=== PATIENT | female | born 1985 | race Caucasian/White ===

== ENCOUNTER 2018-07-19 12:56 | Emergency (ER) | payer SELFPAY ==
[2018-07-19 13:40] LABS: Urine Blood NEGATIVE (NEG); Urine Glucose NEGATIVE (NEG); Urine Protein NEGATIVE (NEG); Urine Specific Gravity 1.015 (1.005-1.030); Urine pH 8.5 (5.0-7.0)
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
[2018-07-19] MEDS ORDERED: IBUPROFEN 400 MG TAB ONE (14:21)
--- NOTE | 2018-07-19 15:26 | EKG ---
Test Date: 2018-07-19 Test Time: 13:42:39 Hemodialysis Rn: RAMON MEASUREMENT RESULTS: Intervals: Rate: 76 LA: 146 QRSD: 78 QT: 386 QTc: 434 [place]: P: 5 LA: 146 QRS: 36 T: 34 INTERPRETIVE STATEMENTS: Normal sinus rhythm Cannot rule out Anterior infarct, age undetermined Abnormal ECG No previous ECG available for comparison Electronically Signed On 07-19-18 15:25:13 CDT by Artemio Stevenson
== END 2018-07-19 14:29 | disposition home or self-care (01) ==
LOC: ER 12:56
DX: M54.2 Cervicalgia (principal); V59.9XXA Occupant (driver) (passenger) of pick-up truck or van injured in unspecified traffic accident, initial encounter; Z88.1 Allergy status to other antibiotic agents; Z88.8 Allergy status to other drugs, medicaments and biological substances
CPT/HCPCS: 70450; 72125; 81003; 81025; 93005; 99284

== ENCOUNTER 2019-04-25 16:53 | Emergency (ER) | payer OTHER, SELFPAY ==
--- OUTSIDE RECORDS SUMMARY | 2019-04-25 16:56 | XMS REPORT ---
:1985 [facility] Address [address] [place] [address] Dr. Delarosa [address] [place] [id number] Care Team Providers Name Role Phone Unavailable Unavailable Unavailable Problems This patient has no known problems. Allergies, Adverse Reactions, Alerts This patient has no known allergies or adverse reactions. Medications This patient has no known medications.
[2019-04-25 17:13] LABS: Absolute Lymphocytes (CBC) 1.7 K/uL (0.7-4.9); Basophils % 0.5 % (0-1.3); Hematocrit 39.2 % (36.0-45.0); Lymphocytes % 25.7 % (15.3-44.8); MPV 8.2 fL (7.6-11.3); Monocytes % 9.7 % (3.3-12.3); RBC Red Blood Cell Count 4.55 M/uL (3.86-4.86)
[2019-04-25 17:15] LABS: Protime INR 1.02
[2019-04-25 17:38] LABS: ALT/SGPT 29 U/L (12-78); AST/SGOT 10 U/L (15-37); Albumin 3.7 g/dL (3.4-5.0); Alkaline Phosphatase 129 U/L (45-117); BUN Blood Urea Nitrogen 9 mg/dL (7-18); Bicarbonate 21 mmol/L (21-32); Bilirubin Direct < 0.1 mg/dL (0-0.2); Bilirubin Total 0.3 mg/dL (0.2-1.0); Glucose Level 105 mg/dL (74-106); Magnesium 2.4 mg/dL (1.8-2.4); NT PRO-BNP 124 pg/mL (<125); Potassium 3.3 mmol/L (3.5-5.1); Protein, Total 7.3 g/dL (6.4-8.2); Sodium Level 140 mmol/L (136-145); Troponin (Emerg Dept Use Only) < 0.02 ng/mL (0.0-0.045)
[2019-04-25 17:39] LABS: Barbiturates NEGATIVE (NEGATIVE); Benzodiazepines NEGATIVE (NEGATIVE); Cocaine NEGATIVE (NEGATIVE); METHAMPHETAM NEGATIVE (NEGATIVE); Methadone NEGATIVE (NEGATIVE); Opiates NEGATIVE (NEGATIVE); Phencyclidine NEGATIVE (NEGATIVE); THC Cannibis NEGATIVE (NEGATIVE)
[2019-04-25 17:58] LABS: Urine Bacteria <20 /HPF (<20); Urine RBC <5 /HPF (NONE SEEN)
[2019-04-25 17:59] LABS: Urine Culture Reflex Order NOT NEEDED
--- NOTE | 2019-04-25 18:04 | RAD REPORT ---
EXAM DESCRIPTION: RAD - Chest Single View - 04/25/2019 5:35 pm CLINICAL HISTORY: Chest pain COMPARISON: None. TECHNIQUE: AP portable chest image was obtained 1712 hours . FINDINGS: Lungs are clear. Heart and vasculature are normal. No measurable pleural effusion and no p neumothorax. No acute bony abnormality seen. No acute aortic findings suspected. IMPRESSION: No acute cardiopulmonary process.
[2019-04-25] MEDS ORDERED: POTASSIUM 25 MEQ EFFERV TAB ONE (18:14)
[2019-04-25 19:20] LABS: Urine Blood NEGATIVE (NEG); Urine Glucose NEGATIVE (NEG); Urine Protein NEGATIVE (NEG); Urine Specific Gravity 1.015 (1.005-1.030); Urine pH >8.5 (5.0-7.0)
--- NOTE | 2019-04-25 20:59 | ER ---
Nurse's Notes [facility] Name: Sunshine Evans Age: 33 yrs Sex: Female : 1985 Arrival Date: 04/25/2019 Time: 16:55 Bed 27 Private MD: Diagnosis: Chest pain, unspecified Presentation: 04/25 16:55 Presenting complaint: EMS states: Sternal chest pain that started today just HEEL BREASTER with aj nausea. EMS reports normal 12 lead EKG. Given Nitro 0.4 mg SL and Zofran 8 mg. Reports nausea and chest pain resolved. Transition of care: patient was not received from another setting of care. Onset of symptoms was April 25, 2019. Risk Assessment: Do you want to hurt yourself or someone else? Patient reports no desire to harm self or others. Initial Sepsis Screen: Does the patient meet any 2 criteria? No. Patient's initial sepsis screen is negative. Does the patient have a suspected source of infection? No. Patient's initial sepsis screen is negative. 16:55 Method Of Arrival: EMS: [facility] 16:55 Acuity: MIRANDA 3 aj 17:00 Care prior to arrival: Medication(s) given: Nitroglycerin, 0.4 mg SL x 1, zofran 8 mg, aj IV initiated. 18 GA, in the right antecubital area. Triage Assessment: 16:57 General: Appears in no apparent distress. comfortable, Behavior is calm, cooperative, aj appropriate for age. Pain: Denies pain. 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 - Social history:: Smoking status: Patient/guardian denies using tobacco. - Ebola Screening: : Patient negative for fever greater than or equal to 101.5 degrees Fahrenheit, and additional compatible Ebola Virus Disease symptoms Patient denies exposure to infectious person Patient denies travel to an Ebola-affected area in the 21 days before illness onset No symptoms or risks identified at this time. Screenin:25 Abuse screen: Denies threats or abuse. Denies injuries from another. Nutritional mg2 screening: No deficits noted. Tuberculosis screening: No symptoms or risk factors identified. Fall Risk IV access (20 points). Assessment: 17:25 General: Appears in no apparent distress. comfortable, Behavior is calm, cooperative. mg2 Pain: Complains of pain in chest Pain does not radiate. Quality of pain is described as aching. Neuro: Level of Consciousness is awake, alert, obeys commands, Oriented to person, place, time, situation. Cardiovascular: Capillary refill < 3 seconds Patient's skin is warm and dry. Respiratory: Airway is patent Respiratory effort is even, unlabored, Respiratory pattern is regular, symmetrical. GI: Reports nausea. : No signs and/or symptoms were reported regarding the genitourinary system. EENT: No signs and/or symptoms were reported regarding the EENT system. Derm: Skin is intact, is healthy with good turgor, Skin is pink, warm \T\ dry. normal. Musculoskeletal: Circulation, motion, and sensation intact. Capillary refill < 3 seconds. 18:06 Reassessment: patient informed about the need to repeat the cardiac enzyme and ekg \T\ mg2 1945. 19:06 General: Appears in no apparent distress. Behavior is calm, cooperative. Pain: Denies fu pain. Neuro: Level of Consciousness is awake, alert, obeys commands, Oriented to person, place, time, situation. Respiratory: Airway is patent Respiratory effort is even, unlabored, Respiratory pattern is regular, symmetrical. 19:30 Pain: Complains of pain in chest Pain currently is 6 out of 10 on a pain scale. fu Vital Signs: 16:59 BP 104 / 56; Pulse 71; Resp 16; Temp 98.1; Pulse Ox 100% on R/A; Weight 90.72 kg; aj Height 5 ft. 6 in. (167.64 cm); 18:06 BP 110 / 64; Pulse 68; Resp 18; Pulse Ox 100% on R/A; Pain 2/10; mg2 19:00 BP 119 / 70; Pulse 86; Resp 16; Pulse Ox 100% on R/A; fu 20:00 BP 111 / 69; Pulse 79; Resp 18; Pulse Ox 100% ; Pain 6/10; fu 21:00 BP 110 / 63; Pulse 77; Resp 18; Pulse Ox 99% ; Pain 6/10; fu 16:59 Body Mass Index 32.28 (90.72 kg, 167.64 cm) ED Course: 16:55 Patient arrived in ED. aj 16:55 L[facility] Hoffmann [facility]-C [facility]. snw 16:55 Kevin Cleary MD is Attending Physician. snw 16:57 Triage completed. aj 16:57 Nithin Canas, RN is Primary Nurse. mg2 16:59 Arm band placed on right wrist. Patient placed in an exam room, on a stretcher. aj 17:04 Initial lab(s) drawn, by me, sent to lab. EKG done. Maintain EMS IV. Dressing intact. jp3 Good blood return noted. Site clean \T\ dry. Gauge \T\ site: 20gauge in Right A/C. Patient maintains SpO2 saturation greater than 95% on room air. 17:05 Bed in low position. Call light in reach. Side rails up X 1. Warm blanket given. Verbal jp3 reassurance given. hospital monitor on. Pulse ox on. NIBP on. 17:11 EKG done, by ag equipment field service technician. reviewed by Lidia BROWNING. at1 17:15 Urine collected: clean catch specimen, clear, yesenia colored. jp3 17:26 No provider procedures requiring assistance completed. mg2 17:36 XRAY Chest (1 view) In Process Unspecified. EDMS 19:38 patient requesting for warm blanket, provided. fu 19:42 Lidia notified that patient complaining of chest pain, EKG done. fu 19:44 Primary Nurse role handed off by Nithin Canas, RN fu 19:44 Jarett Altamirano, MARÍA is Primary Nurse. fu 21:00 Patient has correct armband on for positive identification. Bed in low position. Call fu light in reach. Side rails up X2. 21:10 IV discontinued, intact, bleeding controlled, No redness/swelling at site. Pressure jp3 dressing applied. Administered Medications: 18:05 Drug: Potassium Effervescent Tablet 50 mEq Route: PO; mg2 18:55 Follow up: Response: No adverse reaction mg2 18:20 CANCELLED (error): fentaNYL (PF) 25 mcg IVP once snw 21:12 Drug: Simethicone 120 mg Route: PO; fu 21:20 Follow up: Response: No adverse reaction fu 21:12 Drug: Tylenol 650 mg Route: PO; fu 21:20 Follow up: Response: No adverse reaction fu Outcome: 20:58 Discharge ordered by MD. snw 21:26 Discharged to home ambulatory. fu 21:26 Condition: stable 21:26 Discharge instructions given to patient, Instructed on discharge instructions, follow up and referral plans. Demonstrated understanding of instructions, follow-up care, medications, Prescriptions given X 1. 21:28 Patient left the ED. fu Signatures: Dispatcher [employer] EDMS Mariaa Oliva, RN RN Lidia Judge, AIRCRAFT SYSTEMS REPAIRER-C AIRCRAFT SYSTEMS REPAIRER-Csnw Mariaa Stanford, job press feeder EKG Tat1 Jarett Altamirano RN RN Nithin Canas RN MAR[place]A [facility] [place] Cosme jp3 Corrections: (The following items were deleted from the chart) 17:01 16:55 Care prior to arrival: None. gisselle pitts 19:39 19:37 warm blanket, provided with one. fu fu
--- NOTE | 2019-04-25 20:59 | EDPHYS ---
Physician Documentation [facility] Name: Sunshine Evans Age: 33 yrs Sex: Female : 1985 Arrival Date: 04/25/2019 Time: 16:55 Bed 27 Private MD: ED Physician Kevin Cleary HPI: 04/25 17:26 This 33 yrs old Female presents to ER via EMS with complaints of Chest Pain > snw 29 y/o, Anxiety. 17:26 The patient or guardian reports chest pain that is located primarily in the anterior snw chest wall, left. The pain radiates to the left scapula. Associated signs and symptoms: Pertinent positives: nausea. The chest pain is described as a pressure. Duration: The patient or guardian reports a single episode, that is now resolved. Modifying factors: The symptoms are alleviated by ASA, NTG. Severity of pain: At its worst the pain was moderate severe. EMS care prior to arrival includes: aspirin, nitroglycerin. It is unknown whether or not the patient has had similar symptoms in the past. recent results of abnormal LFT's and low HDL. No family hx of early heart disease. 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 - Social history:: Smoking status: Patient/guardian denies using tobacco. - Ebola Screening: : Patient negative for fever greater than or equal to 101.5 degrees Fahrenheit, and additional compatible Ebola Virus Disease symptoms Patient denies exposure to infectious person Patient denies travel to an Ebola-affected area in the 21 days before illness onset No symptoms or risks identified at this time. ROS: 17:24 Constitutional: Negative for fever, chills, and weight loss, Eyes: Negative for injury, snw pain, redness, and discharge, ENT: Negative for injury, pain, and discharge, Neck: Negative for injury, pain, and swelling, Respiratory: Negative for shortness of breath, cough, wheezing, and pleuritic chest pain, Abdomen/GI: Negative for abdominal pain, vomiting, diarrhea, and constipation, + nausea Back: Negative for injury and pain, : Negative for injury, bleeding, discharge, and swelling, MS/Extremity: Negative for injury and deformity, Skin: Negative for injury, rash, and discoloration, Neuro: Negative for headache, weakness, numbness, tingling, and seizure. 17:24 Cardiovascular: Positive for chest pain, of the left supraclavicular area, left clavicle and anterior aspect of left upper chest. Exam: 17:24 Constitutional: This is a well developed, well nourished patient who is awake, alert, snw and in no acute distress. Head/Face: Normocephalic, atraumatic. Eyes: Pupils equal round and reactive to light, extra-ocular motions intact. Lids and lashes normal. Conjunctiva and sclera are non-icteric and not injected. Cornea within normal limits. Periorbital areas with no swelling, redness, or edema. ENT: Nares patent. No nasal discharge, no septal abnormalities noted. Tympanic membranes are normal and external auditory canals are clear. Oropharynx with no redness, swelling, or masses, exudates, or evidence of obstruction, uvula midline. Mucous membranes moist. Neck: Trachea midline, no thyromegaly or masses palpated, and no cervical lymphadenopathy. Supple, full range of motion without nuchal rigidity, or vertebral point tenderness. No Meningismus. Chest/axilla: Normal chest wall appearance and motion. Nontender with no deformity. No lesions are appreciated. Cardiovascular: Regular rate and rhythm with a normal S1 and S2. No gallops, murmurs, or rubs. Normal PMI, no JVD. No pulse deficits. Respiratory: Lungs have equal breath sounds bilaterally, clear to auscultation and percussion. No rales, rhonchi or wheezes noted. No increased work of breathing, no retractions or nasal flaring. Abdomen/GI: Soft, non-tender, with normal bowel sounds. No distension or tympany. No guarding or rebound. No evidence of tenderness throughout. Back: No spinal tenderness. No costovertebral tenderness. Full range of motion. Skin: Warm, dry with normal turgor. Normal color with no rashes, no lesions, and no evidence of cellulitis. MS/ Extremity: Pulses equal, no cyanosis. Neurovascular intact. Full, normal range of motion. Neuro: Awake and alert, GCS 15, oriented to person, place, time, and situation. Cranial nerves II-XII grossly intact. Motor strength 5/5 in all extremities. Sensory grossly intact. Cerebellar exam normal. Normal gait. Psych: Awake, alert, with orientation to person, place and time. Behavior, mood, and affect are within normal limits. 17:30 ECG was reviewed by the Attending Physician. snw Vital Signs: 16:59 BP 104 / 56; Pulse 71; Resp 16; Temp 98.1; Pulse Ox 100% on R/A; Weight 90.72 kg; aj Height 5 ft. 6 in. (167.64 cm); 18:06 BP 110 / 64; Pulse 68; Resp 18; Pulse Ox 100% on R/A; Pain 2/10; mg2 19:00 BP 119 / 70; Pulse 86; Resp 16; Pulse Ox 100% on R/A; fu 20:00 BP 111 / 69; Pulse 79; Resp 18; Pulse Ox 100% ; Pain 6/10; fu 21:00 BP 110 / 63; Pulse 77; Resp 18; Pulse Ox 99% ; Pain 6/10; fu 16:59 Body Mass Index 32.28 (90.72 kg, 167.64 cm) aj MDM: 17:02 Patient medically screened. snw 17:28 HEART Score: History: Moderately Suspicious (1), ECG: Normal (0), Age: < or = 45 years snw (0), Risk Factors: No Risk Factors Known (0). Data reviewed: vital signs, nurses notes. Data interpreted: Pulse oximetry: on room air is 100 %. Interpretation: normal. Counseling: I had a detailed discussion with the patient and/or guardian regarding: the historical points, exam findings, and any diagnostic results supporting the discharge/admit diagnosis. 20:59 HEART Score: Troponin: < or = 1 x Normal Limit (0). snw 07 16:57 Order name: Basic Metabolic Panel mg2 04/25 16:58 Order name: CBC with Diff mg2 04/25 16:58 Order name: LFT's mg2 04/25 16:58 Order name: Magnesium; Complete Time: 17:50 mg2 04/25 16:58 Order name: NT PRO-BNP; Complete Time: 17:50 mg2 04/25 16:58 Order name: PT-INR; Complete Time: 17:23 mg2 04/25 16:58 Order name: Troponin (emerg Dept Use Only); Complete Time: 17:50 mg2 04/25 16:58 Order name: Basic Metabolic Panel; Complete Time: 17:50 EDMS 04/25 16:58 Order name: CBC with Automated Diff; Complete Time: 17:23 EDMS 04/25 16:58 Order name: Liver (Hepatic) Function; Complete Time: 17:50 EDMS 04/25 17:02 Order name: Urine Drug Screen; Complete Time: 17:50 snw 04/25 17:02 Order name: Urine Culture snw 04/25 17:02 Order name: Urine Microscopic Only; Complete Time: 18:00 snw 04/25 17:27 Order name: Urine Dipstick--Ancillary (enter results); Complete Time: 19:45 em1 04/25 16:58 Order name: XRAY Chest (1 view); Complete Time: 18:07 mg2 04/25 16:58 Order name: EKG; Complete Time: 16:59 mg2 04/25 16:58 Order name: Cardiac monitoring; Complete Time: 17:24 mg2 04/25 16:58 Order name: EKG - Nurse/Tech; Complete Time: 17:24 mg2 04/25 16:58 Order name: IV Saline Lock; Complete Time: 17:24 mg2 04/25 16:58 Order name: Labs collected and sent; Complete Time: 17:24 mg2 04/25 16:58 Order name: O2 Per Protocol; Complete Time: 17:24 mg2 04/25 16:58 Order name: O2 Sat Monitoring; Complete Time: 17:24 mg2 04/25 17:02 Order name: Urine Dipstick-Ancillary (obtain specimen); Complete Time: 17:26 snw 04/25 17:52 Order name: Repeat Cardiac Enzymes at: at 1945 and EKG; Complete Time: 20:03 snw 04/25 20:21 Order name: Troponin (emerg Dept Use Only); Complete Time: 20:56 snw Administered Medications: 18:05 Drug: Potassium Effervescent Tablet 50 mEq Route: PO; mg2 18:55 Follow up: Response: No adverse reaction mg2 18:20 CANCELLED (error): fentaNYL (PF) 25 mcg IVP once snw 21:12 Drug: Simethicone 120 mg Route: PO; fu 21:20 Follow up: Response: No adverse reaction fu 21:12 Drug: Tylenol 650 mg Route: PO; fu 21:20 Follow up: Response: No adverse reaction fu Disposition: 04/25/19 20:58 Discharged to Home. Impression: Chest pain, unspecified. - Condition is Stable. - Discharge Instructions: Nonspecific Chest Pain, Potassium Content of Foods, Gastroesophageal Reflux Disease, Adult, Aspirin and Your Heart. - Prescriptions for Pepcid 20 mg Oral Tablet - take 1 tablet by ORAL route once daily; 20 tablet. - Work release form, Family Work Release, Medication Reconciliation Form, Thank You Letter, Antibiotic Education, Prescription Opioid Use form. - Follow up: Private Physician; When: 1 - 2 days; Reason: Recheck today's complaints, Continuance of care, Re-evaluation by your physician. Follow up: Emergency Department; When: As needed; Reason: Worsening of condition. - Problem is new. - Symptoms are unchanged. Addendum: 04/29/2019 12:42 Co-signature as Attending Physician, Kevin Cleary MD. m a2 Signatures: Dispatcher [employer] Mariaa Lam RN RN aj Therrien, Shelly, AISHWARYA-C MACHINE BRUSH MAKER-Csnw Jarett Altamirano RN RN fu Alzahri, Mohammad, MD MD ma2 Nithin Canas RN RN mg2 Corrections: (The following items were deleted from the chart) 04/25 17:03 17:02 Urine Test ordered. snw snw 18:20 18:19 fentaNYL (PF) 25 mcg IVP once ordered. snw snw 21:28 20:58 04/25/2019 20:58 Discharged to Home. Impression: Chest pain, unspecified. fu Condition is Stable. Forms are Medication Reconciliation Form, Thank You Letter, Antibiotic Education, Prescription Opioid Use. Follow up: Private Physician; When: 1 - 2 days; Reason: Recheck today's complaints, Continuance of care, Re-evaluation by your physician. Follow up: Emergency Department; When: As needed; Reason: Worsening of condition. Problem is new. Symptoms are unchanged. snw
[2019-04-25] MEDS ORDERED: ACETAMINOPHEN 325 MG TABLET ONE (21:17)
[2019-04-25] MEDS ORDERED: SIMETHICONE 80 MG TAB ONE (21:17)
--- NOTE | 2019-04-26 06:54 | EKG ---
Test Date: 2019-04-25 Test Time: 16:59:34 Kit Assembler: MARTINEZ MEASUREMENT RESULTS: Intervals: Rate: 70 TN: 158 QRSD: 84 QT: 404 QTc: 436 [place]: P: 25 TN: 158 QRS: 73 T: 40 INTERPRETIVE STATEMENTS: Normal sinus rhythm Normal ECG Compared to ECG 07/19/2018 13:42:39 Myocardial infarct finding no longer present Electronically Signed On 04-26-19 06:53:10 CDT by Artemio Stevenson
--- NOTE | 2019-04-27 07:05 | EKG ---
Test Date: 2019-04-25 Test Time: 19:29:50 Integration Aide: NURIA MEASUREMENT RESULTS: Intervals: Rate: 77 NH: 150 QRSD: 74 QT: 386 QTc: 436 [place]: P: 17 NH: 150 QRS: 51 T: 37 INTERPRETIVE STATEMENTS: Normal sinus rhythm Normal ECG Compared to ECG 04/25/2019 16:59:34 No significant changes Electronically Signed On 04-27-19 07:02:37 CDT by Artemio Stevenson
== END 2019-04-25 21:28 | disposition home or self-care (01) ==
LOC: ER 16:53
DX: R07.9 Chest pain, unspecified (principal); F41.9 Anxiety disorder, unspecified; Z88.1 Allergy status to other antibiotic agents; Z88.8 Allergy status to other drugs, medicaments and biological substances; Z91.040 Latex allergy status; Z91.048 Other nonmedicinal substance allergy status
CPT/HCPCS: 36415; 71045; 80048; 80076; 80307; 81003; 81015; 83735; 83880; 84484; 85025; 85610; 87086; 87088; 93005; 99285

== ENCOUNTER 2023-02-26 14:59 | Emergency (ER) | payer OTHER ==
--- OUTSIDE RECORDS SUMMARY | 2023-02-26 15:09 | XMS REPORT | Continuity of Care Document ---
:1985 Author Organization [facility] t Address [address] [place] [address] [address] [place] [address] Care Team Providers Name Role Phone Kalpana Wood Primary Care Physician PABLO HOLM Attending Clinician Unavailable SHAHEED COSTELLO Attending Clinician Unavailable Shaheed Costello MD Attending Clinician Pablo Holm MD Attending Clinician Lola Greenberg Attending Clinician Eleanor Headley PhD Attending Clinician ELEANOR HEADLEY Attending Clinician Unavailable Leia Toscano Attending Clinician 1, [facility] Attending Clinician Unavailable Doctor Unassigned, [place] Attending Clinician Unavailable Pob, [facility] Lab Main Attending Clinician Unavailable Kalpana Wood Attending Clinician KALPANA GODWIN Attending Clinician Unavailable Lab, Ang - Db Attending Clinician Unavailable Caitlyn De Jesus PA-C Attending Clinician CAITLYN DE JESUS Attending Clinician Unavailable MANDY RAMEY Attending Clinician Unavailable SAMMY CHESTER Attending Clinician Unavailable SAMMY CHESTER Attending Clinician Unavailable Sammy Chester MD Attending Clinician Albert Russell MD Attending Clinician MARLA MORTON Attending Clinician Unavailable Christiana Calle RN Attending Clinician Unavailable KATHY BUCKLEY Attending Clinician Unavailable KATHY BUCKLEY Attending Clinician Unavailable ALBERT RUSSELL Attending Clinician Unavailable ALBERT RUSSELL Attending Clinician Unavailable Marla Blackburn Attending Clinician 1, [facility] Lab Attending Clinician Unavailable Candida Diaz RN Attending Clinician Unavailable YOGESH RAMOS Attending Clinician Unavailable Yogesh Mills Attending Clinician [facility] Attending Clinician Unavailable 1, [facility] Sleep Lab Bed Attending Clinician Unavailable Anusha Low LVN Attending Clinician Unavailable Kathy Buckley DO Attending Clinician [facility] Sleep Lab Attending Clinician Unavailable JOSEF LOPEZ Attending Clinician Unavailable Josef Lopez MD Attending Clinician Only, Devonte Vanegas Test Attending Clinician Unavailable Mariaa España MD Attending Clinician MARIAA ESPAÑA Attending Clinician Unavailable 2, [facility] Lab Attending Clinician Unavailable CARLITO MEJIAS Attending Clinician Unavailable Carlito Mejias DO Attending Clinician Steph Benedict MD Attending Clinician SULLY ULLOA Attending Clinician Unavailable Sully Pino Attending Clinician STEPH BENEDICT Attending Clinician Unavailable POLO PERSAUD Attending Clinician Unavailable Polo Zuniga Attending Clinician NICHOLE HUBBARD Attending Clinician Unavailable [facility] Attending Clinician Unavailable Lincoln White MD Attending Clinician LINCOLN WHITE III Attending Clinician Unavailable JANY LAZAR Attending Clinician Unavailable Jany Lazar DO Attending Clinician Juan Dos Santos MD Attending Clinician JUAN DOS SANTOS Attending Clinician Unavailable Damir Peña PA-C Attending Clinician DAMIR PEÑA Attending Clinician Unavailable Ryan Orozco Attending Clinician Pcp-Lab Attending Clinician Unavailable LOLA SOLIS Attending Clinician Unavailable Lab, [facility] Pob I Attending Clinician Unavailable Pamela Patel Attending Clinician Josué Negron Attending Clinician Provider, [facility] Care Attending Clinician Unavailable Lola Rapjut Attending Clinician Keon Roe DO Attending Clinician Doris Rivera Attending Clinician Too Ruiz Attending Clinician TOO CHILEL Attending Clinician Unavailable Johana Mobley MD Attending Clinician Nurse, [facility] Attending Clinician Unavailable MONIQUE FERRARA Attending Clinician Unavailable Monique Ferrara MD Attending Clinician [phone] JOHANA MOBLEY Attending Clinician Unavailable Pob1, [facility] Attending Clinician Unavailable PAMELA HOSKINS Attending Clinician Unavailable Idc-Lab Attending Clinician Unavailable ESTHER FELTON Attending Clinician Unavailable Esther Felton MD Attending Clinician Nurse, [facility] Pob I Attending Clinician Unavailable Timothy Goldstein Attending Clinician SAMMY CHESTER Admitting Clinician Unavailable KALPANA GODWIN Admitting Clinician Unavailable SULLY ULLOA Admitting Clinician Unavailable JANY LAZAR Admitting Clinician Unavailable JUAN DOS SANTOS Admitting Clinician Unavailable TOO CHILEL Admitting Clinician Unavailable Payers Payer Name Policy Type Policy Number Effective Date Expiration Date Jeronimo LEVINE [id number] 2019 00:00:00 ANTONI WASHINGTON [id number] 2022 00:00:00 Problems Condition Condition Condition Status Onset Resolution Last Treating Co mments Source Name Details Category Date Date Treatment Clinician Date Acute pain Acute pain Disease Active 2021-10 U nivers of right of right 2-14 ity of shoulder shoulder 00:00: [place] [facility] Cervicalgi Cervicalgi Disease Active 2021-10 U nivers a a 2-14 ity of 00:00: [place] [facility] Paresthesi Paresthesi Disease Active 2021-10 U nivers a a 2-14 ity of 00:00: [place] [facility] Dizziness Dizziness Disease Active 2021-10 Uni vers 2-14 ity of 00:00: [place] [facility] Acute Acute Disease Active 2021-10 Univers non-recurr non-recurr 0-05 it y of ent ent 00:00: [place] maxillary maxillary 00 Medi juice sinusitis sinusitis Bran ch Allergy, Allergy, Disease Active Unive rs initial initial 9-13 ity of encounter encounter 00:00: [facility] s [facility] Branch Class 2 Class 2 Disease Active Univers obesity obesity 8-09 ity of due to due to 00:00: [place] excess excess 00 Medical calories calories Branch with body with body mass index mass index (BMI) of (BMI) of 35.0 to 35.0 to 35.9 in 35.9 in adult, adult, unspecifie unspecifie d whether d whether serious serious comorbidit comorbidit y present y present Orthopnea Orthopnea Disease Active Uni vers 8-09 ity of 00:00: [place] [facility] Nausea Nausea Disease Active Univers 8-09 ity of 00:00: [place] [facility] Nasal Nasal Disease Active Univers congestion congestion 8-09 it y of 00:00: Medical Branch Pain of Pain of Disease Active Univers left heel left heel 7-26 ity of 00:00: [place] [facility] Hx of Hx of Disease Active Univers hypokalemi hypokalemi 6-13 it y of a a 00:00: Medical Branch Hx of iron Hx of iron Disease Active U nivers deficiency deficiency 6-13 it y of anemia anemia 00:00: [place] 00 [facility] Disease Active Unive rs discharge discharge 6-13 ity of follow-up [place] 00:[place] [facility] Vitamin D Vitamin D Disease Active Uni vers deficiency deficiency 4-05 it y of 00:00: [place] [facility] Fatty Fatty Disease Active Univers liver liver 3-31 ity of 00:00: Medical Branch Onychomyco Onychomyco Disease Active U nivers sis of sis of 3-31 ity of toenail toenail 00:00: [place] [facility] Fibromyalg Fibromyalg Disease Active U nivers ia ia 8-13 ity of 00:00: [place] [facility] Chronic Chronic Disease Active 2019- Univers pain pain 8-13 ity of syndrome syndrome 00:00: [place] [facility] Snoring Snoring Disease Active Univers 8-13 ity of 00:00: [place] [facility] Mixed Mixed Disease Active Univers hyperlipid hyperlipid 8-13 it y of emia emia 00:00: [place] [facility] 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 1-29 ity of 00:00: [place] [facility] Hypoglycem Hypoglycem Disease Active U nivers ia ia 1-21 ity of 00:00: [place] [facility] 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 Formattin g of this note might be different from the original. With phobias, fear of Dyslipidem Dyslipidem Disease Active U nivers ia ia 06-26 ity of 00:00: [place] [facility] Panic Panic Disease Active Univers disorder disorder 06-26 ity of without without 00:00: [place] agoraphobi agoraphobi 00 Me dical a a Branch Allergies, Adverse Reactions, Alerts Allergy Allergy Status Severity Reaction(s) Onset Inactive Treating Comm ents Source Name Type Date Date Clinician PREDNISO DRUG Active Anxiety Univers NE INGREDI 03-11 ity of 00:00: [place] 00 Medical Branch Predniso Propensi Active Anxiety Unive rs ne ty to 03-11 ity of adverse 00:00: [place] reaction 00 Medical s Branch ALBUTERO DRUG Active Unknown-Cmnt 2017-10 Un phillip L INGREDI 12-22 ity of 00:00: [place] 00 Medical Branch Albutero Propensi Active Unknown - 2017-10 T[place] U nivers l ty to See comments 2 thru out it y of adverse 00:00: body [place] reaction 00 Medical s Branch AMOXICIL DRUG Active Other-Cmnt Univ ers CLEMENCIA INGREDI 05-03 ity of 00:00: [place] 00 Medical Branch Amoxicil Propensi Active Other - See Dizzines s Univers clemencia ty to comments 7- , could ity of adverse 00:00: not [place] reaction 00 focus. Medical s Branch DILL OIL DRUG Active Anaphylaxis 2018-0 Uni vers INGREDI 02-23 ity of 00:00: [place] 00 Medical Branch Dill Oil Propensi Active Anaphylaxis 2018-0 U nivers ty to 02-23 ity of adverse 00:00: [place] reaction 00 Medical s Branch STRAWBER DRUG Active High Anaphylaxis 2018-0 Uni vers RY INGREDI 11-22 ity of 00:00: [place] 00 Medical Branch LATEX DRUG Active Rash 2018-0 Univers INGREDI 11-22 ity of 00:00: [place] 00 Medical Branch Latex Drug Active Rash 2018-0 Univers Allergy 11-22 ity of 00:00: [place] 00 Medical Branch Strawber Propensi Active Anaphylaxis 2018-0 U nivers ry ty to 11-22 ity of adverse 00:00: [place] reaction 00 Medical s Branch Azithrom Drug Active Unknown - 0 Unive rs ycin Allergy See comments 05-20 ity of 00:00: [place] 00 Medical Branch Nitrofur Drug Active Unknown - 2005-0 Unive rs antoin Allergy See comments 05-20 ity of Monohyd/ 00:00: [place] M-Cryst 00 Medical Branch AZITHROM DRUG Active Rash 0 Univers YCIN INGREDI 05-20 ity of 00:00: [place] 00 Medical Branch NITROFUR DRUG Active Rash 2005- Univers ANTOIN 05-20 ity of MONOHYD/ 00:00: [place] M-CRYST 00 Medical Branch Social History Social Habit Start Date Stop Date Quantity Comments Source History SDOH University o f Alcohol Comment [place] [facility] History SDOH University o f Alcohol Std [place] [facility] Drinks Branch History SDOH University o f Alcohol Binge [place] [facility] Exposure to 2023-02-12 2023-02-22 Not sure University of SARS-CoV-2 00:00:00 13:09:00 [place] Medical (event) Branch Alcohol intake 2023-01-12 2023-01-12 Current University of 00:00:00 00:00:00 non-drinker of [facility] alcohol (finding) Branch Tobacco use and 2022-05-19 2022-05-19 Smokeless tobacco Un iversity of exposure 00:00:00 00:00:00 non-user [facility] History [facility] 2019-04-10 2019-04-10 1 University o f Alcohol Frequency 00:00:00 00:00:00 [facility] edical [place] Sex [birth year] Universit y of 00:00:00 [facility]:00:00 [facility] Smoking Status Start Date Stop Date Source Never smoked tobacco [facility] Medications Ordered Filled Start Stop Current Ordering Indication Dosage Frequency Signature Comments Components Source Medication Medication Date Date Medication? Clinician (SIG) Name Name diazePAM 2 2022- Yes [id number] 2mg Take 1 Univers mg tablet 02-24-18 tablet by ity of 00:00: 04:59 mouth at [place] 00 :00 bedtime as Medical needed Branch (migraine) for up to 14 days. valACYclovi 2022- Yes [id number] 1g Take 1 Univers r 1 gram 02-22 tablet by ity o f tablet 00:00: 04:59 mouth in [place] 00 :00 the Medical morning Branch for 30 days. valACYclovi 2022- Yes [id number] 1g Take 1 Univers r 1 gram -03-25 tablet by ity o f tablet 00:00: 04:59 mouth in [place] 00 :00 the Medical morning Branch for 30 days. cyclobenzap 2021-10 Yes [id number] 5mg Take 1 Univers rine 5 mg 2-14 tablet by ity o f tablet 00:00: mouth in [place] 00 the Medical morning Branch and 1 tablet at noon and 1 tablet in the evening. montelukast 2021-10 Yes [id number] 10mg Take 1 Univers (SINGULAIR) 2-14 tablet by ity of 10 mg 00:00: mouth in [place] tablet 00 the Medical morning. Branch cyclobenzap 2021-10 Yes [id number] 5mg Take 1 Univers rine 5 mg 2-14 tablet by ity o f tablet 00:00: mouth in [place] 00 the Medical morning Branch and 1 tablet at noon and 1 tablet in the evening. montelukast 2021-10 Yes [id number] 10mg Take 1 Univers (SINGULAIR) 2-14 tablet by ity of 10 mg 00:00: mouth in [place] tablet 00 the Medical morning. Branch cyclobenzap 2021-10 Yes [id number] 5mg Take 1 Univers rine 5 mg 2-14 tablet by ity o f tablet 00:00: mouth in [place] 00 the Medical morning Branch and 1 tablet at noon and 1 tablet in the evening. montelukast 2021-10 Yes [id number] 10mg Take 1 Univers (SINGULAIR) 2-14 tablet by ity of 10 mg 00:00: mouth in [place] tablet 00 the Medical morning. Branch cyclobenzap 2021-10 Yes [id number] 5mg Take 1 Univers rine 5 mg 2-14 tablet by ity o f tablet 00:00: mouth in [place] 00 the Medical morning Branch and 1 tablet at noon and 1 tablet in the evening. montelukast 2021-10 Yes [id number] 10mg Take 1 Univers (SINGULAIR) 2-14 tablet by ity of 10 mg 00:00: mouth in [place] tablet 00 the Medical morning. Branch cyclobenzap 2021-10 Yes [id number] 5mg Take 1 Univers rine 5 mg 2-14 tablet by ity o f tablet 00:00: mouth in [place] 00 the Medical morning Branch and 1 tablet at noon and 1 tablet in the evening. montelukast 2021-10 Yes [id number] 10mg Take 1 Univers (SINGULAIR) 2-14 tablet by ity of 10 mg 00:00: mouth in [place] tablet 00 the Medical morning. Branch cyclobenzap 2021-10 Yes [id number] 5mg Take 1 Univers rine 5 mg 2-14 tablet by ity o f tablet 00:00: mouth in [place] 00 the Medical morning Branch and 1 tablet at noon and 1 tablet in the evening. montelukast 2021-10 Yes [id number] 10mg Take 1 Univers (SINGULAIR) 2-14 tablet by ity of 10 mg 00:00: mouth in [place] tablet 00 the Medical morning. Branch cyclobenzap 2021-10 Yes [id number] 5mg Take 1 Univers rine 5 mg 2-14 tablet by ity o f tablet 00:00: mouth in [place] 00 the Medical morning Branch and 1 tablet at noon and 1 tablet in the evening. montelukast 2021-10 Yes [id number] 10mg Take 1 Univers (SINGULAIR) 2-14 tablet by ity of 10 mg 00:00: mouth in [place] tablet 00 the morning. Branch cyclobenzap 2021-10 Yes [id number] 5mg Take 1 Univers rine 5 mg 2-14 tablet by ity o f tablet 00:00: mouth in [place] 00 the Medical morning Branch and 1 tablet at noon and 1 tablet in the evening. montelukast 2021-10 Yes [id number] 10mg Take 1 Univers (SINGULAIR) 2-14 tablet by ity of 10 mg 00:00: mouth in [place] tablet 00 the morning. Branch cyclobenzap 2021-10 Yes [id number] 5mg Take 1 Univers rine 5 mg 2-14 tablet by ity o f tablet 00:00: mouth in [place] 00 the Medical morning Branch and 1 tablet at noon and 1 tablet in the evening. montelukast 2021-10 Yes [id number] 10mg Take 1 Univers (SINGULAIR) 2-14 tablet by ity of 10 mg 00:00: mouth in [place] tablet 00 the Medical morning. Branch cyclobenzap 2021-10 Yes [id number] 5mg Take 1 Univers rine 5 mg 2-14 tablet by ity o f tablet 00:00: mouth in [place] 00 the Medical morning Branch and 1 tablet at noon and 1 tablet in the evening. montelukast 2021-10 Yes [id number] 10mg Take 1 Univers (SINGULAIR) 2-14 tablet by ity of 10 mg 00:00: mouth in [place] tablet 00 the Medical morning. Branch cyclobenzap 2021-10 Yes [id number] 5mg Take 1 Univers rine 5 mg 2-14 tablet by ity o f tablet 00:00: mouth in [place] 00 the Medical morning Branch and 1 tablet at noon and 1 tablet in the evening. montelukast 2021-10 Yes [id number] 10mg Take 1 Univers (SINGULAIR) 2-14 tablet by ity of 10 mg 00:00: mouth in [place] tablet 00 the Medical morning. Branch cyclobenzap 2021-10 Yes [id number] 5mg Take 1 Univers rine 5 mg 2-14 tablet by ity o f tablet 00:00: mouth in [place] 00 the Medical morning Branch and 1 tablet at noon and 1 tablet in the evening. montelukast 2021-10 Yes [id number] 10mg Take 1 Univers (SINGULAIR) 2-14 tablet by ity of 10 mg 00:00: mouth in [place] tablet 00 the Medical morning. Branch cyclobenzap 2021-10 Yes [id number] 5mg Take 1 Univers rine 5 mg 2-14 tablet by ity o f tablet 00:00: mouth in [place] 00 the Medical morning Branch and 1 tablet at noon and 1 tablet in the evening. montelukast 2021-10 Yes [id number] 10mg Take 1 Univers (SINGULAIR) 2-14 tablet by ity of 10 mg 00:00: mouth in [place] tablet 00 the Medical morning. Branch cyclobenzap 2021-10 Yes [id number] 5mg Take 1 Univers rine 5 mg 2-14 tablet by ity o f tablet 00:00: mouth in [place] 00 the Medical morning Branch and 1 tablet at noon and 1 tablet in the evening. montelukast 2021-10 Yes [id number] 10mg Take 1 Univers (SINGULAIR) 2-14 tablet by ity of 10 mg 00:00: mouth in [place] tablet 00 the Medical morning. Branch cyclobenzap 2021-10 Yes [id number] 5mg Take 1 Univers rine 5 mg 2-14 tablet by ity o f tablet 00:00: mouth in [place] 00 the Medical morning Branch and 1 tablet at noon and 1 tablet in the evening. montelukast 2021-10 Yes [id number] 10mg Take 1 Univers (SINGULAIR) 2-14 tablet by ity of 10 mg 00:00: mouth in [place] tablet 00 the Medical morning. Branch cyclobenzap 2021-10 Yes [id number] 5mg Take 1 Univers rine 5 mg 2-14 tablet by ity o f tablet 00:00: mouth in [place] 00 the Medical morning Branch and 1 tablet at noon and 1 tablet in the evening. montelukast 2021-10 Yes [id number] 10mg Take 1 Univers (SINGULAIR) 2-14 tablet by ity of 10 mg 00:00: mouth in [place] tablet 00 the Medical morning. Branch cyclobenzap 2021-10 Yes [id number] 5mg Take 1 Univers rine 5 mg 2-14 tablet by ity o f tablet 00:00: mouth in [place] 00 the Medical morning Branch and 1 tablet at noon and 1 tablet in the evening. montelukast 2021-10 Yes [id number] 10mg Take 1 Univers (SINGULAIR) 2-14 tablet by ity of 10 mg 00:00: mouth in [place] tablet 00 the morning. Branch cyclobenzap 2021-10 Yes [id number] 5mg Take 1 Univers rine 5 mg 2-14 tablet by ity o f tablet 00:00: mouth in [place] 00 the Medical morning Branch and 1 tablet at noon and 1 tablet in the evening. montelukast 2021-10 Yes [id number] 10mg Take 1 Univers (SINGULAIR) 2-14 tablet by ity of 10 mg 00:00: mouth in [place] tablet 00 the Medical morning. Branch cyclobenzap 2021-10 Yes [id number] 5mg Take 1 Univers rine 5 mg 2-14 tablet by ity o f tablet 00:00: mouth in [place] 00 the Medical morning Branch and 1 tablet at noon and 1 tablet in the evening. montelukast 2021-10 Yes [id number] 10mg Take 1 Univers (SINGULAIR) 2-14 tablet by ity of 10 mg 00:00: mouth in [place] tablet 00 the Medical morning. Branch cyclobenzap 2021-10 Yes [id number] 5mg Take 1 Univers rine 5 mg 2-14 tablet by ity o f tablet 00:00: mouth in [place] 00 the Medical morning Branch and 1 tablet at noon and 1 tablet in the evening. montelukast 2021-10 Yes [id number] 10mg Take 1 Univers (SINGULAIR) 2-14 tablet by ity of 10 mg 00:00: mouth in [place] tablet 00 the Medical morning. Branch cyclobenzap 2021-10 Yes [id number] 5mg Take 1 Univers rine 5 mg 2-14 tablet by ity o f tablet 00:00: mouth in [place] 00 the Medical morning Branch and 1 tablet at noon and 1 tablet in the evening. montelukast 2021-10 Yes [id number] 10mg Take 1 Univers (SINGULAIR) 2-14 tablet by ity of 10 mg 00:00: mouth in [place] tablet 00 the Medical morning. Branch cyclobenzap 2021-10 Yes [id number] 5mg Take 1 Univers rine 5 mg 2-14 tablet by ity o f tablet 00:00: mouth in [place] 00 the Medical morning Branch and 1 tablet at noon and 1 tablet in the evening. montelukast 2021-10 Yes [id number] 10mg Take 1 Univers (SINGULAIR) 2-14 tablet by ity of 10 mg 00:00: mouth in [place] tablet 00 the morning. Branch cyclobenzap 2021-10 Yes [id number] 5mg Take 1 Univers rine 5 mg 2-14 tablet by ity o f tablet 00:00: mouth in [place] 00 the Medical morning Branch and 1 tablet at noon and 1 tablet in the evening. montelukast 2021-10 Yes [id number] 10mg Take 1 Univers (SINGULAIR) 2-14 tablet by ity of 10 mg 00:00: mouth in [place] tablet 00 the morning. Branch cyclobenzap 2021-10 Yes [id number] 5mg Take 1 Univers rine 5 mg 2-14 tablet by ity o f tablet 00:00: mouth in [place] 00 the Medical morning Branch and 1 tablet at noon and 1 tablet in the evening. montelukast 2021-10 Yes [id number] 10mg Take 1 Univers (SINGULAIR) 2-14 tablet by ity of 10 mg 00:00: mouth in [place] tablet 00 the Medical morning. Branch cyclobenzap 2021-10 Yes [id number] 5mg Take 1 Univers rine 5 mg 2-14 tablet by ity o f tablet 00:00: mouth in [place] 00 the Medical morning Branch and 1 tablet at noon and 1 tablet in the evening. montelukast 2021-10 Yes [id number] 10mg Take 1 Univers (SINGULAIR) 2-14 tablet by ity of 10 mg 00:00: mouth in [place] tablet 00 the Medical morning. Branch cyclobenzap 2021-10 Yes [id number] 5mg Take 1 Univers rine 5 mg 2-14 tablet by ity o f tablet 00:00: mouth in [place] 00 the Medical morning Branch and 1 tablet at noon and 1 tablet in the evening. montelukast 2021-10 Yes [id number] 10mg Take 1 Univers (SINGULAIR) 2-14 tablet by ity of 10 mg 00:00: mouth in [place] tablet 00 the Medical morning. Branch cyclobenzap 2021-10 Yes [id number] 5mg Take 1 Univers rine 5 mg 2-14 tablet by ity o f tablet 00:00: mouth in [place] 00 the Medical morning Branch and 1 tablet at noon and 1 tablet in the evening. montelukast 2021-10 Yes [id number] 10mg Take 1 Univers (SINGULAIR) 2-14 tablet by ity of 10 mg 00:00: mouth in [place] tablet 00 the Medical morning. Branch cyclobenzap 2021-10 Yes [id number] 5mg Take 1 Univers rine 5 mg 2-14 tablet by ity o f tablet 00:00: mouth in [place] 00 the Medical morning Branch and 1 tablet at noon and 1 tablet in the evening. montelukast 2021-10 Yes [id number] 10mg Take 1 Univers (SINGULAIR) 2-14 tablet by ity of 10 mg 00:00: mouth in [place] tablet 00 the Medical morning. Branch cyclobenzap 2021-10 Yes [id number] 5mg Take 1 Univers rine 5 mg 2-14 tablet by ity o f tablet 00:00: mouth in [place] 00 the Medical morning Branch and 1 tablet at noon and 1 tablet in the evening. montelukast 2021-10 Yes [id number] 10mg Take 1 Univers (SINGULAIR) 2-14 tablet by ity of 10 mg 00:00: mouth in [place] tablet 00 the Medical morning. Branch cyclobenzap 2021-10 Yes [id number] 5mg Take 1 Univers rine 5 mg 2-14 tablet by ity o f tablet 00:00: mouth in [place] 00 the Medical morning Branch and 1 tablet at noon and 1 tablet in the evening. montelukast 2021-10 Yes [id number] 10mg Take 1 Univers (SINGULAIR) 2-14 tablet by ity of 10 mg 00:00: mouth in [place] tablet 00 the Medical morning. Branch cyclobenzap 2021-10 Yes [id number] 5mg Take 1 Univers rine 5 mg 2-14 tablet by ity o f tablet 00:00: mouth in [place] 00 the Medical morning Branch and 1 tablet at noon and 1 tablet in the evening. montelukast 2021-10 Yes [id number] 10mg Take 1 Univers (SINGULAIR) 2-14 tablet by ity of 10 mg 00:00: mouth in [place] tablet 00 the Medical morning. Branch cyclobenzap 2021-10 Yes [id number] 5mg Take 1 Univers rine 5 mg 2-14 tablet by ity o f tablet 00:00: mouth in [place] 00 the Medical morning Branch and 1 tablet at noon and 1 tablet in the evening. montelukast 2021-10 Yes [id number] 10mg Take 1 Univers (SINGULAIR) 2-14 tablet by ity of 10 mg 00:00: mouth in [place] tablet 00 the Medical morning. Branch cyclobenzap 2021-10 Yes [id number] 5mg Take 1 Univers rine 5 mg 2-14 tablet by ity o f tablet 00:00: mouth in [place] 00 the Medical morning Branch and 1 tablet at noon and 1 tablet in the evening. montelukast 2021-10 Yes [id number] 10mg Take 1 Univers (SINGULAIR) 2-14 tablet by ity of 10 mg 00:00: mouth in [place] tablet 00 the Medical morning. Branch cyclobenzap 2021-10 Yes [id number] 5mg Take 1 Univers rine 5 mg 2-14 tablet by ity o f tablet 00:00: mouth in [place] 00 the Medical morning Branch and 1 tablet at noon and 1 tablet in the evening. montelukast 2021-10 Yes [id number] 10mg Take 1 Univers (SINGULAIR) 2-14 tablet by ity of 10 mg 00:00: mouth in [place] tablet 00 the Medical morning. Branch cyclobenzap 2021-10 Yes [id number] 5mg Take 1 [facility] rine 5 mg 2-14 tablet by it[facility] o f tablet 00:00: mouth in [place] 00 the Medical morning Branch and 1 tablet at noon and 1 tablet in the evening. montelukast 2021-10 Yes [id number] 10mg Take 1 [facility] (SINGULAIR) 2-14 tablet by ity of 10 mg 00:00: mouth in [place] tablet 00 the Medical morning. Branch cyclobenzap 2021-10 Yes [id number] 5mg Take 1 [facility] rine 5 mg 2-14 tablet by ity o f tablet 00:00: mouth in [place] 00 the Medical morning Branch and 1 tablet at noon and 1 tablet in the evening. montelukast 2021-10 Yes [id number] 10mg Take 1 [facility] (SINGULAIR) 2-14 tablet by ity of 10 mg 00:00: mouth in [place] tablet 00 the Medical morning. Branch cyclobenzap 2021-10 Yes [id number] 5mg Take 1 [facility] rine 5 mg 2-14 tablet by ity o f tablet 00:00: mouth in [place] 00 the Medical morning Branch and 1 tablet at noon and 1 tablet in the evening. montelukast 2021-10 Yes [id number] 10mg Take 1 [facility] (SINGULAIR) 2-14 tablet by ity of 10 mg 00:00: mouth in [place] tablet 00 the Medical morning. Branch cyclobenzap 2021-10 Yes [id number] 5mg Take 1 [facility] rine 5 mg 2-14 tablet by ity o f tablet 00:00: mouth in [place] 00 the Medical morning Branch and 1 tablet at noon and 1 tablet in the evening. montelukast 2021-10 Yes [id number] 10mg Take 1 [facility] (SINGULAIR) 2-14 tablet by ity of 10 mg 00:00: mouth in [place] tablet 00 the Medical morning. Branch cyclobenzap 2021-10 Yes [id number] 5mg Take 1 [facility] rine 5 mg 2-14 tablet by ity o f tablet 00:00: mouth in [place] 00 the Medical morning Branch and 1 tablet at noon and 1 tablet in the evening. montelukast 2021-10 Yes [id number] 10mg Take 1 [facility] (SINGULAIR) 2-14 tablet by ity of 10 mg 00:00: mouth in [place] tablet 00 the Medical morning. Branch cyclobenzap 2021-10 Yes [id number] 5mg Take 1 [facility] rine 5 mg 2-14 tablet by ity o f tablet 00:00: mouth in [place] 00 the Medical morning Branch and 1 tablet at noon and 1 tablet in the evening. montelukast 2021-10 Yes [id number] 10mg Take 1 [facility] (SINGULAIR) 2-14 tablet by ity of 10 mg 00:00: mouth in [place] tablet 00 the Medical morning. Branch cyclobenzap 2021-10 Yes [id number] 5mg Take 1 [facility] rine 5 mg 2-14 tablet by ity o f tablet 00:00: mouth in [place] 00 the Medical morning Branch and 1 tablet at noon and 1 tablet in the evening. montelukast 2021-10 Yes [id number] 10mg Take 1 [facility] (SINGULAIR) 2-14 tablet by ity of 10 mg 00:00: mouth in [place] tablet 00 the morning. Branch cyclobenzap 2021-10 Yes [id number] 5mg Take 1 [facility] rine 5 mg 2-14 tablet by ity o f tablet 00:00: mouth in [place] 00 the Medical morning Branch and 1 tablet at noon and 1 tablet in the evening. montelukast 2021-10 Yes [id number] 10mg Take 1 [facility] (SINGULAIR) 2-14 tablet by ity of 10 mg 00:00: mouth in [place] tablet 00 the morning. Branch cyclobenzap 2021-10 Yes [id number] 5mg Take 1 [facility] rine 5 mg 2-14 tablet by ity o f tablet 00:00: mouth in [place] 00 the Medical morning Branch and 1 tablet at noon and 1 tablet in the evening. montelukast 2021-10 Yes [id number] 10mg Take 1 [facility] (SINGULAIR) 2-14 tablet by ity of 10 mg 00:00: mouth in [place] tablet 00 the Medical morning. Branch doxycycline 2021-10 Yes [id number] 100mg Take 1 [facility] hyclate 100 0-10 tablet by [facility] of mg tablet 00:00: [place] 00 the Medical morning Branch and 1 tablet in the evening. doxycycline 2021-10 Yes [id number] 100mg Take 1 [facility] hyclate 100 0-10 tablet by [facility] of mg tablet 00:00: mouth [place] 00 the Medical morning Branch and 1 tablet in the evening. doxycycline 2021-10 Yes [id number] 100mg Take 1 [facility] hyclate 100 0-10 tablet by [facility] of mg tablet 00:00: mouth [place] 00 the Medical morning Branch and 1 tablet in the evening. doxycycline 2021-10 Yes [id number] 100mg Take 1 [facility] hyclate 100 0-10 tablet by [facility] of mg tablet 00:00: mouth [place] 00 the Medical morning Branch and 1 tablet in the evening. doxycycline 2021-10 Yes [id number] 100mg Take 1 [facility] hyclate 100 0-10 tablet by [facility] of mg tablet 00:00: mouth [place] 00 the Medical morning Branch and 1 tablet in the evening. doxycycline 2021-10 Yes [id number] 100mg Take 1 [facility] hyclate 100 0-10 tablet by [facility] of mg tablet 00:00: mouth [place] 00 the Medical morning Branch and 1 tablet in the evening. doxycycline 2021-10 Yes [id number] 100mg Take 1 [facility] hyclate 100 0-10 tablet by [facility] of mg tablet 00:00: mouth [place] 00 the Medical morning Branch and 1 tablet in the evening. doxycycline 2021-10 Yes [id number] 100mg Take 1 [facility] hyclate 100 0-10 tablet by [facility] of mg tablet 00:00: mouth [place] 00 the Medical morning Branch and 1 tablet in the evening. doxycycline 2021-10 Yes [id number] 100mg Take 1 [facility] hyclate 100 0-10 tablet by [facility] of mg tablet 00:00: mouth [place] 00 the Medical morning Branch and 1 tablet in the evening. doxycycline 2021-10 Yes [id number] 100mg Take 1 [facility] hyclate 100 0-10 tablet by [facility] of mg tablet 00:00: mouth [place] 00 the Medical morning Branch and 1 tablet in the evening. doxycycline 2021-10 Yes [id number] 100mg Take 1 [facility] hyclate 100 0-10 tablet by [facility] of mg tablet 00:00: mouth [place] 00 the Medical morning Branch and 1 tablet in the evening. doxycycline 2021-10 Yes [id number] 100mg Take 1 [facility] hyclate 100 0-10 tablet by [facility] of mg tablet 00:00: mouth [place] 00 the Medical morning Branch and 1 tablet in the evening. doxycycline 2021-10 Yes [id number] 100mg Take 1 [facility] hyclate 100 0-10 tablet by [facility] of mg tablet 00:00: mouth [place] 00 the Medical morning Branch and 1 tablet in the evening. doxycycline 2021-10 Yes [id number] 100mg Take 1 [facility] hyclate 100 0-10 tablet by [facility] of mg tablet 00:00: mouth [place] 00 the Medical morning Branch and 1 tablet in the evening. doxycycline 2021-10 Yes [id number] 100mg Take 1 [facility] hyclate 100 0-10 tablet by [facility] of mg tablet 00:00: [place] 00 the Medical morning Branch and 1 tablet in the evening. doxycycline 2021-10- No [id number] 100mg Take 1 [facility] hyclate 100 0-10 02-06 tablet by it y of mg tablet 00:00: 00:00 mouth [place] 00 :00 the Medical morning Branch and 1 tablet in the evening. doxycycline 2021-10- No [id number] 100mg Take 1 [facility] hyclate 100 0-10 02-06 tablet by it y of mg tablet 00:00: 00:00 mouth in [place] 00 :00 the Medical morning Branch and 1 tablet in the evening. doxycycline 2021-10- No [id number] 100mg Take 1 [facility] hyclate 100 0-08 10-19 tablet by it y of mg tablet 00:00: 04:59 mouth in [place] 00 :00 the Medical morning Branch and 1 tablet in the evening. Do all this for 10 days. sulfamethox 2021-10- No [id number] 1{tbl} Take 1 [facility] azole-trime 0-05 10-13 tablet by it y of thoprim 00:00: 04:59 mouth in [place] (BACTRIM 00 :00 the Medical DS) 800-160 morning Branc h mg per and 1 tablet tablet in the evening. Do all this for 7 days. sulfamethox 2021-10- No [id number] 1{tbl} Take 1 [facility] azole-trime 0-05 10-13 tablet by it y of thoprim 00:00: 04:59 mouth in [place] (BACTRIM 00 :00 the Medical DS) 800-160 morning Branc h mg per and 1 tablet tablet in the evening. Do all this for 7 days. sulfamethox 2021-10- No [id number] 1{tbl} Take 1 [facility] azole-trime 0-05 10-13 tablet by it y of thoprim 00:00: 04:59 mouth in [place] (BACTRIM 00 :00 the Medical DS) 800-160 morning Branc h mg per and 1 tablet tablet in the evening. Do all this for 7 days. sulfamethox 2021-10- No [id number] 1{tbl} Take 1 [facility] azole-trime 0-05 10-13 tablet by it y of thoprim 00:00: 04:59 mouth in [place] (BACTRIM 00 :00 the Medical DS) 800-160 morning Branc h mg per and 1 tablet tablet in the evening. Do all this for 7 days. sulfamethox 2021-10- No [id number] 1{tbl} Take 1 [facility] azole-trime 0-05 10-13 tablet by it y of thoprim 00:00: 04:59 mouth in [place] (BACTRIM 00 :00 the Medical DS) 800-160 morning Branc h mg per and 1 tablet tablet in the evening. Do all this for 7 days. sulfamethox 2021-10- No [id number] 1{tbl} Take 1 [facility] azole-trime 0-05 10-13 tablet by it y of thoprim 00:00: 04:59 mouth in [place] (BACTRIM 00 :00 the Medical DS) 800-160 morning Branc h mg per and 1 tablet tablet in the evening. Do all this for 7 days. iopamidol 2021- No [id number] 100mL 100 mL, [facility] (ISOVUE 07-20 Intravenou ity o f 300-500 mL) 14:00: 13:56 s, ONCE, 1 [place] injection 00 :00 dose, On Medica l 100 mL Mon Branch 07/20/22 at 0900, Routine ZINC ORAL 2021- No Take by [facility] 07-13 mouth. ity of 10:06: 00:00 [place] 35 :00 Medical Branch ZINC ORAL 2021- No Take by [facility] 07-13 mouth. ity of 10:06: 00:00 [place] 35 :00 [facility] Branch VITAMIN C 2021- No Take by [facility] ORAL 07-13-19 mouth. ity of 10:06: 00:00 [place] 28 :00 Medical Branch VITAMIN C 0 2021- No Take by [facility] ORAL 07-13-19 mouth. ity of 10:06: 00:00 28 :00 Medical Branch Cholecalcif 0 Yes 5000U Take 5,000 [facility] [place], 9-19 Units by ity of Vitamin D3, 09:14: [place] 5,000 unit 49 Medical tablet Branch OMEGA 3 0 Yes Take by [facility] ORAL 9-19 mouth. ity of 09:14: [place] [address] Medical Branch Cholecalcif 0 Yes 5000U Take 5,000 [facility] [place], 9-19 Units by ity of Vitamin D3, 09:14: [place] 5,000 unit 49 Medical tablet Branch OMEGA 3 0 Yes Take by [facility] ORAL 9- mouth. ity of 09:14: [place] [address] Medical Branch Cholecalcif 0 Yes 5000U Take 5,000 [facility] [place], 9-19 Units by ity of Vitamin D3, 09:14: [place] 5,000 unit 49 Medical tablet Branch OMEGA 3 0 Yes Take by [facility] ORAL 9-19 mouth. ity of 09:14: [place] [address] Medical Branch Cholecalcif 0 Yes 5000U Take 5,000 [facility] [place], 9-19 Units by ity of Vitamin D3, 09:14: [place] 5,000 unit 49 Medical tablet Branch OMEGA 3 0 Yes Take by [facility] ORAL 9-19 mouth. ity of 09:14: [place] [address] Medical Branch Cholecalcif 0 Yes 5000U Take 5,000 [facility] [place], 9-19 Units by ity of Vitamin D3, 09:14: [place] 5,000 unit 49 Medical tablet Branch OMEGA 3 0 Yes Take by [facility] ORAL 9-19 mouth. ity of 09:14: [place] [address] Medical Branch Cholecalcif 0 Yes 5000U Take 5,000 [facility] [place], 9-19 Units by ity of Vitamin D3, 09:14: [place] 5,000 unit 49 Medical tablet Branch OMEGA 3 0 Yes Take by [facility] ORAL 9-19 mouth. ity of 09:14: [place] [address] Medical Branch Cholecalcif Yes 5000U Take 5,000 [facility] [place], 9-19 Units by ity of Vitamin D3, 09:14: [place] 5,000 unit 49 Medical tablet Branch OMEGA 3 Yes Take by [facility] ORAL 9-19 mouth. ity of 09:14: [place] [address] Medical Branch Cholecalcif Yes 5000U Take 5,000 [facility] [place], 9-19 Units by ity of Vitamin D3, 09:14: [place] 5,000 unit 49 Medical tablet Branch OMEGA 3 Yes Take by [facility] ORAL 9-19 mouth. ity of 09:14: [place] [address] Medical Branch Cholecalcif Yes 5000U Take 5,000 [facility] [place], 9-19 Units by ity of Vitamin D3, 09:14: [place] 5,000 unit 49 Medical tablet Branch OMEGA 3 Yes Take by [facility] ORAL 9-19 mouth. ity of 09:14: [place] [address] Medical Branch Cholecalcif Yes 5000U Take 5,000 [facility] [place], 9-19 Units by ity of Vitamin D3, 09:14: [place] 5,000 unit 49 Medical tablet Branch OMEGA 3 Yes Take by [facility] ORAL 9-19 mouth. ity of 09:14: [place] [address] Medical Branch Cholecalcif Yes 5000U Take 5,000 [facility] [place], 9-19 Units by ity of Vitamin D3, 09:14: [place] 5,000 unit 49 Medical tablet Branch OMEGA 3 Yes Take by [facility] s ORAL 9- mouth. ity of 09:14: [place] [address] Medical Branch Cholecalcif Yes 5000U Take 5,000 [facility] [place], 9-19 Units by ity of Vitamin D3, 09:14: [place] 5,000 unit 49 Medical tablet Branch OMEGA 3 Yes Take by [facility] ORAL 9-19 mouth. ity of 09:14: [place] [address] Medical Branch Cholecalcif Yes 5000U Take 5,000 [facility] [place], 9-19 Units by ity of Vitamin D3, 09:14: [place]. [place] 5,000 unit 49 Medical tablet Branch OMEGA 3 Yes Take by [facility] ORAL 9-19 mouth. ity of 09:14: [place] [address] Medical Branch Cholecalcif 2021-0 Yes 5000U Take 5,000 [facility] [place], 9-19 Units by ity of Vitamin D3, 09:14: [place] 5,000 unit 49 Medical tablet Branch OMEGA 3 0 Yes Take by [facility] ORAL 9-19 mouth. ity of 09:14: [place] [address] Medical Branch Cholecalcif 0 Yes 5000U Take 5,000 [facility] [place], 9-19 Units by ity of Vitamin D3, 09:14: [place]. [place] 5,000 unit 49 Medical tablet Branch OMEGA 3 0 Yes Take by [facility] ORAL 9-19 mouth. ity of 09:14: [place] [address] Medical Branch Cholecalcif 0 Yes 5000U Take 5,000 [facility] [place], 9-19 Units by ity of Vitamin D3, 09:14: [place] 5[place]000 unit 49 Medical tablet Branch OMEGA 3 0 Yes Take by [facility] ORAL 9-19 mouth. ity of 09:14: [place] [address] Medical Branch Cholecalcif 2021-0 Yes 5000U Take 5,000 [facility] [place], 9-19 Units by ity of Vitamin D3, 09:14: [place] 5,000 unit 49 Medical tablet Branch OMEGA 3 0 Yes Take by [facility] ORAL 9-19 mouth. ity of 09:14: [place] [address] Medical Branch Cholecalcif 2021-0 Yes 5000U Take 5,000 [facility] [place], 9-19 Units by ity of Vitamin D3, 09:14: [place] 5,000 unit 49 Medical tablet Branch OMEGA 3 0 Yes Take by [facility] ORAL 9-19 mouth. ity of 09:14: [place] [address] Medical Branch Cholecalcif 0 Yes 5000U Take 5,000 [facility] [place], 9-19 Units by ity of Vitamin D3, 09:14: [place]. [place] 5,000 unit 49 Medical tablet Branch OMEGA 3 0 Yes Take by [facility] ORAL 9-19 mouth. ity of 09:14: [place] [address] Medical Branch Cholecalcif 2021-0 Yes 5000U Take 5,000 [facility] [place], 9-19 Units by ity of Vitamin D3, 09:14: [place] 5,000 unit 49 Medical tablet Branch OMEGA 3 Yes Take by [facility] ORAL 9-19 mouth. ity of 09:14: [place] [address] Medical Branch Cholecalcif 0 Yes 5000U Take 5,000 [facility] [place], 9-19 Units by ity of Vitamin D3, 09:14: [place] 5,000 unit 49 Medical tablet Branch OMEGA 3 0 Yes Take by [facility] ORAL 9-19 mouth. ity of 09:14: [place] [address] Medical Branch Cholecalcif 0 Yes 5000U Take 5,000 [facility] [place], 9-19 Units by ity of Vitamin D3, 09:14: [place] 5,000 unit 49 Medical tablet Branch OMEGA 3 Yes Take by [facility] ORAL 9-19 mouth. ity of 09:14: [place] [address] Medical Branch Cholecalcif 0 Yes 5000U Take 5,000 [facility] [place], 9-19 Units by ity of Vitamin D3, 09:14: [place]. [place] 5,000 unit 49 Medical tablet Branch OMEGA 3 Yes Take by [facility] ORAL 9-19 mouth. ity of 09:14: [place] [address] Medical Branch Cholecalcif 0 Yes 5000U Take 5,000 [facility] [place], 9-19 Units by ity of Vitamin D3, 09:14: [place]. [place] 5,000 unit 49 Medical tablet Branch OMEGA 3 Yes Take by [facility] ORAL 9-19 mouth. ity of 09:14: [place] [address] Medical Branch Cholecalcif 0 Yes 5000U Take 5,000 [facility] [place], 9-19 Units by ity of Vitamin D3, 09:14: [place]. [place] 5,000 unit 49 Medical tablet Branch OMEGA 3 Yes Take by [facility] ORAL 9-19 mouth. ity of 09:14: [place] [address] Medical Branch Cholecalcif 0 Yes 5000U Take 5,000 [facility] [place], 9-19 Units by ity of Vitamin D3, 09:14: [place]. [place] 5,000 unit 49 Medical tablet Branch OMEGA 3 0 Yes Take by [facility] ORAL 9-19 mouth. ity of 09:14: [place] [address] Medical Branch Cholecalcif 0 Yes 5000U Take 5,000 [facility] [place], 9-19 Units by ity of Vitamin D3, 09:14: [place]. [place] 5,000 unit 49 Medical tablet Branch OMEGA 3 0 Yes Take by [facility] ORAL 9-19 mouth. ity of 09:14: [place] [address] Medical Branch Cholecalcif 2021-0 Yes 5000U Take 5,000 [facility] [place], 9-19 Units by ity of Vitamin D3, 09:14: [place]. [place] 5,000 unit 49 Medical tablet Branch OMEGA 3 0 Yes Take by [facility] ORAL 9-19 mouth. ity of 09:14: [place] [address] Medical Branch Cholecalcif 2021-0 Yes 5000U Take 5,000 [facility] [place], 9-19 Units by ity of Vitamin D3, 09:14: mouth. [place] 5,000 unit 49 Medical tablet Branch OMEGA 3 2021-0 Yes Take by [facility] ORAL 9-19 mouth. ity of 09:14: [place] [address] Medical Branch Cholecalcif 2021-0 Yes 5000U Take 5,000 [facility] [place], 9-19 Units by ity of Vitamin D3, 09:14: [place]. [place] 5,000 unit 49 Medical tablet Branch OMEGA 3 0 Yes Take by [facility] ORAL 9-19 mouth. ity of 09:14: [place] [address] Medical Branch Cholecalcif 2021-0 Yes 5000U Take 5,000 [facility] [place], 9-19 Units by ity of Vitamin D3, 09:14: [place]. [place] 5[place]000 unit 49 Medical tablet Branch OMEGA 3 0 Yes Take by [facility] ORAL 9-19 mouth. ity of 09:14: [place] [address] Medical Branch Cholecalcif 2021-0 Yes 5000U Take 5,000 [facility] [place], 9-19 Units by ity of Vitamin D3, 09:14: [place]. [place] 5[place]000 unit 49 Medical tablet Branch OMEGA 3 0 Yes Take by [facility] ORAL 9-19 mouth. ity of 09:14: [place] [address] Medical Branch Cholecalcif 2021-0 Yes 5000U Take 5,000 [facility] [place], 9-19 Units by ity of Vitamin D3, 09:14: [place]. [place] 5[place]000 unit 49 Medical tablet Branch OMEGA 3 0 Yes Take by [facility] ORAL 9-19 mouth. ity of 09:14: [place] [address] Medical Branch Cholecalcif 2021-0 Yes 5000U Take 5,000 [facility] [place], 9-19 Units by ity of Vitamin D3, 09:14: [place]. [place] 5[place]000 unit 49 Medical tablet Branch OMEGA 3 0 Yes Take by [facility] ORAL 9-19 mouth. ity of 09:14: [place] [address] Medical Branch Cholecalcif 2021-0 Yes 5000U Take 5,000 [facility] [place], 9-19 Units by ity of Vitamin D3, 09:14: [place] 5[place]000 unit 49 Medical tablet Branch OMEGA 3 2021-0 Yes Take by [facility] ORAL 9-19 mouth. ity of 09:14: [place] [address] Medical Branch Cholecalcif 2021-0 Yes 5000U Take 5,000 [facility] [place], 9-19 Units by ity of Vitamin D3, 09:14: [place]. [place] 5[place]000 unit 49 Medical tablet Branch OMEGA 3 2021-0 Yes Take by [facility] ORAL 9-19 mouth. ity of 09:14: [place] [address] Medical Branch Cholecalcif 2021-0 Yes 5000U Take 5,000 [facility] [place], 9-19 Units by ity of Vitamin D3, 09:14: [place]. [place] 5[place]000 unit 49 Medical tablet Branch OMEGA 3 0 Yes Take by [facility] ORAL 9-19 mouth. ity of 09:14: [place] [address] Medical Branch Cholecalcif 0 Yes 5000U Take 5,000 [facility] [place], 9-19 Units by ity of Vitamin D3, 09:14: [place] 5[place]000 unit 49 Medical tablet Branch OMEGA 3 0 Yes Take by [facility] ORAL 9-19 mouth. ity of 09:14: [place] [address] Medical Branch Cholecalcif 2021-0 Yes 5000U Take 5,000 [facility] [place], 9-19 Units by ity of Vitamin D3, 09:14: [place] 5[place]000 unit 49 Medical tablet Branch OMEGA 3 0 Yes Take by [facility] ORAL 9-19 mouth. ity of 09:14: [place] [address] Medical Branch Cholecalcif 2021-0 Yes 5000U Take 5,000 [facility] [place], 9-19 Units by ity of Vitamin D3, 09:14: [place]. [place] 5[place]000 unit 49 Medical tablet Branch OMEGA 3 2021-0 Yes Take by [facility] ORAL 9-19 mouth. ity of 09:14: [place] [address] Medical Branch Cholecalcif 2021-0 Yes 5000U Take 5,000 [facility] [place], 9-19 Units by ity of Vitamin D3, 09:14: [place]. [place] 5[place]000 unit 49 Medical tablet Branch OMEGA 3 0 Yes Take by [facility] ORAL 9-19 mouth. ity of 09:14: [place] [address] Medical Branch Cholecalcif 0 Yes 5000U Take 5,000 [facility] [place], 9-19 Units by ity of Vitamin D3, 09:14: mouth. [place] 5[place]000 unit 49 Medical tablet Branch OMEGA 3 0 Yes Take by [facility] ORAL 9-19 mouth. ity of 09:14: [place] [address] Medical Branch Cholecalcif 2021-0 Yes 5000U Take 5,000 [facility] [place], 9-19 Units by ity of Vitamin D3, 09:14: mouth. [place] 5[place]000 unit 49 Medical tablet Branch OMEGA 3 0 Yes Take by [facility] ORAL 9-19 mouth. ity of 09:14: [place] [address] Medical Branch Cholecalcif Yes 5000U Take 5,000 [facility] [place], 9-19 Units by ity of Vitamin D3, 09:14: mouth. [place] 5[place]000 unit 49 Medical tablet Branch OMEGA 3 0 Yes Take by [facility] ORAL 9-19 mouth. ity of 09:14: [place] [address] Medical Branch Cholecalcif 0 Yes 5000U Take 5,000 [facility] [place], 9-19 Units by ity of Vitamin D3, 09:14: mouth. [place] 5[place]000 unit 49 Medical tablet Branch OMEGA 3 0 Yes Take by [facility] ORAL 9-19 mouth. ity of 09:14: [place] [address] Medical Branch Cholecalcif 0 Yes 5000U Take 5,000 [facility] [place], 9-19 Units by ity of Vitamin D3, 09:14: mouth. [place] 5[place]000 unit 49 Medical tablet Branch OMEGA 3 0 Yes Take by [facility] ORAL 9-19 mouth. ity of 09:14: [place] [address] Medical Branch Cholecalcif 0 Yes 5000U Take 5,000 [facility] [place], 9-19 Units by ity of Vitamin D3, 09:14: [place]. [place] 5[place]000 unit 49 Medical tablet Branch OMEGA 3 0 Yes Take by [facility] ORAL 9-19 mouth. ity of 09:14: [place] [address] Medical Branch Cholecalcif 2022-0 Yes 5000U Take 5,000 [facility] [place], 9-19 Units by ity of Vitamin D3, 09:14: mouth. [place] 5[place]000 unit 49 Medical tablet Branch OMEGA 3 0 Yes Take by [facility] ORAL 9-19 mouth. ity of 09:14: [place] [address] Medical Branch Cholecalcif 0 Yes 5000U Take 5,000 [facility] [place], 9-19 Units by ity of Vitamin D3, 09:14: mouth. [place] 5[place]000 unit 49 Medical tablet Branch OMEGA 3 0 Yes Take by [facility] ORAL 9-19 mouth. ity of 09:14: [place] [address] Medical Branch Cholecalcif 0 Yes 5000U Take 5,000 [facility] [place], 9-19 Units by ity of Vitamin D3, 09:14: mouth. [place] 5[place]000 unit 49 Medical tablet Branch OMEGA 3 0 Yes Take by [facility] ORAL 9-19 mouth. ity of 09:14: [place] [address] Medical Branch Cholecalcif 0 Yes 5000U Take 5,000 [facility] [place], 9-19 Units by ity of Vitamin D3, 09:14: mouth. [place] 5[place]000 unit 49 Medical tablet Branch OMEGA 3 0 Yes Take by [facility] ORAL 9-19 mouth. ity of 09:14: [place] [address] Medical Branch Cholecalcif Yes 5000U Take 5,000 [facility] [place], 9-19 Units by ity of Vitamin D3, 09:14: mouth. [place] 5[place]000 unit 49 Medical tablet Branch OMEGA 3 Yes Take by [facility] ORAL 9-19 mouth. ity of 09:14: [place] [address] Medical Branch Cholecalcif 0 Yes 5000U Take 5,000 [facility] [place], 9-19 Units by ity of Vitamin D3, 09:14: mouth. [place] 5[place]000 unit 49 Medical tablet Branch OMEGA 3 0 Yes Take by [facility] ORAL 9-19 mouth. ity of 09:14: [place] [address] Medical Branch Cholecalcif 0 Yes 5000U Take 5,000 [facility] [place], 9-19 Units by ity of Vitamin D3, 09:14: mouth. [place] 5[place]000 unit 49 Medical tablet Branch OMEGA 3 0 Yes Take by [facility] ORAL 9-19 mouth. ity of 09:14: [place] [address] Medical Branch Cholecalcif 2021-0 Yes 5000U Take 5,000 [facility] [place], 9-19 Units by ity of Vitamin D3, 09:14: mouth. [place] 5[place]000 unit 49 Medical tablet Branch OMEGA 3 0 Yes Take by [facility] ORAL 9-19 mouth. ity of 09:14: [place] [address] Medical Branch Cholecalcif 0 Yes 5000U Take 5,000 [facility] [place], 9-19 Units by ity of Vitamin D3, 09:14: mouth. [place] 5[place]000 unit 49 Medical tablet Branch OMEGA 3 0 Yes Take by [facility] ORAL 9-19 mouth. ity of 09:14: [place] [address] Medical Branch Cholecalcif 2021-0 Yes 5000U Take 5,000 [facility] [place], 9-19 Units by ity of Vitamin D3, 09:14: mouth. [place] 5[place]000 unit 49 Medical tablet Branch OMEGA 3 0 Yes Take by [facility] ORAL 9-19 mouth. ity of 09:14: [place] [address] Medical Branch Cholecalcif 0 Yes 5000U Take 5,000 [facility] [place], 9-19 Units by ity of Vitamin D3, 09:14: mouth. [place] 5[place]000 unit 49 Medical tablet Branch OMEGA 3 0 Yes Take by [facility] ORAL 9-19 mouth. ity of 09:14: [place] [address] Medical Branch Cholecalcif 0 Yes 5000U Take 5,000 [facility] [place], 9-19 Units by ity of Vitamin D3, 09:14: mouth. [place] 5[place]000 unit 49 Medical tablet Branch OMEGA 3 Yes Take by [facility] ORAL 9-19 mouth. ity of 09:14: [place] [address] Medical Branch Cholecalcif 0 Yes 5000U Take 5,000 [facility] [place], 9-19 Units by ity of Vitamin D3, 09:14: mouth. [place] 5[place]000 unit 49 Medical tablet Branch OMEGA 3 0 Yes Take by [facility] ORAL 9-19 mouth. ity of 09:14: [place] [address] Medical Branch Cholecalcif 2021-0 Yes 5000U Take 5,000 [facility] [place], 9-19 Units by ity of Vitamin D3, 09:14: mouth. [place] 5[place]000 unit 49 Medical tablet Branch OMEGA 3 2022-0 Yes Take by [facility] ORAL 9-19 mouth. ity of 09:14: [place] [address] Medical Branch Cholecalcif 2021-0 Yes 5000U Take 5,000 [facility] [place], 9-19 Units by ity of Vitamin D3, 09:14: [place]. [place] 5[place]000 unit 49 Medical tablet Branch OMEGA 3 0 Yes Take by [facility] ORAL 9-19 mouth. ity of 09:14: [place] [address] Medical Branch Cholecalcif 2021-0 Yes 5000U Take 5,000 [facility] [place], 9-19 Units by ity of Vitamin D3, 09:14: [place]. [place] 5[place]000 unit 49 Medical tablet Branch OMEGA 3 0 Yes Take by [facility] ORAL 9-19 mouth. ity of 09:14: [place] [address] Medical Branch Cholecalcif 0 Yes 5000U Take 5,000 [facility] [place], 9-19 Units by it[facility] of Vitamin D3, 09:14: [place] unit 49 Medical tablet Branch OMEGA 3 0 Yes Take by [facility] ORAL 9-19 mouth. ity of 09:14: [place] [address] Medical Branch Cholecalcif 2021-0 Yes 5000U Take 5,000 [facility] [place], 9-19 Units by it[facility] of Vitamin D3, 09:14: [place] 5,000 unit 49 Medical tablet Branch OMEGA 3 2021-0 Yes Take by [facility] ORAL 9-19 mouth. ity of 09:14: [address] Branch Cholecalcif 2021-0 Yes 5000U Take 5,000 [facility] [place], 9-19 Units by it[facility] of Vitamin D3, 09:14: [place] 5,000 unit 49 Medical tablet Branch OMEGA 3 0 Yes Take by [facility] ORAL 9-19 mouth. ity of 09:14: [place] [address] Medical Branch Cholecalcif 2021-0 Yes 5000U Take 5,000 [facility] [place], 9-19 Units by it[facility] of Vitamin D3, 09:14: [place] 5,000 unit 49 Medical tablet Branch OMEGA 3 2021-0 Yes Take by [facility] ORAL 9-19 mouth. ity of 09:14: [address] Branch ezetimibe 2021-0 Yes [id number] 10mg Take 1 U nivers 10 mg 9-13 tablet by ity of tablet 00:00: mouth in [place] 00 the Medical morning. Branch ezetimibe 2022-0 Yes [id number] 10mg Take 1 U nivers 10 mg 9-13 tablet by ity of tablet 00:00: mouth in [place] the Medical morning. Branch ezetimibe 2022-0 Yes [id number] 10mg Take 1 [facility] nivers 10 mg 9-13 tablet by ity of tablet 00:00: mouth in [place] the Medical morning. Branch ezetimibe 2022-0 Yes [id number] 10mg Take 1 [facility] nivers 10 mg 9-13 tablet by ity of tablet 00:00: mouth in [place] the Medical morning. Branch ezetimibe 2022-0 Yes [id number] 10mg Take 1 U nivers 10 mg 9-13 tablet by ity of tablet 00:00: mouth in [place] the Medical morning. Branch ezetimibe 2-0 Yes [id number] 10mg Take 1 [facility] nivers 10 mg 9-13 tablet by ity of tablet 00:00: mouth in [place] the Medical morning. Branch ezetimibe 2022-0 Yes [id number] 10mg Take 1 [facility] nivers 10 mg 9-13 tablet by ity of tablet 00:00: mouth in [place] the Medical morning. Branch ezetimibe 2-0 Yes [id number] 10mg Take 1 [facility] 10 mg 9-13 tablet by ity of tablet 00:00: mouth in [place] the Medical morning. Branch ezetimibe 2-0 Yes [id number] 10mg Take 1 [facility] nivers 10 mg 9-13 tablet by ity of tablet 00:00: mouth in [place] the Medical morning. Branch ezetimibe 2022-0 Yes [id number] 10mg Take 1 [facility] n[facility] 10 mg 9-13 tablet by ity of tablet 00:00: mouth in [place] the Medical morning. Branch ezetimibe 2022-0 Yes [id number] 10mg Take 1 [facility] n[facility] 10 mg 9-13 tablet by ity of tablet 00:00: mouth in [place] 00 the Medical morning. Branch ezetimibe 2022-0 Yes [id number] 10mg Take 1 [facility] 10 mg 9-13 tablet by ity of tablet 00:00: mouth in [place] 00 the Medical morning. Branch ezetimibe 2022-0 Yes [id number] 10mg Take 1 [facility] n[facility] 10 mg 9-13 tablet by ity of tablet 00:00: mouth in [place] the Medical morning. Branch ezetimibe 2022-0 Yes [id number] 10mg Take 1 [facility] 10 mg 9-13 tablet by ity of tablet 00:00: mouth in [place] the Medical morning. Branch ezetimibe 2022-0 Yes [id number] 10mg Take 1 [facility] 10 mg 9-13 tablet by ity of tablet 00:00: mouth in [place] the Medical morning. Branch ezetimibe 2022-0 Yes [id number] 10mg Take 1 [facility] 10 mg 9-13 tablet by ity of tablet 00:00: mouth in [place] the Medical morning. Branch ezetimibe 2022-0 Yes [id number] 10mg Take 1 [facility] 10 mg 9-13 tablet by ity of tablet 00:00: mouth in [place] the Medical morning. Branch ezetimibe 2-0 Yes [id number] 10mg Take 1 [facility] 10 mg 9-13 tablet by ity of tablet 00:00: mouth in [place] the Medical morning. Branch ezetimibe 2-0 Yes [id number] 10mg Take 1 [facility] 10 mg 9-13 tablet by ity of tablet 00:00: mouth in [place] the Medical morning. Branch ezetimibe 2-0 Yes [id number] 10mg Take 1 [facility] 10 mg 9-13 tablet by ity of tablet 00:00: mouth in [place] the Medical morning. Branch ezetimibe 2022-0 Yes [id number] 10mg Take 1 [facility] n[facility] 10 mg 9-13 tablet by ity of tablet 00:00: mouth in [place] the Medical morning. Branch ezetimibe 2022-0 Yes [id number] 10mg Take 1 [facility] 10 mg 9-13 tablet by ity of tablet 00:00: mouth in [place] the Medical morning. Branch ezetimibe 2022-0 Yes [id number] 10mg Take 1 [facility] 10 mg 9-13 tablet by ity of tablet 00:00: mouth in [place] the Medical morning. Branch ezetimibe 2022-0 Yes [id number] 10mg Take 1 [facility] 10 mg 9-13 tablet by ity of tablet 00:00: mouth in [place] 00 the Medical morning. Branch ezetimibe 2-0 Yes [id number] 10mg Take 1 [facility] 10 mg 9-13 tablet by ity of tablet 00:00: mouth in [place] 00 the Medical morning. Branch ezetimibe 2022-0 Yes [id number] 10mg Take 1 [facility] 10 mg 9-13 tablet by ity of tablet 00:00: mouth in [place] 00 the Medical morning. Branch ezetimibe 2022-0 Yes [id number] 10mg Take 1 [facility] 10 mg 9-13 tablet by ity of tablet 00:00: mouth in [place] 00 the Medical morning. Branch ezetimibe 2-0 Yes [id number] 10mg Take 1 [facility] 10 mg 9-13 tablet by ity of tablet 00:00: mouth in [place] the Medical morning. Branch ezetimibe 2-0 Yes [id number] 10mg Take 1 [facility] 10 mg 9-13 tablet by ity of tablet 00:00: mouth in [place] the Medical morning. Branch ezetimibe 2-0 Yes [id number] 10mg Take 1 [facility] 10 mg 9-13 tablet by ity of tablet 00:00: mouth in [place] the Medical morning. Branch ezetimibe 2-0 Yes [id number] 10mg Take 1 [facility] 10 mg 9-13 tablet by ity of tablet 00:00: mouth in [place] the Medical morning. Branch ezetimibe 2-0 Yes [id number] 10mg Take 1 [facility] 10 mg 9-13 tablet by it[facility] of tablet 00:00: mouth in [place] the Medical morning. Branch ezetimibe 2-0 Yes [id number] 10mg Take 1 [facility] 10 mg 9-13 tablet by ity of tablet 00:00: mouth in [place] 00 the Medical morning. Branch montelukast 2022-0 Yes [id number] 10mg Take 1 [facility] (SINGULAIR) 9-13 tablet by ity of 10 mg 00:00: mouth in [facility] 00 the Medical morning. Branch ezetimibe 2022-0 Yes [id number] 10mg Take 1 [facility] nivers 10 mg 9-13 tablet by ity of tablet 00:00: mouth in [place] 00 the Medical morning. Branch montelukast 2022-0 Yes [id number] 10mg Take 1 [facility] (SINGULAIR) 9-13 tablet by ity of 10 mg 00:00: mouth in [place] tablet 00 the Medical morning. Branch ezetimibe 2021-0 Yes [id number] 10mg Take 1 [facility] nivers 10 mg 9-13 tablet by ity of tablet 00:00: mouth in [place] 00 the Medical morning. Branch montelukast 2021-0 Yes [id number] 10mg Take 1 [facility] (SINGULAIR) 9-13 tablet by ity of 10 mg 00:00: mouth in [place] tablet 00 the Medical morning. Branch ezetimibe 2021-0 Yes [id number] 10mg Take 1 [facility] nivers 10 mg 9-13 tablet by ity of tablet 00:00: mouth in [place] 00 the Medical morning. Branch montelukast 2021-0 Yes [id number] 10mg Take 1 [facility] (SINGULAIR) 9-13 tablet by ity of 10 mg 00:00: mouth in [place] tablet 00 the Medical morning. Branch ezetimibe 2021-0 Yes [id number] 10mg Take 1 [facility] nivers 10 mg 9-13 tablet by ity of tablet 00:00: mouth in [place] 00 the Medical morning. Branch montelukast 2021-0 Yes [id number] 10mg Take 1 [facility] (SINGULAIR) 9-13 tablet by ity of 10 mg 00:00: mouth in [place] tablet 00 the Medical morning. Branch ezetimibe 2021-0 Yes [id number] 10mg Take 1 [facility] nivers 10 mg 9-13 tablet by ity of tablet 00:00: mouth in [place] 00 the Medical morning. Branch montelukast 2021-0 Yes [id number] 10mg Take 1 [facility] (SINGULAIR) 9-13 tablet by ity of 10 mg 00:00: mouth in [place] tablet 00 the Medical morning. Branch ezetimibe 2021-0 Yes [id number] 10mg Take 1 [facility] nivers 10 mg 9-13 tablet by ity of tablet 00:00: mouth in [place] 00 the Medical morning. Branch montelukast 2021-0 Yes [id number] 10mg Take 1 [facility] (SINGULAIR) 9-13 tablet by ity of 10 mg 00:00: mouth in [place] tablet 00 the Medical morning. Branch ezetimibe 2021-0 Yes [id number] 10mg Take 1 [facility] nivers 10 mg 9-13 tablet by ity of tablet 00:00: mouth in [place] 00 the Medical morning. Branch montelukast 2021-0 Yes [id number] 10mg Take 1 [facility] (SINGULAIR) 9-13 tablet by ity of 10 mg 00:00: mouth in [place] tablet 00 the Medical morning. Branch ezetimibe 2021-0 Yes [id number] 10mg Take 1 [facility] nivers 10 mg 9-13 tablet by ity of tablet 00:00: mouth in [place] 00 the Medical morning. Branch montelukast 2021-0 Yes [id number] 10mg Take 1 [facility] (SINGULAIR) 9-13 tablet by ity of 10 mg 00:00: mouth in [place] tablet 00 the Medical morning. Branch ezetimibe 2021-0 Yes [id number] 10mg Take 1 [facility] nivers 10 mg 9-13 tablet by ity of tablet 00:00: mouth in [place] 00 the Medical morning. Branch montelukast 2021-0 Yes [id number] 10mg Take 1 [facility] (SINGULAIR) 9-13 tablet by ity of 10 mg 00:00: mouth in [place] tablet 00 the Medical morning. Branch ezetimibe 2021-0 Yes [id number] 10mg Take 1 U nivers 10 mg 9-13 tablet by ity of tablet 00:00: mouth in [place] 00 the Medical morning. Branch montelukast 2021-0 Yes [id number] 10mg Take 1 [facility] (SINGULAIR) 9-13 tablet by ity of 10 mg 00:00: mouth in [place] tablet 00 the Medical morning. Branch ezetimibe 2021-0 Yes [id number] 10mg Take 1 [facility] nivers 10 mg 9-13 tablet by ity of tablet 00:00: mouth in [place] 00 the Medical morning. Branch montelukast 2021-0 Yes [id number] 10mg Take 1 [facility] (SINGULAIR) 9-13 tablet by ity of 10 mg 00:00: mouth in [place] tablet 00 the Medical morning. Branch ezetimibe 2021-0 Yes [id number] 10mg Take 1 [facility] nivers 10 mg 9-13 tablet by ity of tablet 00:00: mouth in [place] 00 the Medical morning. Branch montelukast 2021-0 Yes [id number] 10mg Take 1 [facility] (SINGULAIR) 9-13 tablet by ity of 10 mg 00:00: mouth in [place] tablet 00 the Medical morning. Branch ezetimibe 2021-0 Yes [id number] 10mg Take 1 U nivers 10 mg 9-13 tablet by ity of tablet 00:00: mouth in [place] 00 the Medical morning. Branch montelukast 2021-0 Yes [id number] 10mg Take 1 [facility] (SINGULAIR) 9-13 tablet by ity of 10 mg 00:00: mouth in [place] tablet 00 the Medical morning. Branch ezetimibe 2021-0 Yes [id number] 10mg Take 1 U nivers 10 mg 9-13 tablet by ity of tablet 00:00: mouth in [place] 00 the Medical morning. Branch montelukast 2021-0 Yes [id number] 10mg Take 1 [facility] (SINGULAIR) 9-13 tablet by ity of 10 mg 00:00: mouth in [place] tablet 00 the Medical morning. Branch ezetimibe 2021-0 Yes [id number] 10mg Take 1 U nivers 10 mg 9-13 tablet by ity of tablet 00:00: mouth in [place] 00 the Medical morning. Branch montelukast 2021-0 Yes [id number] 10mg Take 1 [facility] (SINGULAIR) 9-13 tablet by ity of 10 mg 00:00: mouth in [place] tablet 00 the Medical morning. Branch ezetimibe 2021-0 Yes [id number] 10mg Take 1 U nivers 10 mg 9-13 tablet by ity of tablet 00:00: mouth in [place] 00 the Medical morning. Branch montelukast 2021-0 Yes [id number] 10mg Take 1 [facility] (SINGULAIR) 9-13 tablet by ity of 10 mg 00:00: mouth in [place] tablet 00 the Medical morning. Branch ezetimibe 2021-0 Yes [id number] 10mg Take 1 U nivers 10 mg 9-13 tablet by ity of tablet 00:00: mouth in [place] 00 the Medical morning. Branch montelukast 2021-0 Yes [id number] 10mg Take 1 [facility] (SINGULAIR) 9-13 tablet by ity of 10 mg 00:00: mouth in [place] tablet 00 the Medical morning. Branch ezetimibe 2021-0 Yes [id number] 10mg Take 1 U nivers 10 mg 9-13 tablet by ity of tablet 00:00: mouth in [place] 00 the Medical morning. Branch montelukast 2021-0 Yes [id number] 10mg Take 1 [facility] (SINGULAIR) 9-13 tablet by ity of 10 mg 00:00: mouth in [place] tablet 00 the Medical morning. Branch ezetimibe 2021-0 Yes [id number] 10mg Take 1 U nivers 10 mg 9-13 tablet by ity of tablet 00:00: mouth in [place] 00 the Medical morning. Branch montelukast 2021-0 Yes [id number] 10mg Take 1 [facility] (SINGULAIR) 9-13 tablet by ity of 10 mg 00:00: mouth in [place] tablet 00 the Medical morning. Branch ezetimibe 2021-0 Yes [id number] 10mg Take 1 U nivers 10 mg 9-13 tablet by ity of tablet 00:00: mouth in [place] 00 the Medical morning. Branch montelukast 2021-0 Yes [id number] 10mg Take 1 [facility] (SINGULAIR) 9-13 tablet by ity of 10 mg 00:00: mouth in [place] tablet 00 the Medical morning. Branch ezetimibe 2021-0 Yes [id number] 10mg Take 1 U nivers 10 mg 9-13 tablet by ity of tablet 00:00: mouth in [place] 00 the Medical morning. Branch montelukast 2021-0 Yes [id number] 10mg Take 1 [facility] (SINGULAIR) 9-13 tablet by ity of 10 mg 00:00: mouth in [place] tablet 00 the Medical morning. Branch ezetimibe 2021-0 Yes [id number] 10mg Take 1 U nivers 10 mg 9-13 tablet by ity of tablet 00:00: mouth in [place] 00 the Medical morning. Branch montelukast 2021-0 Yes [id number] 10mg Take 1 [facility] (SINGULAIR) 9-13 tablet by ity of 10 mg 00:00: mouth in [place] tablet 00 the Medical morning. Branch ezetimibe 2021-0 Yes [id number] 10mg Take 1 U nivers 10 mg 9-13 tablet by ity of tablet 00:00: mouth in [place] 00 the Medical morning. Branch montelukast 2021-0 Yes [id number] 10mg Take 1 [facility] (SINGULAIR) 9-13 tablet by ity of 10 mg 00:00: mouth in [facility] 00 the Medical morning. Branch ezetimibe 2021-0 Yes [id number] 10mg Take 1 U nivers 10 mg 9-13 tablet by ity of tablet 00:00: mouth in [place] 00 the Medical morning. Branch ezetimibe 2021-0 Yes [id number] 10mg Take 1 U nivers 10 mg 9-13 tablet by ity of tablet 00:00: mouth in [place] the Medical morning. Branch ezetimibe 2021-0 Yes [id number] 10mg Take 1 U nivers 10 mg 9-13 tablet by ity of tablet 00:00: mouth in [place] the Medical morning. Branch ezetimibe 2021-0 Yes [id number] 10mg Take 1 U nivers 10 mg 9-13 tablet by ity of tablet 00:00: mouth in [place] the Medical morning. Branch ezetimibe 2021-0 Yes [id number] 10mg Take 1 U nivers 10 mg 9-13 tablet by ity of tablet 00:00: mouth in [place] the Medical morning. Branch ezetimibe 2021-0 Yes [id number] 10mg Take 1 U nivers 10 mg 9-13 tablet by ity of tablet 00:00: mouth in [place] the Medical morning. Branch ezetimibe 2021-0 Yes [id number] 10mg Take 1 U nivers 10 mg 9-13 tablet by ity of tablet 00:00: mouth in [place] the Medical morning. Branch ezetimibe 2021-0 Yes [id number] 10mg Take 1 U nivers 10 mg 9-13 tablet by ity of tablet 00:00: mouth in [place] the Medical morning. Branch ezetimibe 2-0 Yes [id number] 10mg Take 1 U nivers 10 mg 9-13 tablet by ity of tablet 00:00: mouth in [place] 00 the Medical morning. Branch ezetimibe 2-0 Yes [id number] 10mg Take 1 U nivers 10 mg 9-13 tablet by ity of tablet 00:00: mouth in [place] 00 the Medical morning. Branch ezetimibe 2-0 Yes [id number] 10mg Take 1 U nivers 10 mg 9-13 tablet by ity of tablet 00:00: mouth in [place] 00 the Medical morning. Branch montelukast 2021- No [id number] 10mg Take 1 [facility] (SINGULAIR) 9-13 12-14 tablet by it y of 10 mg 00:00: 00:00 mouth in [place] tablet 00 :00 the Medical morning. Branch montelukast 2021- No [id number] 10mg Take 1 [facility] (SINGULAIR) 9-13 12-14 tablet by it y of 10 mg 00:00: 00:00 mouth in [place] tablet 00 :00 the Medical morning. Branch diphenoxyla 2021- No [id number] 1{tbl} Take 1 [facility] te-atropine 06-02 tablet by it y of 2.5-0.025 00:00: 00:00 mouth [place] mg tablet 00 :00 every 6 Medical (six) Branch hours as needed (Diarrhea) . pantoprazol 2021- No [id number] 40mg Take 1 [facility] e 40 mg EC 06-02 tablet by ity of tablet 00:00: 00:00 mouth in [place] 00 :00 the Medical morning. Branch hydrOXYzine 0 Yes Univer s 50 mg 6-06 ity of capsule 00:00: [place] Medical Branch venlafaxine 0 Yes Univer s XR 150 mg 6-06 ity of 24 hr 00:00: [place] capsule 00 Medical Branch hydrOXYzine 2021-0 Yes Univer s 50 mg 6-06 ity of capsule 00:00: [place] 00 Medical Branch venlafaxine 2021-0 Yes Univer s XR 150 mg 6-06 ity of 24 hr 00:00: [place] capsule 00 Medical Branch hydrOXYzine 2021-0 Yes Univer s 50 mg 6-06 ity of capsule 00:00: [place] 00 Medical Branch venlafaxine 2021-0 Yes Univer s XR 150 mg 6-06 ity of 24 hr 00:00: [place] capsule 00 Medical Branch hydrOXYzine 2021-0 Yes Univer s 50 mg 6-06 ity of capsule 00:00: [place] 00 Medical Branch venlafaxine 2021-0 Yes Univer s XR 150 mg 6-06 ity of 24 hr 00:00: [place] capsule 00 Medical Branch hydrOXYzine 2-0 Yes Univer s 50 mg 6-06 ity of capsule 00:00: [place] 00 Medical Branch venlafaxine 2-0 Yes Univer s XR 150 mg 6-06 ity of 24 hr 00:00: [place] capsule 00 Medical Branch hydrOXYzine 2-0 Yes Univer s 50 mg 6-06 ity of capsule 00:00: [place] [facility] Branch venlafaxine 2-0 Yes Univer s XR 150 mg 6-06 ity of 24 hr 00:00: [place] capsule 00 Medical Branch hydrOXYzine 2-0 Yes Univer s 50 mg 6-06 ity of capsule 00:00: [place] [facility] Branch venlafaxine 2-0 Yes Univer s XR 150 mg 6-06 ity of 24 hr 00:00: [place] capsule 00 Medical Branch hydrOXYzine 2-0 Yes Univer s 50 mg 6-06 ity of capsule 00:00: [place] [facility] Branch venlafaxine 2-0 Yes Univer s XR 150 mg 6-06 ity of 24 hr 00:00: [place] capsule 00 Medical Branch hydrOXYzine 2-0 Yes Univer s 50 mg 6-06 ity of capsule 00:00: [place] [facility] Branch venlafaxine 2-0 Yes Univer s XR 150 mg 6-06 ity of 24 hr 00:00: [place] capsule 00 Medical Branch hydrOXYzine 2-0 Yes Univer s 50 mg 6-06 ity of capsule 00:00: [place] [facility] Branch venlafaxine 2-0 Yes Univer s XR 150 mg 6-06 ity of 24 hr 00:00: [place] capsule 00 Medical Branch hydrOXYzine 2-0 Yes Univer s 50 mg 6-06 ity of capsule 00:00: [place] 00 Medical Branch venlafaxine 2-0 Yes Univer s XR 150 mg 6-06 ity of 24 hr 00:00: [place] capsule 00 Medical Branch hydrOXYzine 2-0 Yes Univer s 50 mg 6-06 ity of capsule 00:00: [place] 00 Medical Branch venlafaxine 2-0 Yes Univer s XR 150 mg 6-06 ity of 24 hr 00:00: [place] capsule 00 Medical Branch hydrOXYzine 2-0 Yes Univer s 50 mg 6-06 ity of capsule 00:00: [place] 00 Medical Branch venlafaxine 2-0 Yes Univer s XR 150 mg 6-06 ity of 24 hr 00:00: [place] capsule 00 Medical Branch hydrOXYzine 2-0 Yes Univer s 50 mg 6-06 ity of capsule 00:00: [place] 00 Medical Branch venlafaxine 2-0 Yes Univer s XR 150 mg 6-06 ity of 24 hr 00:00: [place] capsule 00 Medical Branch hydrOXYzine 2-0 Yes Univer s 50 mg 6-06 ity of capsule 00:00: [place] 00 Medical Branch venlafaxine 2-0 Yes Univer s XR 150 mg 6-06 ity of 24 hr 00:00: [place] capsule 00 Medical Branch hydrOXYzine 2-0 Yes Univer s 50 mg 6-06 ity of capsule 00:00: [place] 00 Medical Branch venlafaxine 2-0 Yes Univer s XR 150 mg 6-06 ity of 24 hr 00:00: [place] capsule 00 Medical Branch hydrOXYzine 2-0 Yes Univer s 50 mg 6-06 ity of capsule 00:00: [place] 00 Medical Branch venlafaxine 2-0 Yes Univer s XR 150 mg 6-06 ity of 24 hr 00:00: [place] capsule 00 Medical Branch hydrOXYzine 2-0 Yes Univer s 50 mg 6-06 ity of capsule 00:00: [place] 00 Medical Branch venlafaxine 2-0 Yes Univer s XR 150 mg 6-06 ity of 24 hr 00:00: [place] capsule 00 Medical Branch hydrOXYzine 2-0 Yes Univer s 50 mg 6-06 ity of capsule 00:00: [place] 00 Medical Branch venlafaxine 2-0 Yes Univer s XR 150 mg 6-06 ity of 24 hr 00:00: [place] capsule 00 Medical Branch hydrOXYzine 2-0 Yes Univer s 50 mg 6-06 ity of capsule 00:00: [place] 00 Medical Branch venlafaxine 2-0 Yes Univer s XR 150 mg 6-06 ity of 24 hr 00:00: [place] capsule 00 Medical Branch hydrOXYzine 2-0 Yes Univer s 50 mg 6-06 ity of capsule 00:00: [place] 00 Medical Branch venlafaxine 2022-0 Yes Univer s XR 150 mg 6-06 ity of 24 hr 00:00: [place] capsule 00 Medical Branch hydrOXYzine 2-0 Yes Univer s 50 mg 6-06 ity of capsule 00:00: [place] [facility] Branch venlafaxine 2-0 Yes Univer s XR 150 mg 6-06 ity of 24 hr 00:00: [place] capsule 00 Medical Branch hydrOXYzine 2-0 Yes Univer s 50 mg 6-06 ity of capsule 00:00: [place] [facility] Branch venlafaxine 2-0 Yes Univer s XR 150 mg 6-06 ity of 24 hr 00:00: [place] capsule Medical Branch hydrOXYzine 2-0 Yes Univer s 50 mg 6-06 ity of capsule 00:00: [place] [facility] Branch venlafaxine 2-0 Yes Univer s XR 150 mg 6-06 ity of 24 hr 00:00: [place] capsule Medical Branch hydrOXYzine 2-0 Yes Univer s 50 mg 6-06 ity of capsule 00:00: [place] [facility] Branch venlafaxine 2-0 Yes Univer s XR 150 mg 6-06 ity of 24 hr 00:00: [place] capsule 00 Medical Branch hydrOXYzine 2-0 Yes Univer s 50 mg 6-06 ity of capsule 00:00: [place] 00 Medical Branch venlafaxine 2-0 Yes Univer s XR 150 mg 6-06 ity of 24 hr 00:00: [place] capsule 00 Medical Branch hydrOXYzine 2-0 Yes Univer s 50 mg 6-06 ity of capsule 00:00: [place] [facility] Branch venlafaxine 2-0 Yes Univer s XR 150 mg 6-06 ity of 24 hr 00:00: [place] capsule 00 Medical Branch hydrOXYzine 2-0 Yes Univer s 50 mg 6-06 ity of capsule 00:00: [place] 00 Medical Branch venlafaxine 2-0 Yes Univer s XR 150 mg 6-06 ity of 24 hr 00:00: [place] capsule 00 Medical Branch hydrOXYzine 2-0 Yes Univer s 50 mg 6-06 ity of capsule 00:00: [place] 00 Medical Branch venlafaxine 2-0 Yes Univer s XR 150 mg 6-06 ity of 24 hr 00:00: [place] capsule 00 Medical Branch hydrOXYzine 2-0 Yes Univer s 50 mg 6-06 ity of capsule 00:00: [place] 00 Medical Branch venlafaxine 2-0 Yes Univer s XR 150 mg 6-06 ity of 24 hr 00:00: [place] capsule 00 Medical Branch hydrOXYzine 2-0 Yes Univer s 50 mg 6-06 ity of capsule 00:00: [place] [facility] Branch venlafaxine 2-0 Yes Univer s XR 150 mg 6-06 ity of 24 hr 00:00: [place] capsule 00 Medical Branch hydrOXYzine 2-0 Yes Univer s 50 mg 6-06 ity of capsule 00:00: [place] [facility] Branch venlafaxine 2-0 Yes Univer s XR 150 mg 6-06 ity of 24 hr 00:00: [place] capsule 00 Medical Branch hydrOXYzine 2-0 Yes Univer s 50 mg 6-06 ity of capsule 00:00: [place] [facility] Branch venlafaxine 2-0 Yes Univer s XR 150 mg 6-06 ity of 24 hr 00:00: [place] capsule 00 Medical Branch hydrOXYzine 2-0 Yes Univer s 50 mg 6-06 ity of capsule 00:00: [place] [facility] Branch venlafaxine 2-0 Yes Univer s XR 150 mg 6-06 ity of 24 hr 00:00: [place] capsule 00 Medical Branch hydrOXYzine 2-0 Yes Univer s 50 mg 6-06 ity of capsule 00:00: [place] [facility] Branch venlafaxine 2-0 Yes Univer s XR 150 mg 6-06 ity of 24 hr 00:00: [place] capsule 00 Medical Branch hydrOXYzine 2-0 Yes Univer s 50 mg 6-06 ity of capsule 00:00: [place] 00 Medical Branch venlafaxine 2-0 Yes Univer s XR 150 mg 6-06 ity of 24 hr 00:00: [place] capsule 00 Medical Branch hydrOXYzine 2-0 Yes Univer s 50 mg 6-06 ity of capsule 00:00: [place] 00 Medical Branch venlafaxine 2-0 Yes Univer s XR 150 mg 6-06 ity of 24 hr 00:00: [place] capsule 00 Medical Branch venlafaxine 2-0 Yes Univer s XR 150 mg 6-06 ity of 24 hr 00:00: [place] capsule Medical Branch venlafaxine 2-0 Yes Univer s XR 150 mg 6-06 ity of 24 hr 00:00: [place] capsule Medical Branch venlafaxine 2-0 Yes Univer s XR 150 mg 6-06 ity of 24 hr 00:00: [place] capsule Medical Branch venlafaxine 2-0 Yes Univer s XR 150 mg 6-06 ity of 24 hr 00:00: [place] capsule Medical Branch venlafaxine 2-0 Yes Univer s XR 150 mg 6-06 ity of 24 hr 00:00: [place] capsule Medical Branch venlafaxine 2-0 Yes Univer s XR 150 mg 6-06 ity of 24 hr 00:00: [place] capsule Medical Branch venlafaxine 2-0 Yes Univer s XR 150 mg 6-06 ity of 24 hr 00:00: [place] capsule Medical Branch venlafaxine 2-0 Yes Univer s XR 150 mg 6-06 ity of 24 hr 00:00: [place] capsule Medical Branch venlafaxine 2-0 Yes Univer s XR 150 mg 6-06 ity of 24 hr 00:00: [place] capsule Medical Branch venlafaxine 2-0 Yes Univer s XR 150 mg 6-06 ity of 24 hr 00:00: [place] capsule Medical Branch venlafaxine 2-0 Yes Univer s XR 150 mg 6-06 ity of 24 hr 00:00: [place] capsule Medical Branch venlafaxine 2-0 Yes Univer s XR 150 mg 6-06 ity of 24 hr 00:00: [place] capsule Medical Branch venlafaxine 2-0 Yes Univer s XR 150 mg 6-06 ity of 24 hr 00:00: [place] capsule Medical Branch venlafaxine 2-0 Yes Univer s XR 150 mg 6-06 ity of 24 hr 00:00: [place] capsule Medical Branch venlafaxine 2-0 Yes Univer s XR 150 mg 6-06 ity of 24 hr 00:00: [place] capsule Medical Branch venlafaxine 2-0 Yes Univer s XR 150 mg 6-06 ity of 24 hr 00:00: [place] capsule 00 Medical Branch venlafaxine 2-0 Yes Univer s XR 150 mg 6-06 ity of 24 hr 00:00: [place] capsule 00 Medical Branch venlafaxine 2-0 Yes Univer s XR 150 mg 6-06 ity of 24 hr 00:00: [place] capsule Medical Branch venlafaxine 2-0 Yes Univer s XR 150 mg 6-06 ity of 24 hr 00:00: [place] capsule Medical Branch venlafaxine 2-0 Yes Univer s XR 150 mg 6-06 ity of 24 hr 00:00: [place] capsule Medical Branch venlafaxine 2-0 Yes Univer s XR 150 mg 6-06 ity of 24 hr 00:00: [place] capsule Medical Branch venlafaxine 2-0 Yes Univer s XR 150 mg 6-06 ity of 24 hr 00:00: [place] [facility] venlafaxine 2-0 Yes [facility] XR 150 mg 6-06 ity of 24 hr 00:00: [place] [facility] venlafaxine 2-0 Yes [facility] XR 150 mg 6-06 ity of 24 hr 00:00: [place] [facility] 00 [facility] venlafaxine 2-0 Yes [facility] XR 150 mg 6-06 ity of 24 hr 00:00: [place] [facility] venlafaxine 2-0 Yes [facility] XR 150 mg 6-06 ity of 24 hr 00:00: [place] [facility] 00 [facility] venlafaxine 2-0 Yes [facility] XR 150 mg 6-06 ity of 24 hr 00:00: [place] [facility] 00 [facility] venlafaxine 2-0 Yes [facility] XR 150 mg 6-06 ity of 24 hr 00:00: [place] [facility] 00 [facility] venlafaxine 2-0 Yes [facility] XR 150 mg 6-06 ity of 24 hr 00:00: [place] [facility] 00 [facility] venlafaxine 2-0 Yes [facility] XR 150 mg 6-06 ity of 24 hr 00:00: [place] [facility] 00 [facility] hydrOXYzine 2-0 3- No Un[facility] rs 50 mg 6-06 02-06 ity of capsule 00:00: 00:00 [place] 00 :00 [facility] hydrOXYzine 2021-0 2022- No [facility] 50 mg 03-30 ity of capsule 00:00: 00:00 [place] 00 :00 [facility] gabapentin 2-0 2021- No [facility] 400 mg 03-30 ity of capsule 00:00: 00:00 [place] 00 :00 [facility] clonazePAM 2022-0 Yes [facility] 1 mg tablet 5-13 ity of 00:00: [place] [facility] clonazePAM 2022-0 Yes [facility] 1 mg tablet 5-13 ity of 00:00: [place] [address] [facility] clonazePAM 2022-0 Yes [facility] 1 mg tablet 5-13 ity of 00:00: [place] [address] [facility] clonazePAM 2-0 Yes [facility] 1 mg tablet 5-13 ity of 00:00: [place] [address] [facility] clonazePAM 2-0 Yes [facility] 1 mg tablet 5-13 ity of 00:00: [place] [address] [facility] clonazePAM 2-0 Yes [facility] 1 mg tablet 5-13 ity of 00:00: [place] [address] [facility] clonazePAM 2022-0 Yes [facility] 1 mg tablet 5-13 ity of 00:00: [place] [address] [facility] clonazePAM 2022-0 Yes [facility] 1 mg tablet 5-13 ity of 00:00: [place] [address] [facility] clonazePAM 2-0 Yes [facility] 1 mg tablet 5-13 ity of 00:00: [place] [address] [facility] clonazePAM 2-0 Yes [facility] 1 mg tablet 5-13 ity of 00:00: [place] [address] [facility] clonazePAM 2022-0 Yes [facility] 1 mg tablet 5-13 ity of 00:00: [place] [address] [facility] clonazePAM 2022-0 Yes [facility] 1 mg tablet 5-13 ity of 00:00: [place] 00 [facility] clonazePAM 2022-0 2021- No Un[facility] 1 mg tablet -13 07-29 ity of 00:00: 00:00 [place] 00 :00 [facility] clonazePAM 2022-0 2- No [facility] 1 mg tablet -13 07-29 ity of 00:00: 00:00 [place] 00 :00 [facility] gabapentin 2022-0 Yes [facility] 300 mg - ity of capsule 00:00: [place] [address] [facility] gabapentin 2022-0 Yes [facility] 300 mg -09 ity of capsule 00:00: [place] [address] [facility] gabapentin 2022-0 Yes [facility] 300 mg 5-09 ity of capsule 00:00: [place] 00 [facility] gabapentin 2022-0 Yes [facility] 300 mg 5-09 ity of capsule 00:00: [place] 00 [facility] gabapentin 2022-0 Yes [facility] 300 mg 5-09 ity of capsule 00:00: [place] 00 [facility] gabapentin 2022-0 Yes [facility] 300 mg 5-09 ity of capsule 00:00: [place] [address] [facility] gabapentin 2022-0 Yes [facility] 300 mg 5-09 ity of capsule 00:00: [place] [address] [facility] gabapentin 2022-0 Yes [facility] 300 mg 5-09 ity of capsule 00:00: [place] [address] [facility] gabapentin 2022-0 Yes [facility] 300 mg 5-09 ity of capsule 00:00: [place] [address] [facility] gabapentin 2022-0 Yes [facility] 300 mg 5-09 ity of capsule 00:00: [place] [address] [facility] gabapentin 2022-0 Yes [facility] 300 mg 5-09 ity of capsule 00:00: [place] [address] [facility] gabapentin 2022-0 Yes [facility] 300 mg 5-09 ity of capsule 00:00: [place] [address] [facility] gabapentin 2022-0 2022- No [facility] 300 mg 5-09 10-05 ity of capsule 00:00: 00:00 [place] 00 :00 [facility] gabapentin 2022-0 2022- No [facility] 300 mg 5-09 10-05 ity of capsule 00:00: 00:00 [place] 00 :00 [facility] FLUoxetine 2022-0 Yes [facility] 40 mg 5-06 ity of capsule 00:00: [place] [address] [facility] QUEtiapine 2022-0 Yes [facility] 50 mg 5-06 ity of tablet 00:00: [place] [address] [facility] FLUoxetine 2022-0 Yes [facility] 40 mg 5-06 ity of capsule 00:00: [place] [address] [facility] QUEtiapine 2022-0 Yes [facility] 50 mg 5-06 ity of tablet 00:00: [place] [address] [facility] FLUoxetine 2022-0 Yes [facility] 40 mg 5-06 ity of capsule 00:00: [place] [address] [facility] QUEtiapine 2022-0 Yes [facility] 50 mg 5-06 ity of tablet 00:00: [place] [address] [facility] FLUoxetine 2022-0 Yes [facility] 40 mg 5-06 ity of capsule 00:00: [place] [address] [facility] QUEtiapine 2022-0 Yes [facility] 50 mg 5-06 ity of tablet 00:00: [place] [address] [facility] FLUoxetine 2022-0 Yes [facility] 40 mg 5-06 ity of capsule 00:00: [place] [address] [facility] QUEtiapine 2022-0 Yes [facility] 50 mg 5-06 ity of tablet 00:00: [place] [address] [facility] FLUoxetine 2022-0 Yes [facility] 40 mg 5-06 ity of capsule 00:00: [place] [address] [facility] QUEtiapine 2022-0 Yes [facility] 50 mg 5-06 ity of tablet 00:00: [place] [address] [facility] FLUoxetine 2022-0 Yes [facility] 40 mg 5-06 ity of capsule 00:00: [place] [address] [facility] QUEtiapine 2022-0 Yes [facility] 50 mg 5-06 ity of tablet 00:00: [place] [address] [facility] FLUoxetine 2022-0 Yes [facility] 40 mg 5-06 ity of capsule 00:00: [place] [address] [facility] QUEtiapine 2022-0 Yes [facility] 50 mg 5-06 ity of tablet 00:00: [place] [address] [facility] FLUoxetine 2022-0 Yes [facility] 40 mg 5-06 ity of capsule 00:00: [place] [address] [facility] QUEtiapine 2022-0 Yes [facility] 50 mg 5-06 ity of tablet 00:00: [place] [address] [facility] FLUoxetine 2022-0 Yes [facility] 40 mg 5-06 ity of capsule 00:00: [place] [address] [facility] QUEtiapine 2022-0 Yes [facility] 50 mg 5-06 ity of tablet 00:00: [place] [address] [facility] FLUoxetine 2022-0 Yes [facility] 40 mg 5-06 ity of capsule 00:00: [place] [address] [facility] QUEtiapine 2022-0 Yes [facility] 50 mg 5-06 ity of tablet 00:00: [place] [address] [facility] FLUoxetine 2022-0 Yes [facility] 40 mg 5-06 ity of capsule 00:00: [place] [address] [facility] QUEtiapine 2022-0 Yes [facility] 50 mg 5-06 ity of tablet 00:00: [place] [address] [facility] FLUoxetine 2022-0 2022- No Un[facility] 40 mg 5-06 10-05 ity of capsule 00:00: 00:00 [place] 00 :00 [facility] QUEtiapine 2022-0 2022- No Un[facility] 50 mg 5-06 10-05 ity of tablet 00:00: 00:00 [place] 00 :00 [facility] FLUoxetine 2022-0 2022- No [facility] 40 mg 5-06 10-05 ity of capsule 00:00: 00:00 [place] 00 :00 [facility] QUEtiapine 2022-0 2022- No Un[facility] 50 mg 02-27-05 ity of tablet 00:00: 00:00 [place] 00 :00 [facility] cloNIDine 2-0 Yes [facility] 0.1 mg 4-22 ity of tablet 00:00: [place] [facility] cloNIDine 2022-0 Yes [facility] 0.1 mg 4-22 ity of tablet 00:00: [place] [address] [facility] cloNIDine 2022-0 Yes [facility] 0.1 mg 4-22 ity of tablet 00:00: [place] [address] [facility] cloNIDine 2022-0 Yes [facility] 0.1 mg 4-22 ity of tablet 00:00: [place] [address] [facility] cloNIDine 2022-0 Yes [facility] 0.1 mg 4-22 ity of tablet 00:00: [place] [address] [facility] cloNIDine 2-0 Yes [facility] 0.1 mg 4-22 ity of tablet 00:00: [place] [address] [facility] cloNIDine 2022-0 Yes [facility] 0.1 mg 4-22 ity of tablet 00:00: [place] [address] [facility] cloNIDine 2022-0 Yes [facility] 0.1 mg 4-22 ity of tablet 00:00: [place] [address] [facility] cloNIDine 2022-0 Yes [facility] 0.1 mg 4-22 ity of tablet 00:00: [place] [address] [facility] cloNIDine 2022-0 Yes [facility] 0.1 mg 4-22 ity of tablet 00:00: [place] [address] [facility] cloNIDine 2022-0 Yes [facility] 0.1 mg 4-22 ity of tablet 00:00: [place] [address] [facility] cloNIDine 2022-0 Yes [facility] 0.1 mg 4-22 ity of tablet 00:00: [place] [address] [facility] cloNIDine 2022-0 2022- No [facility] 0.1 mg 4-22 -05 ity of tablet 00:00: 00:00 [place] 00 :00 [facility] cloNIDine 2022-0 2022- No [facility] 0.1 mg 4-22 -05 ity of tablet 00:00: 00:00 [place] 00 :00 [facility] Immunizations Ordered Filled Immunization Date Status Comments Sourc e Immunization Name Name Influenza Virus 2020-08-08 Completed [facility] Vaccine Quad .5 mL 00:00:00 [facility]+ [facility] Influenza Virus 2020-08-08 Completed [facility] Vaccine Quad .5 mL 00:00:00 [place] [facility] Influenza Virus 2020-08-08 Completed [facility] Vaccine Quad .5 mL 00:00:00 [place] [facility] Influenza Virus 2020-08-08 Completed [facility] Vaccine Quad .5 mL 00:00:00 [place] [facility] Influenza Virus 2020-08-08 Completed [facility] Vaccine Quad .5 mL 00:00:00 [place] [facility] Influenza Virus 2020-08-08 Completed [facility] Vaccine Quad .5 mL 00:00:00 [place] [facility] Influenza Virus 2020-08-08 Completed [facility] Vaccine Quad .5 mL 00:00:00 [place] [facility] Influenza Virus 2020-08-08 Completed [facility] Vaccine Quad .5 mL 00:00:00 [place] [facility] Influenza Virus 2020-08-08 Completed [facility] Vaccine Quad .5 mL 00:00:00 [place] [facility] Influenza Virus 2020-08-08 Completed [facility] Vaccine Quad .5 mL 00:00:00 [place] [facility] Influenza Virus 2020-08-08 Completed [facility] Vaccine Quad .5 mL 00:00:00 [place] [facility] Influenza Virus 2020-08-08 Completed [facility] Vaccine Quad .5 mL 00:00:00 [place] [facility] Influenza Virus 2020-08-08 Completed [facility] Vaccine Quad .5 mL 00:00:00 [place] [facility] Influenza Virus 2020-08-08 Completed [facility] Vaccine Quad .5 mL 00:00:00 [place] [facility] Influenza Virus 2020-08-08 Completed [facility] Vaccine Quad .5 mL 00:00:00 [place] [facility] Influenza Virus 2020-08-08 Completed [facility] Vaccine Quad .5 mL 00:00:00 [place] [facility] Influenza Virus 2020-08-08 Completed [facility] Vaccine Quad .5 mL 00:00:00 [place] [facility] Influenza Virus 2020-08-08 Completed [facility] Vaccine Quad .5 mL 00:00:00 [place] [facility] Influenza Virus 2020-08-08 Completed [facility] Vaccine Quad .5 mL 00:00:00 [place] [facility] Influenza Virus 2020-08-08 Completed [facility] Vaccine Quad .5 mL 00:00:00 [place] [facility] Influenza Virus 2020-08-08 Completed [facility] Vaccine Quad .5 mL 00:00:00 [place] [facility] Influenza Virus 2020-08-08 Completed [facility] Vaccine Quad .5 mL 00:00:00 [place] [facility] Influenza Virus 2020-08-08 Completed [facility] Vaccine Quad .5 mL 00:00:00 [place] [facility] Influenza Virus 2020-08-08 Completed [facility] Vaccine Quad .5 mL 00:00:00 [place] [facility] Influenza Virus 2020-08-08 Completed [facility] Vaccine Quad .5 mL 00:00:00 [place] [facility] Influenza Virus 2020-08-08 Completed [facility] Vaccine Quad .5 mL 00:00:00 [place] [facility] Influenza Virus 2020-08-08 Completed [facility] of Vaccine Quad .5 mL 00:00:00 [place] [facility] Influenza Virus 2020-08-08 Completed [facility] Vaccine Quad .5 mL 00:00:00 [place] [facility] Influenza Virus 2020-08-08 Completed [facility] Vaccine Quad .5 mL 00:00:00 [place] [facility] Influenza Virus 2020-08-08 Completed [facility] Vaccine Quad .5 mL 00:00:00 [place] [facility] Influenza Virus 2020-08-08 Completed [facility] Vaccine Quad .5 mL 00:00:00 [place] [facility] Influenza Virus 2020-08-08 Completed [facility] Vaccine Quad .5 mL 00:00:00 [place] [facility] Influenza Virus 2020-08-08 Completed [facility] Vaccine Quad .5 mL 00:00:00 [place] [facility] Influenza Virus 2020-08-08 Completed [facility] Vaccine Quad .5 mL 00:00:00 [place] [facility] Influenza Virus 2020-08-08 Completed [facility] Vaccine Quad .5 mL 00:00:00 [place] [facility] Influenza Virus 2020-08-08 Completed [facility] Vaccine Quad .5 mL 00:00:00 [place] [facility] Influenza Virus 2020-08-08 Completed [facility] of Vaccine Quad .5 mL 00:00:00 [place] [facility] Influenza Virus 2020-08-08 Completed [facility] Vaccine Quad .5 mL 00:00:00 [place] [facility] Influenza Virus 2020-08-08 Completed [facility] Vaccine Quad .5 mL 00:00:00 [place] [facility] Influenza Virus 2020-08-08 Completed [facility] Vaccine Quad .5 mL 00:00:00 [place] [facility] Influenza Virus 2020-08-08 Completed [facility] Vaccine Quad .5 mL 00:00:00 [place] [facility] Influenza Virus 2020-08-08 Completed [facility] of Vaccine Quad .5 mL 00:00:00 [place] [facility] Influenza Virus 2020-08-08 Completed [facility] Vaccine Quad .5 mL 00:00:00 [place] [facility] Influenza Virus 2020-08-08 Completed [facility] Vaccine Quad .5 mL 00:00:00 [place] [facility] Influenza Virus 2020-08-08 Completed [facility] Vaccine Quad .5 mL 00:00:00 [place] [facility] Influenza Virus 2020-08-08 Completed [facility] Vaccine Quad .5 mL 00:00:00 [place] [facility] Influenza Virus 2020-08-08 Completed [facility] Vaccine Quad .5 mL 00:00:00 [place] [facility] Influenza Virus 2020-08-08 Completed [facility] Vaccine Quad .5 mL 00:00:00 [place] [facility] Influenza Virus 2020-08-08 Completed [facility] Vaccine Quad .5 mL 00:00:00 [place] [facility] Influenza Virus 2020-08-08 Completed [facility] Vaccine Quad .5 mL 00:00:00 [place] [facility] Influenza Virus 2020-08-08 Completed [facility] of Vaccine Quad .5 mL 00:00:00 [place] [facility] Influenza Virus 2020-08-08 Completed [facility] Vaccine Quad .5 mL 00:00:00 [place] [facility] Influenza Virus 2020-08-08 Completed [facility] of Vaccine Quad .5 mL 00:00:00 [place] [facility] Influenza Virus 2020-08-08 Completed [facility] Vaccine Quad .5 mL 00:00:00 [place] [facility] Influenza Virus 2020-08-08 Completed [facility] of Vaccine Quad .5 mL 00:00:00 [place] [facility] Influenza Virus 2020-08-08 Completed [facility] Vaccine Quad .5 mL 00:00:00 [place] [facility] Influenza Virus 2020-08-08 Completed [facility] Vaccine Quad .5 mL 00:00:00 [place] [facility] Influenza Virus 2020-08-08 Completed [facility] Vaccine Quad .5 mL 00:00:00 [place] [facility] Influenza Virus 2020-08-08 Completed [facility] Vaccine Quad .5 mL 00:00:00 [place] [facility] Influenza Virus 2020-08-08 Completed [facility] of Vaccine Quad .5 mL 00:00:00 [place] [facility] Influenza Virus 2020-08-08 Completed [facility] of Vaccine Quad .5 mL 00:00:00 [place] [facility] Influenza Virus 2020-08-08 Completed [facility] of Vaccine Quad .5 mL 00:00:00 [place] [facility] Influenza Virus 2020-08-08 Completed [facility] of Vaccine Quad .5 mL 00:00:00 [place] [facility] Influenza Virus 2020-08-08 Completed [facility] of Vaccine Quad .5 mL 00:00:00 [place] [facility] Influenza Virus 2020-08-08 Completed [facility] of Vaccine Quad .5 mL 00:00:00 [place] [facility] Influenza Virus 2020-08-08 Completed [facility] of Vaccine Quad .5 mL 00:00:00 [place] [facility] Influenza Virus 2020-08-08 Completed [facility] of Vaccine Quad .5 mL 00:00:00 [place] [facility] Influenza Virus 2019-11-28 Completed [facility] of Vaccine Quad .5 mL 00:00:00 [place] [facility] Influenza Virus 2019-11-28 Completed [facility] of Vaccine Quad .5 mL 00:00:00 [place] [facility] Influenza Virus 2019-11-28 Completed [facility] of Vaccine Quad .5 mL 00:00:00 [place] [facility] Influenza Virus 2019-11-28 Completed [facility] of Vaccine Quad .5 mL 00:00:00 [place] [facility] Influenza Virus 2019-11-28 Completed [facility] of Vaccine Quad .5 mL 00:00:00 [place] [facility] Influenza Virus 2019-11-28 Completed [facility] of Vaccine Quad .5 mL 00:00:00 [place] [facility] Influenza Virus 2019-11-28 Completed [facility] of Vaccine Quad .5 mL 00:00:00 [place] [facility] Influenza Virus 2019-11-28 Completed [facility] of Vaccine Quad .5 mL 00:00:00 [place] [facility] Influenza Virus 2019-11-28 Completed [facility] of Vaccine Quad .5 mL 00:00:00 [place] [facility] Influenza Virus 2019-11-28 Completed [facility] y of Vaccine Quad .5 mL 00:00:00 [place] [facility] Influenza Virus 2019-11-28 Completed [facility] of Vaccine Quad .5 mL 00:00:00 [place] [facility] Influenza Virus 2019-11-28 Completed [facility] of Vaccine Quad .5 mL 00:00:00 [place] [facility] Influenza Virus 2019-11-28 Completed [facility] of Vaccine Quad .5 mL 00:00:00 [place] [facility] Influenza Virus 2019-11-28 Completed [facility] of Vaccine Quad .5 mL 00:00:00 [place] [facility] Influenza Virus 2019-11-28 Completed [facility] of Vaccine Quad .5 mL 00:00:00 [place] [facility] Influenza Virus 2019-11-28 Completed [facility] of Vaccine Quad .5 mL 00:00:00 [place] [facility] Influenza Virus 2019-11-28 Completed [facility] of Vaccine Quad .5 mL 00:00:00 [place] [facility] Influenza Virus 2019-11-28 Completed [facility] of Vaccine Quad .5 mL 00:00:00 [place] [facility] Influenza Virus 2019-11-28 Completed [facility] of Vaccine Quad .5 mL 00:00:00 [place] [facility] Influenza Virus 2019-11-28 Completed [facility] of Vaccine Quad .5 mL 00:00:00 [place] [facility] Influenza Virus 2019-11-28 Completed [facility] y of Vaccine Quad .5 mL 00:00:00 [place] [facility] Influenza Virus 2019-11-28 Completed [facility] y of Vaccine Quad .5 mL 00:00:00 [place] [facility] Influenza Virus 2019-11-28 Completed [facility] of Vaccine Quad .5 mL 00:00:00 [place] [facility] Influenza Virus 2019-11-28 Completed [facility] of Vaccine Quad .5 mL 00:00:00 [place] [facility] Influenza Virus 2019-11-28 Completed [facility] of Vaccine Quad .5 mL 00:00:00 [place] [facility] Influenza Virus 2019-11-28 Completed [facility] of Vaccine Quad .5 mL 00:00:00 [place] [facility] Influenza Virus 2019-11-28 Completed [facility] of Vaccine Quad .5 mL 00:00:00 [place] [facility] Influenza Virus 2019-11-28 Completed [facility] of Vaccine Quad .5 mL 00:00:00 [place] [facility] Influenza Virus 2019-11-28 Completed [facility] of Vaccine Quad .5 mL 00:00:00 [place] [facility] Influenza Virus 2019-11-28 Completed [facility] of Vaccine Quad .5 mL 00:00:00 [place] [facility] Influenza Virus 2019-11-28 Completed [facility] of Vaccine Quad .5 mL 00:00:00 [place] [facility] Influenza Virus 2019-11-28 Completed [facility] of Vaccine Quad .5 mL 00:00:00 [place] [facility] Influenza Virus 2019-11-28 Completed [facility] of Vaccine Quad .5 mL 00:00:00 [place] [facility] Influenza Virus 2019-11-28 Completed [facility] y of Vaccine Quad .5 mL 00:00:00 [place] [facility] Influenza Virus 2019-11-28 Completed [facility] of Vaccine Quad .5 mL 00:00:00 [place] [facility] Influenza Virus 2019-11-28 Completed [facility] y of Vaccine Quad .5 mL 00:00:00 [place] [facility] Influenza Virus 2019-11-28 Completed [facility] of Vaccine Quad .5 mL 00:00:00 [place] [facility] Influenza Virus 2019-11-28 Completed [facility] of Vaccine Quad .5 mL 00:00:00 [place] [facility] Influenza Virus 2019-11-28 Completed [facility] of Vaccine Quad .5 mL 00:00:00 [place] [facility] Influenza Virus 2019-11-28 Completed [facility] of Vaccine Quad .5 mL 00:00:00 [place] [facility] Influenza Virus 2019-11-28 Completed [facility] of Vaccine Quad .5 mL 00:00:00 [place] [facility] Influenza Virus 2019-11-28 Completed [facility] of Vaccine Quad .5 mL 00:00:00 [place] [facility] Influenza Virus 2019-11-28 Completed [facility] of Vaccine Quad .5 mL 00:00:00 [place] [facility] Influenza Virus 2019-11-28 Completed [facility] y of Vaccine Quad .5 mL 00:00:00 [place] [facility] Influenza Virus 2019-11-28 Completed [facility] y of Vaccine Quad .5 mL 00:00:00 [place] [facility] Influenza Virus 2019-11-28 Completed [facility] of Vaccine Quad .5 mL 00:00:00 [place] [facility] Influenza Virus 2019-11-28 Completed [facility] of Vaccine Quad .5 mL 00:00:00 [place] [facility] Influenza Virus 2019-11-28 Completed [facility] of Vaccine Quad .5 mL 00:00:00 [place] [facility] Influenza Virus 2019-11-28 Completed [facility] of Vaccine Quad .5 mL 00:00:00 [place] [facility] Influenza Virus 2019-11-28 Completed [facility] of Vaccine Quad .5 mL 00:00:00 [place] [facility] Influenza Virus 2019-11-28 Completed [facility] of Vaccine Quad .5 mL 00:00:00 [place] [facility] Influenza Virus 2019-11-28 Completed [facility] of Vaccine Quad .5 mL 00:00:00 [place] [facility] Influenza Virus 2019-11-28 Completed [facility] of Vaccine Quad .5 mL 00:00:00 [place] [facility] Influenza Virus 2019-11-28 Completed [facility] of Vaccine Quad .5 mL 00:00:00 [place] [facility] Influenza Virus 2019-11-28 Completed [facility] of Vaccine Quad .5 mL 00:00:00 [place] [facility] Influenza Virus 2019-11-28 Completed [facility] of Vaccine Quad .5 mL 00:00:00 [place] [facility] Influenza Virus 2019-11-28 Completed [facility] of Vaccine Quad .5 mL 00:00:00 [place] [facility] Influenza Virus 2019-11-28 Completed [facility] of Vaccine Quad .5 mL 00:00:00 [place] [facility] Influenza Virus 2019-11-28 Completed [facility] of Vaccine Quad .5 mL 00:00:00 [place] [facility] Influenza Virus 2019-11-28 Completed [facility] of Vaccine Quad .5 mL 00:00:00 [place] [facility] Influenza Virus 2019-11-28 Completed [facility] of Vaccine Quad .5 mL 00:00:00 [place] [facility] Influenza Virus 2019-11-28 Completed [facility] of Vaccine Quad .5 mL 00:00:00 [place] [facility] Influenza Virus 2019-11-28 Completed [facility] of Vaccine Quad .5 mL 00:00:00 [place] [facility] Influenza Virus 2019-11-28 Completed [facility] of Vaccine Quad .5 mL 00:00:00 [place] [facility] Influenza Virus 2019-11-28 Completed [facility] of Vaccine Quad .5 mL 00:00:00 [place] [facility] Influenza Virus 2019-11-28 Completed [facility] of Vaccine Quad .5 mL 00:00:00 [place] [facility] Influenza Virus 2019-11-28 Completed [facility] of Vaccine Quad .5 mL 00:00:00 [place] [facility] Influenza Virus 2018-08-01 Completed [facility] of Vaccine Quad IM 00:00:00 [place] [facility] 6+ [facility] Influenza Virus 2018-08-01 Completed [facility] of Vaccine Quad IM 00:00:00 [place] [facility] Multi-dose 6+ [facility] Influenza Virus 2018-08-01 Completed [facility] of Vaccine Quad IM 00:00:00 [place] [facility] Multi-dose 6+ [facility] Influenza Virus 2018-08-01 Completed [facility] of Vaccine Quad IM 00:00:00 [place] [facility] Multi-dose 6+ [facility] Influenza Virus 2018-08-01 Completed [facility] of Vaccine Quad IM 00:00:00 [place] [facility] Multi-dose 6+ [facility] Influenza Virus 2018-08-01 Completed [facility] of Vaccine Quad IM 00:00:00 [place] [facility] Multi-dose 6+ [facility] Influenza Virus 2018-08-01 Completed [facility] of Vaccine Quad IM 00:00:00 [place] [facility] Multi-dose 6+ [facility] Influenza Virus 2018-08-01 Completed [facility] of Vaccine Quad IM 00:00:00 [place] [facility] Multi-dose 6+ [facility] Influenza Virus 2018-08-01 Completed [facility] of Vaccine Quad IM 00:00:00 [place] [facility] Multi-dose 6+ [facility] Influenza Virus 2018-08-01 Completed [facility] [place] [facility] Influenza Virus 2018-08-01 Completed [facility] [place] [facility] Influenza Virus 2018-08-01 Completed [facility] 00:00:00 [place] [facility] Influenza Virus 2018-08-01 Completed [facility] 00:00:00 [place] [facility] Influenza Virus 2018-08-01 Completed [facility] 00:00:00 [place] [facility] Influenza Virus 2018-08-01 Completed [facility] 00:00:00 [place] [facility] Influenza Virus 2018-08-01 Completed [facility] 00:00:00 [place] [facility] Influenza Virus 2018-08-01 Completed [facility] 00:00:00 [place] [facility] Influenza Virus 2018-08-01 Completed [facility] 00:00:00 [place] [facility] Influenza Virus 2018-08-01 Completed [facility] 00:00:00 [place] [facility] Influenza Virus 2018-08-01 Completed [facility] 00:00:00 [place] [facility] Influenza Virus 2018-08-01 Completed [facility] 00:00:00 [place] [facility] Influenza Virus 2018-08-01 Completed [facility] 00:00:00 [place] [facility] Influenza Virus 2018-08-01 Completed [facility] 00:00:00 [place] [facility] Influenza Virus 2018-08-01 Completed [facility] 00:00:00 [place] [facility] Influenza Virus 2018-08-01 Completed [facility] 00:00:00 [place] [facility] Influenza Virus 2018-08-01 Completed [facility] 00:00:00 [place] [facility] Influenza Virus 2018-08-01 Completed [facility] 00:00:00 [place] [facility] Influenza Virus 2018-08-01 Completed [facility] 00:00:00 [place] [facility] Influenza Virus 2018-08-01 Completed [facility] 00:00:00 [place] [facility] Influenza Virus 2018-08-01 Completed [facility] 00:00:00 [place] [facility] Influenza Virus 2018-08-01 Completed [facility] 00:00:00 [place] [facility] Influenza Virus 2018-08-01 Completed [facility] 00:00:00 [place] [facility] Influenza Virus 2018-08-01 Completed [facility] 00:00:00 [place] [facility] Influenza Virus 2018-08-01 Completed [facility] 00:00:00 [place] [facility] Influenza Virus 2018-08-01 Completed [facility] 00:00:00 [place] [facility] Influenza Virus 2018-08-01 Completed [facility] 00:00:00 [place] [facility] Influenza Virus 2018-08-01 Completed [facility] 00:00:00 [place] [facility] Influenza Virus 2018-08-01 Completed [facility] 00:00:00 [place] [facility] Influenza Virus 2018-08-01 Completed [facility] 00:00:00 [place] [facility] Influenza Virus 2018-08-01 Completed [facility] 00:00:00 [place] [facility] Influenza Virus 2018-08-01 Completed [facility] 00:00:00 [place] [facility] Influenza Virus 2018-08-01 Completed [facility] 00:00:00 [place] [facility] Influenza Virus 2018-08-01 Completed [facility] 00:00:00 [place] [facility] Influenza Virus 2018-08-01 Completed [facility] 00:00:00 [place] [facility] Influenza Virus 2018-08-01 Completed [facility] 00:00:00 [place] [facility] Influenza Virus 2018-08-01 Completed [facility] 00:00:00 [place] [facility] Influenza Virus 2018-08-01 Completed [facility] 00:00:00 [place] [facility] Influenza Virus 2018-08-01 Completed [facility] 00:00:00 [place] [facility] Influenza Virus 2018-08-01 Completed [facility] 00:00:00 [place] [facility] Influenza Virus 2018-08-01 Completed [facility] 00:00:00 [place] [facility] Influenza Virus 2018-08-01 Completed [facility] 00:00:00 [place] [facility] Influenza Virus 2018-08-01 Completed [facility] 00:00:00 [place] [facility] Influenza Virus 2018-08-01 Completed [facility] 00:00:00 [place] [facility] Influenza Virus 2018-08-01 Completed [facility] 00:00:00 [place] [facility] Influenza Virus 2018-08-01 Completed [facility] 00:00:00 [place] [facility] Influenza Virus 2018-08-01 Completed [facility] 00:00:00 [place] [facility] Influenza Virus 2018-08-01 Completed [facility] 00:00:00 [place] [facility] Influenza Virus 2018-08-01 Completed [facility] 00:00:00 [place] [facility] Influenza Virus 2018-08-01 Completed [facility] 00:00:00 [place] [facility] Influenza Virus 2018-08-01 Completed [facility] 00:00:00 [place] [facility] Influenza Virus 2018-08-01 Completed [facility] 00:00:00 [place] [facility] Influenza Virus 2018-08-01 Completed [facility] 00:00:00 [place] [facility] Influenza Virus 2018-08-01 Completed [facility] 00:00:00 [place] [facility] Influenza Virus 2018-08-01 Completed [facility] 00:00:00 [place] [facility] Influenza Virus 2018-08-01 Completed [facility] 00:00:00 [place] [facility] Influenza Virus 2018-08-01 Completed [facility] 00:00:00 [place] [facility] Influenza Virus 2018-08-01 Completed [facility] 00:00:00 [place] [facility] TDAP 2012-12-23 Completed [facility] 2012-12-23 Completed [facility] TD[facility] 2012-12-23 Completed [facility] 00:[facility]:00 [facility] TDAP 2012-12-23 Completed [facility] 00:[facility]:00 [facility] TDAP 2012-12-23 Completed [facility] 00:00:00 [facility] TDAP 2012-12-23 Completed [facility] 00:00:00 [facility] TDAP 2012-12-23 Completed [facility] 00:00:00 [facility] TDAP 2012-12-23 Completed [facility] 00:00:00 [facility] TDAP 2012-12-23 Completed [facility] 00:00:00 [facility] TDAP 2012-12-23 Completed [facility] 00:00:00 [facility] TDAP 2012-12-23 Completed [facility] 00:00:00 [facility] TDAP 2012-12-23 Completed [facility] 00:00:00 [facility] TDAP 2012-12-23 Completed [facility] 00:00:00 [facility] TDAP 2012-12-23 Completed [facility] 00:00:00 [facility] TDAP 2012-12-23 Completed [facility] 00:00:00 [facility] TDAP 2012-12-23 Completed [facility] 00:00:00 [facility] TDAP 2012-12-23 Completed [facility] 00:00:00 [facility] TDAP 2012-12-23 Completed [facility] 00:00:00 [facility] TDAP 2012-12-23 Completed [facility] 00:00:00 [facility] TDAP 2012-12-23 Completed [facility] 00:00:00 [facility] TDAP 2012-12-23 Completed [facility] 00:00:00 [facility] TDAP 2012-12-23 Completed [facility] 00:00:00 [facility] TDAP 2012-12-23 Completed [facility] 00:00:00 [facility] TDAP 2012-12-23 Completed [facility] 00:00:00 [facility] TDAP 2012-12-23 Completed [facility] 00:00:00 [facility] TDAP 2012-12-23 Completed [facility] 00:00:00 [facility] TDAP 2012-12-23 Completed [facility] 00:00:00 [facility] TDAP 2012-12-23 Completed [facility] 00:00:00 [facility] TDAP 2012-12-23 Completed [facility] 00:00:00 [facility] TDAP 2012-12-23 Completed [facility] 00:00:00 [facility] TDAP 2012-12-23 Completed [facility] 00:00:00 [facility] TDAP 2012-12-23 Completed [facility] 00:00:00 [facility] TDAP 2012-12-23 Completed [facility] 00:00:00 [facility] TDAP 2012-12-23 Completed [facility] 00:00:00 [facility] TDAP 2012-12-23 Completed [facility] 00:00:00 [facility] TDAP 2012-12-23 Completed [facility] 00:00:00 [facility] TDAP 2012-12-23 Completed [facility] 00:00:00 [facility] TDAP 2012-12-23 Completed [facility] 00:00:00 [facility] TDAP 2012-12-23 Completed [facility] 00:00:00 [facility] TDAP 2012-12-23 Completed [facility] 00:00:00 [facility] TDAP 2012-12-23 Completed [facility] 00:00:00 [facility] TDAP 2012-12-23 Completed [facility] 00:00:00 [facility] TDAP 2012-12-23 Completed [facility] 00:00:00 [facility] TDAP 2012-12-23 Completed [facility] 00:00:00 [facility] TDAP 2012-12-23 Completed [facility] 00:00:00 [facility] TDAP 2012-12-23 Completed [facility] 00:00:00 [facility] TDAP 2012-12-23 Completed [facility] 00:00:00 [facility] TDAP 2012-12-23 Completed [facility] 00:00:00 [facility] TDAP 2012-12-23 Completed [facility] 00:00:00 [facility] TDAP 2012-12-23 Completed [facility] 00:00:00 [facility] TDAP 2012-12-23 Completed [facility] 00:00:00 [facility] TDAP 2012-12-23 Completed [facility] 00:00:00 [facility] TDAP 2012-12-23 Completed [facility] 00:00:00 [facility] TDAP 2012-12-23 Completed [facility] 00:00:00 [facility] TDAP 2012-12-23 Completed [facility] 00:00:00 [facility] TDAP 2012-12-23 Completed [facility] 00:00:00 [facility] TDAP 2012-12-23 Completed [facility] 00:00:00 [facility] TDAP 2012-12-23 Completed [facility] 00:00:00 [facility] TDAP 2012-12-23 Completed [facility] 00:00:00 [facility] TDAP 2012-12-23 Completed [facility]:00 [facility] TDAP 2012-12-23 Completed [facility] 00:00:00 [facility] TDAP 2012-12-23 Completed [facility] 00:00:00 [facility] TDAP 2012-12-23 Completed [facility] 00:00:00 [facility] TDAP 2012-12-23 Completed [facility] 00:00:00 [facility] TDAP 2012-12-23 Completed [facility] 00:00:00 [facility] TDAP 2012-12-23 Completed [facility] 00:00:00 [facility] TDAP 2012-12-23 Completed [facility] 00:00:00 [facility] Vital Signs Vital Name Observation Time Observation Value Comments Source Systolic blood 2023-02-26 130 mm[Hg] [facility] pressure 18:17:00 [facility] Diastolic blood 2023-02-26 90 mm[Hg] University o f pressure 18:17:00 [facility] Heart rate 2023-02-26 88 /min [facility] 18:17:00 [facility] Body temperature 2023-02-26 37 Jacqui University [facility] 18:17:00 [facility] Respiratory rate 2023-02-26 18 /min [facility] 18:17:00 [facility] Body height 2023-02-26 167.6 cm University [facility] 18:17:00 [facility] Body weight 2023-02-26 108.863 kg [facility] 18:17:00 [facility] BMI 2023-02-26 38.74 kg/m2 University [facility] 18:17:00 [facility] Oxygen saturation 2023-02-26 100 /min [facility] in Arterial blood 18:17:00 [facility] Pulse oximetry [place] Systolic blood 2023-01-12 133 mm[Hg] [facility] pressure 16:01:00 [facility] Diastolic blood 2023-01-12 76 mm[Hg] University o f pressure 16:01:00 [facility] Heart rate 2023-01-12 80 /min [facility] 16:01:00 [facility] Body height 2023-01-12 167.6 cm [facility] 16:01:00 [facility] Body weight 2023-01-12 112.9 kg University [facility] 16:01:00 [facility] BMI 2023-01-12 40.17 kg/m2 University [facility] 16:01:00 [facility] Oxygen saturation 2023-01-12 97 /min University of in Arterial blood 16:01:00 [facility] juice by Pulse oximetry Branch Body temperature 2022-12-21 36.39 Jacqui University [facility] 14:43:00 [facility] Body height 2022-12-21 167.6 cm University [facility] 14:43:00 [facility] Body weight 2022-12-21 112.764 kg University [facility] 14:43:00 [facility] BMI 2022-12-21 40.13 kg/m2 [facility] 14:43:00 [facility] Systolic blood 2022-12-07 163 mm[Hg] pt expressed University of pressure 19:02:00 she is [facility] nervous Diastolic blood 2022-12-07 76 mm[Hg] pt expressed University o f pressure 19::00 she is [facility] nervous Heart rate 2022-12-07 112 /min [facility] of 19:02:00 [facility] Body height 2022-12-07 167.6 cm University of 19:02:00 [facility] Body weight 2022-12-07 112.038 kg [facility] 19:02:00 [facility] BMI 2022-12-07 39.87 kg/m2 [facility] 19:02:00 [facility] Systolic blood 2022-11-30 125 mm[Hg] [facility] pressure 14:45:00 [facility] Diastolic blood 2022-11-30 78 mm[Hg] University o f pressure 14:45:00 [facility] Heart rate 2022-11-30 80 /min [facility] 14:45:00 [facility] Body height 2022-11-30 167.6 cm [facility] 14:45:00 [facility] Body weight 2022-11-30 112.038 kg University [facility] 14:45:00 [facility] BMI 2022-11-30 39.87 kg/m2 [facility] 14:45:00 [facility] Oxygen saturation 2022-11-30 97 /min [facility] of in Arterial blood 14:45:00 [facility] juice by Pulse oximetry Branch Systolic blood 2022-11-10 133 mm[Hg] [facility] pressure 21:53:00 [facility] Diastolic blood 2022-11-10 77 mm[Hg] University o f pressure 21:53:00 [facility] Heart rate 2022-11-10 80 /min [facility] 21:53:00 [facility] Body height 2022-11-10 167.6 cm University [facility] 21:53:00 [facility] Body weight 2022-11-10 112.946 kg University of 21:53:00 [facility] BMI 2022-11-10 40.19 kg/m2 [facility] 21:53:00 [facility] Oxygen saturation 2022-11-10 96 /min [facility] in Arterial blood 21:53:00 [place] [facility] Pulse oximetry [facility] Systolic blood 2022-10-07 124 mm[Hg] [facility] pressure 20:41:00 [facility] Diastolic blood 2022-10-07 74 mm[Hg] University o f pressure 20:41:00 [facility] Heart rate 2022-10-07 71 /min [facility] 20:41:00 [facility] Body temperature 2022-10-07 36.94 Jacqui [facility] 20:41:00 [facility] Body height 2022-10-07 167.6 cm University of 20:41:00 [facility] Body weight 2022-10-07 109.317 kg University [facility] 20:41:00 [facility] BMI 2022-10-07 38.90 kg/m2 University [facility] 20:41:00 [facility] Oxygen saturation 2022-10-07 100 /min University of in Arterial blood 20:41:00 [facility] juice by Pulse oximetry Branch Systolic blood 2022-07-29 109 mm[Hg] [facility] pressure 13:40:00 [facility] Diastolic blood 2022-07-29 67 mm[Hg] University o f pressure 13:40:00 [facility] Heart rate 2022-07-29 84 /min [facility] 13:40:00 [facility] Body temperature 2022-07-29 36.89 Jacqui University [facility] 13:40:00 [facility] Body height 2022-07-29 167.6 cm University of 13:40:00 [facility] Body weight 2022-07-29 107.956 kg University [facility] 13:40:00 [facility] BMI 2022-07-29 38.41 kg/m2 University [facility] 13:40:00 [facility] Oxygen saturation 2022-07-29 98 /min [facility] of in Arterial blood 13:40:00 [place] [facility] Pulse oximetry [facility] Systolic blood 2022-07-22 128 mm[Hg] University of pressure 19:35:00 [facility] Branch Diastolic blood 2022-07-22 79 mm[Hg] University o f pressure 19:35:00 [facility] Branch Heart rate 2022-07-22 86 /min University of 19:35:00 [facility] Respiratory rate 2022-07-22 19 /min University of 19:35:00 [facility] Branch Body height 2022-07-22 167.6 cm University of 19:35:00 [facility] Body weight 2022-07-22 108.228 kg University of 19:35:00 [facility] Branch BMI 2022-07-22 38.51 kg/m2 University of 19:35:00 [facility] Oxygen saturation 2022-07-22 96 /min University of in Arterial blood 19:35:00 [place] [facility] Pulse oximetry Branch Systolic blood 2022-07-14 122 mm[Hg] University of pressure 21:34:00 [facility] Branch Diastolic blood 2022-07-14 80 mm[Hg] University o f pressure 21:34:00 [facility] Branch Heart rate 2022-07-14 88 /min University of 21:34:00 [facility] Body temperature 2022-07-14 37.33 Jacqui University of 21:34:00 [facility] Branch Respiratory rate 2022-07-14 16 /min University of 21:34:00 [facility] Body height 2022-07-14 167.6 cm University of 21:34:00 [facility] Branch Body weight 2022-07-14 107.094 kg University [facility] 21:34:00 [facility] BMI 2022-07-14 38.11 kg/m2 University of 21:34:00 [facility] Oxygen saturation 2022-07-14 98 /min [facility] of in Arterial blood 21:34:00 [place] [facility] Pulse oximetry Branch Systolic blood 2022-07-13 134 mm[Hg] University of pressure 14:14:00 [facility] Diastolic blood 2022-07-13 78 mm[Hg] University o f pressure 14:14:00 [facility] Branch Heart rate 2022-07-13 81 /min University of 14:14:00 [facility] Respiratory rate 2022-07-13 18 /min University of 14:14:00 [facility] Branch Body height 2022-07-13 167.6 cm University of 14:14:00 [facility] Branch Body weight 2022-07-13 108.41 kg University of 14:14:00 [facility] Branch BMI 2022-07-13 38.58 kg/m2 [facility] 14:14:00 [facility] [place] [facility] [place] Procedures Procedure Date / Time Performing Clinician Source Performed ASSIGNMENT OF BENEFITS 2023-02-26 19:17:39 Doctor Iglesia, [facility] CONSENT/REFUSAL FOR 2023-02-26 18:01:18 Doctor Iglesia [facility] DIAGNOSIS AND TREATMENT [facility] AUDIOLOGY VESTIBULAR 2023-02-08 05:01:00 Doctor Iglesia, [facility] (SOURCE DATA) [facility] EXTERNAL PROVIDER RECORDS 2022-12-29 06:01:00 Doctor Iglesia, [facility] PATIENT FINANCIAL 2022-12-21 14:32:41 Doctor Iglesia, [facility] POLICY [facility] XR SPINE THORACIC 2 VW 2022-11-16 14:44:00 Sammy Chester [facility] CT HEAD WO CONTRAST 2022-10-20 15:00:19 Kalpana [facility] CONSENT/REFUSAL FOR 2022-10-20 14:33:05 [facility] ASSIGNMENT OF BENEFITS 2022-10-20 14:32:49 Doctor Parekh [facility] Name Medical Branch MAGNESIUM 2022-10-07 21:16:00 Kalpana Godwin [facility] FOLATE 2022-10-07 21:16:00 Citlali Kalpana [facility] C-REACTIVE PROTEIN 2022-10-07 21:16:00 Kalpana Godwin [facility] COMP. METABOLIC PANEL 2022-10-07 21:16:00 Kalpana Godwin [facility] ([id number]) Medical Branch SEDIMENTATION RATE 2022-10-07 21:16:00 Kalpana Godwin [facility] CT ABDOMEN PELVIS W WO 2022-07-20 14:11:00 Marla Morton [facility] CONTRAST Medical Branch CONSENT/REFUSAL FOR 2022-07-20 13:11:01 [facility] DIAGNOSIS AND TREATMENT [facility] CONSENT/REFUSAL FOR 2022-07-20 13:10:49 Doctor Unasstaylor, Randee [facility] DIAGNOSIS AND TREATMENT [facility] ASSIGNMENT OF BENEFITS 2022-07-20 13:10:34 Doctor Unassigned, [facility] [place] [facility] ASSIGNMENT OF BENEFITS 2022-07-20 13:10:16 [facility] FERRITIN SERUM 2022-07-13 14:59:00 Selene [facility] IRON 2022-07-13 14:59:00 Selene [facility] TOTAL IRON BINDING 2022-07-13 14:59:00 Marla [facility] CAPACITY [facility] THYROID STIMULATING 2022-07-13 14:59:00 Marla Morton [facility] HORMONE [facility] ALPHA FETOPROTEIN 2022-07-13 14:59:00 Selene [facility] PROTHROMBIN TIME / INR 2022-07-13 14:59:00 Marla Morton [facility] [id number] 2022-07-13 14:59:00 Marla Morton [facility] ABS [facility] IMMUNOGLOBULIN G 2022-07-13 14:59:00 Selene [facility] SLEEP STUDY DATA REPORT 2022-07-10 05:01:00 Doctor [facility]staylor, [facility] Encounters Start End Encounter Admission Attending Care Care Encounter Source Date/Time Date/Time Type Type Clinicians Facility Department ID 2021-08-24 Emergency [facility] [id number] Univers 18:53:25 ity [facility] 2021-08-23 Emergency [facility] [id number] [facility] 21[facility]38[facility] 2021-08-21 Emergency [facility] [id number] [facility] 19:02:28 [facility] 2023-02-26 2023-02-26 Leighton COSTELLO ARCHRISTINE ERT [id number] Univers 13:18:00 14:33:00 [facility] 2023-02-26 2023-02-26 Leighton Costello [facility] [id number] Univers 13:18:00 14:33:00 Shaheed ILTO [id number] i ty [id number] [facility] 084 Branch 2023-02-22 2023-02-22 [id number] Univers 13:30:00 13:30:00 PABLO [facility] 2023-02-22 2023-02-[address] [facility] [id number] Univers 00:00:00 00:00:00 Pablo RYAN [id number] i ty of [facility] [id number] [id number] [facility] 144 Branch 2023-02-08 2023-02-08 Ancillary Lola Feliz [facility] [id number] Univers 10:00:00 12:00:00 Visit Eleanor Headley [id number] [place] [id number] [id number] [facility] 371 Branch 2023-02-08 2023-02-08 [facility] [id number] Univers 10:00:00 10:00:00 ELEANOR itindra [facility] 2023-02-08 2023-02-08 Ancillary Leia Marie [facility] [id number] Univers 09:00:00 09:45:00 Visit [employer] RYAN 350. 1.13.10 ity of [place] 4.2.7.2.686 [place] [phone] [facility] [address] 2023-02-08 2023-02-08 Orders Doctor RUI 1.2.840.114 [id number] Univers 00:00:00 00:00:00 Only Unassigned, RILEY 350.1.13.10 ity of [place] [facility] 4.2.7.2.686 Yair as [phone] [facility] [address] 2023-01-18 2023-01-18 Consumer Loan Officer Pob, Adc Lab Main [facility] 1.2.8 40.114 [id number] Univers 07:45:00 08:00:00 Visit Kalpana Godwin 350.1.13.10 ity of [facility] 4.2.7.2.686 [place] [phone] Pa cyril [address] 2023-01-18 2023-01-18 Outpatient R CITLALI [facility] [id number] Univers 07:45:00 07:45:00 KALPANA ity [facility] 2023-01-12 2023-01-12 Consumer Loan Officer Lab, Ang - Db [facility] 1.2.840.1 14 [id number] Univers 11:30:00 12:21:42 Visit Kalpana Godwin 350.1.13.10 ity of [facility] 4.2.7.2.686 Yair as JONNATHAN?BLEA [id number] [address] MEDICAL OFFICE [facility] 2023-01-12 2023-01-12 Outpatient R CITLALI [facility] [id number] Univers 11:00:00 11:23:55 KALPANA melendrez [facility] 2023-01-12 2023-01-12 [facility] 1.2.840.114 [id number] Univers 11:00:00 11:23:55 Visit Kalpana CALLAHAN 350.1.13.10 it y of [facility] 4.2.7.2.686 Yair as JONNATHAN?BLEA [id number] [address] MEDICAL OFFICE [facility] 2023-01-06 2023-01-06 Telephone Citlali [facility] 1.2.022.145 [id number] Univers 00:00:00 00:00:00 Kalpana HEALTH 350.1.13.10 it y of [facility] 4.2.7.2.686 Yair as JONNATHAN?BLEA [id number] [address] MEDICAL OFFICE [facility] 2022-12-29 2022-12-29 Orders Doctor FABIAN 1.2.840.114 [id number] Univers 00:00:00 00:00:00 Only Unassigned, RILEY 350.1.13.10 ity of [place] [facility] 4.2.7.2.686 Yair as [id number] [facility] [address] 2022-12-21 2022-12-21 Office [facility] 1.2.840.114 [id number] Univers 08:45:00 09:15:00 Visit Caitlyn SLOANY 350.1.13.10 i ty of [facility] 4.2.7.2.686 [place] [phone] [facility] [address] 2022-12-21 2022-12-21 Outpatient R NEAL [facility] [id number] Univers 08:45:00 08:45:00 CAITLYN melendrez [facility] 2022-12-21 2022-12-21 Orders Doctor RUI 1.2.840.114 [id number] Univers 00:00:00 00:00:00 Only Unassigned, RILEY 350.1.13.10 ity of [place] [facility] 4.2.7.2.686 Yair as [phone] [address] 2022-12-08 2022-12-08 Telephone [facility] 1.2.843.124 [id number] Univers 00:00:00 00:00:00 Kal[employer] 350.1.13.10 it y of [place] 4.2.7.2.686 Yair as JONNATHAN?BLEA [phone] Pa cyril VARGAS [address] MEDICAL OFFICE [facility] 2022-12-07 2022-12-07 Outpatient Rei RAMEY [facility] [id number] Univers 13:30:00 13:36:31 MANDY melendrez [facility] 2022-12-07 2022-12-07 Office [facility] 1.2.840.114 [id number] Univers 13:30:00 13:36:[address] [facility] 350.1.13.10 it y of [facility] 4.2.7.2.686 Yair as JONNATHAN?BLEA [phone] Pa cyril [facility] 092 [facility] OFFICE [facility] 2022-11-30 2022-11-30 Outpatient SAMMY SCHMIDT [facility] [id number] Univers 08:40:00 10:22:01 SAMMY CHESTER [facility] 2022-11-30 2022-11-30 Office [facility] 1.2.840.114 [id number] Univers 08:40:00 10:22:[address] [facility] 350.1.13.10 ity of [place] 4.2.7.2.686 Yair as JONNATHAN?BLEA [phone] [address] OFFICE [facility] 2022-11-30 2022-11-30 Telephone [facility] 1.2.840.114 [id number] Univers 00:00:00 00:00:[address] [facility] 350.1.13.10 ity of [facility] 4.2.7.2.686 Yair as JONNATHAN?BLEA [phone] [facility] 220 [facility] OFFICE [facility] 2022-11-30 2022-11-30 Telephone [facility] 1.2.840.114 [id number] Univers 00:00:00 00:00:[address] [facility] 350.1.13.10 ity of [place] 4.2.7.2.686 Yair as JONNATHAN?BLEA [phone] [address] 2022-11-16 2022-11-16 Outpatient SAMMY SCHMIDT [facility] [id number] Univers 08:19:44 23:59:00 [facility] 2022-11-16 2022-11-16 [facility] 1.2.063.479 [id number] Univers 08:19:44 23:59:00 Encounter Sammy [facility] 350.1.13.10 ity of [place] 4.2.7.2.[place] [phone] [facility] [address] [place] [address] 2022-11-10 2022-11-10 Outpatient SAMMY SCHMIDT [facility] [id number] Univers 15:40:00 16:42:14 SAMMY CHESTER itindra [facility] 2022-11-10 2022-11-10 Office [facility] 1.2.840.114 [id number] Univers 15:40:00 16:42:[address] [facility] 350.1.13.10 ity of [place] 4.2.7.2.686 Yair as JONNATHAN?BLEA [phone] Pa cyril PEREZ [address] MEDICAL OFFICE [facility] 2022-10-20 2022-10-20 Outpatient R CITLALI [facility] [id number] Univers 08:34:03 23:59:00 KALPANA melendrez [facility] 2022-10-20 2022-10-20 Hospital Citlali [facility] 1.2.840.114 [id number] Univers 08:34:03 23:59:00 Encounter Kalpana LITO 350.1.13.10 ity of [place] 4.2.7.2.686 [place] [phone] [address] 2022-10-20 2022-10-20 Telephone Citlali [facility] 1.2.207.479 [id number] Univers 00:00:00 00:00:00 Kalpana HEALTH 350.1.13.10 it y of [place] 4.2.7.2.686 Yair as JONNATHAN?BLEA [id number] Pa cyril PEREZ [address] MEDICAL OFFICE [facility] 2022-10-09 2022-10-09 Patient Doctor [facility] 1.2.840.114 [id number] Univers 00:00:00 00:00:00 Secure Msg Unassigned, HEALTH 350.1.13.10 ity of [place] 4.2.7.2.686 Yair as JONNATHAN?BLEA [phone] Pa cyril PEREZ [address] MEDICAL OFFICE [facility] 2022-10-07 2022-10-07 Outpatient R CITLALI [facility] [id number] Univers 15:17:02 23:59:00 KALPANA melendrez [facility] 2022-10-07 2022-10-07 Consumer Loan Officer Lab, Ang - Db [facility] 1.2.840.1 14 [id number] Univers 15:15:00 15:17:12 Visit Kalpana Godwin HEALTH 350.1.13.10 ity of [facility] 4.2.7.2.686 Yair as JONNATHAN?BLEA [phone] Pa dicjaquan PEREZ [address] MEDICAL OFFICE [facility] 2022-10-07 2022-10-07 Office Citlali [facility] 1.2.840.114 [id number] Univers 14:30:00 15:10:32 Visit Kalpana HEALTH 350.1.13.10 it y of [place] 4.2.7.2.686 Yair as JONNATHAN?BLEA [id number] [address] OFFICE [facility] 2022-10-02 2022-10-02 Telephone [facility] 1.2.840.114 [id number] Univers 00:00:00 00:00:00 Strahil T [place] 350.1.13.10 ity of [place] 4.2.7.2.[place] [id number] [address] 2022-08-01 2022-08-01 Nurse Christiana Calle 1.2.840.114 [id number] Univers 00:00:00 00:00:00 Triage RILEY 350.1.13.10 it y of [facility] 4.2.7.2.686 Yair as [id number] [address] 2022-08-01 2022-08-01 [facility] 1.2.203.483 [id number] Univers 00:00:00 00:00:00 Kalpana HEALTH 350.1.13.10 it y of [facility] 4.2.7.2.686 Yair as JONNATHAN?BLEA [id number] [address] OFFICE [facility] 2022-07-29 2022-07-29 Office [facility] 1.2.840.114 [id number] Univers 08:30:00 09:00:00 Visit Kalpana HEALTH 350.1.13.10 it y of [facility] 4.2.7.2.686 Yair as JONNATHAN?BLEA [id number] [address] OFFICE [facility] 2022-07-29 2022-07-29 Outpatient R CITLALI [facility] [id number] Univers 08:30:00 08:30:00 KALPANA ity of [facility] 2022-07-29 2022-07-29 Patient Doctor RUI 1.2.840.114 [id number] Univers 00:00:00 00:00:00 Secure Msg Unassigned, RILEY 350.1.13.10 ity of [facility] 4.2.7.2.686 Yair as [phone] [address] 2022-07-29 2022-07-29 Telephone Drew [facility] 1.2.840.114 [id number] Univers 00:00:00 00:00:00 Strahil T [place] 350.1.13.10 ity of [place] 4.2.7.2.[place] [phone] Pa dical NAL [address] [place] [address] 2022-07-27 2022-07-27 Outpatient R KATHY BUCKLEY [facility] 10 [id number] Univers 10:30:00 10:30:00 KATHY BUCKLEY i ty of [facility] 2022-07-27 2022-07-27 Outpatient R KATHY BUCKLEY [facility] 10 [id number] Univers 10:30:00 10:30:00 KATHY BUCKLEY i ty [facility] 2022-07-27 2022-07-27 Outpatient R KATHY BUCKLEY [facility] 10 [id number] Univers 10:30:00 10:30:00 KATHY BUCKLEY i ty of [facility] 2022-07-27 2022-07-27 Outpatient R KATHY BUCKLEY [facility] 10 [id number] Univers 10:30:00 10:30:00 KATHY BUCKLEY i ty [facility] 2022-07-23 2022-07-23 Telephone [facility] 1.2.840.114 [id number] Univers 00:00:00 00:00:00 Strahil T [place] 350.1.13.10 ity of [place] 4.2.7.2.[place] [id number] Pa dicva NAL [address] [place] [address] 2022-07-22 2022-07-22 Outpatient R ALBERT RUSSELL [facility] [id number] Univers 14:20:00 16:08:11 ATANASOV, DALLASHIL ity of [facility] 2022-07-22 2022-07-22 Office Drew [facility] 1.2.688.102 [id number] Univers 14:20:00 14:40:00 Visit Strahil T [place] 350.1.13.10 ity of [place] 4.2.7.2.686 [place] [phone] Pa dical CHASE [address] BUILDING 2022-07-22 2022-07-22 [facility]phone [facility] 1.2.840.114 [id number] Univers 00:00:00 00:00:00 Strarubenl Eusebio MULTISPEC 350.1.13.10 ity of [place] 4.2.7.2.686 [place] [id number] [facility] AND LOYA [address] [facility] 2022-07-20 2022-07-20 Outpatient R SELENE [facility] [id number] Univers 08:11:16 23:59:00 MARLA ity of [facility] 2022-07-20 2022-07-20 [facility] 1.2.840.114 [id number] Univers 08:11:16 23:59:00 Encounter Marla MORSE 350.1.13.10 ity of [facility] 4.2.7.2.686 [place] [id number] [facility] [address] 2022-07-20 2022-07-20 Consumer Loan Officer 1, Adc Lab [facility] 1.2.840.114 [id number] Univers 08:00:00 08:15:00 Visit Marla Morton 350.1.13.10 ity of [facility] 4.2.7.2.686 [place] [phone] [facility] [address] 2022-07-17 2022-07-17 Patient Doctor [facility] 1.2.698.184 [id number] Univers 00:00:00 00:00:00 Secure Msg Unassigned, Y HEALTH 350.1.13.10 ity of [place] [facility] 4.2.7.2.[place] [id number] [facility] [address] 2022-07-17 2022-07-17 Telephone [facility] 1.2.285.493 [id number] Univers 00:00:00 00:00:00 Marla SPECIALTY 350.1.13.10 ity of CARE 4.2.7.2.686 [facility] [place] AT [phone] Pa cyril GARCIA 072 [facility] 2022-07-15 2022-07-15 Letter JoeRUI matute 1.2.840.114 [id number] Univers 00:00:00 00:00:00 (Out) Candida Kaplan [place] 350.1.13.10 it y of [facility] 4.2.7.2.686 Yair as [phone] [facility] [address] [place] 2022-07-14 2022-07-14 Outpatient R ROCCO [facility] [id number] Univers 16:40:00 16:54:13 [facility] 2022-07-14 2022-07-14 Urgent Rocco [facility] 1.2.840.114 [id number] Univers 16:40:00 16:54:13 Care [facility] HEALTH 350.1.13.10 it y of [place] 4.2.7.2.686 Yair as JONNATHAN?BLEA [phone] Pa cyril PEREZ [address] MEDICAL OFFICE BUILDING 2022-07-13 2022-07-13 Consumer Loan Officer [facility] 1.2.840.114 [id number] Univers 10:00:00 10:15:00 Visit Marla Morton Y HEALTH 350.1.13.10 ity of [place].2.[place] [id number] [address] 2022-07-13 2022-07-13 Consumer Loan Officer [facility] 1.2.840.114 [id number] Univers 10:00:00 10:15:00 Visit Selene Marla Y HEALTH 350.1.13.10 ity of [place] 4[place]2.[place].2.[place] [id number] [address] 2022-07-13 2022-07-13 Outpatient R SELENE [facility] [id number] Univers 09:00:00 09:46:13 MARLA [facility] 2022-07-13 2022-07-13 Office Selene, [facility] 1.2.480.063 [id number] Univers 09:00:00 09:46:13 Visit Marla Penaloza HEALTH 350.1.13.10 i ty of [facility] 4.2.7.2.686 [facility] [phone] [facility] [address] 2022-07-13 2022-07-13 Outpatient R SELENE [facility] [id number] Univers 09:00:00 09:46:13 MARLA indra [facility] 2022-07-13 2022-07-13 Outpatient R SELENE [facility] [id number] Univers 09:00:00 09:46:13 MARLA indra [facility] 2022-07-13 2022-07-13 Outpatient R SELENE [facility] [id number] Univers 09:00:00 09:46:13 [facility] 2022-07-10 2022-07-10 Consumer Loan Officer 1, [facility] Sleep Lab Bed [facility] 1. 2.840.114 [id number] Univers 20:00:00 22:30:00 Visit Albert Russell 350.1.13. 10 ity [facility] 4.2.7.2.686 [facility] [id number] [facility] [address] 2022-07-10 2022-07-10 Outpatient R DREWDALLASMATaina [facility] [id number] Univers 20:00:00 20:00:00 ALBERT RUSSELL [facility] 2022-07-10 2022-07-10 Outpatient R DREW DALLASRUBENL [facility] [id number] Univers 20:00:00 20:00:00 ALB[facility] 2022-07-10 2022-07-10 Orders Doctor FABIAN 1.2.840.114 [id number] Univers 00:00:00 00:00:00 Only Unassigned, RILEY 350.1.13.10 ity of [facility] 4.2.7.2.686 Yair [id number] [facility] [address] 2022-07-08 2022-07-08 Consumer Loan Officer Lab, Ang - Guilherme [facility] 1.2.840.1 14 [id number] Univers 13:00:00 13:15:00 Visit Kalpana Gdowin 350.1.13.10 ity of [place] 4.2.7.2.686 Yair as JONNATHAN?BLEA [phone] Pa cyril PEREZ [address] MEDICAL OFFICE BUILDING 2022-07-08 2022-07-08 Outpatient R CITLALI [facility] [id number] Univers 13:00:00 13:00:00 KALPANA itindra [facility] 2022-07-08 2022-07-08 Outpatient R MACHELLESAMRADALLASMATaina [facility] [id number] Univers 10:20:00 10:20:00 DREW [facility] ity [facility] 2022-07-08 2022-07-08 Outpatient R [facility] [id number] Univers 08:15:00 08:15:00 ity of [facility] 2022-07-08 2022-07-08 Patient Low [facility] 1.2.840.114 [id number] Univers 00:00:00 00:00:00 Secure Msg Anusha M HEALTH 350.1.13.10 ity of [facility] 4.2.7.2.686 Yair as JONNATHAN?BLEA [phone] Pa cyril VARGAS [address] MEDICAL OFFICE BUILDING 2022-07-08 2022-07-08 Patient Citlali [facility] 1.2.840.114 [id number] Univers 00:00:00 00:00:00 Secure Msg Kalpana HEALTH 350.1.13.10 ity of [place] 4.2.7.2.686 Yair as JONNATHAN?BLEA [phone] [facility] VARGAS [address] MEDICAL OFFICE [facility] 2022-07-07 2022-07-07 Consumer Loan Officer Lab, Ang - Guilherme [facility] 1.2.840.1 14 [id number] Univers 11:00:00 11:15:00 Visit Kalpana Godwin HEALTH 350.1.13.10 ity of [place] 4.2.7.2.686 Yair as JONNATHAN?BLEA [id number] Pa cyril PEREZ [address] MEDICAL OFFICE BUILDING 2022-07-07 2022-07-07 Office Citlali [facility] 1.2.840.114 [id number] Univers 10:30:00 11:02:37 Visit Kalpana HEALTH 350.1.13.10 it y of [place] 4.2.7.2.686 Yair as JONNATHAN?BLEA [phone] Pa demetricejaquan VARGASEY [address] MEDICAL OFFICE BUILDING 2022-07-07 2022-07-07 Outpatient R CITLALI [facility] [id number] Univers 10:30:00 11:02:37 KALPANA tamikoindra [facility] 2022-07-07 2022-07-07 Outpatient R CITLALI [facility] [id number] Univers 11:00:00 11:00:00 KALPANA melendrez [facility] 2022-07-07 2022-07-07 Outpatient R CITLALI [facility] [id number] Univers 10:30:00 10:30:00 KALPANA morrisonindra [facility] 2022-07-07 2022-07-07 Outpatient R CITLALI [facility] [id number] Univers 10:30:00 10:30:00 KALPANA melendrez [facility] 2022-07-07 2022-07-07 Outpatient R CITLALI [facility] [id number] Univers 10:30:00 10:30:00 KALPANA melendrez [facility] 2022-07-07 2022-07-07 Outpatient R CITLALI [facility] [id number] Univers 10:30:00 10:30:00 KALPANA melendrez [facility] 2022-07-01 2022-07-01 Outpatient R ALBERT RUSSELL [facility] [id number] Univers 13:20:00 13:45:22 ALBERT RUSSELL [facility] 2022-07-01 2022-07-01 Office [facility] 1.2.378.583 [id number] Univers 13:20:00 13:40:00 Visit Albert MORSE 350.1.13.10 ity of [place].2.7.2.[place] [phone] Pa cyril STONE 085 [facility] 2022-07-01 2022-07-01 Outpatient R ALBERT RUSSELL [facility] [id number] Univers 13:20:00 13:20:00 ALBERT RUSSELL itindra [facility] 2022-06-24 2022-06-24 Outpatient R SREEKANTHALBERT FOOTE [facility] [id number] Univers 09:20:00 09:20:00 ALBERT RUSSELL [facility] 2022-06-24 2022-06-24 Outpatient R DALLAS RUSSELLMATaina [facility] [id number] Univers 09:20:00 09:20:00 SREEKANTHALBERT FOOTE [facility] 2022-06-23 2022-06-23 Outpatient R MACHELLESAMRA DALLASMATaina [facility] [id number] Univers 09:00:00 09:00:00 SREEKANTHALBERT FOOTE indra [facility] 2022-06-23 2022-06-23 Telephone [facility] 1.2.840.078 [id number] Univers 00:00:00 00:00:00 Kathy MORSE 350.1.13.10 i ty of [facility] 4.2.7.2.[place] [id number] Pa demetriceva CHASE [address] [place] [address] 2022-06-22 2022-06-22 Patient [facility] 1.2.329.221 [id number] Univers 00:00:00 00:00:00 Secure Msg Albert Kaplan MULTISPEC 350.1.13.10 ity of [place]2.7.2.686 [place] C[place] [phone] Pauly bose AND SHALINI [address] [place] [address] DIABETES CLINIC 2022-06-18 2022-06-18 Telephone Drew [facility] 1.2.840.114 [id number] Univers 00:00:00 00:00:00 Albert MORSE 350.1.13.10 ity of [facility] 4.2.7.2.[place] [id number] Pa dical NAL [address] [place] [address] 2022-06-17 2022-06-17 Outpatient R CITLALI [facility] [id number] Univers 14:00:00 14:00:00 KALPANA melendrez [facility] 2022-06-10 2022-06-10 Outpatient R DREW DALLASMATaina [facility] [id number] Univers 11:40:00 11:40:00 ALBERT RUSSELL itindra of [facility] 2022-06-09 2022-06-09 Consumer Loan Officer Mehrdad Pink Sleep Lab [facility] 1.2 .840.114 [id number] Univers 09:00:00 09:15:00 Visit Albert Russell 350.1.13. 10 ity [facility] 4.2.7.2.[place] C[place] [id number] [facility] [address] 2022-06-09 2022-06-09 Outpatient R SREEKANTHDALLAS FOOTEMAL [facility] [id number] Univers 09:00:00 09:00:00 ABIOLA RUSSELLL ity [facility] 2022-06-09 2022-06-09 Outpatient R DREW DALLASMATaina [facility] [id number] Univers 09:00:00 09:00:00 ABIOLA RUSSELLL ity [facility] 2022-06-09 2022-06-09 Orders Doctor FABIAN 1.2.840.114 [id number] Univers 00:00:00 00:00:00 Only Unassigned, RILEY 350.1.13.10 [facility] 4.2.7.2.686 Yair as [id number] [facility] [address] 2022-06-04 2022-06-04 Office Yuniel [facility] 1.2.840.114 [id number] Univers 11:00:00 11:30:00 Visit Kathy MORSE 350.1.13.10 i ty [facility] [place] [id number] [address] 2022-06-04 2022-06-04 Outpatient R KATHY BUCKLEY [facility] 10 [id number] Univers 11:00:00 11:00:00 KATHY BUCKLYE i ty of [facility] 2022-06-04 2022-06-04 Telephone Derw [facility] 1.2.840.114 [id number] Univers 00:00:00 00:00:00 Albert MORSE 350.1.13.10 ity of [place] [facility] [phone] Pa dical NAL 085 [facility] 2022-06-02 2022-06-02 Outpatient R CITLALI [facility] [id number] Univers 11:12:09 23:59:00 KALPANA melendrez [facility] 2022-06-02 2022-06-02 Outpatient R CITLALI [facility] [id number] Univers 11:12:09 11:12:09 KALPANA melendrez [facility] 2022-06-02 2022-06-02 [facility] 1.2.840.114 [id number] Univers 10:30:00 11:11:24 Visit Kalpana HEALTH 350.1.13.10 it y of [place] 4.2.7.2.686 Yair as JONNATHAN?BLEA [id number] [address] OFFICE [facility] 2022-06-02 2022-06-02 Emergency X [facility] ERT [id number] Univers 04:44:00 06:41:00 JOSEF morrisonindra [facility] 2022-06-02 2022-06-02 Emergency [facility] 1.2.280.117 [id number] Univers 04:44:00 06:41:00 Josef Decker [place] 350.1.13.10 ity of [place] 4[place]2.7.2.[place] [id number] [facility] [address] [place] 2022-06-02 2022-06-02 Telephone [facility] 1.2.890.117 [id number] Univers 00:00:00 00:00:00 Kalpana HEALTH 350.1.13.10 it y of [place] 4.2.7.2.686 Yair as JONNATHAN?BLEA [phone] [address] MEDICAL OFFICE [facility] 2022-06-02 2022-06-02 Patient Devante [facility] 1.2.840.114 [id number] Univers 00:00:00 00:00:00 Secure Msg Anusha Vega HEALTH 350.1.13.10 ity of [place] 4.2.7.2.686 Yair as JONNATHAN?BLEA [phone] Me dical KNEY 044 [facility] 2022-05-19 2022-05-19 Laboratory Only, Ang Db Test [facility] 1.2.8 40.114 [id number] Univers 10:15:00 10:30:00 Only Mariaa España [facility] 350.1.13.10 ity of [place] 4.2.7.2.686 Yair as JONNATHAN?BLEA [id number] Pa cyril VARGAS 370 [facility] 2022-05-19 2022-05-19 Outpatient R TACO [facility] [id number] Univers 10:15:00 10:18:27 MARIAA parvin [facility] 2022-05-19 2022-05-19 [facility] [id number] Univers 09:30:00 10:04:47 KALPANA tamikoindra [facility] 2022-05-19 2022-05-19 Office [facility] 1.2.840.114 [id number] Univers 09:30:00 10:04:47 Visit [facility] 350.1.13.10 it y of [place] 4.2.7.2.686 Yair as JONNATHAN?BLEA [phone] Pa cyril [address] 2022-04-07 2022-04-07 Consumer Loan Officer 2, Adc Lab [facility] 1.2.840.114 [id number] Univers 08:30:00 08:45:00 Visit Kalpana Godwin 350.1.13.10 ity of [place].2.[place] ESSJESSICA [id number] Pa cyril [facility] 353 [facility] 2022-04-07 2022-04-07 Outpatient R [facility] [id number] Univers 08:30:00 08:30:00 ity [facility] 2022-04-07 2022-04-07 Outpatient R CITLALI [facility] [id number] Univers 08:30:00 08:30:00 KALPANA parvin [facility] 2022-04-07 2022-04-07 Telephone Citlali [facility] 1.2.987.926 [id number] Univers 00:00:00 00:00:00 Kalpana [facility] 350.1.13.10 it y of [place] 4.2.7.2.686 Yair as JONNATHAN?BLEA [phone] [address] MEDICAL OFFICE [facility] 2022-04-06 2022-04-06 Office Citlali [facility] 1.2.840.114 [id number] Univers 16:30:00 17:05:11 Visit Kalpana CALLAHAN 350.1.13.10 it y of [place] 4.2.7.2.686 Yair as JONNATHAN?BLEA [phone] [address] OFFICE [facility] 2022-04-06 2022-04-06 [facility] [id number] Univers 16:30:00 17:05:11 KALPANA melendrez [facility] 2022-04-06 2022-04-06 Outpatient R CITLALI [facility] [id number] Univers 16:30:00 16:30:00 KALPANA melendrez [facility] 2022-04-06 2022-04-06 Orders Doctor RUI 1.2.840.114 [id number] Univers 00:00:00 00:00:00 Only Unassigned, RILEY 350.1.13.10 ity of [place] [facility] 4.2.7.2.686 Yair as [phone] [address] 2022-03-19 2022-03-19 Emergency X SINGER [facility] ERT [id number] Univers 09:11:00 10:14:00 CARLITO melendrez [facility] 2022-03-19 2022-03-19 Emergency [facility] 1.2.646.749 [id number] Univers 09:11:00 10:14:00 Carlito MCCONNELLVENTURA 350.1.13.10 i ty of [place] 4.2.7.2.686 [place] [phone] [facility] [address] [place] 2022-03-19 2022-03-19 Orders Doctor FABIAN 1.2.840.114 [id number] Univers 00:00:00 00:00:00 Only Unassigned, RILEY 350.1.13.10 ity of [place] [facility] 4.2.7.2.686 Yair as [phone] [address] 2022-03-10 2022-03-10 Earl [facility] 1.2.840.114 [id number] Univers 00:00:00 00:00:00 Wondiful A HEALTH 350.1.13.10 ity of [place] 4.2.7.2.686 Yair as JONNATHAN?BLEA [phone] Pa cyril PEREZ [address] [place] [address] [address] [facility] 2022-03-03 2022-03-04 Emergency X [facility] ERT [id number] Univers 23:57:00 02:30:00 [facility]ULLY [facility] 2022-03-03 2022-03-04 Emergency [facility] 1.2.465.621 [id number] Univers 23:57:00 02:30:00 Sully S [place] 350.1.13.10 i ty of [place] 4.2.7.2.686 [place] [phone] [address] 2022-02-27 2022-02-27 Patient [facility] 1.2.840.114 [id number] Univers 00:00:00 00:00:00 Secure Msg Anusha M HEALTH 350.1.13.10 ity of [place] 4.2.7.2.686 Yair as JONNATHAN?BLEA [phone] Pa cyril PEREZ [address] [place] [address] [address] [facility] 2022-02-27 2022-02-27 Patient [facility] 1.2.840.114 [id number] Univers 00:00:00 00:00:00 Secure Msg Anusha M HEALTH 350.1.13.10 ity of [place] 4.2.7.2.686 Yair as JONNATHAN?BLEA [phone] Pa cyril PEREZ [address] [place] [address] [address] [facility] 2022-02-26 2022-02-26 Emergency X [facility] ERT [id number] Univers 13:47:00 16:39:00 SULLY [facility] 2022-02-26 2022-02-26 Emergency [facility] 1.2.135.328 [id number] Univers 13:47:00 16:39:00 Sully S [place] 350.1.13.10 i ty of [place] 4.2.7.2.686 [place] [phone] [facility] [address] [place] 2022-01-27 2022-01-27 Consumer Loan Officer Lab, Ang - Db [facility] 1.2.840.1 14 [id number] Univers 08:30:00 08:45:00 Visit Kalpana Godwin 350.1.13.10 ity of [place] 4.2.7.2.686 Yair as JONNATHAN?BLEA [phone] Pa demetricejaquan PEREZ 353 [facility] OFFICE [facility] 2022-01-27 2022-01-27 Outpatient [facility] [id number] Univers 08:00:00 08:36:58 KALPANA melendrez [facility] 2022-01-27 2022-01-27 Office [facility] 1.2.840.114 [id number] Univers 08:00:00 08:36:58 Visit Kalpana CALLAHAN 350.1.13.10 it y of [facility] 4.2.7.2.686 Yair as JONNATHAN?BLEA [phone] Pa demetricejaquan VARGAS 044 [facility] 2022-01-27 2022-01-27 Outpatient R CITLALI [facility] [id number] Univers 08:30:00 08:30:00 KALPANA melendrez [facility] 2022-01-27 2022-01-27 Outpatient [facility] [id number] Univers 08:00:00 08:00:00 KALPANA melendrez [facility] 2022-01-22 2022-01-22 Office [facility] 1.2.840.114 [id number] Univers 13:00:00 13:17:29 [facility] 350.1.13.10 ity of [facility] 4.2.7.2.686 Yair as JONNATHAN?BLEA [phone] Pa demetricejaquan PEREZ [address] [place] [address] 2022-01-22 2022-01-22 Outpatient Rei BENEDICT [facility] [id number] Univers 13:00:00 13:17:29 WONDIFUL ity o f [facility] 2022-01-22 2022-01-22 Outpatient Rei BENEDICT [facility] [id number] Univers 13:00:00 13:00:00 WONDIFUL ity o f [facility] 2022-01-20 2022-01-20 Outpatient R BARRINGTON [facility] [id number] Univers 10:20:00 10:27:06 POLO ity of [facility] 2022-01-20 2022-01-20 Urgent Barrington [facility] 1.2.840.114 [id number] Univers 10:20:00 10:27:06 Care Polo HEALTH 350.1.13.10 it y of [facility] 4.2.7.2.686 Yair as JONNATHAN?BLEA [phone] [facility] [address] [place] MEDICAL OFFICE [facility] 2022-01-16 2022-01-16 Telephone [facility] 1.2.840.114 [id number] Univers 00:00:00 00:00:00 Wondiful A HEALTH 350.1.13.10 ity of [facility] 4.2.7.2.686 Yair as JONNATHAN?BLEA [phone] [address] OFFICE [facility] 2022-01-16 2022-01-16 Orders Doctor RIU 1.2.840.114 [id number] Univers 00:00:00 00:00:00 Only Unassigned, RILEY 350.1.13.10 ity of [place] [facility] 4.2.7.2.686 Yair as [phone] [address] 2021-12-30 2021-12-30 Emergency E ALCANTER, [facility] [id number] [facility] 08:32:00 16:22:00 NICHOLE 2021-12-03 2021-12-03 Telephone [facility] 1.2.840.114 [id number] Univers 00:00:00 00:00:00 Wondiful A HEALTH 350.1.13.10 ity of [facility] 4.2.7.2.686 Yair as JONNATHAN?BLEA [phone] [address] OFFICE [facility] 2021-11-24 2021-11-24 Outpatient R JAK [facility] [id number] Univers 10:00:00 10:00:00 WONDIFUL ity o f [facility] 2021-11-20 2021-11-20 Nurse Nurse, Devonte Vanegas Urgent Care [facility] 1.2.840.114 [id number] Univers 18:20:00 18:40:00 Visit Lincoln White Tio [facility] 350.1.13.10 ity of [place] 4.2.7.2.686 Yair as JONNATHAN?BLEA [phone] Pa cyril [address] MEDICAL OFFICE BUILDING 2021-11-20 2021-11-20 Outpatient R KING STACIE [facility] [id number] Univers 18:20:00 18:20:00 LINCOLN [facility] 2021-11-20 2021-11-20 Emergency X [facility] ERT [id number] Univers 12:35:00 15:44:00 JANY [facility] 2021-11-20 2021-11-20 Emergency [facility] 1.2.840.114 [id number] Univers 12:35:00 15:44:00 Jany Rashid [place] 350.1.13.10 ity of [place] 4.2.7.2.686 [place] [phone] [address] 2021-10-19 2021-10-19 Emergency X [facility]TN[facility] ERT [id number] Univers 11:01:00 13:07:00 SULLY Surgery [facility] 2021-10-19 2021-10-19 Emergency [facility] 1.2.985.289 [id number] Univers 11:01:00 13:07:00 Sully Jeronimo [place] 350.1.13.10 i ty of [place] 4.2.7.2.686 [place] [phone] [place] 9[address] [place] 2021-10-19 2021-10-19 Patient Sayrarubencesar, [facility] 1.2.840.114 [id number] Univers 00:00:00 00:00:00 Secure Msg [employer] 350.1.13.10 ity of [place] 4.2.7.2.686 Yair as JONNATHAN?BLEA [phone] Pa cyril [address] MEDICAL OFFICE BUILDING 2021-10-16 2021-10-16 Urgent EbraFelisha byrnesia [facility] 1.2.840.114 [id number] Univers 18:00:00 18:20:00 Care Barrington [facility] 350.1.13.10 ity of [place] 4.2.7.2.686 Yair as JONNATHAN?BLEA [phone] [address] MEDICAL OFFICE [facility] 2021-10-16 2021-10-16 Outpatient R ROCCO [facility] [id number] Univers 18:00:00 18:00:00 FELISHAIA ity [facility] 2021-09-26 2021-09-26 Laboratory Only, Ang Db Test [facility] 1.2.8 40.114 [id number] Univers 16:13:51 16:28:51 Only Barrington [facility] 350.1.13.10 ity of [place] 4.2.7.2.686 Yair as JONNATHAN?BLEA [phone] [address] MEDICAL OFFICE [facility] 2021-09-26 2021-09-26 Outpatient [facility] [id number] Univers 16:15:00 16:15:00 POLO ity [facility] 2021-09-24 2021-09-24 Laboratory Only, Ang Db Test [facility] 1.2.8 40.114 [id number] Univers 10:33:46 10:48:46 Only Taco Mariaa HEALTH 350.1.13.10 ity of [place] 4.2.7.2.686 Yair as JONNATHAN?BLEA [phone] [address] MEDICAL OFFICE [facility] 2021-09-24 2021-09-24 Outpatient [facility] [id number] Univers 10:45:00 10:45:00 MARIAA ity [facility] 2021-08-21 2021-08-21 Office [facility] 1.2.840.114 [id number] Univers 15:47:54 16:23:56 Visit Wondiful A HEALTH 350.1.13.10 ity of [place] 4.2.7.2.686 Yair as JONNATHAN?BLEA [phone] [facility] 044 [facility] OFFICE [facility] 2021-08-21 2021-08-21 Outpatient R [facility] [id number] Univers 15:45:00 16:23:56 WONDIFUL ity o f [facility] 2021-08-14 2021-08-14 Telephone [facility] 1.2.840.114 [id number] Univers 00:00:00 00:00:00 Wonronanful A Health 350.1.13.10 ity of [place] 4.2.7.2.686 Yair as Jonnathan?Blea [phone] [facility] [address] [place] [facility] 2021-08-13 2021-08-13 Emergency [facility] 1.2.513.820 [id number] Univers 06:40:00 10:02:00 Juan [place] 350.1.13.10 i ty of [place].2.7.2.686 [place] [phone] [place] 9[address] [place] 2021-08-13 2021-08-13 Emergency [facility] [id number] Univers 06:40:00 10:02:00 JUAN melendrez [facility] 2021-08-06 2021-08-06 Office [facility] 1.2.840.114 [id number] Univers 10:09:37 10:50:06 Visit Damir Enriquez PRIMARY 350.1.13.10 it y of [place] 4.2.7.2.686 [place] [phone] [address] 2021-08-06 2021-08-06 Outpatient R CASEY [facility] [id number] Univers 10:15:00 10:15:00 DAMIR tamikoindra of [facility] 2021-07-03 2021-07-03 Letter RUI Diaz 1.2.840.114 [id number] Univers 00:00:00 00:00:00 (Out) Candida LIN 350.1.13.10 it y of HOSPITAL 4.2.7.2.686 Yair as [phone] [facility] [address] [place] 2021-07-02 2021-07-02 Urgent Ryan Soriano [facility] 1.2.840. 114 [id number] Univers 11:01:57 11:21:57 Care Mariaa España Health 350.1.13.10 ity of [place] 4.2.7.2.686 Yair as Jonnathan?Blea [phone] Pa cyril perez [address] [place] [facility] 2021-07-02 2021-07-02 Outpatient R TACO [facility] [id number] Univers 11:00:00 11:00:00 MARIAAHEDY melendrez [facility] 2021-05-06 2021-05-06 Office [facility] 1.2.840.114 [id number] Univers 10:28:18 11:16:47 Visit Damir Enriquez PRIMARY 350.1.13.10 it y of [place] 4.2.7.2.686 [place] [phone] Pa cyril [address] [place] 2021-05-06 2021-05-06 Outpatient Rei PEÑA [facility] [id number] Univers 10:45:00 10:45:00 DAMIR melendrez [facility] 2021-04-04 2021-04-04 Consumer Loan Officer Pcp-Lab [facility] 1.2.840.114 [id number] Univers 11:33:04 11:48:04 Visit Damir Peña Zoe PRIMARY 350.1.13.10 ity of [place] 4.2.7.2.686 [place] [phone] Pa cyril [address] [place] [address] 2021-04-04 2021-04-04 Office [facility] 1.2.840.114 [id number] Univers 10:23:57 11:33:11 Visit Damir Enriquez PRIMARY 350.1.13.10 it y of [place] 4.2.7.2.686 [place] [phone] Pa cyril [address] [place] [address] 2021-04-04 2021-04-04 Outpatient R CASEY [facility] [id number] Univers 10:45:00 10:45:00 DAMIR melendrez [facility] 2021-03-17 2021-03-17 Earl Benedict [facility] 1.2.840.114 [id number] Univers 00:00:00 00:00:00 Wondiful A Health 350.1.13.10 ity of [place] 4.2.7.2.686 Yair as Professio [phone] Pa cyril [address] Office Building One 2021-03-13 2021-03-13 Outpatient [facility] [id number] Univers 10:00:00 10:00:00 LOLA melendrez [facility] 2021-03-11 2021-03-11 Consumer Loan Officer Lab, Mehrdad Fam Pob I [facility] 1.2. 840.114 [id number] Univers 15:16:28 15:36:28 Visit Viviane Hoskinsthia Health 350.1.13.10 ity of [place] 4.2.7.2.686 Yair as Professio [phone] [address] 2021-03-11 2021-03-11 Office Jak [facility] 1.2.840.114 [id number] Univers 14:09:51 15:16:47 Visit Wondiful A Health 350.1.13.10 ity of [place] 4.2.7.2.686 Yair as Professio [phone] [address] One 2021-03-11 2021-03-11 Outpatient [facility] [id number] Univers 14:15:00 14:15:00 WONDIFUL ity o f [facility] 2021-03-06 2021-03-06 Emergency [facility] 1.2.840.114 [id number] Univers 10:41:00 13:08:00 Shinta [place] 350.1.13.10 i ty of [place] 4.2.7.2.686 [place] [phone] [address] 2021-03-06 2021-03-06 Urgent Provider, Ang Urgent Care [facility] 1.2.840.114 [id number] Univers 09:55:47 10:15:47 Care Will Lola Enriquez Health 350.1.13.10 ity of [place] 4.2.7.2.686 Yair as Professio [phone] [address] 2021-03-06 2021-03-06 Outpatient R [facility] [id number] Univers 10:00:00 10:00:00 ity of [facility] 2021-02-28 2021-02-28 [facility] 1.2.840.114 [id number] Univers 00:00:00 00:00:00 Wondiful A Health 350.1.13.10 ity of [place] 4.2.7.2.686 Yair as Professio [phone] [address] Office Building One 2021-01-13 2021-01-13 Patient [facility] 1.2.840.114 [id number] Univers 00:00:00 00:00:00 Outreach Keon PRIMARY 350.1.13.10 i ty of [place] [facility] 4.2.7.2.686 [place] [id number] [address] 2020-11-27 2020-11-27 Emergency [facility] 1.2.030.406 [id number] Univers 15:25:00 18:57:00 Doris Morse 350.1.13.10 i ty of [place] 4.2.7.2.686 [place] [phone] [address] 2020-11-19 2020-11-19 Emergency [facility] 1.2.348.663 [id number] Univers 18:12:00 20:56:00 Too Morse 350.1.13.10 i ty of [place] 4.2.7.2.686 [place] [phone] [address] 2020-11-19 2020-11-19 Emergency X [facility] ERT [id number] Univers 18:12:00 20:56:00 TOO itindra of [facility] 2020-09-25 2020-09-25 Urgent Provider, [facility] 1.2.840.114 [id number] Univers 08:07:36 09:04:00 Care Lola Solis 350.1.13.10 ity of [place] 4.2.7.2.686 Yair as Professio [phone] [address] Office [facility] One 2020-09-25 2020-09-25 Outpatient R WILL [facility] [id number] Univers 08:00:00 08:00:00 LOLA melendrez of [facility] 2020-09-25 2020-09-25 Eder Solis [facility] 1.2.840.114 [id number] Univers 00:00:00 00:00:00 (Out) Lola Callahan 350.1.13.10 i ty of [place] 4.2.7.2.686 Yair as Professio [phone] [facility] [address] [place] Office [facility] One 2020-08-28 2020-08-28 Refill Leandra [facility] 1.2.840.114 [id number] Univers 00:00:00 00:00:00 Johana Morse 350.1.13.10 i ty of [place] 4.2.7.2.686 [place] [phone] [facility] 044 [facility] 2020-08-08 2020-08-08 Outpatient R [facility] [id number] Univers 14:20:00 14:20:00 ity [facility] 2020-08-08 2020-08-08 Nurse Nurse, [facility] 1.2.840.114 [id number] Univers 09:39:02 11:12:10 Visit Johana Mobley 350.1.13.10 ity of [place] 4.2.7.2.686 [place] Profess[place] [phone] [facility] 044 [facility] 2020-07-10 2020-07-10 Office [facility] 1.2.154.766 [id number] Univers 14:23:57 14:53:57 Visit Albert Kaplan [place] 350.1.13.10 ity of [place] 4.2.7.2.686 [place] Profess[place] [phone] [facility] 085 [facility] 2020-07-10 2020-07-10 Outpatient R ALBERT RUSSELL [facility] [id number] Univers 14:30:00 14:30:00 ALBERT RUSSELL ity [facility] 2020-06-24 2020-06-24 Outpatient [facility] [id number] Univers 14:00:00 14:00:00 MONIQUE ity [facility] 2020-06-11 2020-06-11 Patient Alem [facility] 1.2.840.114 [id number] Univers 00:00:00 00:00:00 Secure Msg Monique MULTISPEC 350.1.13.10 ity of [place].2.7.2.686 [place] CENTER [phone] Pauly bose AND LOYA Denita6 [place] [facility] 2020-06-11 2020-06-11 Telephone [facility] 1.2.840.114 [id number] Univers 00:00:00 00:00:00 Johana Morse 350.1.13.10 i ty of [place] 4.2.7.2.686 [place] [phone] Pa dical nal 044 [facility] 2020-06-06 2020-06-06 Consumer Loan Officer 2, Adc Lab [facility] 1.2.840.114 [id number] Univers 11:47:25 13:57:29 Visit Johana Mobley 350.1.13.10 ity of [place] 4.2.7.2.686 [place] Professio [phone] [facility] 353 [facility] 2020-06-06 2020-06-06 Office [facility] 1.2.840.114 [id number] [facility] 10:24:35 10:44:35 Visit Johana Morse 350.1.13.10 i ty of [place] 4.2.7.2.686 [place] Professio [phone] [facility] nal [address] [place] [address] 2020-06-06 2020-06-06 Outpatient R LEANDRA [facility] [id number] Univers 10:40:00 10:40:00 JOHANA melendrez [facility] 2020-05-30 2020-05-30 Consumer Loan Officer Pob, Adc Lab Main [facility] 1.2.8 40.114 [id number] Univers 17:01:23 17:16:23 Visit Johana Mobley 350.1.13.10 ity of [place] 4.2.7.2.686 [place] Professio [phone] Pa dical nal [address] [place] [address] 2020-05-30 2020-05-30 Office [facility] 1.2.840.114 [id number] Univers 15:49:43 16:48:49 Visit Peter [place] 350.1.13.10 i ty of [place] 4.2.7.2.686 [place] Profess[place] [phone] [address] 2020-05-30 2020-05-30 Outpatient R LEANDRA [facility] [id number] Univers 16:00:00 16:00:00 JOHANA ity [facility] 2020-05-30 2020-05-30 Orders Doctor RUI 1.2.840.114 [id number] Univers 00:00:00 00:00:00 Only Unassigned, RILEY 350.1.13.10 ity of [place] [facility] 4.2.7.2.686 Yair as [phone] [address] 2020-05-27 2020-05-27 Patient [facility] 1.2.840.114 [id number] Univers 00:00:00 00:00:00 Secure Msg Monique MULTISPEC 350.1.13.10 ity of [place] 4.2.7.2.686 [place] CENTER [phone] [facility] LOYA [address] [place] [facility] 2020-05-24 2020-05-24 Urgent Pob1, Acute Care Clinic [facility] 1. 2.840.114 [id number] Univers 08:41:59 09:14:39 Pamela Givens 350.1.13.10 ity of [place] 4.2.7.2.686 Yair as Professio [phone] [address] Office Building One 2020-05-24 2020-05-24 Outpatient [facility] [id number] Univers 08:40:00 08:40:00 PAMELA ity [facility] 2020-05-23 2020-05-23 Telephone [facility] 1.2.840.114 [id number] Univers 00:00:00 00:00:00 Monique NAGY 350.1.13.10 ity of [place] 4.2.7.2.686 [place] C[place] [phone] [facility] AND LOYA [address] [place] [facility] 2020-05-13 2020-05-20 Office [facility] 1.2.840.114 [id number] Univers 13:30:44 16:19:49 Visit Monique YAKOV 350.1.13.10 ity of [place] 4.2.7.2.686 [place] C[place] [phone] [facility] AND SHALINI [address] [place] [facility] 2020-05-13 2020-05-13 Consumer Loan Officer Vtc-Lab [facility] 1.2.840.114 [id number] Univers 14:36:01 14:36:43 Visit Monique Ferraraard MULTISPEC 350.1 .13.10 ity of [place] 4.2.7.2.686 [place] C[place] [phone] [facility] AND LOYA [address] [place] [facility] 2020-05-13 2020-05-13 Outpatient R [facility] [id number] Univers 10:30:00 10:30:00 MONIQUE ity [facility] 2020-04-05 2020-04-05 Patient [facility] 1.2.840.114 [id number] Univers 00:00:00 00:00:00 Secure Msg Wondiful A [place] 350.1.13.10 ity [place] [phone] Pa dical nal 044 [facility] 2020-03-25 2020-03-25 Orders Doctor RUI 1.2.840.114 [id number] Univers 00:00:00 00:00:00 Only Unassigned, RILEY 350.1.13.10 ity of [place] [facility] 4.2.7.2.686 Yair as [phone] [place] [address] [address] 2020-03-22 2020-03-22 Telephone [facility] 1.2.840.114 [id number] Univers 00:00:00 00:00:00 Wondiful A [place] 350.1.13.10 [place] [phone] Pa dical nal 044 [facility] 2020-03-21 2020-03-21 Telephone [facility] 1.2.840.114 [id number] Univers 00:00:00 00:00:00 Wondiful A [place] 350.1.13.10 [place] [phone] [address] 2020-03-19 2020-03-19 [facility] 1.2.840.114 [id number] Univers 00:00:00 00:00:00 Wondiful A [place] 350.1.13.10 [place] [phone] [address] 2020-03-14 2020-03-14 [facility] [id number] Univers 11:45:00 11:45:00 WONDIFUL ity o f [facility] 2020-03-14 2020-03-14 [facility]ici [facility] 1.2.840.114 [id number] Univers 07:36:15 07:51:15 ne Visit Wondiful A [place] 350.1.13.10 [place] [phone] [address] 2020-03-14 2020-03-14 [facility] 1.2.840.114 [id number] Univers 00:00:00 00:00:00 Wondiful A Health 350.1.13.10 ity of [place] 4.2.7.2.686 Yair as Professio [phone] [address] Office [address] [employer] 2020-03-11 2020-03-11 [facility] 1.2.840.114 [id number] Univers 00:00:00 00:00:00 Secure Msg Wondiful A [place] 350.1.13.10 [place] [phone] [address] 2020-02-18 2020-02-18 Emergency X GURJIT [facility] ERT [id number] Univers 15:36:20 17:54:00 JUAN [facility] of [facility] 2020-01-09 2020-01-09 Outpatient R [facility] [id number] Univers 13:45:00 13:45:00 ESTHER melendrez [facility] 2019-12-05 2019-12-05 [facility] 1.2.840.114 [id number] Univers 15:31:39 16:27:02 Visit Johana Morse 350.1.13.10 i ty [place] [phone] [facility]44 [facility] 2019-12-05 2019-12-05 [facility] [id number] [id number] Univers 13:40:11 14:48:44 Visit Esther Decker Lito 350.1.13.10 i ty [place] [phone] [facility] 377 [facility] 2019-11-28 2019-12-03 [facility] 1.2.840.114 [id number] Univers 14:58:55 23:34:38 Visit [facility] 350.1.13.10 ity of [place] 4.2.7.2.686 Yair as Professio [phone] [facility] [address] [facility] 2019-11-29 2019-11-29 [facility] 1.2.840.114 [id number] Univers 13:47:00 23:59:00 Encounter Wondiful A Y HEALTH 350.1.13.10 [place] [phone] [address] 2019-11-29 2019-11-29 [facility] 1.2.840.114 [id number] Univers 13:46:00 13:46:00 Encounter Wondiful A Y HEALTH 350.1.13.10 [place] [phone] [address] 2019-11-28 2019-11-28 Imm/Inj Nurse, Mehrdad De Leon Pob I [facility] 1.2.8 40.114 [id number] Univers 13:18:47 13:28:53 Visit Jonathon Benedictful A Health 350.1.13.1 0 ity of [place] 4.2.7.2.686 [place] Professio [phone] Pa dical nal [address] [place] Office [facility] 2019-11-24 2019-11-24 Orders Doctor RUI 1.2.840.114 [id number] Univers 00:00:00 00:00:00 Only Unassigned, RILEY 350.1.13.10 ity of [place] [facility] 4.2.7.2.686 Yair as [phone] [facility] [address] [place] 2019-11-18 2019-11-18 Consumer Loan Officer 1, Adc Lab [facility] 1.2.840.114 [id number] Univers 09:04:06 09:19:06 Visit Steph Benedict 350.1.13. 10 ity of [place] 4.2.7.2.686 [facility] [phone] [facility] [address] 2019-11-16 2019-11-16 Emergency [place], [facility] 1.2.840.114 [id number] Univers 14:30:22 16:26:00 Timothy B [place] 350.1.13.10 i ty of [place] 4.2.7.2.686 [facility] [phone] [facility] [address] 2019-11-16 2019-11-16 Orders Doctor RUI 1.2.840.114 [id number] Univers 00:00:00 00:00:00 Only Unassigned, RILEY 350.1.13.10 ity of [place] [facility] 4.2.7.2.686 Yair as [phone] [facility] [address] [place] 2019-11-14 2019-11-14 Office Jak [facility] 1.2.840.114 [id number] Univers 15:45:09 17:00:39 Visit Paulronanful A Health 350.1.13.10 ity of [place] 4.2.7.2.686 [place]air as Professio [phone] Pa dicva nal [address] Office [facility] 2019-11-14 2019-11-14 Letter Jak [facility] 1.2.840.114 [id number] Univers 00:00:00 00:00:00 (Out) [facility] 350.1.13.10 ity of [place] 4.2.7.2.686 [place] as Professio [phone] [address] Office Building One 2019-06-13 2019-06-15 Office Aidee [facility] 1.2.840.114 [id number] Univers 14:58:16 09:00:30 Visit Pamela [facility] 350.1.13.10 it y of [place] 4.2.7.2.686 [place] as Professio [phone] [address] Office Building One 2019-06-13 2019-06-13 Letter Jak [facility] 1.2.840.114 [id number] Univers 00:00:00 00:00:00 (Out) Woncoco Enriquez [facility] 350.1.13.10 ity of [place] 4.2.7.2.686 [place] as Professio [phone] [address] Office Building One 2019-05-16 2019-05-16 Orders Doctor RUI 1.2.840.114 [id number] Univers 00:00:00 00:00:00 Only Unassigned, RILEY 350.1.13.10 ity of [place] [facility] 4.2.7.2.686 Yair as [phone] [address] Results Test Description Test Time Test Comments Results Result Comments Source C-REACTIVE PROTEIN 2022-10-08 16:16:07 Test Item Value Reference Range Interpretation Comme nts CRP (test code = 0433532185) 0.8 mg/dL See_Comment H [Automated message] The system which generated this result transmitted ref erence range: <=0.8. The refe rence range was not used to int erpret this result as twila l/abnormal. Lab Interpretation (test code Abnormal = 32799-6) [facility]35[facility]58 Test Item Value Reference Range Interpretation Comments FOLATE SER (test code = 5.6 ng/mL 3.0-20.0 Biot in has been [id number]) reported to cau se a positive bias, interpret resul ts relative to patient's use o f biotin. Lab Interpretation (test Normal code = 66985-1) [facility]OLIC PANEL ([id number])2022-10-08 05:55:11 Test Item Value Reference Range Interpretation Comments NA (test code = 137 mmol/L 135-145 0458389203) K (test code = 4.0 mmol/L 3.5-5.0 4704189910) CL (test code = 105 mmol/L 98-108 3055919728) CO2 TOTAL (test code = 21 mmol/L 23-31 L 4811221909) AGAP (test code = 2-16 5486979597) BUN (test code = 10 mg/dL 7-23 2451687685) GLUCOSE (test code = 108 mg/dL 70-110 0540037796) CREATININE (test code = 0.63 mg/dL 0.50-1.04 7382506559) TOTAL BILI (test code = 0.4 mg/dL 0.1-1.3 6802489837) CALCIUM (test code = 10.9 mg/dL 8.6-10.6 H 1998989734) T PROTEIN (test code = 7.5 g/dL 6.3-8.2 1106169363) ALBUMIN (test code = 4.6 g/dL 3.5-5.0 3425384489) ALK PHOS (test code = 103 U/L 34-122 9378911738) ALTv (test code = 72 U/L 5-35 H 1742-6) AST(SGOT) (test code = 48 U/L 13-40 H 0873641813) eGFR (test code = mL/min/1.73m2 8692033458) LEANDRO (test code = LEANDRO) Association of Glomerular Filtration Rate (GFR) and Staging of Kidney Disease* + --+ --+ ------+| GFR (mL/min/1.73 m2) ?| With Kidney Damage ?| ?Without Kidney Damage+ --------+ --------+ +| ?>90 ?| ?Stage one ?| ? Normal ?+ ---+ ---+ -------+| ?60-89 ?| ?Stage two ?| ? Decreased GFR ? + --+ --+ ------+| ?30-59 ?| ?Stage three ?| ? Stage three ? + --+ --+ ------+| ?15-29 ?| ?Stage four ? | ? Stage four ?+ ---+ ---+ -------+| ?<15 (or dialysis) ? ?| ?Stage five ? | ? Stage five ?+ ---+ ---+ -------+ *Each stage assumes the associated GFR level has been in effect for at least three months. ?Stages 1 to 5, with or without kidney disease, indicate chronic kidney disease. Notes: Determination of stages one and two (with eGFR >59mL/min/1.73 m2) requires estimation of kidney damage for at least three months as defined by structural or functional abnormalities of the kidney, manifested by either:Pathological abnormalities or Markers of kidney damage (including abnormalities in the composition of the blood or urine or abnormalities in imaging tests). Lab Interpretation Abnormal (test code = 15807-5) [facility] CenterSEDIMENTATION [id number] 05:47:08 Test Item Value Reference Range Interpretation Comments ESR (test code = 32240-2) See_Comment [ Automated message] The system [employer] generated this result transmitted ref erence range: 0 - 20 m m/HR. The reference r grazyna was not used to interpret this result as normal/abnor mal. Lab Interpretation (test Normal code = 64450-1) [facility]MAG[facility]UM2022-12-15 05:22:35 Test Item Value Reference Range Interpretation Comments MAGNESIUM (test code = 6683318299) 2.2 mg/dL 1.7-2.4 Lab Interpretation (test code = Normal 50773-3) [facility] CenterL[facility]IDNEY-MICROSOME [id number] 05:24:08 Test Item Value Reference Range Interpretation Comments Pycxo-Umxybp-Famxr <1:20 See_Comment INTERPRET VIPIN INFORMATION: some Abs, IgG by ?Liver-Kidn ey-Microsome Abs, IFA (test code = IgG Liver-K idney Microsome IgG 9838-4) antibody (anti- LKM), as detected by ind irect immunofluoresce nt antibody (IFA) technique s, may be observed in pat ients with autoimmune hepa titis type 2 (AIH-2), AIH-2 associated with autoimmune polyendocrinopa thy-candidiasis -ectodermal dys trophy (APECED), viral hepatitis C or D, and some for ms of drug-induced he patitis. This IFA does not di fferentiate among the four types of LKM antibodies (LKM -1, LKM-2, LKM-3, and a fo urth type that recognizes CY and CY antigens). Of t hese, anti-LKM-1 (cyt ochrome C248TMA0) IgG a ntibodies are considered spec ific for AIH-2. This test was d eveloped and its performance characteristics determined by [facility]. It has not been cleared or approved by the [place] Food and Drug Administration. This test was performed in a CLIA certified laboratory and is intended for clinical purpos es.Performed By: [facility] [place] [address] [id number] Director: Trae salvador MD, PhD [Automated mess age] The system which generated this result transmitted ref erence range: <1:20. The refe rence range was not used to int erpret this result as twila l/abnormal. [facility] CenterIMMUNOGLOBULIN [id number] 18:40:49 Test Item Value Reference Range Interpretation Comments IgG (test code = 0463509641) 1050 mg/dL 636-1600 Lab Interpretation (test code = Normal 88266-7) [facility] CenterALPHA [id number] 17:26:14 Test Item Value Reference Range Interpretation Comments AFP (test code = 3.7 ng/mL See_Comment [Automated [id number]) message] The system which generated this result transmitted reference range : <=7.5. The reference range was not used to interpret this result as normal/abnormal . LEANDRO (test code = LEANDRO) Biotin has been reported to cause a negative bias, interpret results relative to patient's use of biotin. Lab Interpretation Normal (test code = 60265-7) [facility] CenterFERRITIN [id number] 17:26:14 Test Item Value Reference Range Interpretation Comments FERRITIN (test code = 105.0 ng/mL 6-137 6431144081) LEANDRO (test code = LEANDRO) Biotin has been reported to cause a negative bias, interpret results relative to patient's use of biotin. Lab Interpretation (test Normal code = 38846-3) [facility] CenterTHYROID STIMULATING [id number] 17:22:15 Test Item Value Reference Range Interpretation Comments TSH (test code = See_Comment [Automated message] [id number]) The system [employer] generated this result transmitted ref erence range: 0.45 - 4 .70 mIU/L. The refe rence range was not u sed to interpret this result as normal/abnor mal. Lab Interpretation (test Normal code = 92984-3) [facility] CenterTOTAL IRON BINDING [id number] 16:56:14 Test Item Value Reference Range Interpretation Comments TIBC (test code = 8553293465) 304 ug/dL 250-410 % FE SAT (test code = 4669822589) 21 % 20-50 Lab Interpretation (test code = Normal 36373-2) [facility] CenterIRON2022-09-19 16:46:51 Test Item Value Reference Range Interpretation Comments IRON (test code = 4444908168) 63 ug/dL 50-160 Lab Interpretation (test code = Normal 23764-6) [facility] CenterProthrombin Time / [id number] 16:33:10 Test Item Value Reference Range Interpretation Comments PROTIME PATIENT (test See_Comment [Auto mated message] code = 5964-2) The system [facility] generated this result transmitted ref erence range: 10.1 - 1 2.6 Seconds. The re ference range was not u sed to interpret this result as normal/abnor mal. INR (test code = 6301-6) Nor mal INR <1.1; Warfarin Therap eutic range 2.0 to 3. 0 or 2.5 to 3.5, dep ending upon the indica tions. Lab Interpretation (test Normal code = 49262-1) [facility]"
[2023-02-26] MEDS ORDERED: NA CHLORIDE 0.9% 1,000 ML ONE (16:23)
[2023-02-26] MEDS ORDERED: ONDANSETRON 4 MG/2 ML VIAL ONE (16:23)
[2023-02-26] MEDS ORDERED: DICYCLOMINE HCL 20 MG/2 ML AMP IM ONE (16:23)
[2023-02-26] MEDS ORDERED: FAMOTIDINE 20 MG/2 ML VIAL IV ONE (16:24)
[2023-02-26 16:39] LABS: Absolute Lymphocytes (CBC) 2.4 K/uL (0.7-4.9); MCV 85.8 fL (80-100); MPV 7.8 fL (7.6-11.3); RBC Red Blood Cell Count 4.78 M/uL (3.86-4.86)
[2023-02-26 16:57] LABS: Albumin 3.7 g/dL (3.4-5.0); Bilirubin Total 0.3 mg/dL (0.2-1.0); Protein, Total 7.4 g/dL (6.4-8.2)
[2023-02-26 17:00] LABS: Potassium 3.6 mEq/L (3.5-5.1)
[2023-02-26 17:03] LABS: Specific Gravity 1.018 (1.005-1.030)
[2023-02-26 17:09] LABS: Specific Gravity 1.018 (1.005-1.030); Urine Bacteria 20-50 /HPF (<20); Urine Bilirubin NEGATIVE (Negative); Urine Blood Negative (Negative); Urine Clarity Clear (Clear); Urine Color Light-Yellow (Yellow); Urine Glucose NEGATIVE (Negative); Urine Mucus Slight /HPF (None Seen); Urine Protein TRACE (Negative); Urine RBC <5 /HPF (None Seen); Urine Urobilinogen Normal (Normal); Urine pH 8.5 (5.0-7.0)
--- NOTE | 2023-02-26 17:23 | RAD REPORT ---
EXAM DESCRIPTION: CTAbdomen Pelvis W Contrast - 02/26/2023 5:12 pm CLINICAL HISTORY: ABD PAIN COMPARISON: No comparisons TECHNIQUE: CT of the abdomen and pelvis was performed. All CT scans are performed using dose optimization technique as appropriate and may include automated exposure control or mA/KV adjustment according to patient size. FINDINGS: Lower chest: No acute abnormality. Liver: No acute abnormality or suspicious lesions. Hepatic steatosis. Biliary: No biliary ductal dilatation. Stomach: No significant focal abnormality. Duodenum: No significant focal abnormality. Pancreas: No significant abnormality. Spleen: No significant abnormality. Adrenal: No suspicious lesions. Kidney/ureter: No hydronephrosis. No renal calculi. Retroperitoneum: No retroperitoneal adenopathy. Vascular: No aneurysm. Bowel: No significant focal abnormality. Nonvisualized appendix. Peritoneum: No ascites or free air. Bladder: Grossly unremarkable. Reproductive: No adnexal masses. Hysterectomy. Bones: No acute fracture. Other: n/a IMPRESSION: No acute intra-abdominal or pelvic finding.
[2023-02-26] MEDS ORDERED: CEFTRIAXONE 1000 MG/VIAL ONE (17:59)
--- NOTE | 2023-02-26 18:34 | ER ---
Nurse's Notes [facility] Name: Sunshine Evans Age: 37 yrs Sex: Female : 1985 Arrival Date: 02/26/2023 Time: 14:59 Bed 9 Private MD: Diagnosis: Nausea;Diarrhea, unspecified;UTI/ Urinary tract infection, site not specified Presentation: 02/26 15:43 Chief complaint: Patient states: started Valtrex on WednesdayFebruary 22, and has taken a total vg1 of 4 doses, stated due to shingles in Right ear, also stated lower back pain, burning upon urination and nausea/diarrhea. Coronavirus screen: Vaccine status: Patient reports being unvaccinated. Client denies travel out of the [place] in the last 14 days. Ebola Screen: Patient negative for fever greater than or equal to 101.5 degrees Fahrenheit, and additional compatible Ebola Virus Disease symptoms Patient denies exposure to infectious person. Patient denies travel to an Ebola-affected area in the 21 days before illness onset. Initial Sepsis Screen: Does the patient meet any 2 criteria? No. Patient's initial sepsis screen is negative. Does the patient have a suspected source of infection? No. Patient's initial sepsis screen is negative. Risk Assessment: Do you want to hurt yourself or someone else? Patient reports no desire to harm self or others. Onset of symptoms was February 24, 2023. 15:43 Method Of Arrival: Ambulatory vg1 15:43 Acuity: MIRANDA 3 vg1 Triage Assessment: 15:47 General: Appears uncomfortable, Behavior is cooperative. Pain: Complains of pain in vg1 back and right ear Pain currently is 6 out of 10 on a pain scale. Neuro: Level of Consciousness is awake, alert, obeys commands, Oriented to person, place, time, situation. Musculoskeletal: Circulation, motion, and sensation intact. 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 - Social history:: Smoking status: Patient denies any tobacco usage or history of. Screenin:56 [facility] ED Fall Risk Assessment (Adult) History of falling in the last 3 months, kc6 including since admission No falls in past 3 months (0 pts) Confusion or Disorientation No (0 pts) Intoxicated or Sedated No (0 pts) Impaired Gait No (0 pts) Mobility Assist Device Used No (0 pt) Altered Elimination No (0 pt) Score/Fall Risk Level 0 - 2 = Low Risk Oriented to surroundings, Maintained a safe environment, Educated pt \T\ family on fall prevention, incl call for assistance when getting out of bed, Assessed \T\ reinforced patient's understanding of fall precautions, Hourly rounding (assess needs \T\ fall precautionary measures) done. Abuse screen: Denies threats or abuse. Denies injuries from another. Nutritional screening: No deficits noted. Tuberculosis screening: No symptoms or risk factors identified. Assessment: 16:00 General: Appears in no apparent distress. comfortable, Behavior is calm, cooperative, kc6 appropriate for age. Pain: Complains of pain in abdomen. Neuro: [place]l Agitation-Sedation Scale (RASS): 0 - Alert and Calm Level of Consciousness is awake, alert, obeys commands, Oriented to person, place, time, situation, Appropriate for age. Cardiovascular: Capillary refill < 3 seconds. Respiratory: Airway is patent Trachea midline Respiratory effort is even, unlabored, Respiratory pattern is regular, symmetrical. GI: Abdomen is round non-distended, Bowel sounds present X 4 quads. Abd is soft and non tender X 4 quads. Reports diarrhea, nausea, Patient currently denies vomiting. : No signs and/or symptoms were reported regarding the genitourinary system. EENT: No signs and/or symptoms were reported regarding the EENT system. Derm: No signs and/or symptoms reported regarding the dermatologic system. Skin is intact, Skin is pink, warm \T\ dry. Musculoskeletal: No signs and/or symptoms reported regarding the musculoskeletal system. Circulation, motion, and sensation intact. Capillary refill < 3 seconds, Range of motion: intact in all extremities. 17:00 Reassessment: Patient appears in no apparent distress at this time. No changes from kc6 previously documented assessment. Patient and/or family updated on plan of care and expected duration. Pain level reassessed. Patient is alert, oriented x 3, equal unlabored respirations, skin warm/dry/pink. 18:00 Reassessment: Patient appears in no apparent distress at this time. No changes from kc6 previously documented assessment. Patient and/or family updated on plan of care and expected duration. Pain level reassessed. Patient is alert, oriented x 3, equal unlabored respirations, skin warm/dry/pink. Vital Signs: 15:43 BP 121 / 70; Pulse 88; Resp 16; Temp 98.2(O); Pulse Ox 98% on R/A; Weight 108.86 kg; vg1 Height 5 ft. 6 in. ; Pain 5/10; 15:43 Body Mass Index 38.74 (108.86 kg, 167.64 cm) vg1 15:43 Pain Scale: Adult vg1 ED Course: 15:04 Patient arrived in ED. rg4 15:17 Vishal Iniguez PA is PHCP. cp 15:17 Vishal Sanchez MD is Attending Physician. cp 15:47 Triage completed. vg1 15:47 Arm band placed on. vg1 15:57 Christin Goodman, RN is Primary Nurse. kc6 16:14 Radiology exam delayed due to lab results not completed at this time. (BUN/Creatinine) jg10 IV insertion attempt and/or patient not having appropriate IV at this time. 16:55 Urinalysis W/Microscopic Sent. kc6 16:55 PREGU Sent. kc6 16:56 Patient has correct armband on for positive identification. Bed in low position. Call kc6 light in reach. Side rails up X 1. Adult w/ patient. 17:13 CT Abd/Pelvis - IV Contrast Only In Process Unspecified. EDMS 18:52 No provider procedures requiring assistance completed. IV discontinued, intact, kc6 bleeding controlled, No redness/swelling at site. Pressure dressing applied. Administered Medications: 16:31 Drug: NS 0.9% IV 1000 ml Route: IV; Rate: 1 bolus; Site: right antecubital; kc6 17:30 Follow up: Response: No adverse reaction; IV Status: Completed infusion; IV Intake: kc6 1000ml 16:31 Drug: Ondansetron IVP 4 mg Route: IVP; Site: right antecubital; kc6 17:58 Follow up: Response: No adverse reaction; Nausea is decreased kc6 16:31 Drug: Famotidine IVP 20 mg Route: IVP; Site: right antecubital; kc6 17:58 Follow up: Response: No adverse reaction kc6 16:31 Drug: Dicyclomine IM 20 mg Route: IM; Site: right deltoid; kc6 17:58 Follow up: Response: No adverse reaction kc6 18:19 Not Given (Patient Refused): Rocephin IV 1 grams IV at calculated rate once; Given slow kc6 IV push per pharmacy instructions 18:45 Drug: Doxycycline PO 100 mg Route: PO; kc6 18:52 Follow up: Response: No adverse reaction kc6 Medication: 18:52 VIS not applicable for this client. kc6 Intake: 17:30 IV: 1000ml; Total: 1000ml. kc6 Outcome: 18:33 Discharge ordered by MD. aston 18:52 Discharged to home ambulatory, with significant other. kc6 18:52 Condition: improved 18:52 Discharge instructions given to patient, Instructed on discharge instructions, follow up and referral plans. medication usage, Demonstrated understanding of instructions, follow-up care, medications, Prescriptions given X 3. 18:52 Patient left the ED. kc6 Signatures: Dispatcher [employer] EDMS Vishal Iniguez PA PA cp Garcia, Rubi rg4 Ernestine Barr RN RN vg1 Christin Goodman RN RN kc6 Deisi Jenkins jg10
--- NOTE | 2023-02-26 18:34 | EDPHYS ---
Physician Documentation [facility] Name: Sunshine Evans Age: 37 yrs Sex: Female : 1985 Arrival Date: 02/26/2023 Time: 14:59 Bed 9 Private MD: JES Physician Vishal Sanchez HPI: 02/26 16:25 This 37 yrs old Female presents to ER via Ambulatory with complaints of Reaction to cp meds. 16:25 The patient presents with abdominal pain left and right lower abdomen. cp 16:25 Onset: The symptoms/episode began/occurred gradually, and became worse today. The cp symptoms radiate to low back pain. Associated signs and symptoms: Pertinent positives: anorexia, diarrhea, dysuria, nausea, vomiting, sore throat, Pertinent negatives: fever, headache. The symptoms are described as intermittent. Severity of pain: in the emergency department the pain is unchanged despite home interventions. Patient concerned that symptoms caused by taking oral Valtrex for right ear and throat herpes zoster. Feels nausea and abdominal pain worse after taking medication. 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 - Social history:: Smoking status: Patient denies any tobacco usage or history of. ROS: 16:30 Constitutional: Positive for poor PO intake, Negative for body aches, chills, fever. cp 16:30 Respiratory: Negative for cough, shortness of breath, wheezing. cp 16:30 Cardiovascular: Negative for chest pain, palpitations. cp 16:30 Eyes: Negative for injury, pain, redness, and discharge. cp 16:30 ENT: Positive for ear pain, sore throat, Negative for drainage from ear(s), difficulty swallowing, difficulty handling secretions. 16:30 Abdomen/GI: Positive for abdominal pain, nausea, diarrhea, Negative for vomiting, constipation. 16:30 Back: Positive for pain at rest, pain with movement. 16:30 : Positive for urinary symptoms. 16:30 Neuro: Negative for altered mental status, headache, weakness. 16:30 All other systems are negative. Exam: 16:35 Constitutional: The patient appears in no acute distress, alert, awake, non-toxic, well cp developed, well nourished, anxious, uncomfortable. 16:35 Head/Face: Normocephalic, atraumatic. cp 16:35 Eyes: Periorbital structures: appear normal, Conjunctiva: normal, no exudate, no injection, Sclera: no appreciated abnormality, Lids and lashes: appear normal, bilaterally. 16:35 ENT: External ear(s): are unremarkable, Ear canal(s): are normal, clear, TM's: erythema, that is mild, on the right, noted erythematous vesicle, Examination of the other ear shows no obvious abnormality, Nose: is normal, Mouth: Lips: moist, Oral mucosa: moist, Posterior pharynx: Airway: no evidence of obstruction, patent, Tonsils: with erythema, right tonsil with erythema, vesicular lesions, swelling, that is mild, exudate, is not appreciated, Voice: is normal. 16:35 Neck: ROM/movement: is normal, is supple, no meningismus, no nuchal rigidity. 16:35 Chest/axilla: Inspection: normal. 16:35 Cardiovascular: Rate: normal, Rhythm: regular. 16:35 Respiratory: the patient does not display signs of respiratory distress, Respirations: normal, no use of accessory muscles, no retractions, labored breathing, is not present, Breath sounds: are clear throughout, no decreased breath sounds, no stridor, no wheezing. 16:35 Abdomen/GI: Inspection: abdomen appears normal, Bowel sounds: active, all quadrants, Palpation: soft, in all quadrants, mild abdominal tenderness, in the anterior aspect of right lateral abdomen, anterior aspect of left lateral abdomen, right lower quadrant and left lower quadrant, rebound tenderness, is not appreciated, involuntary guarding, is not appreciated. 16:35 Back: pain, that is mild, of the low back area, ROM is normal, CVA tenderness, is absent. 16:35 Neuro: Orientation: to person, place \T\ time. Mentation: is normal, Motor: moves all fours, strength is normal, Sensation: is normal. Vital Signs: 15:43 BP 121 / 70; Pulse 88; Resp 16; Temp 98.2(O); Pulse Ox 98% on R/A; Weight 108.86 kg; vg1 Height 5 ft. 6 in. ; Pain 5/10; 15:43 Body Mass Index 38.74 (108.86 kg, 167.64 cm) vg1 15:43 Pain Scale: Adult vg1 MDM: 15:52 Patient medically screened. [facility] 18:32 Data reviewed: vital signs, nurses notes, lab test result(s), radiologic studies, CT cp scan. 18:32 Differential diagnosis: appendicitis, gastritis, non-specific abd pain, cp Ureterolithiasis, urinary tract infection. Consideration of Admission/Observation Escalation of care including admission/observation considered. I considered the following discharge prescriptions or medication management in the emergency department Medications were administered in the Emergency Department. See MAR. Counseling: I had a detailed discussion with the patient and/or guardian regarding: the historical points, exam findings, and any diagnostic results supporting the discharge/admit diagnosis, lab results, radiology results, the need for outpatient follow up, a family practitioner, to return to the emergency department if symptoms worsen or persist or if there are any questions or concerns that arise at home. Response to treatment: the patient's symptoms have markedly improved after treatment. ED course: Patient reports symptoms improved. Wants to continue Valtrex instead of switching to Acyclovir. Patient would like Doxycycline for uti due to concern for allergies to other antibiotics. Will discharge to home for continued monitoring. 02/26 15:59 Order name: Urinalysis W/Microscopic; Complete Time: 17:11 cp 02/26 17:11 Interpretation: Normal except: UPH 8.5; UPROT TRACE; UBACT 20-50. cp 02/26 15:59 Order name: PREGU; Complete Time: 17:11 cp 02/26 16:11 Order name: CBC with Diff; Complete Time: 17:11 cp 02/26 16:11 Order name: CMP; Complete Time: 17:11 cp 02/26 17:12 Interpretation: Normal except: CL 109; GLUC 125; ALT 69; GLOB 3.7; A/G 1.0. cp 02/26 16:11 Order name: Lipase; Complete Time: 17:11 cp 02/26 16:11 Order name: CT Abd/Pelvis - IV Contrast Only; Complete Time: 17:33 cp 02/26 17:33 Interpretation: Report reviewed. cp 02/26 16:11 Order name: IV Saline Lock; Complete Time: 16:31 cp 02/26 16:11 Order name: Labs collected and sent; Complete Time: 16:31 cp 02/26 17:36 Order name: PO challenge; Complete Time: 17:40 cp Administered Medications: 16:31 Drug: NS 0.9% IV 1000 ml Route: IV; Rate: 1 bolus; Site: right antecubital; kc6 17:30 Follow up: Response: No adverse reaction; IV Status: Completed infusion; IV Intake: kc6 1000ml 16:31 Drug: Ondansetron IVP 4 mg Route: IVP; Site: right antecubital; kc6 17:58 Follow up: Response: No adverse reaction; Nausea is decreased kc6 16:31 Drug: Famotidine IVP 20 mg Route: IVP; Site: right antecubital; kc6 17:58 Follow up: Response: No adverse reaction kc6 16:31 Drug: Dicyclomine IM 20 mg Route: IM; Site: right deltoid; kc6 17:58 Follow up: Response: No adverse reaction kc6 18:19 Not Given (Patient Refused): Rocephin IV 1 grams IV at calculated rate once; Given slow kc6 IV push per pharmacy instructions 18:45 Drug: Doxycycline PO 100 mg Route: PO; kc6 18:52 Follow up: Response: No adverse reaction kc6 Disposition Summary: 02/26/23 18:33 Discharge Ordered Location: Home cp Problem: new cp Symptoms: have improved cp Condition: Stable cp Diagnosis - Nausea cp - Diarrhea, unspecified cp - UTI/ Urinary tract infection, site not specified cp Followup: cp - With: Private Physician - When: 2 - 3 days - Reason: Recheck today's complaints Discharge Instructions: - Discharge Summary Sheet cp - Diarrhea, Adult cp - Nausea, Adult cp - Urinary Tract Infection, Adult cp Forms: - Medication Reconciliation Form cp - Thank You Letter cp - Antibiotic Education cp - Prescription Opioid Use cp Prescriptions: - Zofran 4 mg Oral Tablet - take 1 tablet by ORAL route every 12 hours As needed; 20 tablet; Refills: 0, cp Product Selection Permitted - Doxycycline Hyclate 100 mg Oral Tablet - take 1 tablet by ORAL route every 12 hours for 5 days; 10 tablet; Refills: 0, cp Product Selection Permitted - dicyclomine 20 mg Oral Tablet - take 1 tablet by ORAL route 4 times per day; 20 tablet; Refills: 0, Product cp Selection Permitted Signatures: Dispatcher [employer] Vishal Pearson MD MD cha Page, Corey, PA PA cp Garcia, Victoria RN RN vg1 Christin Goodman RN RN kc6
[2023-02-26] MEDS ORDERED: DOXYCYCLINE 100 MG CAP PO ONE (18:50)
[2023-02-26 19:03] VITALS: BP 121/70; TEMP 98.2; O2SAT 98
== END 2023-02-26 18:52 | disposition home or self-care (01) ==
LOC: ER 14:59
DX: N39.0 Urinary tract infection, site not specified (principal); R19.7 Diarrhea, unspecified; Z88.1 Allergy status to other antibiotic agents; Z88.8 Allergy status to other drugs, medicaments and biological substances; Z91.040 Latex allergy status; Z91.048 Other nonmedicinal substance allergy status
CPT/HCPCS: 96361; 85025; 81001; 36415; 81025; 83690; 80053; 74177; 96375; 96372; 96374; 99284; Q9967; J0500; J2405; J7030; J0696

== ENCOUNTER 2023-03-27 14:10 | Emergency (ER) | payer OTHER ==
--- OUTSIDE RECORDS SUMMARY | 2023-03-27 14:21 | XMS REPORT | Continuity of Care Document ---
:1985 Author Organization [facility] t Address [address] [place] [address] [address] [place] [address] Care Team Providers Name Role Phone Kaplana Wood Primary Care Physician PABLO HOLM Attending Clinician [facility]available [facility] Attending Clinician Unavailable Unknown, Attending Attending Clinician Unavailable UNKNOWN, ATTENDING Attending Clinician Unavailable Pablo Holm MD Attending Clinician Doctor Unassigned, [place] Attending Clinician Unavailable LOLA SOLIS Attending Clinician Unavailable Lola Rajput Attending Clinician SHAHEED COSTELLO Attending Clinician Unavailable Shaheed Costello MD Attending Clinician Lola Greenberg Attending Clinician Fang PhDEleanor Attending Clinician ELEANOR HEADLEY Attending Clinician Unavailable Leia Toscano Attending Clinician 1, [facility] [employer] Attending Clinician Unavailable Pob, [facility] Lab Main [...] Clinician Unavailable Marla Blackburn Attending Clinician 1, [facility] Attending Clinician Unavailable Candida Diaz RN Attending Clinician Unavailable YOGESH VALIENTE Attending Clinician Unavailable Yogesh Mills Attending Clinician [facility] Attending Clinician Unavailable 1, [facility] Sleep Lab Bed Attending Clinician Unavailable Anusha Low LVN Attending Clinician Unavailable Kathy Buckley DO Attending Clinician [facility], [facility] Sleep Lab Attending Clinician Unavailable JOSEF LOPEZ Attending Clinician Unavailable Josef Lopez MD Attending Clinician Only, Ang Db Test Attending Clinician Unavailable Mariaa España MD Attending Clinician MARIAA ESPAÑA Attending Clinician Unavailable 2, [facility] Lab Attending Clinician Unavailable CARLITO MEJIAS Attending Clinician Unavailable Carlito Mejias DO Attending Clinician Steph Benedict MD Attending Clinician SULLY FLOYD Attending Clinician Unavailable Sully Pino Attending Clinician STEPH BENEDICT Attending Clinician Unavailable POLO FERRIS Attending Clinician Unavailable Polo Zuniga Attending Clinician NICHOLE HUBBARD Attending Clinician Unavailable Lincoln White MD Attending Clinician LINCOLN WHITE III Attending Clinician Unavailable JANY LAZAR Attending Clinician Unavailable Jany Lazar DO Attending Clinician Juan Dos Santos MD Attending Clinician JUAN DOS SANTOS Attending Clinician Unavailable Casey ORTEGA, Damir Enriquez Attending Clinician DAMIR TOTH Attending Clinician Unavailable Ryan Orozco Attending Clinician Pcp-Lab Attending Clinician Unavailable Lab, [facility] Pob I Attending Clinician Unavailable Pamela Patel Attending Clinician Josué Negron Attending Clinician Provider, [facility] Attending Clinician Unavailable Keon Roe DO Attending Clinician Doris Rivera Attending Clinician Too Ruiz Attending Clinician TOO CHILEL Attending Clinician Unavailable Johana Mobley MD Attending Clinician Nurse, [facility] Attending Clinician Unavailable MONIQUE FERRARA Attending Clinician Unavailable Monique Ferrara MD Attending Clinician [phone] JOHANA MOBLEY Attending Clinician Unavailable Pob1, [facility] Attending Clinician Unavailable PAMELA HOSKINS Attending Clinician Unavailable Vtc-Lab Attending Clinician Unavailable ESTHER FELTON Attending Clinician Unavailable Esther Felton MD Attending Clinician Nurse, [facility] Pob I Attending Clinician Unavailable Timothy Goldstein Attending Clinician PABLO HOLM Admitting Clinician Unavailable SAMMY CHESTER Admitting Clinician Unavailable KALPANA GODWIN Admitting Clinician Unavailable SULLY FLOYD Admitting Clinician Unavailable JANY LAZAR Admitting Clinician Unavailable JUAN DOS SANTOS Admitting Clinician Unavailable TOO CHILEL Admitting Clinician Unavailable Payers Payer Name Policy Type Policy Number Effective Date Expiration Date Jeronimo LEVINE [id number] 2019 00:00:00 Problems Condition Condition Condition Status Onset Resolution Last Treating Co mments Source Name Details Category Date Date Treatment Clinician Date Acute pain Acute pain Disease Active 2021-10 U nivers of right of right 2-14 ity of shoulder shoulder 00:00: Medical Branch Cervicalgi Cervicalgi Disease Active 2021-10 U nivers a a 2-14 ity of 00:00: [place] [facility] Paresthesi Paresthesi Disease Active 2021-10 U nivers a a 2-14 ity of 00:00: [place] [facility] Dizziness Dizziness Disease Active 2021-10 Uni vers 2-14 ity of 00:00: [place] [facility] Acute Acute Disease Active 2021-10 Univers non-recurr non-recurr 0-05 it y of ent ent 00:00: [place] maxillary maxillary 00 Medi juice sinusitis sinusitis Bran ch Allergy, Allergy, Disease Active Unive rs initial initial 9-13 ity of encounter encounter 00:00: [facility] Branch Class 2 Class 2 Disease Active Univers obesity obesity 8-09 ity of due to due to 00:00: [place] excess excess 00 Medical calories calories Branch with body with body mass index mass index (BMI) of (BMI) of 35.0 to 35.0 to 35.9 in 35.9 in adult, adult, unspecifie unspecifie d whether d whether serious serious comorbidit comorbidit y present y present Orthopnea Orthopnea Disease Active Uni vers 8-09 ity of 00:00: [place] [facility] Nausea Nausea Disease Active Univers 8-09 ity of 00:00: [place] [facility] Branch Nasal Nasal Disease Active Univers congestion congestion 8-09 it y of 00:00: [facility] Branch Pain of Pain of Disease Active Univers left heel left heel 7-26 ity of 00:00: [place] [facility] Hx of Hx of Disease Active Univers hypokalemi hypokalemi 6-13 it y of a a 00:00: [place] [facility] Hx of iron Hx of iron Disease Active U nivers deficiency deficiency 6-13 it y of anemia anemia 00:00: [place] 00 [facility] Disease Active Unive rs discharge discharge 6-13 ity of follow-up [place]up 00:[place] [facility] Vitamin D Vitamin D Disease Active Uni vers deficiency deficiency 4-05 it y of 00:00: [place] [facility] Fatty Fatty Disease Active Univers liver liver 3-31 ity of 00:00: Medical Branch Onychomyco Onychomyco Disease Active U nivers sis of sis of 3-31 ity of toenail toenail 00:00: [place] [facility] Fibromyalg Fibromyalg Disease Active 2020- U nivers ia ia 8-13 ity of 00:00: [place] [facility] Chronic Chronic Disease Active 2020- Univers pain pain 8-13 ity of syndrome syndrome 00:00: [place] [facility] Snoring Snoring Disease Active 2019- Univers 8-13 ity of 00:00: [place] [facility] Mixed Mixed Disease Active 2019- Univers hyperlipid hyperlipid 8-13 it y of emia emia 00:00: [place] [facility] 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 1-29 ity of 00:00: [place] [facility] Hypoglycem Hypoglycem Disease Active 2019- U nivers ia ia 1-21 ity of 00:00: [place] [facility] 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 Formattin g of this note might be different from the original. With phobias, fear of Dyslipidem Dyslipidem Disease Active U nivers ia ia 06-26 ity of 00:00: [place] [facility] Panic Panic Disease Active Univers [...] U nivers l ty to See comments 12-22 thru out it y of adverse 00:00: body [place] reaction 00 Medical s Branch AMOXICIL DRUG Active Other-Cmnt Univ ers CLEMENCIA INGREDI 05-03 ity of 00:00: [place] 00 Medical Branch Amoxicil Propensi Active Other - See Dizzines s Univers clemencia ty to comments 05-03 , could ity of adverse 00:00: not [place] reaction 00 focus. Medical s Branch DILL OIL DRUG Active Anaphylaxis 2017-0 Uni vers INGREDI 02-23 ity of 00:00: [...] s Branch Azithrom Drug Active Unknown - 2005-0 Unive rs ycin Allergy See comments 05-20 ity of 00:00: [place] 00 Medical Branch Nitrofur Drug Active Unknown - 2005-0 Unive rs antoin Allergy See comments 05-20 ity of Monohyd/ 00:00: [place] M-Cryst 00 Medical Branch AZITHROM DRUG Active Rash 2005-0 Univers YCIN INGREDI 05-20 ity of 00:00: [place] 00 Medical Branch NITROFUR DRUG Active Rash 2005-0 Univers ANTOIN 05-20 ity of MONOHYD/ 00:00: [place] M-CRYST Medical Branch Social History Social Habit Start Date Stop Date Quantity Comments Source History SDVT University o f Alcohol Comment [place] [facility] ical Branch History [facility] o f Alcohol Std [place] Medical Drinks Branch History [facility] University o f Alcohol Binge [place] Medic al Branch Alcohol intake 2023-03-27 2023-03-27 Current University of 00:00:00 00:00:00 non-drinker of [facility] alcohol (finding) Branch Exposure to 2023-03-05 2023-03-15 Not sure University SARS-CoV-2 00:00:00 13:54:00 [place] Medical (event) Branch Tobacco use and 2022-05-19 2022-05-19 Smokeless tobacco Un iversity of exposure 00:00:00 00:00:00 non-user [place] [facility] History SDVT 2019-04-10 2019-04-10 1 University o f Alcohol Frequency 00:00:00 00:00:00 [facility] [place] [facility] edical [place] Sex [birth year] Universit y of 00:00:00 00:00:00 [facility] [place] [facility] Smoking Status Start Date Stop Date Source Never smoked tobacco [facility] [place] [facility] Medications Ordered Filled Start Stop Current Ordering Indication Dosage Frequency Signature Comments Components Source Medication Medication Date Date Medication? Clinician (SIG) Name Name topiramate 2022- Yes [id number] 1{tbl} Take 1 Univers 25 mg CSpX 5-22 06-22 tablet by ity of 00:00: 04:59 mouth in [place] 00 :00 [facility] Medical morning [place] for 30 days. topiramate 2022- Yes [id number] 1{tbl} Take 1 Univers 25 mg CSpX 5-22 06-22 tablet by ity of 00:00: 04:59 mouth in [place] 00 :00 [facility] Medical morning [place] for 30 days. topiramate 2022- Yes [id number] 1{tbl} Take 1 Univers 25 mg CSpX 5-22 06-22 tablet by ity of 00:00: 04:59 mouth in [place] 00 :00 the Medical morning Branch for 30 days. topiramate 2022- Yes [id number] 1{tbl} Take 1 Univers 25 mg CSpX 5-22 06-22 tablet by ity of 00:00: 04:59 mouth in [place] 00 :00 the Medical morning [place] for 30 days. topiramate 2023-0 2023- Yes [id number] 1{tbl} Take 1 Univers 25 mg CSpX 5-22 -22 tablet by ity of 00:00: 04:59 mouth in [place] 00 :00 the [facility] Branch for 30 days. topiramate 2023-0 2023- Yes [id number] 1{tbl} Take 1 Univers 25 mg CSpX 5-22 -22 tablet by ity of 00:00: 04:59 mouth in [place] 00 :00 the [facility] for 30 days. methylPREDN 2023-0 Yes [id number] Take by Univers ISolone 5-12 mouth ity of (MEDROL, 00:00: SEE-INSTRU Yair as GIO,) 4 mg 00 CTIONS. Medica l tablets follow Branch package directions . methylPREDN 2023-0 Yes [id number] Take by Univers ISolone 5-12 mouth ity of (MEDROL, 00:00: SEE-INSTRU Yair as GIO,) 4 mg 00 CTIONS. Medica l tablets follow Branch package directions . methylPREDN 2023-0 Yes [id number] Take by Univers ISolone 5-12 mouth ity of (MEDROL, 00:00: SEE-INSTRU Yair as GIO,) 4 mg 00 CTIONS. Medica l tablets follow Branch package directions . methylPREDN 2023-0 Yes [id number] Take by Univers ISolone 5-12 mouth ity of (MEDROL, 00:00: SEE-INSTRU Yair as GIO,) 4 mg 00 CTIONS. Medica l tablets follow Branch package directions . methylPREDN 2023-0 Yes [id number] Take by Univers ISolone 5-12 mouth ity of (MEDROL, 00:00: SEE-INSTRU Yair as GIO,) 4 mg 00 CTIONS. Medica l tablets follow Branch package directions . methylPREDN 2023-0 Yes [id number] Take by Univers ISolone 5-12 mouth ity of (MEDROL, 00:00: SEE-INSTRU Yair as GIO,) 4 mg 00 CTIONS. Medica l tablets follow Branch package directions . methylPREDN 2023-0 Yes [id number] Take by Univers ISolone 5-12 mouth ity of (MEDROL, 00:00: SEE-INSTRU Yair as GIO,) 4 mg 00 CTIONS. Medica l tablets follow Branch package directions . methylPREDN Yes [id number] Take by Univers ISolone 5-12 mouth ity of (MEDROL, 00:00: SEE-INSTRU Yair as GIO,) 4 mg 00 CTIONS. Medica l tablets follow Branch package directions . diazePAM 2022- Yes [id number] 2mg Take 1 Univers mg tablet 5- 05-18 tablet by ity of 00:00: 04:59 mouth at [place] 00 :00 bedtime as Medical needed Branch (migraine) for up to 14 days. diazePAM 2022- Yes [id number] 2mg Take 1 Univers mg tablet 5- 05-18 tablet by ity of 00:00: 04:59 mouth at [place] 00 :00 bedtime as Medical needed Branch (migraine) for up to 14 days. diazePAM 2022- Yes [id number] 2mg Take 1 Univers mg tablet 5- 05-18 tablet by ity of 00:00: 04:59 mouth at [place] 00 :00 bedtime as Medical needed Branch (migraine) for up to 14 days. diazePAM 2022- Yes [id number] 2mg Take 1 Univers mg tablet 5- 05-18 tablet by ity of 00:00: 04:59 mouth at [place] 00 :00 bedtime as Medical needed Branch (migraine) for up to 14 days. diazePAM 2022- Yes [id number] 2mg Take 1 Univers mg tablet 5- 05-18 tablet by ity of 00:00: 04:59 mouth at [place] 00 :00 bedtime as Medical needed Branch (migraine) for up to 14 days. diazePAM 2022- Yes [id number] 2mg Take 1 Univers mg tablet 5-03 05-18 tablet by ity of 00:00: 04:59 mouth at [place] 00 :00 bedtime as Medical needed Branch (migraine) for up to 14 days. diazePAM 2022- Yes [id number] 2mg Take 1 Univers mg tablet 5-03 05-18 tablet by ity of 00:00: 04:59 mouth at [place] 00 :00 bedtime as Medical needed Branch (migraine) for up to 14 days. diazePAM 2 2022- Yes [id number] 2mg Take 1 Univers mg tablet 5- 05-18 tablet by ity of 00:00: 04:59 mouth at [place] 00 :00 bedtime as Medical needed Branch (migraine) for up to 14 days. diazePAM 2 2022- Yes [id number] 2mg Take 1 Univers mg tablet 5- 05-18 tablet by ity of 00:00: 04:59 mouth at [place] 00 :00 bedtime as Medical needed Branch (migraine) for up to 14 days. diazePAM 2 2022- Yes [id number] 2mg Take 1 Univers mg tablet 5- 05-18 tablet by ity of 00:00: 04:59 mouth at [place] 00 :00 bedtime as Medical needed Branch (migraine) for up to 14 days. diazePAM 2 2022- No [id number] 2mg Take 1 Univers mg tablet 5- 05-18 tablet by ity of 00:00: 04:59 mouth at [place] 00 :00 bedtime as Medical needed Branch (migraine) for up to 14 days. diazePAM 2 2022- No [id number] 2mg Take 1 Univers mg tablet 02-24-18 tablet by ity of 00:00: 04:59 mouth at [place] 00 :00 bedtime as Medical needed Branch (migraine) for up to 14 days. diazePAM 2 2022- No [id number] 2mg Take 1 Univers mg tablet - 05-18 tablet by ity of 00:00: 04:59 mouth at [place] 00 :00 bedtime as Medical needed Branch (migraine) for up to 14 days. valACYclovi 2022- Yes [id number] 1g Take 1 Univers r 1 gram 5- 06-01 tablet by ity o f tablet 00:00: 04:59 mouth in [place] 00 :00 the Medical morning Branch for 30 days. valACYclovi 2022- Yes [id number] 1g Take 1 Univers r 1 gram 5- 06-01 tablet by ity o f tablet 00:00: 04:59 mouth in [place] 00 :00 the Medical morning Branch for 30 days. valACYclovi 2022- Yes [id number] 1g Take 1 Univers r 1 gram 5- 06-01 tablet by ity o f tablet 00:00: 04:59 mouth in [place] 00 :00 the Medical morning Branch for 30 days. valACYclovi 2022- Yes [id number] 1g Take 1 Univers r 1 gram 5- 06- tablet by ity o f tablet 00:00: 04:59 mouth in [place] 00 :00 the Medical morning Branch for 30 days. valACYclovi 2022- Yes [id number] 1g Take 1 Univers r 1 gram 5- 06- tablet by ity o f tablet 00:00: 04:59 mouth in [place] 00 :00 the Medical morning Branch for 30 days. valACYclovi 2022- Yes [id number] 1g Take 1 Univers r 1 gram 5- 06- tablet by ity o f tablet 00:00: 04:59 mouth in [place] 00 :00 the Medical morning Branch for 30 days. valACYclovi 2022- Yes [id number] 1g Take 1 Univers r 1 gram 5- 06- tablet by ity o f tablet 00:00: 04:59 mouth in [place] 00 :00 the [facility] morning Branch for 30 days. valACYclovi 2022- Yes [id number] 1g Take 1 Univers r 1 gram 5- 06- tablet by ity o f tablet 00:00: 04:59 mouth in [place] 00 :00 the [facility] morning Branch for 30 days. valACYclovi 2022- Yes [id number] 1g Take 1 Univers r 1 gram 5- 06- tablet by ity o f tablet 00:00: 04:59 mouth in [place] 00 :00 the Medical morning Branch for 30 days. valACYclovi 2022- Yes [id number] 1g Take 1 Univers r 1 gram 5- 06-01 tablet by ity o f tablet 00:00: 04:59 mouth in [place] 00 :00 the Medical morning Branch for 30 days. valACYclovi 2022- Yes [id number] 1g Take 1 Univers r 1 gram 5-01 06-01 tablet by ity o f tablet 00:00: 04:59 mouth in [place] 00 :00 the Medical morning Branch for 30 days. valACYclovi 2022- Yes [id number] 1g Take 1 Univers r 1 gram 5-01 06- tablet by ity o f tablet 00:00: 04:59 mouth in [place] 00 :00 the Medical morning Branch for 30 days. valACYclovi 2022- Yes [id number] 1g Take 1 Univers r 1 gram 5-10 30- tablet by ity o f tablet 00:00: 04:59 mouth in [place] 00 :00 the Medical morning Branch for 30 days. valACYclovi 2022- Yes [id number] 1g Take 1 Univers r 1 gram 5-10 30- tablet by ity o f tablet 00:00: 04:59 mouth in [place] 00 :00 the [facility] morning Branch for 30 days. valACYclovi 2022- Yes [id number] 1g Take 1 Univers r 1 gram 5-10 30- tablet by ity o f tablet 00:00: 04:59 mouth in [place] 00 :00 the [facility] morning Branch for 30 days. valACYclovi 2022- Yes [id number] 1g Take 1 Univers r 1 gram -10 30- tablet by ity o f tablet 00:00: 04:59 mouth in [place] 00 :00 the [facility] Branch for 30 days. valACYclovi 2022- Yes [id number] 1g Take 1 Univers r 1 gram -10 30- tablet by ity o f tablet 00:00: 04:59 mouth in [place] 00 :00 the [facility] Branch for 30 days. valACYclovi 2022- Yes [id number] 1g Take 1 Univers r 1 gram -10 30- tablet by ity o f tablet 00:00: 04:59 mouth in [place] 00 :00 the [facility] Branch for 30 days. valACYclovi 2022- Yes [id number] 1g Take 1 Univers r 1 gram 5-10 30- tablet by ity o f tablet 00:00: 04:59 mouth in [place] 00 :00 the [facility] Branch for 30 days. cyclobenzap 2021-10 Yes [id number] 5mg Take 1 Univers rine 5 mg 2-14 tablet by ity o f tablet 00:00: mouth in [place] 00 the Medical morning Branch and 1 tablet at noon and 1 tablet in the evening. montelukast 2021-10 Yes [id number] 10mg Take 1 Univers (SINGULAIR) 2-14 tablet by ity of 10 mg 00:00: mouth in [place] tablet 00 the Medical morning. Branch cyclobenzap 2021-10 Yes [id number] 5mg Take 1 Univers rine 5 mg 2-14 tablet by ity o f tablet 00:00: mouth in [place] 00 the Medical morning Branch and 1 tablet at noon and 1 tablet in the evening. montelukast 2021-10 Yes [id number] 10mg Take 1 Univers (SINGULAIR) 2-14 tablet by ity of 10 mg 00:00: mouth in [place] tablet 00 the Medical morning. Branch cyclobenzap 2021-10 Yes [id number] 5mg Take 1 Univers rine 5 mg 2-14 tablet by ity o f tablet 00:00: mouth in [place] 00 the Medical morning Branch and 1 tablet at noon and 1 tablet in the evening. montelukast 2021-10 Yes [id number] 10mg Take 1 Univers (SINGULAIR) 2-14 tablet by ity of 10 mg 00:00: mouth in [place] tablet 00 the Medical morning. Branch cyclobenzap 2021-10 Yes [id number] 5mg Take 1 Univers rine 5 mg 2-14 tablet by ity o f tablet 00:00: mouth in [place] 00 the Medical morning Branch and 1 tablet at noon and 1 tablet in the evening. montelukast 2021-10 Yes [id number] 10mg Take 1 Univers (SINGULAIR) 2-14 tablet by ity of 10 mg 00:00: mouth in [place] tablet 00 the Medical morning. Branch cyclobenzap 2021-10 Yes [id number] 5mg Take 1 Univers rine 5 mg 2-14 tablet by ity o f tablet 00:00: mouth in [place] 00 the Medical morning Branch and 1 tablet at noon and 1 tablet in the evening. montelukast 2021-10 Yes [id number] 10mg Take 1 Univers (SINGULAIR) 2-14 tablet by ity of 10 mg 00:00: mouth in [place] tablet 00 the Medical morning. Branch cyclobenzap 2021-10 Yes [id number] 5mg Take 1 Univers rine 5 mg 2-14 tablet by ity o f tablet 00:00: mouth in [place] 00 the Medical morning Branch and 1 tablet at noon and 1 tablet in the evening. montelukast 2021-10 Yes [id number] 10mg Take 1 Univers (SINGULAIR) 2-14 tablet by ity of 10 mg 00:00: mouth in [place] tablet 00 the Medical morning. Branch cyclobenzap 2021-10 Yes [id number] 5mg Take 1 Univers rine 5 mg 2-14 tablet by ity o f tablet 00:00: mouth in [place] 00 the Medical morning Branch and 1 tablet at noon and 1 tablet in the evening. montelukast 2021-10 Yes [id number] 10mg Take 1 Univers (SINGULAIR) 2-14 tablet by ity of 10 mg 00:00: mouth in [place] tablet 00 the Medical morning. Branch cyclobenzap 2021-10 Yes [id number] 5mg Take 1 Univers rine 5 mg 2-14 tablet by ity o f tablet 00:00: mouth in [place] 00 the Medical morning Branch and 1 tablet at noon and 1 tablet in the evening. montelukast 2021-10 Yes [id number] 10mg Take 1 Univers (SINGULAIR) 2-14 tablet by ity of 10 mg 00:00: mouth in [place] tablet 00 the Medical morning. Branch cyclobenzap 2021-10 Yes [id number] 5mg Take 1 Univers rine 5 mg 2-14 tablet by ity o f tablet 00:00: mouth in [place] 00 the Medical morning Branch and 1 tablet at noon and 1 tablet in the evening. montelukast 2021-10 Yes [id number] 10mg Take 1 Univers (SINGULAIR) 2-14 tablet by ity of 10 mg 00:00: mouth in [place] tablet 00 the morning. Branch cyclobenzap 2021-10 Yes [id number] 5mg Take 1 Univers rine 5 mg 2-14 tablet by ity o f tablet 00:00: mouth in [place] 00 the Medical morning Branch and 1 tablet at noon and 1 tablet in the evening. montelukast 2021-10 Yes [id number] 10mg Take 1 Univers (SINGULAIR) 2-14 tablet by ity of 10 mg 00:00: mouth in [place] tablet 00 the Medical morning. Branch cyclobenzap 2021-10 Yes [id number] 5mg Take 1 Univers rine 5 mg 2-14 tablet by ity o f tablet 00:00: mouth in [place] 00 the Medical morning Branch and 1 tablet at noon and 1 tablet in the evening. montelukast 2021-10 Yes [id number] 10mg Take 1 Univers (SINGULAIR) 2-14 tablet by ity of 10 mg 00:00: mouth in [place] tablet 00 the Medical morning. Branch cyclobenzap 2021-10 Yes [id number] 5mg Take 1 Univers rine 5 mg 2-14 tablet by ity o f tablet 00:00: mouth in [place] 00 the Medical morning Branch and 1 tablet at noon and 1 tablet in the evening. montelukast 2021-10 Yes [id number] 10mg Take 1 Univers (SINGULAIR) 2-14 tablet by ity of 10 mg 00:00: mouth in [place] tablet 00 the Medical morning. Branch cyclobenzap 2021-10 Yes [id number] 5mg Take 1 Univers rine 5 mg 2-14 tablet by ity o f tablet 00:00: mouth in [place] 00 the Medical morning Branch and 1 tablet at noon and 1 tablet in the evening. montelukast 2021-10 Yes [id number] 10mg Take 1 Univers (SINGULAIR) 2-14 tablet by ity of 10 mg 00:00: mouth in [place] tablet 00 the Medical morning. Branch cyclobenzap 2021-10 Yes [id number] 5mg Take 1 Univers rine 5 mg 2-14 tablet by ity o f tablet 00:00: mouth in [place] 00 the Medical morning Branch and 1 tablet at noon and 1 tablet in the evening. montelukast 2021-10 Yes [id number] 10mg Take 1 Univers (SINGULAIR) 2-14 tablet by ity of 10 mg 00:00: mouth in [place] tablet 00 the Medical morning. Branch cyclobenzap 2021-10 Yes [id number] 5mg Take 1 Univers rine 5 mg 2-14 tablet by ity o f tablet 00:00: mouth in [place] 00 the Medical morning Branch and 1 tablet at noon and 1 tablet in the evening. montelukast 2021-10 Yes [id number] 10mg Take 1 Univers (SINGULAIR) 2-14 tablet by ity of 10 mg 00:00: mouth in [place] tablet 00 the Medical morning. Branch cyclobenzap 2021-10 Yes [id number] 5mg Take 1 Univers rine 5 mg 2-14 tablet by ity o f tablet 00:00: mouth in [place] 00 the Medical morning Branch and 1 tablet at noon and 1 tablet in the evening. montelukast 2021-10 Yes [id number] 10mg Take 1 Univers (SINGULAIR) 2-14 tablet by ity of 10 mg 00:00: mouth in [place] tablet 00 the Medical morning. Branch cyclobenzap 2021-10 Yes [id number] 5mg Take 1 Univers rine 5 mg 2-14 tablet by it[facility] o f tablet 00:00: mouth in [place] 00 the Medical morning Branch and 1 tablet at noon and 1 tablet in the evening. montelukast 2021-10 Yes [id number] 10mg Take 1 [facility] (SINGULAIR) 2-14 tablet by ity of 10 mg 00:00: mouth in [place] tablet 00 the Medical morning. Branch cyclobenzap 2021-10 Yes [id number] 5mg Take 1 [facility] rine 5 mg 2-14 tablet by ity o f tablet 00:00: mouth in [place] 00 the Medical morning Branch and 1 tablet at noon and 1 tablet in the evening. montelukast 2021-10 Yes [id number] 10mg Take 1 [facility] (SINGULAIR) 2-14 tablet by ity of 10 mg 00:00: mouth in [place] tablet 00 the Medical morning. Branch cyclobenzap 2021-10 Yes [id number] 5mg Take 1 [facility] rine 5 mg 2-14 tablet by ity o f tablet 00:00: mouth in [place] 00 the Medical morning Branch and 1 tablet at noon and 1 tablet in the evening. montelukast 2021-10 Yes [id number] 10mg Take 1 [facility] (SINGULAIR) 2-14 tablet by ity of 10 mg 00:00: mouth in [place] tablet 00 the Medical morning. Branch cyclobenzap 2021-10 Yes [id number] 5mg Take 1 [facility] rine 5 mg 2-14 tablet by ity o f tablet 00:00: mouth in [place] 00 the Medical morning Branch and 1 tablet at noon and 1 tablet in the evening. montelukast 2021-10 Yes [id number] 10mg Take 1 [facility] (SINGULAIR) 2-14 tablet by ity of 10 mg 00:00: mouth in [place] tablet 00 the Medical morning. Branch cyclobenzap 2021-10 Yes [id number] 5mg Take 1 [facility] rine 5 mg 2-14 tablet by [facility]y o f tablet 00:00: mouth in [place] 00 the Medical morning Branch and 1 tablet at noon and 1 tablet in the evening. montelukast 2021-10 Yes [id number] 10mg Take 1 [facility] (SINGULAIR) 2-14 tablet by ity of 10 mg 00:00: mouth in [place] tablet 00 the Medical morning. Branch cyclobenzap 2021-10 Yes [id number] 5mg Take 1 [facility] rine 5 mg 2-14 tablet by ity o f tablet 00:00: mouth in [place] 00 the Medical morning Branch and 1 tablet at noon and 1 tablet in the evening. montelukast 2021-10 Yes [id number] 10mg Take 1 [facility] (SINGULAIR) 2-14 tablet by ity of 10 mg 00:00: mouth in [place] tablet 00 the Medical morning. Branch cyclobenzap 2021-10 Yes [id number] 5mg Take 1 [facility] rine 5 mg 2-14 tablet by ity o f tablet 00:00: mouth in [place] 00 the Medical morning Branch and 1 tablet at noon and 1 tablet in the evening. montelukast 2021-10 Yes [id number] 10mg Take 1 [facility] (SINGULAIR) 2-14 tablet by ity of 10 mg 00:00: mouth in [place] tablet 00 the Medical morning. Branch cyclobenzap 2021-10 Yes [id number] 5mg Take 1 [facility] rine 5 mg 2-14 tablet by ity o f tablet 00:00: mouth in [place] 00 the Medical morning Branch and 1 tablet at noon and 1 tablet in the evening. montelukast 2021-10 Yes [id number] 10mg Take 1 [facility] (SINGULAIR) 2-14 tablet by ity of 10 mg 00:00: mouth in [place] tablet 00 the Medical morning. Branch cyclobenzap 2021-10 Yes [id number] 5mg Take 1 [facility] rine 5 mg 2-14 tablet by ity o f tablet 00:00: mouth in [place] 00 the Medical morning Branch and 1 tablet at noon and 1 tablet in the evening. montelukast 2021-10 Yes [id number] 10mg Take 1 [facility] (SINGULAIR) 2-14 tablet by ity of 10 mg 00:00: mouth in [place] tablet 00 the Medical morning. Branch cyclobenzap 2021-10 Yes [id number] 5mg Take 1 [facility] rine 5 mg 2-14 tablet by [facility]y o f tablet 00:00: mouth in [place] 00 the Medical morning Branch and 1 tablet at noon and 1 tablet in the evening. montelukast 2021-10 Yes [id number] 10mg Take 1 [facility] (SINGULAIR) 2-14 tablet by [facility] of 10 mg 00:00: mouth in [place] tablet 00 the morning. Branch cyclobenzap 2021-10 Yes [id number] 5mg Take 1 [facility] rine 5 mg 2-14 tablet by ity o f tablet 00:00: mouth in [place] 00 the Medical morning Branch and 1 tablet at noon and 1 tablet in the evening. montelukast 2021-10 Yes [id number] 10mg Take 1 [facility] (SINGULAIR) 2-14 tablet by ity of 10 mg 00:00: mouth in [place] tablet 00 the morning. [place] cyclobenzap 2021-10 Yes [id number] 5mg Take 1 [facility] rine 5 mg 2-14 tablet by ity o f tablet 00:00: mouth in [place] 00 the Medical morning Branch and 1 tablet at noon and 1 tablet in the evening. montelukast 2021-10 Yes [id number] 10mg Take 1 [facility] (SINGULAIR) 2-14 tablet by ity of 10 mg 00:00: mouth in [place] tablet 00 the morning. [place] cyclobenzap 2021-10 Yes [id number] 5mg Take 1 [facility] rine 5 mg 2-14 tablet by ity o f tablet 00:00: mouth in [place] 00 the Medical morning Branch and 1 tablet at noon and 1 tablet in the evening. montelukast 2021-10 Yes [id number] 10mg Take 1 [facility] (SINGULAIR) 2-14 tablet by ity of 10 mg 00:00: mouth in [place] tablet 00 the Medical morning. Branch cyclobenzap 2021-10 Yes [id number] 5mg Take 1 [facility] rine 5 mg 2-14 tablet by ity o f tablet 00:00: mouth in [place] 00 the Medical morning Branch and 1 tablet at noon and 1 tablet in the evening. montelukast 2021-10 Yes [id number] 10mg Take 1 [facility] (SINGULAIR) 2-14 tablet by ity of 10 mg 00:00: mouth in [place] tablet 00 the Medical morning. Branch cyclobenzap 2021-10 Yes [id number] 5mg Take 1 [facility] rine 5 mg 2-14 tablet by ity o f tablet 00:00: mouth in [place] 00 the Medical morning Branch and 1 tablet at noon and 1 tablet in the evening. montelukast 2021-10 Yes [id number] 10mg Take 1 [facility] (SINGULAIR) 2-14 tablet by [facility] of 10 mg 00:00: mouth in [place] tablet 00 the Medical morning. Branch cyclobenzap 2021-10 Yes [id number] 5mg Take 1 [facility] rine 5 mg 2-14 tablet by ity o f tablet 00:00: mouth in [place] 00 the Medical morning Branch and 1 tablet at noon and 1 tablet in the evening. montelukast 2021-10 Yes [id number] 10mg Take 1 [facility] (SINGULAIR) 2-14 tablet by ity of 10 mg 00:00: mouth in [place] tablet 00 the Medical morning. Branch cyclobenzap 2021-10 Yes [id number] 5mg Take 1 [facility] rine 5 mg 2-14 tablet by ity o f tablet 00:00: mouth in [place] 00 the Medical morning Branch and 1 tablet at noon and 1 tablet in the evening. montelukast 2021-10 Yes [id number] 10mg Take 1 [facility] (SINGULAIR) 2-14 tablet by [facility] of 10 mg 00:00: mouth in [place] tablet 00 the Medical morning. Branch cyclobenzap 2021-10 Yes [id number] 5mg Take 1 [facility] rine 5 mg 2-14 tablet by [facility]y o f tablet 00:00: mouth in [place] 00 the Medical morning Branch and 1 tablet at noon and 1 tablet in the evening. montelukast 2021-10 Yes [id number] 10mg Take 1 [facility] (SINGULAIR) 2-14 tablet by [facility] of 10 mg 00:00: mouth in [place] tablet 00 the Medical morning. Branch cyclobenzap 2021-10 Yes [id number] 5mg Take 1 [facility] rine 5 mg 2-14 tablet by [facility]y o f tablet 00:00: mouth in [place] 00 the Medical morning Branch and 1 tablet at noon and 1 tablet in the evening. montelukast 2021-10 Yes [id number] 10mg Take 1 [facility] (SINGULAIR) 2-14 tablet by [facility] of 10 mg 00:00: mouth in [place] tablet 00 the Medical morning. Branch cyclobenzap 2021-10 Yes [id number] 5mg Take 1 [facility] rine 5 mg 2-14 tablet by [facility]y o f tablet 00:00: mouth in [place] 00 the Medical morning Branch and 1 tablet at noon and 1 tablet in the evening. montelukast 2021-10 Yes [id number] 10mg Take 1 [facility] (SINGULAIR) 2-14 tablet by [facility] of 10 mg 00:00: mouth in [place] tablet 00 the Medical morning. Branch cyclobenzap 2021-10 Yes [id number] 5mg Take 1 [facility] rine 5 mg 2-14 tablet by ity o f tablet 00:00: mouth in [place] 00 the Medical morning Branch and 1 tablet at noon and 1 tablet in the evening. montelukast 2021-10 Yes [id number] 10mg Take 1 [facility] (SINGULAIR) 2-14 tablet by [facility]y of 10 mg 00:00: mouth in [place] tablet 00 the Medical morning. Branch cyclobenzap 2021-10 Yes [id number] 5mg Take 1 [facility] rine 5 mg 2-14 tablet by ity o f tablet 00:00: mouth in [place] 00 the Medical morning Branch and 1 tablet at noon and 1 tablet in the evening. montelukast 2021-10 Yes [id number] 10mg Take 1 [facility] (SINGULAIR) 2-14 tablet by [facility] of 10 mg 00:00: mouth in [place] tablet 00 the Medical morning. Branch cyclobenzap 2021-10 Yes [id number] 5mg Take 1 [facility] rine 5 mg 2-14 tablet by ity o f tablet 00:00: mouth in [place] 00 the Medical morning Branch and 1 tablet at noon and 1 tablet in the evening. montelukast 2021-10 Yes [id number] 10mg Take 1 [facility] (SINGULAIR) 2-14 tablet by ity of 10 mg 00:00: mouth in [place] tablet 00 the Medical morning. Branch cyclobenzap 2021-10 Yes [id number] 5mg Take 1 [facility] rine 5 mg 2-14 tablet by ity o f tablet 00:00: mouth in [place] 00 the Medical morning Branch and 1 tablet at noon and 1 tablet in the evening. montelukast 2021-10 Yes [id number] 10mg Take 1 [facility] (SINGULAIR) 2-14 tablet by ity of 10 mg 00:00: mouth in [place] tablet 00 the Medical morning. Branch cyclobenzap 2021-10 Yes [id number] 5mg Take 1 [facility] rine 5 mg 2-14 tablet by [facility]y o f tablet 00:00: mouth in [place] 00 the Medical morning Branch and 1 tablet at noon and 1 tablet in the evening. montelukast 2021-10 Yes [id number] 10mg Take 1 [facility] (SINGULAIR) 2-14 tablet by [facility] of 10 mg 00:00: mouth in [place] tablet 00 the Medical morning. Branch cyclobenzap 2021-10 Yes [id number] 5mg Take 1 [facility] rine 5 mg 2-14 tablet by ity o f tablet 00:00: mouth in [place] 00 the Medical morning Branch and 1 tablet at noon and 1 tablet in the evening. montelukast 2021-10 Yes [id number] 10mg Take 1 [facility] (SINGULAIR) 2-14 tablet by ity of 10 mg 00:00: mouth in [place] tablet 00 the Medical morning. Branch cyclobenzap 2021-10 Yes [id number] 5mg Take 1 [facility] rine 5 mg 2-14 tablet by ity o f tablet 00:00: mouth in [place] 00 the Medical morning Branch and 1 tablet at noon and 1 tablet in the evening. montelukast 2021-10 Yes [id number] 10mg Take 1 [facility] (SINGULAIR) 2-14 tablet by ity of 10 mg 00:00: mouth in [place] tablet 00 the Medical morning. Branch cyclobenzap 2021-10 Yes [id number] 5mg Take 1 [facility] rine 5 mg 2-14 tablet by ity o f tablet 00:00: mouth in [place] 00 the Medical morning Branch and 1 tablet at noon and 1 tablet in the evening. montelukast 2021-10 Yes [id number] 10mg Take 1 [facility] (SINGULAIR) 2-14 tablet by ity of 10 mg 00:00: mouth in [place] tablet 00 the Medical morning. Branch cyclobenzap 2021-10 Yes [id number] 5mg Take 1 [facility] rine 5 mg 2-14 tablet by ity o f tablet 00:00: mouth in [place] 00 the Medical morning Branch and 1 tablet at noon and 1 tablet in the evening. montelukast 2021-10 Yes [id number] 10mg Take 1 [facility] (SINGULAIR) 2-14 tablet by ity of 10 mg 00:00: mouth in [place] tablet 00 the Medical morning. Branch cyclobenzap 2021-10 Yes [id number] 5mg Take 1 [facility] rine 5 mg 2-14 tablet by ity o f tablet 00:00: mouth in [place] 00 the Medical morning Branch and 1 tablet at noon and 1 tablet in the evening. montelukast 2021-10 Yes [id number] 10mg Take 1 [facility] (SINGULAIR) 2-14 tablet by ity of 10 mg 00:00: mouth in [place] tablet 00 the Medical morning. Branch cyclobenzap 2021-10 Yes [id number] 5mg Take 1 [facility] rine 5 mg 2-14 tablet by ity o f tablet 00:00: mouth in [place] 00 the Medical morning Branch and 1 tablet at noon and 1 tablet in the evening. montelukast 2021-10 Yes [id number] 10mg Take 1 [facility] (SINGULAIR) 2-14 tablet by ity of 10 mg 00:00: mouth in [place] tablet 00 the Medical morning. Branch cyclobenzap 2021-10 Yes [id number] 5mg Take 1 [facility] rine 5 mg 2-14 tablet by ity o f tablet 00:00: mouth in [place] 00 the Medical morning Branch and 1 tablet at noon and 1 tablet in the evening. montelukast 2021-10 Yes [id number] 10mg Take 1 [facility] (SINGULAIR) 2-14 tablet by [facility] of 10 mg 00:00: mouth in [place] tablet 00 the Medical morning. Branch cyclobenzap 2021-10 Yes [id number] 5mg Take 1 [facility] rine 5 mg 2-14 tablet by ity o f tablet 00:00: mouth in [place] 00 the Medical morning Branch and 1 tablet at noon and 1 tablet in the evening. montelukast 2021-10 Yes [id number] 10mg Take 1 [facility] (SINGULAIR) 2-14 tablet by ity of 10 mg 00:00: mouth in [place] tablet 00 the Medical morning. Branch cyclobenzap 2021-10 Yes [id number] 5mg Take 1 [facility] rine 5 mg 2-14 tablet by ity o f tablet 00:00: mouth in [place] 00 the Medical morning Branch and 1 tablet at noon and 1 tablet in the evening. montelukast 2021-10 Yes [id number] 10mg Take 1 [facility] (SINGULAIR) 2-14 tablet by ity of 10 mg 00:00: mouth in [place] tablet 00 the Medical morning. Branch cyclobenzap 2021-10 Yes [id number] 5mg Take 1 [facility] rine 5 mg 2-14 tablet by ity o f tablet 00:00: mouth in [place] 00 the Medical morning Branch and 1 tablet at noon and 1 tablet in the evening. montelukast 2021-10 Yes [id number] 10mg Take 1 [facility] (SINGULAIR) 2-14 tablet by ity of 10 mg 00:00: mouth in [place] tablet 00 the Medical morning. Branch cyclobenzap 2021-10 Yes [id number] 5mg Take 1 [facility] rine 5 mg 2-14 tablet by ity o f tablet 00:00: mouth in [place] 00 the Medical morning Branch and 1 tablet at noon and 1 tablet in the evening. montelukast 2021-10 Yes [id number] 10mg Take 1 [facility] (SINGULAIR) 2-14 tablet by ity of 10 mg 00:00: mouth in [place] tablet 00 the Medical morning. Branch cyclobenzap 2021-10 Yes [id number] 5mg Take 1 [facility] rine 5 mg 2-14 tablet by ity o f tablet 00:00: mouth in [place] 00 the Medical morning Branch and 1 tablet at noon and 1 tablet in the evening. montelukast 2021-10 Yes [id number] 10mg Take 1 [facility] (SINGULAIR) 2-14 tablet by ity of 10 mg 00:00: mouth in [place] tablet 00 the Medical morning. Branch cyclobenzap 2021-10 Yes [id number] 5mg Take 1 [facility] rine 5 mg 2-14 tablet by ity o f tablet 00:00: mouth in [place] 00 the Medical morning Branch and 1 tablet at noon and 1 tablet in the evening. montelukast 2021-10 Yes [id number] 10mg Take 1 [facility] (SINGULAIR) 2-14 tablet by ity of 10 mg 00:00: mouth in [place] tablet 00 the Medical morning. Branch cyclobenzap 2021-10 Yes [id number] 5mg Take 1 [facility] rine 5 mg 2-14 tablet by ity o f tablet 00:00: mouth in [place] 00 the Medical morning Branch and 1 tablet at noon and 1 tablet in the evening. montelukast 2021-10 Yes [id number] 10mg Take 1 [facility] (SINGULAIR) 2-14 tablet by ity of 10 mg 00:00: mouth in [place] tablet 00 the Medical morning. Branch cyclobenzap 2021-10 Yes [id number] 5mg Take 1 [facility] rine 5 mg 2-14 tablet by ity o f tablet 00:00: mouth in [place] 00 the Medical morning Branch and 1 tablet at noon and 1 tablet in the evening. montelukast 2021-10 Yes [id number] 10mg Take 1 [facility] (SINGULAIR) 2-14 tablet by ity of 10 mg 00:00: mouth in [place] tablet 00 the Medical morning. Branch cyclobenzap 2021-10 Yes [id number] 5mg Take 1 [facility] rine 5 mg 2-14 tablet by ity o f tablet 00:00: mouth in [place] 00 the Medical morning Branch and 1 tablet at noon and 1 tablet in the evening. montelukast 2021-10 Yes [id number] 10mg Take 1 [facility] (SINGULAIR) 2-14 tablet by ity of 10 mg 00:00: mouth in [place] tablet 00 the Medical morning. Branch cyclobenzap 2021-10 Yes [id number] 5mg Take 1 [facility] rine 5 mg 2-14 tablet by ity o f tablet 00:00: mouth in [place] 00 the Medical morning Branch and 1 tablet at noon and 1 tablet in the evening. montelukast 2021-10 Yes [id number] 10mg Take 1 [facility] (SINGULAIR) 2-14 tablet by ity of 10 mg 00:00: mouth in [place] tablet 00 the Medical morning. Branch cyclobenzap 2021-10 Yes [id number] 5mg Take 1 [facility] rine 5 mg 2-14 tablet by ity o f tablet 00:00: mouth in [place] 00 the Medical morning Branch and 1 tablet at noon and 1 tablet in the evening. montelukast 2021-10 Yes [id number] 10mg Take 1 [facility] (SINGULAIR) 2-14 tablet by ity of 10 mg 00:00: mouth in [place] tablet 00 the Medical morning. Branch cyclobenzap 2021-10 Yes [id number] 5mg Take 1 [facility] rine 5 mg 2-14 tablet by ity o f tablet 00:00: mouth in [place] 00 the Medical morning Branch and 1 tablet at noon and 1 tablet in the evening. montelukast 2021-10 Yes [id number] 10mg Take 1 [facility] (SINGULAIR) 2-14 tablet by ity of 10 mg 00:00: mouth in [place] tablet 00 the Medical morning. Branch cyclobenzap 2021-10 Yes [id number] 5mg Take 1 [facility] rine 5 mg 2-14 tablet by ity o f tablet 00:00: mouth in [place] 00 the Medical morning Branch and 1 tablet at noon and 1 tablet in the evening. montelukast 2021-10 Yes [id number] 10mg Take 1 [facility] (SINGULAIR) 2-14 tablet by ity of 10 mg 00:00: mouth in [place] tablet 00 the Medical morning. Branch doxycycline 2021-10 Yes [id number] 100mg Take 1 [facility] hyclate 100 0-10 tablet by [facility] of mg tablet 00:00: [place] 00 the Medical morning Branch and 1 tablet in the evening. doxycycline 2021-10 Yes [id number] 100mg Take 1 [facility] hyclate 100 0-10 tablet by [facility] of mg tablet 00:00: mouth [place] 00 the Medical morning Branch and 1 tablet in the evening. doxycycline 2021-10 Yes [id number] 100mg Take 1 [facility] hyclate 100 0-10 tablet by [facility] of mg tablet 00:00: mouth [place] 00 the Medical morning Branch and 1 tablet in the evening. doxycycline 2021-10 Yes [id number] 100mg Take 1 [facility] hyclate 100 0-10 tablet by [facility] of mg tablet 00:00: mouth [place] 00 the Medical morning Branch and 1 tablet in the evening. doxycycline 2021-10 Yes [id number] 100mg Take 1 [facility] hyclate 100 0-10 tablet by [facility] of mg tablet 00:00: mouth [place] 00 the Medical morning Branch and 1 tablet in the evening. doxycycline 2021-10 Yes [id number] 100mg Take 1 [facility] hyclate 100 0-10 tablet by [facility] of mg tablet 00:00: mouth [place] 00 the Medical morning Branch and 1 tablet in the evening. doxycycline 2021-10 Yes [id number] 100mg Take 1 [facility] hyclate 100 0-10 tablet by [facility] of mg tablet 00:00: mouth [place] 00 the Medical morning Branch and 1 tablet in the evening. doxycycline 2021-10 Yes [id number] 100mg Take 1 [facility] hyclate 100 0-10 tablet by [facility] of mg tablet 00:00: mouth [place] 00 the Medical morning Branch and 1 tablet in the evening. doxycycline 2021-10 Yes [id number] 100mg Take 1 [facility] hyclate 100 0-10 tablet by [facility] of mg tablet 00:00: mouth [place] 00 the Medical morning Branch and 1 tablet in the evening. doxycycline 2021-10 Yes [id number] 100mg Take 1 [facility] hyclate 100 0-10 tablet by [facility] of mg tablet 00:00: mouth [place] 00 the Medical morning Branch and 1 tablet in the evening. doxycycline 2021-10 Yes [id number] 100mg Take 1 [facility] hyclate 100 0-10 tablet by [facility] of mg tablet 00:00: mouth [place] 00 the Medical morning Branch and 1 tablet in the evening. doxycycline 2021-10 Yes [id number] 100mg Take 1 [facility] hyclate 100 0-10 tablet by [facility] of mg tablet 00:00: mouth [place] 00 the Medical morning Branch and 1 tablet in the evening. doxycycline 2021-10 Yes [id number] 100mg Take 1 [facility] hyclate 100 0-10 tablet by [facility] of mg tablet 00:00: mouth [place] 00 the Medical morning Branch and 1 tablet in the evening. doxycycline 2021-10 Yes [id number] 100mg Take 1 [facility] hyclate 100 0-10 tablet by [facility] of mg tablet 00:00: mouth [place] 00 the Medical morning Branch and 1 tablet in the evening. doxycycline 2021-10 Yes [id number] 100mg Take 1 [facility] hyclate 100 0-10 tablet by [facility] of mg tablet 00:00: [place] 00 the Medical morning Branch and 1 tablet in the evening. doxycycline 2021-10- No [id number] 100mg Take 1 [facility] hyclate 100 0-10 02-06 tablet by it y of mg tablet 00:00: 00:00 mouth in [place] 00 :00 the Medical morning Branch and 1 tablet in the evening. doxycycline 2021-10- No [id number] 100mg Take 1 [facility] hyclate 100 0-10 02-06 tablet by it y of mg tablet 00:00: 00:00 mouth in [place] 00 :00 the Medical morning Branch and 1 tablet in the evening. doxycycline 2021-10- No [id number] 100mg Take 1 [facility] hyclate 100 0-08 10-19 tablet by it y of mg tablet 00:00: 04:59 mouth in [place] 00 :00 the Medical morning Branch and 1 tablet in the evening. Do all this for 10 days. sulfamethox 2021-10- No [id number] 1{tbl} Take 1 [facility] azole-trime 0-05 10-13 tablet by it y of thoprim 00:00: 04:59 mouth in [place] (BACTRIM 00 :00 the Medical DS) 800-160 morning Branc h mg per and 1 tablet tablet in the evening. Do all this for 7 days. sulfamethox 2021-10- No [id number] 1{tbl} Take 1 [facility] azole-trime 0-05 10-13 tablet by it y of thoprim 00:00: 04:59 mouth in [place] (BACTRIM 00 :00 the Medical DS) 800-160 morning Branc h mg per and 1 tablet tablet in the evening. Do all this for 7 days. sulfamethox 2021-10- No [id number] 1{tbl} Take 1 [facility] azole-trime 0-05 10-13 tablet by it y of thoprim 00:00: 04:59 mouth in [place] ([place]IM 00 :00 the Medical DS) 800-160 morning Branc h mg per and 1 tablet tablet in the evening. Do all this for 7 days. sulfamethox 2021-10- No [id number] 1{tbl} Take 1 [facility] azole-trime 0-05 10-13 tablet by it y of thoprim 00:00: 04:59 mouth in [place] ([facility]CTRIM 00 :00 the Medical DS) 800-160 morning Branc h mg per and 1 tablet tablet in the evening. Do all this for 7 days. sulfamethox 2021-10- No [id number] 1{tbl} Take 1 [facility] azole-trime 0-05 10-13 tablet by it y of thoprim 00:00: 04:59 mouth in [place] ([facility]CT[place]IM 00 :00 the Medical DS) 800-160 morning Branc h mg per and 1 tablet tablet in the evening. Do all this for 7 days. sulfamethox 2021-10- No [id number] 1{tbl} Take 1 [facility] azole-trime 0-05 10-13 tablet by it y of thoprim 00:00: 04:59 mouth in [place] ([facility]CT[place]IM 00 :00 the Medical DS) 800-160 morning Branc h mg per and 1 tablet tablet in the evening. Do all this for 7 days. iopamidol 2021- No [id number] 100mL 100 mL, [facility] (ISOVUE 07-20 Intravenou ity o f 300-500 mL) 14:00: 13:56 s, ONCE, 1 [place] injection 00 :00 dose, On Medica l 100 mL Mon Branch 07/20/22 at 0900, Routine ZINC ORAL 2021- No Take by [facility] ers 07-13 mouth. ity of 10:06: 00:00 [place] 35 :00 Medical Branch ZINC ORAL 2021-0 2021- No Take by [facility] ers 07-13 mouth. ity of 10:06: 00:00 [place] 35 :00 [facility] Branch VITAMIN C 2021-0 2021- No Take by [facility] ORAL 07-13 mouth. ity of 10:06: 00:00 [place] 28 :00 Medical Branch VITAMIN C 2021-0 2021- No Take by [facility] ers ORAL 07-13 mouth. ity of 10:06: 00:00 [place] 28 :00 Medical Branch OMEGA 3 2021-0 Yes Take by [facility] ORAL 07-13 mouth. ity of 09:14: [address] Branch Cholecalcif 2021-0 Yes 5000U Take 5,000 [facility] [place], 07-13 Units by ity of Vitamin D3, 09:14: [place] 5[place]000 [place] Medical tablet Branch OMEGA 3 2021-0 Yes Take by [facility] ORAL 07-13 mouth. ity of 09:14: [place] 49 Medical Branch Cholecalcif 2022-0 Yes 5000U Take 5,000 [facility] [place], 9-19 Units by ity of Vitamin D3, 09:14: [place] 5[place]000 unit 49 Medical tablet Branch OMEGA 3 0 Yes Take by [facility] ORAL 9-19 mouth. ity of 09:14: [place] [address] Medical Branch Cholecalcif 0 Yes 5000U Take 5,000 [facility] [place], 9-19 Units by ity of Vitamin D3, 09:14: [place] 5[place]000 unit 49 Medical tablet Branch OMEGA 3 0 Yes Take by [facility] ORAL 9-19 mouth. ity of 09:14: [place] [address] Medical Branch Cholecalcif 0 Yes 5000U Take 5,000 [facility] [place], 9-19 Units by ity of Vitamin D3, 09:14: [place]. [place] 5[place]000 unit 49 Medical tablet Branch OMEGA 3 0 Yes Take by [facility] ORAL 9-19 mouth. ity of 09:14: [place] [address] Medical Branch Cholecalcif 0 Yes 5000U Take 5,000 [facility] [place], 9-19 Units by ity of Vitamin D3, 09:14: [place]. [place] 5,000 unit 49 Medical tablet Branch OMEGA 3 0 Yes Take by [facility] ORAL 9-19 mouth. ity of 09:14: [place] [address] Medical Branch Cholecalcif Yes 5000U Take 5,000 [facility] [place], 9-19 Units by ity of Vitamin D3, 09:14: [place]. [place] 5,000 unit 49 Medical tablet Branch OMEGA 3 Yes Take by [facility] ORAL 9-19 mouth. ity of 09:14: [place] [address] Medical Branch Cholecalcif 0 Yes 5000U Take 5,000 [facility] [place], 9-19 Units by ity of Vitamin D3, 09:14: [place]. [place] 5,000 unit 49 Medical tablet Branch OMEGA 3 0 Yes Take by [facility] ORAL 9-19 mouth. ity of 09:14: [place] [address] Medical Branch Cholecalcif 0 Yes 5000U Take 5,000 [facility] [place], 9-19 Units by ity of Vitamin D3, 09:14: [place]. [place] 5,000 unit 49 Medical tablet Branch OMEGA 3 0 Yes Take by [facility] ORAL 9-19 mouth. ity of 09:14: [place] [address] Medical Branch Cholecalcif 2021-0 Yes 5000U Take 5,000 [facility] [place], 9-19 Units by ity of Vitamin D3, 09:14: [place]. [place] 5,000 unit 49 Medical tablet Branch OMEGA 3 0 Yes Take by [facility] ORAL 9-19 mouth. ity of 09:14: [place] [address] Medical Branch Cholecalcif 0 Yes 5000U Take 5,000 [facility] [place], 9-19 Units by ity of Vitamin D3, 09:14: [place]. [place] 5[place]000 unit 49 Medical tablet Branch OMEGA 3 0 Yes Take by [facility] ORAL 9-19 mouth. ity of 09:14: [place] [address] Medical Branch Cholecalcif 2021-0 Yes 5000U Take 5,000 [facility] [place], 9-19 Units by ity of Vitamin D3, 09:14: [place]. [place] 5,000 unit 49 Medical tablet Branch OMEGA 3 0 Yes Take by [facility] ORAL 9-19 mouth. ity of 09:14: [place] [address] Medical Branch Cholecalcif 0 Yes 5000U Take 5,000 [facility] [place], 9-19 Units by ity of Vitamin D3, 09:14: [place] [facility] tablet [facility] OMEGA 3 0 Yes Take by [facility] 9-19 mouth. ity of 09:14: [place] [address] [facility] Branch Cholecalcif 0 Yes 5000U Take 5,000 [facility] [place], 9-19 Units by ity of Vitamin D3, 09:14: [place]. [place] [facility] tablet Branch OMEGA 3 Yes Take by [facility] ORAL 9-19 mouth. ity of 09:14: [place] [address] [facility] Branch Cholecalcif 0 Yes 5000U Take 5,000 [facility] [place], 9-19 Units by ity of Vitamin D3, 09:14: [place]. [place] unit [place] [facility] tablet Branch OMEGA 3 0 Yes Take by [facility] ORAL 9-19 mouth. ity of 09:14: [place] [address] [facility] Branch Cholecalcif 2021-0 Yes 5000U Take 5,000 [facility] [place], 9-19 Units by ity of Vitamin D3, 09:14: [place]. [place] unit [place] [facility] tablet Branch OMEGA 3 2022-0 Yes Take by [facility] ORAL 9-19 mouth. ity of 09:14: [place] [address] [facility] Branch Cholecalcif 2021-0 Yes 5000U Take 5,000 [facility] [place], 9-19 Units by ity of Vitamin D3, 09:14: [place]. [place] unit 49 [facility] tablet Branch OMEGA 3 0 Yes Take by [facility] ORAL 9-19 mouth. ity of 09:14: [place] [address] [facility] Branch Cholecalcif 2021-0 Yes 5000U Take 5,000 [facility] [place], 9-19 Units by it[facility] of Vitamin D3, 09:14: [place]. [place] unit 49 [facility] tablet Branch OMEGA 3 0 Yes Take by [facility] ORAL 9-19 mouth. ity of 09:14: [place] [address] [facility] Branch Cholecalcif 2021-0 Yes 5000U Take 5,000 [facility] [place], 9-19 Units by [facility] of Vitamin D3, 09:14: [place]. [place] unit 49 [facility] tablet Branch OMEGA 3 0 Yes Take by [facility] ORAL 9-19 mouth. ity of 09:14: [place] [address] [facility] Branch Cholecalcif 2021-0 Yes 5000U Take 5,000 [facility] [place], 9-19 Units by [facility]y of Vitamin D3, 09:14: mouth. [place] unit 49 [facility] tablet Branch OMEGA 3 0 Yes Take by [facility] ORAL 9-19 mouth. ity of 09:14: [place] [address] [facility] Branch Cholecalcif 2021-0 Yes 5000U Take 5,000 [facility] [place], 9-19 Units by ity of Vitamin D3, 09:14: mouth. [place] unit 49 [facility] tablet Branch OMEGA 3 0 Yes Take by [facility] ORAL 9-19 mouth. ity of 09:14: [place] [address] [facility] Branch Cholecalcif 2021-0 Yes 5000U Take 5,000 [facility] [place], 9-19 Units by ity of Vitamin D3, 09:14: [place]. [place] unit 49 [facility] tablet Branch OMEGA 3 2021-0 Yes Take by [facility] OR[facility] 9-19 mouth. ity of 09:14: [place] [address] [facility] Branch Cholecalcif 2021-0 Yes 5000U Take 5,000 [facility] [place], 9-19 Units by it[facility] of Vitamin D3, 09:14: [place]. [place] unit 49 [facility] tablet Branch OMEGA 3 Yes Take by [facility] ORAL 9-19 mouth. ity of 09:14: [place] [address] [facility] Cholecalcif 2021-0 Yes 5000U Take 5,000 [facility] [place], 9-19 Units by [facility] of Vitamin D3, 09:14: [place]. [place] unit 49 [facility] tablet Branch OMEGA 3 0 Yes Take by [facility] ORAL 9-19 mouth. ity of 09:14: [place] [address] [facility] Branch Cholecalcif 0 Yes 5000U Take 5,000 [facility] [place], 9-19 Units by ity of Vitamin D3, 09:14: [place]. [place] unit 49 [facility] tablet Branch OMEGA 3 0 Yes Take by [facility] OR[facility] 9-19 mouth. ity of 09:14: [place] [address] [facility] Branch Cholecalcif 0 Yes 5000U Take 5,000 [facility] [place], 9-19 Units by ity of Vitamin D3, 09:14: [place]. [place] unit 49 [facility] tablet Branch OMEGA 3 Yes Take by [facility] OR[facility] 9-19 mouth. ity of 09:14: [place] [address] [facility] Branch Cholecalcif 0 Yes 5000U Take 5,000 [facility] [place], 9-19 Units by [facility]y of Vitamin D3, 09:14: [place]. [place] unit 49 [facility] tablet Branch OMEGA 3 0 Yes Take by [facility] OR[facility] 9-19 mouth. ity of 09:14: [place] [address] [facility] Branch Cholecalcif Yes 5000U Take 5,000 [facility] [place], 9-19 Units by ity of Vitamin D3, 09:14: mouth. [place] unit 49 [facility] tablet Branch OMEGA 3 Yes Take by [facility] OR[facility] 9-19 mouth. ity of 09:14: [place] [address] [facility] Branch Cholecalcif 0 Yes 5000U Take 5,000 [facility] [place], 9-19 Units by ity of Vitamin D3, 09:14: mouth. [place] unit 49 [facility] tablet Branch OMEGA 3 0 Yes Take by [facility] OR[facility] 9-19 mouth. ity of 09:14: [place] [address] [facility] Branch Cholecalcif 2021-0 Yes 5000U Take 5,000 [facility] [place], 9-19 Units by ity of Vitamin D3, 09:14: mouth. [place] unit 49 [facility] tablet Branch OMEGA 3 2021-0 Yes Take by [facility] OR[facility] 9-19 mouth. ity of 09:14: [place] [address] [facility] Branch Cholecalcif 2021-0 Yes 5000U Take 5,000 [facility] [place], 9-19 Units by ity of Vitamin D3, 09:14: mouth. [place] unit 49 [facility] tablet Branch OMEGA 3 0 Yes Take by [facility] ORAL 9-19 mouth. ity of 09:14: [place] [address] [facility] Branch Cholecalcif 2021-0 Yes 5000U Take 5,000 [facility] [place], 9-19 Units by ity of Vitamin D3, 09:14: mouth. [place] unit 49 [facility] tablet Branch OMEGA 3 0 Yes Take by [facility] ORAL 9-19 mouth. ity of 09:14: [place] [address] [facility] Branch Cholecalcif 2021-0 Yes 5000U Take 5,000 [facility] [place], 9-19 Units by ity of Vitamin D3, 09:14: mouth. [place] unit 49 [facility] tablet Branch OMEGA 3 0 Yes Take by [facility] ORAL 9-19 mouth. ity of 09:14: [place] [address] [facility] Branch Cholecalcif 0 Yes 5000U Take 5,000 [facility] [place], 9-19 Units by ity of Vitamin D3, 09:14: mouth. [place] unit 49 [facility] tablet Branch OMEGA 3 0 Yes Take by [facility] ORAL 9-19 mouth. ity of 09:14: [place] [address] [facility] Branch Cholecalcif 2021-0 Yes 5000U Take 5,000 [facility] [place], 9-19 Units by ity of Vitamin D3, 09:14: mouth. [place] unit 49 [facility] tablet Branch OMEGA 3 0 Yes Take by [facility] ORAL 9-19 mouth. ity of 09:14: [place] [address] [facility] Branch Cholecalcif 2021-0 Yes 5000U Take 5,000 [facility] [place], 9-19 Units by ity of Vitamin D3, 09:14: mouth. [place] unit 49 [facility] tablet Branch OMEGA 3 2021-0 Yes Take by [facility] OR[facility] 9-19 mouth. ity of 09:14: [place] [address] [facility] Branch Cholecalcif 2021-0 Yes 5000U Take 5,000 [facility] [place], 9-19 Units by ity of Vitamin D3, 09:14: mouth. [place] unit 49 [facility] tablet Branch OMEGA 3 0 Yes Take by [facility] ORAL 9-19 mouth. ity of 09:14: [place] [address] [facility] Branch Cholecalcif 0 Yes 5000U Take 5,000 [facility] [place], 9-19 Units by ity of Vitamin D3, 09:14: mouth. [place] unit 49 [facility] tablet Branch OMEGA 3 0 Yes Take by [facility] ORAL 9-19 mouth. ity of 09:14: [place] [address] [facility] Branch Cholecalcif 0 Yes 5000U Take 5,000 [facility] [place], 9-19 Units by ity of Vitamin D3, 09:14: mouth. [place] unit 49 [facility] tablet Branch OMEGA 3 0 Yes Take by [facility] OR[facility] 9-19 mouth. ity of 09:14: [place] [address] [facility] Branch Cholecalcif Yes 5000U Take 5,000 [facility] [place], 9-19 Units by ity of Vitamin D3, 09:14: mouth. [place]000 unit 49 [facility] tablet Branch OMEGA 3 Yes Take by [facility] ORAL 9-19 mouth. ity of 09:14: [place] [address] [facility] Branch Cholecalcif Yes 5000U Take 5,000 [facility] [place], 9-19 Units by ity of Vitamin D3, 09:14: mouth. [place] unit 49 [facility] tablet Branch OMEGA 3 0 Yes Take by [facility] ORAL 9-19 mouth. ity of 09:14: [place] [address] [facility] Branch Cholecalcif 0 Yes 5000U Take 5,000 [facility] [place], 9-19 Units by ity of Vitamin D3, 09:14: mouth. [place] unit 49 [facility] tablet Branch OMEGA 3 0 Yes Take by [facility] OR[facility] 9-19 mouth. ity of 09:14: [place] [address] [facility] Branch Cholecalcif 0 Yes 5000U Take 5,000 [facility] [place], 9-19 Units by ity of Vitamin D3, 09:14: mouth. [place] unit 49 [facility] tablet Branch OMEGA 3 0 Yes Take by [facility] OR[facility] 9-19 mouth. ity of 09:14: [place] [address] [facility] Branch Cholecalcif 2021-0 Yes 5000U Take 5,000 [facility] [place], 9-19 Units by ity of Vitamin D3, 09:14: mouth. [place] unit 49 [facility] tablet Branch OMEGA 3 0 Yes Take by [facility] ORAL 9-19 mouth. ity of 09:14: [place] [address] [facility] Branch Cholecalcif 0 Yes 5000U Take 5,000 [facility] [place], 9-19 Units by ity of Vitamin D3, 09:14: mouth. [place] unit 49 [facility] tablet Branch OMEGA 3 0 Yes Take by [facility] ORAL 9-19 mouth. ity of 09:14: [place] [address] [facility] Branch Cholecalcif 0 Yes 5000U Take 5,000 [facility] [place], 9-19 Units by ity of Vitamin D3, 09:14: mouth. [place] unit 49 Medical tablet Branch OMEGA 3 0 Yes Take by [facility] ORAL 9-19 mouth. ity of 09:14: [place] [address] [facility] Branch Cholecalcif Yes 5000U Take 5,000 [facility] [place], 9-19 Units by ity of Vitamin D3, 09:14: mouth. [place] unit 49 [facility] tablet Branch OMEGA 3 0 Yes Take by [facility] ORAL 9-19 mouth. ity of 09:14: [place] [address] [facility] Branch Cholecalcif 0 Yes 5000U Take 5,000 [facility] [place], 9-19 Units by ity of Vitamin D3, 09:14: mouth. [place]000 unit 49 [facility] tablet Branch OMEGA 3 0 Yes Take by [facility] ORAL 9-19 mouth. ity of 09:14: [place] [address] [facility] Branch Cholecalcif 0 Yes 5000U Take 5,000 [facility] [place], 9-19 Units by ity of Vitamin D3, 09:14: mouth. [place]000 unit 49 Medical tablet Branch OMEGA 3 0 Yes Take by [facility] ORAL 9-19 mouth. ity of 09:14: [place] [address] [facility] Branch Cholecalcif 0 Yes 5000U Take 5,000 [facility] [place], 9-19 Units by ity of Vitamin D3, 09:14: mouth. [place] unit 49 Medical tablet Branch OMEGA 3 0 Yes Take by [facility] ORAL 9-19 mouth. ity of 09:14: [place] [address] [facility] Branch Cholecalcif 0 Yes 5000U Take 5,000 [facility] [place], 9-19 Units by ity of Vitamin D3, 09:14: mouth. [place]000 unit 49 Medical tablet Branch OMEGA 3 0 Yes Take by [facility] ORAL 9-19 mouth. ity of 09:14: [place] [address] [facility] Branch Cholecalcif 0 Yes 5000U Take 5,000 [facility] [place], 9-19 Units by ity of Vitamin D3, 09:14: mouth. [place]000 unit 49 Medical tablet Branch OMEGA 3 0 Yes Take by [facility] ORAL 9-19 mouth. ity of 09:14: [place] [address] [facility] Branch Cholecalcif 0 Yes 5000U Take 5,000 [facility] [place], 9-19 Units by ity of Vitamin D3, 09:14: mouth. [place]000 unit 49 Medical tablet Branch OMEGA 3 0 Yes Take by [facility] ORAL 9-19 mouth. ity of 09:14: [place] [address] [facility] Branch Cholecalcif Yes 5000U Take 5,000 [facility] [place], 9-19 Units by ity of Vitamin D3, 09:14: mouth. [place]000 unit 49 Medical tablet Branch OMEGA 3 0 Yes Take by [facility] ORAL 9-19 mouth. ity of 09:14: [place] [address] [facility] Branch Cholecalcif 0 Yes 5000U Take 5,000 [facility] [place], 9-19 Units by ity of Vitamin D3, 09:14: mouth. [place]000 unit 49 Medical tablet Branch OMEGA 3 Yes Take by [facility] ORAL 9-19 mouth. ity of 09:14: [place] [address] [facility] Branch Cholecalcif 0 Yes 5000U Take 5,000 [facility] [place], 9-19 Units by ity of Vitamin D3, 09:14: mouth. [place] 5[place]000 unit 49 Medical tablet Branch OMEGA 3 0 Yes Take by [facility] ORAL 9-19 mouth. ity of 09:14: [place] [address] [facility] Branch Cholecalcif 0 Yes 5000U Take 5,000 [facility] [place], 9-19 Units by ity of Vitamin D3, 09:14: mouth. [place]000 unit 49 Medical tablet Branch OMEGA 3 0 Yes Take by [facility] OR[facility] 9-19 mouth. ity of 09:14: [place] [address] [facility] Branch Cholecalcif 2021-0 Yes 5000U Take 5,000 [facility] [place], 9-19 Units by ity of Vitamin D3, 09:14: mouth. [place] 5[place]000 unit 49 Medical tablet Branch OMEGA 3 0 Yes Take by [facility] OR[facility] 9-19 mouth. ity of 09:14: [place] [address] [facility] Branch Cholecalcif 2021-0 Yes 5000U Take 5,000 [facility] [place], 9-19 Units by ity of Vitamin D3, 09:14: mouth. [place] 5[place]000 unit 49 Medical tablet Branch OMEGA 3 0 Yes Take by [facility] ORAL 9-19 mouth. ity of 09:14: [place] [address] [facility] Branch Cholecalcif 2021-0 Yes 5000U Take 5,000 [facility] [place], 9-19 Units by ity of Vitamin D3, 09:14: mouth. [place] 5[place]000 unit 49 Medical tablet Branch OMEGA 3 0 Yes Take by [facility] OR[facility] 9-19 mouth. ity of 09:14: [place] [address] [facility] Branch Cholecalcif 2021-0 Yes 5000U Take 5,000 [facility] [place], 9-19 Units by ity of Vitamin D3, 09:14: mouth. [place]000 unit 49 Medical tablet Branch OMEGA 3 0 Yes Take by [facility] ORAL 9-19 mouth. ity of 09:14: [place] [address] [facility] Branch Cholecalcif 0 Yes 5000U Take 5,000 [facility] [place], 9-19 Units by ity of Vitamin D3, 09:14: mouth. [place] 5[place]000 unit 49 Medical tablet Branch OMEGA 3 0 Yes Take by [facility] ORAL 9-19 mouth. ity of 09:14: [place] [address] [facility] Branch Cholecalcif 0 Yes 5000U Take 5,000 [facility] [place], 9-19 Units by ity of Vitamin D3, 09:14: mouth. [place] 5[place]000 unit 49 Medical tablet Branch OMEGA 3 0 Yes Take by [facility] ORAL 9-19 mouth. ity of 09:14: [place] [address] [facility] Branch Cholecalcif 2021-0 Yes 5000U Take 5,000 [facility] [place], 9-19 Units by ity of Vitamin D3, 09:14: mouth. [place]000 unit 49 Medical tablet Branch OMEGA 3 2022-0 Yes Take by [facility] ORAL 9-19 mouth. ity of 09:14: [place] [address] [facility] Branch Cholecalcif 0 Yes 5000U Take 5,000 [facility] [place], 9-19 Units by ity of Vitamin D3, 09:14: mouth. [place]000 unit 49 [facility] tablet Branch OMEGA 3 0 Yes Take by [facility] ORAL 9-19 mouth. ity of 09:14: [place] [address] [facility] Branch Cholecalcif 0 Yes 5000U Take 5,000 [facility] [place], 9-19 Units by ity of Vitamin D3, 09:14: mouth. [place] 5[place]000 unit 49 Medical tablet Branch OMEGA 3 Yes Take by [facility] ORAL 9-19 mouth. ity of 09:14: [place] [address] [facility] Branch Cholecalcif Yes 5000U Take 5,000 [facility] [place], 9-19 Units by ity of Vitamin D3, 09:14: mouth. [place] 5[place]000 unit 49 Medical tablet Branch OMEGA 3 Yes Take by [facility] ORAL 9-19 mouth. ity of 09:14: [place] [address] [facility] Branch Cholecalcif 0 Yes 5000U Take 5,000 [facility] [place], 9-19 Units by ity of Vitamin D3, 09:14: mouth. [place]000 unit 49 Medical tablet Branch OMEGA 3 Yes Take by [facility] ORAL 9-19 mouth. ity of 09:14: [place] [address] [facility] Branch Cholecalcif 0 Yes 5000U Take 5,000 [facility] [place], 9-19 Units by ity of Vitamin D3, 09:14: mouth. [place] 5[place]000 unit 49 Medical tablet Branch OMEGA 3 Yes Take by [facility] ORAL 9-19 mouth. ity of 09:14: [place] [address] [facility] Branch Cholecalcif 0 Yes 5000U Take 5,000 [facility] [place], 9-19 Units by ity of Vitamin D3, 09:14: mouth. [place] 5[place]000 unit 49 Medical tablet Branch OMEGA 3 0 Yes Take by [facility] ORAL 9-19 mouth. ity of 09:14: [place] [address] [facility] Branch Cholecalcif 0 Yes 5000U Take 5,000 [facility] [place], 9-19 Units by ity of Vitamin D3, 09:14: mouth. [place]000 unit 49 Medical tablet Branch OMEGA 3 0 Yes Take by [facility] ORAL 9-19 mouth. ity of 09:14: [place] [address] [facility] Branch Cholecalcif 2021-0 Yes 5000U Take 5,000 [facility] [place], 9-19 Units by ity of Vitamin D3, 09:14: mouth. [place] 5[place]000 unit 49 Medical tablet Branch OMEGA 3 0 Yes Take by [facility] ORAL 9-19 mouth. ity of 09:14: [place] [address] [facility] Branch Cholecalcif 2021-0 Yes 5000U Take 5,000 [facility] [place], 9-19 Units by ity of Vitamin D3, 09:14: mouth. [place] 5[place]000 unit 49 Medical tablet Branch OMEGA 3 0 Yes Take by [facility] ORAL 9-19 mouth. ity of 09:14: [place] [address] [facility] Branch Cholecalcif 0 Yes 5000U Take 5,000 [facility] [place], 9-19 Units by ity of Vitamin D3, 09:14: mouth. [place] 5[place]000 unit 49 Medical tablet Branch OMEGA 3 Yes Take by [facility] ORAL 9-19 mouth. ity of 09:14: [place] [address] [facility] Branch Cholecalcif 0 Yes 5000U Take 5,000 [facility] [place], 9-19 Units by ity of Vitamin D3, 09:14: mouth. [place]000 unit 49 Medical tablet Branch OMEGA 3 0 Yes Take by [facility] ORAL 9-19 mouth. ity of 09:14: [place] [address] [facility] Branch Cholecalcif 0 Yes 5000U Take 5,000 [facility] [place], 9-19 Units by ity of Vitamin D3, 09:14: mouth. [place]000 unit 49 Medical tablet Branch OMEGA 3 0 Yes Take by [facility] ORAL 9-19 mouth. ity of 09:14: [place] [address] [facility] Branch Cholecalcif 0 Yes 5000U Take 5,000 [facility] [place], 9-19 Units by ity of Vitamin D3, 09:14: mouth. [place]000 unit 49 Medical tablet Branch OMEGA 3 0 Yes Take by [facility] ORAL 9-19 mouth. ity of 09:14: [place] [address] [facility] Branch Cholecalcif 2021-0 Yes 5000U Take 5,000 [facility] [place], 9-19 Units by ity of Vitamin D3, 09:14: mouth. [place]000 unit 49 [facility] tablet Branch OMEGA 3 0 Yes Take by [facility] ORAL 9-19 mouth. ity of 09:14: [place] [address] [facility] Cholecalcif 2021-0 Yes 5000U Take 5,000 [facility] [place], 9-19 Units by ity of Vitamin D3, 09:14: mouth. [place]000 unit 49 [facility] tablet Branch OMEGA 3 0 Yes Take by [facility] ORAL 9-19 mouth. ity of 09:14: [place] [address] [facility] Branch Cholecalcif 2021-0 Yes 5000U Take 5,000 [facility] [place], 9-19 Units by ity of Vitamin D3, 09:14: mouth. [place] 5[place]000 unit 49 Medical tablet Branch OMEGA 3 2021-0 Yes Take by [facility] ORAL 9-19 mouth. ity of 09:14: [place] [address] [facility] Branch Cholecalcif 0 Yes 5000U Take 5,000 [facility] [place], 9-19 Units by ity of Vitamin D3, 09:14: mouth. [place] 5[place]000 unit 49 Medical tablet Branch OMEGA 3 0 Yes Take by [facility] ORAL 9-19 mouth. ity of 09:14: [place] [address] [facility] Branch Cholecalcif 0 Yes 5000U Take 5,000 [facility] [place], 9-19 Units by ity of Vitamin D3, 09:14: mouth. [place] 5[place]000 unit 49 Medical tablet Branch OMEGA 3 0 Yes Take by [facility] ORAL 9-19 mouth. ity of 09:14: [place] [address] [facility] Branch Cholecalcif 0 Yes 5000U Take 5,000 [facility] [place], 9-19 Units by ity of Vitamin D3, 09:14: mouth. [place] 5[place]000 unit 49 Medical tablet Branch OMEGA 3 0 Yes Take by [facility] ORAL 9-19 mouth. ity of 09:14: [place] [address] [facility] Branch Cholecalcif 2021-0 Yes 5000U Take 5,000 [facility] [place], 9-19 Units by ity of Vitamin D3, 09:14: mouth. [place] 5[place]000 unit 49 Medical tablet Branch OMEGA 3 2021-0 Yes Take by [facility] ORAL 9-19 mouth. ity of 09:14: [place] [address] [facility] Branch Cholecalcif 2021-0 Yes 5000U Take 5,000 [facility] [place], 9-19 Units by ity of Vitamin D3, 09:14: mouth. [place] 5[place]000 unit 49 Medical tablet Branch OMEGA 3 Yes Take by [facility] ORAL 9-19 mouth. ity of 09:14: [place] 49 [facility] Cholecalcif 0 Yes 5000U Take 5,000 [facility] [place], 9-19 Units by ity of Vitamin D3, 09:14: mouth. [place]000 unit 49 [facility] tablet Branch montelukast Yes [id number] 10mg Take 1 [facility] (SINGULAIR) 9-13 tablet by ity of 10 mg 00:00: mouth in [place] tablet 00 the Medical morning. Branch ezetimibe Yes [id number] 10mg Take 1 [facility] 10 mg 9-13 tablet by ity of tablet 00:00: mouth in [place] 00 the Medical morning. Branch montelukast 0 Yes [id number] 10mg Take 1 [facility] (SINGULAIR) 9-13 tablet by ity of 10 mg 00:00: mouth in [place] tablet 00 the Medical morning. Branch ezetimibe 0 Yes [id number] 10mg Take 1 [facility] 10 mg 9-13 tablet by ity of tablet 00:00: mouth in [place] 00 the Medical morning. Branch montelukast 0 Yes [id number] 10mg Take 1 [facility] (SINGULAIR) 9-13 tablet by ity of 10 mg 00:00: mouth in [place] tablet 00 the Medical morning. Branch ezetimibe 0 Yes [id number] 10mg Take 1 [facility] 10 mg 9-13 tablet by ity of tablet 00:00: mouth in [place] 00 the Medical morning. Branch montelukast 0 Yes [id number] 10mg Take 1 [facility] (SINGULAIR) 9-13 tablet by ity of 10 mg 00:00: mouth in [place] tablet 00 the Medical morning. Branch ezetimibe 0 Yes [id number] 10mg Take 1 [facility] 10 mg 9-13 tablet by ity of tablet 00:00: mouth in [place] 00 the Medical morning. Branch montelukast 0 Yes [id number] 10mg Take 1 [facility] (SINGULAIR) 9-13 tablet by ity of 10 mg 00:00: mouth in [place] tablet 00 the Medical morning. Branch ezetimibe 2021-0 Yes [id number] 10mg Take 1 [facility] 10 mg 9-13 tablet by ity of tablet 00:00: mouth in [place] 00 the Medical morning. Branch montelukast 2021-0 Yes [id number] 10mg Take 1 [facility] (SINGULAIR) 9-13 tablet by ity of 10 mg 00:00: mouth in [place] tablet 00 the Medical morning. Branch ezetimibe 2021-0 Yes [id number] 10mg Take 1 [facility] 10 mg 9-13 tablet by ity of tablet 00:00: mouth in [place] 00 the Medical morning. Branch montelukast 2021-0 Yes [id number] 10mg Take 1 [facility] (SINGULAIR) 9-13 tablet by ity of 10 mg 00:00: mouth in [place] tablet 00 the Medical morning. Branch ezetimibe 2021-0 Yes [id number] 10mg Take 1 [facility] 10 mg 9-13 tablet by ity of tablet 00:00: mouth in [place] 00 the Medical morning. Branch montelukast 2021-0 Yes [id number] 10mg Take 1 [facility] (SINGULAIR) 9-13 tablet by ity of 10 mg 00:00: mouth in [place] tablet 00 the Medical morning. Branch ezetimibe 2021-0 Yes [id number] 10mg Take 1 [facility] 10 mg 9-13 tablet by ity of tablet 00:00: mouth in [place] 00 the Medical morning. Branch montelukast 2021-0 Yes [id number] 10mg Take 1 [facility] (SINGULAIR) 9-13 tablet by ity of 10 mg 00:00: mouth in [place] tablet 00 the Medical morning. Branch ezetimibe 2021-0 Yes [id number] 10mg Take 1 [facility] 10 mg 9-13 tablet by ity of tablet 00:00: mouth in [place] 00 the Medical morning. Branch montelukast 2021-0 Yes [id number] 10mg Take 1 [facility] (SINGULAIR) 9-13 tablet by ity of 10 mg 00:00: mouth in [place] tablet 00 the Medical morning. Branch ezetimibe 2021-0 Yes [id number] 10mg Take 1 [facility] 10 mg 9-13 tablet by ity of tablet 00:00: mouth in [place] 00 the Medical morning. Branch montelukast 2021-0 Yes [id number] 10mg Take 1 [facility] (SINGULAIR) 9-13 tablet by ity of 10 mg 00:00: mouth in [place] tablet 00 the Medical morning. Branch ezetimibe 2021-0 Yes [id number] 10mg Take 1 [facility] 10 mg 9-13 tablet by ity of tablet 00:00: mouth in [place] 00 the Medical morning. Branch montelukast 2021-0 Yes [id number] 10mg Take 1 [facility] (SINGULAIR) 9-13 tablet by ity of 10 mg 00:00: mouth in [place] tablet 00 the Medical morning. Branch ezetimibe 2021-0 Yes [id number] 10mg Take 1 [facility] 10 mg 9-13 tablet by ity of tablet 00:00: mouth in [place] 00 the Medical morning. Branch montelukast 2021-0 Yes [id number] 10mg Take 1 [facility] (SINGULAIR) 9-13 tablet by ity of 10 mg 00:00: mouth in [place] tablet 00 the Medical morning. Branch ezetimibe 2021-0 Yes [id number] 10mg Take 1 [facility] 10 mg 9-13 tablet by ity of tablet 00:00: mouth in [place] 00 the Medical morning. Branch montelukast 2021-0 Yes [id number] 10mg Take 1 [facility] (SINGULAIR) 9-13 tablet by ity of 10 mg 00:00: mouth in [place] tablet 00 the Medical morning. Branch ezetimibe 2021-0 Yes [id number] 10mg Take 1 [facility] 10 mg 9-13 tablet by ity of tablet 00:00: mouth in [place] 00 the Medical morning. Branch montelukast 2021-0 Yes [id number] 10mg Take 1 [facility] (SINGULAIR) 9-13 tablet by ity of 10 mg 00:00: mouth in [place] tablet 00 the Medical morning. Branch ezetimibe 2021-0 Yes [id number] 10mg Take 1 [facility] 10 mg 9-13 tablet by ity of tablet 00:00: mouth in [place] 00 the Medical morning. Branch montelukast 2021-0 Yes [id number] 10mg Take 1 [facility] (SINGULAIR) 9-13 tablet by ity of 10 mg 00:00: mouth in [place] tablet 00 the Medical morning. Branch ezetimibe 2021-0 Yes [id number] 10mg Take 1 [facility] 10 mg 9-13 tablet by ity of tablet 00:00: mouth in [place] 00 the Medical morning. Branch montelukast 2021-0 Yes [id number] 10mg Take 1 [facility] (SINGULAIR) 9-13 tablet by ity of 10 mg 00:00: mouth in [place] tablet 00 the Medical morning. Branch ezetimibe 2021-0 Yes [id number] 10mg Take 1 [facility] 10 mg 9-13 tablet by ity of tablet 00:00: mouth in [place] 00 the Medical morning. Branch montelukast 2021-0 Yes [id number] 10mg Take 1 [facility] (SINGULAIR) 9-13 tablet by ity of 10 mg 00:00: mouth in [place] tablet 00 the Medical morning. Branch ezetimibe 2021-0 Yes [id number] 10mg Take 1 [facility] 10 mg 9-13 tablet by ity of tablet 00:00: mouth in [place] 00 the Medical morning. Branch montelukast 2021-0 Yes [id number] 10mg Take 1 [facility] (SINGULAIR) 9-13 tablet by ity of 10 mg 00:00: mouth in [place] tablet 00 the Medical morning. Branch ezetimibe 2021-0 Yes [id number] 10mg Take 1 [facility] n[facility] 10 mg 9-13 tablet by ity of tablet 00:00: mouth in [place] 00 the Medical morning. Branch montelukast 2021-0 Yes [id number] 10mg Take 1 [facility] (SINGULAIR) 9-13 tablet by ity of 10 mg 00:00: mouth in [place] tablet 00 the Medical morning. Branch ezetimibe 2021-0 Yes [id number] 10mg Take 1 [facility] 10 mg 9-13 tablet by ity of tablet 00:00: mouth in [place] 00 the Medical morning. Branch montelukast 2021-0 Yes [id number] 10mg Take 1 [facility] (SINGULAIR) 9-13 tablet by ity of 10 mg 00:00: mouth in [place] tablet 00 the Medical morning. Branch ezetimibe 2021-0 Yes [id number] 10mg Take 1 [facility] 10 mg 9-13 tablet by ity of tablet 00:00: mouth in [place] 00 the Medical morning. Branch montelukast 2-0 Yes [id number] 10mg Take 1 [facility] (SINGULAIR) 9-13 tablet by ity of 10 mg 00:00: mouth in [place] tablet 00 the Medical morning. Branch ezetimibe 2-0 Yes [id number] 10mg Take 1 [facility] 10 mg 9-13 tablet by ity of tablet 00:00: mouth in [place] 00 the Medical morning. Branch montelukast 2-0 Yes [id number] 10mg Take 1 [facility] (SINGULAIR) 9-13 tablet by ity of 10 mg 00:00: mouth in [place] tablet 00 the Medical morning. Branch ezetimibe 2-0 Yes [id number] 10mg Take 1 [facility] 10 mg 9-13 tablet by [facility] tablet 00:00: mouth in [place] 00 the Medical morning. Branch montelukast 2-0 Yes [id number] 10mg Take 1 [facility] ([facility] 9-13 tablet by [facility] of 10 mg 00:00: mouth in [place] tablet 00 the Medical morning. Branch ezetimibe 2-0 Yes [id number] 10mg Take 1 [facility] 10 mg 9-13 tablet by [facility] of tablet 00:00: mouth in [place] 00 the Medical morning. Branch ezetimibe 2-0 Yes [id number] 10mg Take 1 [facility] 10 mg 9-13 tablet by [facility] of tablet 00:00: mouth in [place] 00 the Medical morning. Branch ezetimibe 2-0 Yes [id number] 10mg Take 1 [facility] 10 mg 9-13 tablet by [facility] of tablet 00:00: mouth in [place] 00 the Medical morning. Branch ezetimibe 2-0 Yes [id number] 10mg Take 1 [facility] 10 mg 9-13 tablet by [facility] of tablet 00:00: mouth in [place] 00 the Medical morning. Branch ezetimibe 2022-0 Yes [id number] 10mg Take 1 [facility] 10 mg 9-13 tablet by [facility] of tablet 00:00: mouth in [place] 00 the Medical morning. Branch ezetimibe 2022-0 Yes [id number] 10mg Take 1 [facility] 10 mg 9-13 tablet by [facility] of tablet 00:00: mouth in [place] 00 the Medical morning. Branch ezetimibe 2022-0 Yes [id number] 10mg Take 1 [facility] 10 mg 9-13 tablet by [facility] of tablet 00:00: mouth in [place] the Medical morning. Branch ezetimibe 2022-0 Yes [id number] 10mg Take 1 [facility] 10 mg 9-13 tablet by [facility] of tablet 00:00: mouth in [place] the Medical morning. Branch ezetimibe 2022-0 Yes [id number] 10mg Take 1 [facility] 10 mg 9-13 tablet by [facility] of tablet 00:00: mouth in [place] the Medical morning. Branch ezetimibe 2022-0 Yes [id number] 10mg Take 1 [facility] 10 mg 9-13 tablet by [facility] of tablet 00:00: mouth in [place] the Medical morning. Branch ezetimibe 2-0 Yes [id number] 10mg Take 1 [facility] 10 mg 9-13 tablet by [facility] of tablet 00:00: mouth in [place] the Medical morning. Branch ezetimibe 2-0 Yes [id number] 10mg Take 1 [facility] 10 mg 9-13 tablet by [facility] of tablet 00:00: mouth in [place] the Medical morning. Branch ezetimibe 2-0 Yes [id number] 10mg Take 1 [facility] 10 mg 9-13 tablet by [facility] of tablet 00:00: mouth in [place] the Medical morning. Branch ezetimibe 2-0 Yes [id number] 10mg Take 1 [facility] 10 mg 9-13 tablet by [facility] of tablet 00:00: mouth in [place] the Medical morning. Branch ezetimibe 2022-0 Yes [id number] 10mg Take 1 [facility] 10 mg 9-13 tablet by [facility] of tablet 00:00: mouth in [place] the Medical morning. Branch ezetimibe 2022-0 Yes [id number] 10mg Take 1 [facility] 10 mg 9-13 tablet by [facility] of tablet 00:00: mouth in [place] the Medical morning. Branch ezetimibe 2022-0 Yes [id number] 10mg Take 1 [facility] 10 mg 9-13 tablet by [facility] of tablet 00:00: mouth in [place] the Medical morning. Branch ezetimibe 2022-0 Yes [id number] 10mg Take 1 [facility] 10 mg 9-13 tablet by [facility] of tablet 00:00: mouth in [place] 00 the Medical morning. Branch ezetimibe 2022-0 Yes [id number] 10mg Take 1 [facility] 10 mg 9-13 tablet by [facility] of tablet 00:00: mouth in [place] 00 the Medical morning. Branch ezetimibe 2022-0 Yes [id number] 10mg Take 1 [facility] 10 mg 9-13 tablet by [facility] of tablet 00:00: mouth in [place] the Medical morning. Branch ezetimibe 2022-0 Yes [id number] 10mg Take 1 [facility] 10 mg 9-13 tablet by [facility] of tablet 00:00: mouth in [place] the Medical morning. Branch ezetimibe 2022-0 Yes [id number] 10mg Take 1 [facility] 10 mg 9-13 tablet by [facility] of tablet 00:00: mouth in [place] the Medical morning. Branch ezetimibe 2-0 Yes [id number] 10mg Take 1 [facility] 10 mg 9-13 tablet by [facility] of tablet 00:00: mouth in [place] the Medical morning. Branch ezetimibe 2-0 Yes [id number] 10mg Take 1 [facility] 10 mg 9-13 tablet by [facility] of tablet 00:00: mouth in [place] the Medical morning. Branch ezetimibe 2-0 Yes [id number] 10mg Take 1 [facility] 10 mg 9-13 tablet by [facility] of tablet 00:00: mouth in [place] the Medical morning. Branch ezetimibe 2022-0 Yes [id number] 10mg Take 1 [facility] 10 mg 9-13 tablet by [facility] of tablet 00:00: mouth in [place] the Medical morning. Branch ezetimibe 2022-0 Yes [id number] 10mg Take 1 [facility] 10 mg 9-13 tablet by [facility] of tablet 00:00: mouth in [place] 00 the Medical morning. Branch ezetimibe 2022-0 Yes [id number] 10mg Take 1 [facility] 10 mg 9-13 tablet by [facility] of tablet 00:00: mouth in [place] 00 the Medical morning. Branch ezetimibe 2022-0 Yes [id number] 10mg Take 1 [facility] 10 mg 9-13 tablet by [facility] of tablet 00:00: mouth in [place] 00 the Medical morning. Branch ezetimibe 2022-0 Yes [id number] 10mg Take 1 [facility] 10 mg 9-13 tablet by [facility] of tablet 00:00: mouth in [place] the Medical morning. Branch ezetimibe 2022-0 Yes [id number] 10mg Take 1 [facility] 10 mg 9-13 tablet by [facility] of tablet 00:00: mouth in [place] the Medical morning. Branch ezetimibe 2022-0 Yes [id number] 10mg Take 1 [facility] 10 mg 9-13 tablet by [facility] of tablet 00:00: mouth in [place] the Medical morning. Branch ezetimibe 2022-0 Yes [id number] 10mg Take 1 [facility] 10 mg 9-13 tablet by [facility] of tablet 00:00: mouth in [place] the Medical morning. Branch ezetimibe 2022-0 Yes [id number] 10mg Take 1 [facility] 10 mg 9-13 tablet by [facility] of tablet 00:00: mouth in [place] the Medical morning. Branch ezetimibe 2022-0 Yes [id number] 10mg Take 1 [facility] 10 mg 9-13 tablet by [facility] of tablet 00:00: mouth in [place] the Medical morning. Branch ezetimibe 2022-0 Yes [id number] 10mg Take 1 [facility] 10 mg 9-13 tablet by [facility] of tablet 00:00: mouth in [place] the Medical morning. Branch ezetimibe 2022-0 Yes [id number] 10mg Take 1 [facility] 10 mg 9-13 tablet by [facility] of tablet 00:00: mouth in [place] 00 the Medical morning. Branch ezetimibe 2022-0 Yes [id number] 10mg Take 1 [facility] 10 mg 9-13 tablet by [facility] of tablet 00:00: mouth in [place] 00 the Medical morning. Branch ezetimibe 2022-0 Yes [id number] 10mg Take 1 [facility] 10 mg 9-13 tablet by [facility] of tablet 00:00: mouth in [place] 00 the Medical morning. Branch ezetimibe 2022-0 Yes [id number] 10mg Take 1 [facility] 10 mg 9-13 tablet by [facility] of tablet 00:00: mouth in [place] 00 the Medical morning. Branch ezetimibe 2022-0 Yes [id number] 10mg Take 1 [facility] 10 mg 9-13 tablet by [facility] of tablet 00:00: mouth in [place] the Medical morning. Branch ezetimibe 2022-0 Yes [id number] 10mg Take 1 [facility] 10 mg 9-13 tablet by [facility] of tablet 00:00: mouth in [place] the Medical morning. Branch ezetimibe 2022-0 Yes [id number] 10mg Take 1 [facility] 10 mg 9-13 tablet by [facility] of tablet 00:00: mouth in [place] the Medical morning. Branch ezetimibe 2022-0 Yes [id number] 10mg Take 1 [facility] 10 mg 9-13 tablet by [facility] of tablet 00:00: mouth in [place] the Medical morning. Branch ezetimibe 2-0 Yes [id number] 10mg Take 1 [facility] 10 mg 9-13 tablet by [facility] of tablet 00:00: mouth in [place] the Medical morning. Branch ezetimibe 2-0 Yes [id number] 10mg Take 1 [facility] 10 mg 9-13 tablet by [facility] of tablet 00:00: mouth in [place] the Medical morning. Branch ezetimibe 2-0 Yes [id number] 10mg Take 1 [facility] 10 mg 9-13 tablet by [facility] of tablet 00:00: mouth in [place] the Medical morning. Branch ezetimibe 2022-0 Yes [id number] 10mg Take 1 [facility] 10 mg 9-13 tablet by [facility] of tablet 00:00: mouth in [place] the Medical morning. Branch ezetimibe 2022-0 Yes [id number] 10mg Take 1 [facility] 10 mg 9-13 tablet by [facility] of tablet 00:00: mouth in [place] the Medical morning. Branch ezetimibe 2022-0 Yes [id number] 10mg Take 1 [facility] 10 mg 9-13 tablet by [facility] of tablet 00:00: mouth in [place] the Medical morning. Branch ezetimibe 2022-0 Yes [id number] 10mg Take 1 [facility] 10 mg 9-13 tablet by [facility] of tablet 00:00: mouth in [place] the Medical morning. Branch ezetimibe 2022-0 Yes [id number] 10mg Take 1 [facility] 10 mg 9-13 tablet by [facility] of tablet 00:00: mouth in [place] the Medical morning. Branch ezetimibe 2021-0 Yes [id number] 10mg Take 1 [facility] 10 mg 9-13 tablet by [facility] of tablet 00:00: mouth in [place] the Medical morning. Branch ezetimibe 2021-0 Yes [id number] 10mg Take 1 [facility] 10 mg 9-13 tablet by [facility] of tablet 00:00: mouth in [place] the Medical morning. Branch ezetimibe 2021-0 Yes [id number] 10mg Take 1 [facility] 10 mg 9-13 tablet by [facility] of tablet 00:00: mouth in [place] the Medical morning. Branch ezetimibe 2021-0 Yes [id number] 10mg Take 1 [facility] 10 mg 9-13 tablet by [facility] of tablet 00:00: mouth in [place] the Medical morning. Branch ezetimibe 2021-0 Yes [id number] 10mg Take 1 [facility] 10 mg 9-13 tablet by [facility] of tablet 00:00: mouth in [place] the Medical morning. Branch ezetimibe 2021-0 Yes [id number] 10mg Take 1 [facility] 10 mg 9-13 tablet by [facility] of tablet 00:00: mouth in [place] the Medical morning. Branch ezetimibe 2021-0 Yes [id number] 10mg Take 1 [facility] 10 mg 9-13 tablet by [facility] of tablet 00:00: mouth in [place] the Medical morning. Branch ezetimibe 2021-0 Yes [id number] 10mg Take 1 [facility] 10 mg 9-13 tablet by [facility] of tablet 00:00: mouth in [place] the Medical morning. Branch ezetimibe 2021-0 Yes [id number] 10mg Take 1 [facility] 10 mg 9-13 tablet by [facility] of tablet 00:00: mouth in [place] 00 the Medical morning. Branch ezetimibe 2021-0 Yes [id number] 10mg Take 1 [facility] 10 mg 9-13 tablet by [facility] of tablet 00:00: mouth in [place] 00 the Medical morning. Branch montelukast 2021-0 202- No [id number] 10mg Take 1 [facility] ([facility]) 9-13 12-14 tablet by it y of 10 mg 00:00: 00:00 mouth in [place] tablet 00 :00 the Medical morning. Branch montelukast 2021- No [id number] 10mg Take 1 [facility] (SINGULAIR) 07-07 tablet by it y of 10 mg 00:00: 00:00 mouth in [place] tablet 00 :00 the Medical morning. Branch diphenoxyla 2021- No [id number] 1{tbl} Take 1 [facility] te-atropine 06-02 tablet by it y of 2.5-0.025 00:00: 00:00 mouth [place] mg tablet 00 :00 every 6 Medical (six) Branch hours as needed (Diarrhea) . pantoprazol 2021- No [id number] 40mg Take 1 [facility] e 40 mg EC 06-02 tablet by ity of tablet 00:00: 00:00 mouth in [place] 00 :00 the Medical morning. Branch hydrOXYzine Yes [facility] s 50 mg 6-06 ity of capsule 00:00: [place] [facility] venlafaxine 0 Yes [facility] s XR 150 mg 6-06 ity of 24 hr 00:00: [place] capsule 00 Medical Branch hydrOXYzine 2021-0 Yes [facility] 50 mg 6-06 ity of capsule 00:00: [place] 00 Medical Branch venlafaxine 2021-0 Yes [facility] XR 150 mg 6-06 ity of 24 hr 00:00: [place] capsule 00 Medical Branch hydrOXYzine 2021-0 Yes [facility] 50 mg 6-06 ity of capsule 00:00: [place] 00 Medical Branch venlafaxine 2021-0 Yes [facility] XR 150 mg 6-06 ity of 24 hr 00:00: [place] capsule 00 Medical Branch hydrOXYzine 2021-0 Yes [facility] s 50 mg 6-06 ity of capsule 00:00: [place] 00 Medical Branch venlafaxine 2021-0 Yes [facility] s XR 150 mg 6-06 ity of 24 hr 00:00: [place] capsule 00 Medical Branch hydrOXYzine 2021-0 Yes [facility] s 50 mg 6-06 ity of capsule 00:00: [place] 00 Medical Branch venlafaxine 2021-0 Yes [facility] s XR 150 mg 6-06 ity of 24 hr 00:00: [place] capsule 00 Medical Branch hydrOXYzine 2-0 Yes [facility] s 50 mg 6-06 ity of capsule 00:00: [place] 00 Medical Branch venlafaxine 2-0 Yes [facility] s XR 150 mg 6-06 ity of 24 hr 00:00: [place] capsule 00 Medical Branch hydrOXYzine 2-0 Yes [facility] s 50 mg 6-06 ity of capsule 00:00: [place] [facility] venlafaxine 2-0 Yes [facility] s XR 150 mg 6-06 ity of 24 hr 00:00: [place] capsule 00 Medical Branch hydrOXYzine 2-0 Yes [facility] s 50 mg 6-06 ity of capsule 00:00: [place] [facility] venlafaxine 2-0 Yes [facility] XR 150 mg 6-06 ity of 24 hr 00:00: [place] capsule 00 Medical Branch hydrOXYzine 2-0 Yes [facility] s 50 mg 6-06 ity of capsule 00:00: [place] [facility] venlafaxine 2-0 Yes [facility] XR 150 mg 6-06 ity of 24 hr 00:00: [place] capsule 00 Medical Branch hydrOXYzine 2-0 Yes [facility] s 50 mg 6-06 ity of capsule 00:00: [place] 00 Medical Branch venlafaxine 2-0 Yes [facility] XR 150 mg 6-06 ity of 24 hr 00:00: [place] capsule 00 Medical Branch hydrOXYzine 2-0 Yes [facility] s 50 mg 6-06 ity of capsule 00:00: [place] [facility] venlafaxine 2-0 Yes [facility] s XR 150 mg 6-06 ity of 24 hr 00:00: [place] capsule 00 Medical Branch hydrOXYzine 2-0 Yes [facility] s 50 mg 6-06 ity of capsule 00:00: [place] 00 Medical Branch venlafaxine 2-0 Yes [facility] XR 150 mg 6-06 ity of 24 hr 00:00: [place] capsule 00 Medical Branch hydrOXYzine 2-0 Yes [facility] s 50 mg 6-06 ity of capsule 00:00: [place] 00 Medical Branch venlafaxine 2-0 Yes Univer [...] 50 mg 6-06 ity of capsule 00:00: [place] 00 Medical Branch venlafaxine 2-0 Yes [facility] s XR 150 mg 6-06 ity of 24 hr 00:00: [place] capsule 00 Medical Branch hydrOXYzine 2-0 Yes [facility] s 50 mg 6-06 ity of capsule 00:00: [place] [facility] venlafaxine 2-0 Yes [facility] XR 150 mg 6-06 ity of 24 hr 00:00: [place] capsule 00 Medical Branch hydrOXYzine 2-0 Yes [facility] s 50 mg 6-06 ity of capsule 00:00: [place] [facility] venlafaxine 2-0 Yes [facility] XR 150 mg 6-06 ity of 24 hr 00:00: [place] capsule 00 Medical Branch hydrOXYzine 2-0 Yes [facility] s 50 mg 6-06 ity of capsule 00:00: [place] 00 Medical Branch venlafaxine 2-0 Yes [facility] XR 150 mg 6-06 ity of 24 hr 00:00: [place] capsule 00 Medical Branch hydrOXYzine 2-0 Yes [facility] s 50 mg 6-06 ity of capsule 00:00: [place] 00 Medical Branch venlafaxine 2-0 Yes [facility] XR 150 mg 6-06 ity of 24 hr 00:00: [place] capsule 00 Medical Branch hydrOXYzine 2-0 Yes [facility] s 50 mg 6-06 ity of capsule 00:00: [place] 00 Medical Branch venlafaxine 2-0 Yes [facility] XR 150 mg 6-06 ity of 24 hr 00:00: [place] capsule 00 Medical Branch hydrOXYzine 2-0 Yes [facility] s 50 mg 6-06 ity of capsule 00:00: [place] 00 Medical Branch venlafaxine 2-0 Yes [facility] XR 150 mg 6-06 ity of 24 hr 00:00: [place] capsule 00 Medical Branch hydrOXYzine 2-0 Yes [facility] s 50 mg 6-06 ity of capsule 00:00: [place] 00 Medical Branch venlafaxine 2-0 Yes [facility] XR 150 mg 6-06 ity of 24 hr 00:00: [place] capsule 00 Medical Branch hydrOXYzine 2-0 Yes [facility] s 50 mg 6-06 ity of capsule 00:00: [place] [facility] venlafaxine 2-0 Yes [facility] XR 150 mg 6-06 ity of 24 hr 00:00: [place] capsule 00 Medical Branch hydrOXYzine 2-0 Yes [facility] s 50 mg 6-06 ity of capsule 00:00: [place] [facility] venlafaxine 2-0 Yes [facility] s XR 150 mg 6-06 ity of 24 hr 00:00: [place] capsule Medical Branch hydrOXYzine 2-0 Yes [facility] s 50 mg 6-06 ity of capsule 00:00: [place] [facility] venlafaxine 2-0 Yes [facility] XR 150 mg 6-06 ity of 24 hr 00:00: [place] capsule 00 Medical Branch hydrOXYzine 2-0 Yes [facility] s 50 mg 6-06 ity of capsule 00:00: [place] [facility] venlafaxine 2-0 Yes [facility] s XR 150 mg 6-06 ity of 24 hr 00:00: [place] capsule 00 Medical Branch hydrOXYzine 2-0 Yes [facility] s 50 mg 6-06 ity of capsule 00:00: [place] [facility] venlafaxine 2-0 Yes [facility] XR 150 mg 6-06 ity of 24 hr 00:00: [place] capsule 00 Medical Branch hydrOXYzine 2-0 Yes [facility] s 50 mg 6-06 ity of capsule 00:00: [place] [facility] venlafaxine 2-0 Yes [facility] XR 150 mg 6-06 ity of 24 hr 00:00: [place] capsule 00 Medical Branch hydrOXYzine 2-0 Yes [facility] s 50 mg 6-06 ity of capsule 00:00: [place] 00 Medical Branch venlafaxine 2-0 Yes [facility] s XR 150 mg 6-06 ity of 24 hr 00:00: [place] capsule 00 Medical Branch hydrOXYzine 2-0 Yes [facility] s 50 mg 6-06 ity of capsule 00:00: [place] 00 Medical Branch venlafaxine 2-0 Yes [facility] s XR 150 mg 6-06 ity of 24 hr 00:00: [place] capsule 00 Medical Branch hydrOXYzine 2-0 Yes [facility] s 50 mg 6-06 ity of capsule 00:00: [place] 00 Medical Branch venlafaxine 2-0 Yes [facility] s XR 150 mg 6-06 ity of 24 hr 00:00: [place] capsule 00 Medical Branch hydrOXYzine 2-0 Yes [facility] s 50 mg 6-06 ity of capsule 00:00: [place] [facility] venlafaxine 2-0 Yes [facility] s XR 150 mg 6-06 ity of 24 hr 00:00: [place] capsule 00 Medical Branch hydrOXYzine 2-0 Yes [facility] s 50 mg 6-06 ity of capsule 00:00: [place] [facility] venlafaxine 2-0 Yes [facility] s XR 150 mg 6-06 ity of 24 hr 00:00: [place] capsule 00 Medical Branch hydrOXYzine 2-0 Yes [facility] s 50 mg 6-06 ity of capsule 00:00: [place] [facility] venlafaxine 2-0 Yes [facility] s XR 150 mg 6-06 ity of 24 hr 00:00: [place] capsule 00 Medical Branch hydrOXYzine 2-0 Yes [facility] s 50 mg 6-06 ity of capsule 00:00: [place] [facility] venlafaxine 2-0 Yes [facility] s XR 150 mg 6-06 ity of 24 hr 00:00: [place] capsule 00 Medical Branch hydrOXYzine 2-0 Yes [facility] s 50 mg 6-06 ity of capsule 00:00: [place] [facility] venlafaxine 2-0 Yes [facility] s XR 150 mg 6-06 ity of 24 hr 00:00: [place] capsule 00 Medical Branch hydrOXYzine 2-0 Yes [facility] s 50 mg 6-06 ity of capsule 00:00: [place] 00 Medical Branch venlafaxine 2-0 Yes Univer [...] hr 00:00: [place] capsule Medical Branch venlafaxine 2021-0 Yes [facility] s XR 150 mg 6-06 ity of 24 hr 00:00: [place] capsule Medical Branch venlafaxine 2021-0 Yes Univer s [...] hr 00:00: [place] capsule Medical Branch venlafaxine 2021-0 Yes [facility] s XR 150 mg 6-06 ity of 24 hr 00:00: [place] capsule Medical Branch venlafaxine 2021-0 Yes [facility] s XR 150 mg 6-06 ity of 24 hr 00:00: [place] capsule Medical Branch venlafaxine 2021-0 Yes [facility] s XR 150 mg 6-06 ity of 24 hr 00:00: [place] capsule Medical Branch venlafaxine 2021-0 Yes [facility] XR 150 mg 6-06 ity of 24 hr 00:00: [place] capsule Medical Branch venlafaxine 2021-0 Yes [facility] s XR 150 mg 6-06 ity of 24 hr 00:00: [place] capsule Medical Branch venlafaxine 2-0 Yes [facility] s XR 150 mg 6-06 ity of 24 hr 00:00: [place] capsule Medical Branch venlafaxine 2021-0 Yes Univer s [...] hr 00:00: [place] capsule Medical Branch venlafaxine 2021-0 Yes [facility] s XR 150 mg 6-06 ity of 24 hr 00:00: [place] capsule Medical Branch hydrOXYzine 2-0 3- No Unive rs 50 mg 6-06 02-06 ity of capsule 00:00: 00:00 [place] 00 :00 Medical Branch hydrOXYzine 2022-0 3- No [facility] 50 mg 03-30 ity of capsule 00:00: 00:00 [place] 00 :00 Medical Branch gabapentin 2022-0 2- No Univer s 400 mg 03-30 ity of capsule 00:00: 00:00 [place] 00 :00 Medical Branch clonazePAM 2022-0 Yes [facility] 1 mg tablet 5-13 ity of 00:00: [place] 00 Medical Branch clonazePAM 2022-0 Yes [facility] 1 mg tablet 5-13 ity of 00:00: [place] [address] Medical Branch clonazePAM 2022-0 Yes [facility] 1 mg tablet 5-13 ity of 00:00: [place] [address] [facility] Branch clonazePAM 2022-0 Yes [facility] 1 mg tablet 5-13 ity of 00:00: [place] [address] [facility] Branch clonazePAM 2022-0 Yes [facility] 1 mg tablet 5-13 ity of 00:00: [place] [address] [facility] Branch clonazePAM 2022-0 Yes [facility] 1 mg tablet 5-13 ity of 00:00: [place] [address] [facility] Branch clonazePAM 2022-0 Yes [facility] 1 mg tablet 5-13 ity of 00:00: [place] [address] [facility] Branch clonazePAM 2022-0 Yes [facility] 1 mg tablet 5-13 ity of 00:00: [place] [address] [facility] Branch clonazePAM 2022-0 Yes [facility] 1 mg tablet 5-13 ity of 00:00: [place] [address] [facility] Branch clonazePAM 2022-0 Yes [facility] 1 mg tablet 5-13 ity of 00:00: [place] [address] [facility] Branch clonazePAM 2022-0 Yes [facility] 1 mg tablet 5-13 ity of 00:00: [place] [address] [facility] Branch clonazePAM 2022-0 Yes [facility] 1 mg tablet 5-13 ity of 00:00: [place] [address] [facility] Branch clonazePAM 2022-0 2- No Univer s 1 mg tablet -07-29 ity of 00:00: 00:00 [place] 00 :00 Medical Branch clonazePAM 2022-0 2- No Univer s 1 mg tablet -13 07-29 ity of 00:00: 00:00 [place] 00 :00 Medical Branch gabapentin 2022-0 Yes [facility] 300 mg - ity of capsule 00:00: [place] [address] [facility] Branch gabapentin 2022-0 Yes [facility] 300 mg -09 ity of capsule 00:00: [place] 00 Medical Branch gabapentin 2022-0 Yes [facility] 300 mg 5-09 ity of capsule 00:00: [place] [address] [facility] Branch gabapentin 2022-0 Yes [facility] 300 mg 5-09 ity of capsule 00:00: [place] [address] [facility] Branch gabapentin 2022-0 Yes [facility] 300 mg 5-09 ity of capsule 00:00: [place] [address] [facility] Branch gabapentin 2022-0 Yes [facility] 300 mg 5-09 ity of capsule 00:00: [place] [address] [facility] Branch gabapentin 2022-0 Yes [facility] 300 mg 5-09 ity of capsule 00:00: [place] [address] [facility] Branch gabapentin 2022-0 Yes [facility] 300 mg 5-09 ity of capsule 00:00: [place] [address] [facility] Branch gabapentin 2022-0 Yes [facility] 300 mg 5-09 ity of capsule 00:00: [place] [address] [facility] Branch gabapentin 2022-0 Yes [facility] 300 mg 5-09 ity of capsule 00:00: [place] [address] [facility] Branch gabapentin 2022-0 Yes [facility] 300 mg 5-09 ity of capsule 00:00: [place] [address] [facility] Branch gabapentin 2022-0 Yes [facility] 300 mg 5-09 ity of capsule 00:00: [place] [address] [facility] Branch gabapentin 2022-0 2022- No Univer s 300 mg 5-09 10-05 ity of capsule 00:00: 00:00 [place] 00 :00 Medical Branch gabapentin 2022-0 2022- No Un[facility] s 300 mg 5-09 10-05 ity of capsule 00:00: 00:00 [place] 00 :00 Medical Branch FLUoxetine 2022-0 Yes [facility] 40 mg 5-06 ity of capsule 00:00: [place] [address] [facility] Branch QUEtiapine 2022-0 Yes [facility] 50 mg 5-06 ity of tablet 00:00: [place] [address] [facility] Branch FLUoxetine 2022-0 Yes [facility] 40 mg 5-06 ity of capsule 00:00: [place] [address] [facility] Branch QUEtiapine 2022-0 Yes [facility] 50 mg 5-06 ity of tablet 00:00: [place] [address] [facility] Branch FLUoxetine 2022-0 Yes [facility] 40 mg 5-06 ity of capsule 00:00: [place] [address] [facility] Branch QUEtiapine 2022-0 Yes [facility] 50 mg 5-06 ity of tablet 00:00: [place] [address] [facility] Branch FLUoxetine 2022-0 Yes [facility] 40 mg 5-06 ity of capsule 00:00: [place] [address] [facility] Branch QUEtiapine 2022-0 Yes [facility] 50 mg 5-06 ity of tablet 00:00: [place] 00 Medical Branch FLUoxetine 2022-0 Yes [facility] 40 mg 5-06 ity of capsule 00:00: [place] [address] [facility] Branch QUEtiapine 2022-0 Yes [facility] 50 mg 5-06 ity of tablet 00:00: [place] [address] [facility] Branch FLUoxetine 2022-0 Yes [facility] 40 mg 5-06 ity of capsule 00:00: [place] [address] [facility] Branch QUEtiapine 2022-0 Yes [facility] 50 mg 5-06 ity of tablet 00:00: [place] [address] [facility] Branch FLUoxetine 2022-0 Yes [facility] 40 mg 5-06 ity of capsule 00:00: [place] [address] [facility] Branch QUEtiapine 2022-0 Yes [facility] 50 mg 5-06 ity of tablet 00:00: [place] [address] [facility] Branch FLUoxetine 2022-0 Yes [facility] 40 mg 5-06 ity of capsule 00:00: [place] [address] [facility] Branch QUEtiapine 2022-0 Yes [facility] 50 mg 5-06 ity of tablet 00:00: [place] [address] [facility] Branch FLUoxetine 2022-0 Yes [facility] 40 mg 5-06 ity of capsule 00:00: [place] [address] [facility] Branch QUEtiapine 2022-0 Yes [facility] 50 mg 5-06 ity of tablet 00:00: [place] [address] [facility] Branch FLUoxetine 2022-0 Yes [facility] 40 mg 5-06 ity of capsule 00:00: [place] [address] [facility] Branch QUEtiapine 2022-0 Yes [facility] 50 mg 5-06 ity of tablet 00:00: [place] [address] [facility] Branch FLUoxetine 2022-0 Yes [facility] 40 mg 5-06 ity of capsule 00:00: [place] [address] [facility] Branch QUEtiapine 2022-0 Yes [facility] 50 mg 5-06 ity of tablet 00:00: [place] [address] [facility] Branch FLUoxetine 2022-0 Yes [facility] 40 mg 5-06 ity of capsule 00:00: [place] [address] [facility] Branch QUEtiapine 2022-0 Yes [facility] 50 mg 5-06 ity of tablet 00:00: [place] [address] [facility] Branch FLUoxetine 2022-0 2- No Un[facility] s 40 mg 5-06 10-05 ity of capsule 00:00: 00:00 [place] 00 :00 Medical Branch QUEtiapine 2022-0 2- No Un[facility] s 50 mg 5-06 10-05 ity of tablet 00:00: 00:00 [place] 00 :00 Medical Branch FLUoxetine 2022-0 2021- No Un[facility] s 40 mg 02-27- ity of capsule 00:00: 00:00 [place] 00 :00 Medical Branch QUEtiapine 2022-0 2021- No Un[facility] s 50 mg 02-27-05 ity of tablet 00:00: 00:00 [place] 00 :00 [facility] Branch cloNIDine 2-0 Yes [facility] 0.1 mg 4-22 ity of tablet 00:00: [place] [facility] cloNIDine 2022-0 Yes [facility] 0.1 mg 4-22 ity of tablet 00:00: [place] [facility] cloNIDine 2022-0 Yes [facility] 0.1 mg 4-22 ity of tablet 00:00: [place] [address] [facility] Branch cloNIDine 2022-0 Yes [facility] 0.1 mg 4-22 ity of tablet 00:00: [place] [address] [facility] Branch cloNIDine 2022-0 Yes [facility] 0.1 mg 4-22 ity of tablet 00:00: [place] [address] [facility] Branch cloNIDine 2022-0 Yes [facility] 0.1 mg 4-22 ity of tablet 00:00: [place] [address] [facility] Branch cloNIDine 2022-0 Yes [facility] 0.1 mg 4-22 ity of tablet 00:00: [place] [address] [facility] Branch cloNIDine 2022-0 Yes [facility] 0.1 mg 4-22 ity of tablet 00:00: [place] [address] [facility] Branch cloNIDine 2022-0 Yes [facility] 0.1 mg 4-22 ity of tablet 00:00: [place] [address] [facility] Branch cloNIDine 2022-0 Yes [facility] 0.1 mg 4-22 ity of tablet 00:00: [place] [address] [facility] Branch cloNIDine 2022-0 Yes [facility] 0.1 mg 4-22 ity of tablet 00:00: [place] [address] [facility] Branch cloNIDine 2022-0 Yes [facility] 0.1 mg 4-22 ity of tablet 00:00: [place] [id number] [facility] Branch cloNIDine 2022-0 2- No Univers 0.1 mg 4-22 -05 ity of tablet 00:00: 00:00 [place] 00 :00 Medical Branch cloNIDine 2022-0 2021- No Univers 0.1 mg 4-22 -05 ity of tablet 00:00: 00:00 [place] 00 :00 Medical Branch Immunizations Ordered Filled Immunization Date Status Comments Sour e Immunization Name Name Influenza Virus 2020-08-08 Completed Universit y of Vaccine Quad .5 mL 00:00:00 [facility] 6+ MO Branch Influenza Virus 2020-08-08 Completed [...] y of Vaccine Quad .5 mL 00:00:00 [place] [facility] 6+ MO Branch Influenza Virus [...] y of Vaccine Quad .5 mL 00:00:00 [place] [facility] 6+ MO Branch Influenza Virus [...] Universit y of Vaccine Quad IM 00:00:00 [place] Med ical Multi-dose 6+ MO Branch Influenza Virus 2018-08-01 Completed Universit y of Vaccine Quad IM 00:00:00 [place] Med ical Multi-dose 6+ MO Branch TDAP 2012-12-23 Completed University of 00:00:00 [facility] TDAP 2012-12-23 Completed University of 00:00:00 [facility] TDAP 2012-12-23 Completed University of 00:00:00 [facility] TDAP 2012-12-23 Completed University of 00:00:00 [facility] TDAP 2012-12-23 Completed University of 00:00:00 [facility] TDAP 2012-12-23 Completed University of 00:00:00 [facility] TDAP 2012-12-23 Completed University of 00:00:00 [facility] TDAP 2012-12-23 Completed University of 00:00:00 [facility] TDAP 2012-12-23 Completed University of 00:00:00 [facility] TDAP 2012-12-23 Completed University of 00:00:00 [facility] TDAP 2012-12-23 Completed University of 00:00:00 [facility] TDAP 2012-12-23 Completed University of 00:00:00 [facility] TDAP 2012-12-23 Completed University of 00:00:00 [facility] TDAP 2012-12-23 Completed University of 00:00:00 [facility] TDAP 2012-12-23 Completed University of 00:00:00 [facility] TDAP 2012-12-23 Completed University of 00:00:00 [facility] TDAP 2012-12-23 Completed University of 00:00:00 [facility] TDAP 2012-12-23 Completed University of 00:00:00 [facility] TDAP 2012-12-23 Completed University of 00:00:00 [facility] TDAP 2012-12-23 Completed University of 00:00:00 [facility] TDAP 2012-12-23 Completed University of 00:00:00 [facility] TDAP 2012-12-23 Completed University of 00:00:00 [facility] TDAP 2012-12-23 Completed University of 00:00:00 [facility] TDAP 2012-12-23 Completed University of 00:00:00 [facility] TDAP 2012-12-23 Completed University of 00:00:00 [facility] TDAP 2012-12-23 Completed University of 00:00:00 [place] [facility] TDAP 2012-12-23 Completed University of 00:00:00 [place] [facility] TDAP 2012-12-23 Completed University of 00:00:00 [place] [facility] TDAP 2012-12-23 Completed University of 00:00:00 [place] [facility] TDAP 2012-12-23 Completed University of 00:00:00 [place] [facility] TDAP 2012-12-23 Completed University of 00:00:00 [place] [facility] TDAP 2012-12-23 Completed University of 00:00:00 [place] [facility] TDAP 2012-12-23 Completed University of 00:00:00 [place] [facility] TDAP 2012-12-23 Completed University of 00:00:00 [place] [facility] TDAP 2012-12-23 Completed University of 00:00:00 [place] [facility] TDAP 2012-12-23 Completed University of 00:00:00 [place] [facility] TDAP 2012-12-23 Completed University of 00:00:00 [facility] Branch TDAP 2012-12-23 Completed University of 00:00:00 [facility] Branch TDAP 2012-12-23 Completed University of 00:00:00 [place] [facility] TDAP 2012-12-23 Completed University of 00:00:00 [facility] Branch TDAP 2012-12-23 Completed University of 00:00:00 [place] [facility] TDAP 2012-12-23 Completed University of 00:00:00 [facility] Branch TDAP 2012-12-23 Completed University of 00:00:00 [facility] Branch TDAP 2012-12-23 Completed University of 00:00:00 [facility] Branch TDAP 2012-12-23 Completed University of 00:00:00 [place] [facility] TDAP 2012-12-23 Completed University of 00:00:00 [place] [facility] TDAP 2012-12-23 Completed University of 00:00:00 [place] [facility] TDAP 2012-12-23 Completed University of 00:00:00 [place] [facility] TDAP 2012-12-23 Completed University of 00:00:00 [place] [facility] TDAP 2012-12-23 Completed University of 00:00:00 [place] [facility] TDAP 2012-12-23 Completed University of 00:00:00 [facility] Branch TDAP 2012-12-23 Completed University of 00:00:00 [place] [facility] TDAP 2012-12-23 Completed University of 00:00:00 [place] [facility] TDAP 2012-12-23 Completed University of 00:00:00 [place] [facility] TDAP 2012-12-23 Completed University of 00:00:00 [place] [facility] TDAP 2012-12-23 Completed University of 00:00:00 [place] [facility] TDAP 2012-12-23 Completed University of 00:00:00 [place] [facility] TDAP 2012-12-23 Completed University of 00:00:00 [place] [facility] TDAP 2012-12-23 Completed University of 00:00:00 [place] [facility] TDAP 2012-12-23 Completed University of 00:00:00 [place] [facility] TDAP 2012-12-23 Completed University of 00:00:00 [place] [facility] TDAP 2012-12-23 Completed University of 00:00:00 [place] [facility] TDAP 2012-12-23 Completed University of 00:00:00 [place] [facility] TDAP 2012-12-23 Completed University of 00:00:00 [place] [facility] TDAP 2012-12-23 Completed University of 00:00:00 [place] [facility] TDAP 2012-12-23 Completed University of 00:00:00 [place] [facility] TDAP 2012-12-23 Completed University of 00:00:00 [place] [facility] TDAP 2012-12-23 Completed University of 00:00:00 [place] [facility] TDAP 2012-12-23 Completed University of 00:00:00 [place] [facility] TDAP 2012-12-23 Completed University of 00:00:00 [place] [facility] TDAP 2012-12-23 Completed University of 00:00:00 [place] [facility] TDAP 2012-12-23 Completed University of 00:00:00 [place] [facility] TDAP 2012-12-23 Completed University of 00:00:00 [place] [facility] TDAP 2012-12-23 Completed University of 00:00:00 [place] [facility] TDAP 2012-12-23 Completed University of 00:00:00 [place] [facility] TDAP 2012-12-23 Completed University of 00:00:00 [place] [facility] TDAP 2012-12-23 Completed University of 00:00:00 [place] [facility] TDAP 2012-12-23 Completed University of 00:00:00 [place] [facility] TDAP 2012-12-23 Completed University of 00:00:00 [place] [facility] TDAP 2012-12-23 Completed University of 00:00:00 [place] [facility] TDAP 2012-12-23 Completed University of 00:00:00 [place] [facility] TDAP 2012-12-23 Completed University of 00:00:00 [facility] TDAP 2012-12-23 Completed University of 00:00:00 [facility] TDAP 2012-12-23 Completed University of 00:00:00 [facility] TDAP 2012-12-23 Completed University of 00:00:00 [facility] Vital Signs Vital Name Observation Time Observation Value Comments Source Systolic blood 2023-03-27 131 mm[Hg] University of pressure 18:58:00 [facility] Diastolic blood 2023-03-27 84 mm[Hg] University o f pressure 18:58:00 [facility] Heart rate 2023-03-27 94 /min University of 18:58:00 [facility] Body temperature 2023-03-27 37.06 Jacqui University of 18:58:00 [facility] Respiratory rate 2023-03-27 18 /min University of 18:58:00 [facility] Body weight 2023-03-27 107.531 kg University of 18:58:00 [facility] BMI 2023-03-27 38.26 kg/m2 University of 18:58:00 [facility] Oxygen saturation 2023-03-27 99 /min [facility] Arterial blood 18:58:00 [facility] by Pulse oximetry [place] Body height 2023-03-15 167.6 cm University of 19:03:00 [facility] Body weight 2023-03-15 108.41 kg University of 19:03:00 [facility] BMI 2023-03-15 38.58 kg/m2 University of 19:03:00 [facility] Systolic blood 2023-03-05 128 mm[Hg] University of pressure 17:55:00 [facility] Diastolic blood 2023-03-05 81 mm[Hg] University o f pressure 17:55:00 [facility] Heart rate 2023-03-05 100 /min University of 17:35:00 [facility] Body temperature 2023-03-05 37 Jacqui University of 17:35:00 [facility] Body weight 2023-03-05 109.77 kg University of 17:35:00 [facility] BMI 2023-03-05 39.06 kg/m2 University of 17:35:00 [facility] Systolic blood 2023-02-26 130 mm[Hg] University of pressure 18:17:00 [facility] Diastolic blood 2023-02-26 90 mm[Hg] University o f pressure 18:17:00 [facility] Heart rate 2023-02-26 88 /min University of 18:17:00 [facility] Body temperature 2023-02-26 37 Jacqui University of 18:17:00 [facility] Respiratory rate 2023-02-26 18 /min University of 18:17:00 [facility] Body height 2023-02-26 167.6 cm University of 18:17:00 [facility] Body weight 2023-02-26 108.863 kg University of 18:17:00 [facility] BMI 2023-02-26 38.74 kg/m2 University of 18:17:00 [facility] Oxygen saturation 2023-02-26 100 /min University of in Arterial blood 18:17:00 [facility] by Pulse oximetry Branch Body temperature 2023-02-22 36.67 Jacqui University of 18:22:00 [facility] Body height 2023-02-22 167.6 cm University of 18:22:00 [facility] Body weight 2023-02-22 108.863 kg University of 18:22:00 [facility] BMI 2023-02-22 38.74 kg/m2 University of 18:22:00 [facility] Systolic blood 2023-01-12 133 mm[Hg] University of pressure 16:01:00 [facility] Diastolic blood 2023-01-12 76 mm[Hg] University o f pressure 16:01:00 [facility] Heart rate 2023-01-12 80 /min University of 16:01:00 [facility] Body height 2023-01-12 167.6 cm University of 16:01:00 [facility] Body weight 2023-01-12 112.9 kg University of 16:01:00 [facility] BMI 2023-01-12 40.17 kg/m2 University of 16:01:00 [facility] Oxygen saturation 2023-01-12 97 /min University of in Arterial blood 16:01:00 [facility] by Pulse oximetry Branch Body temperature 2022-12-21 36.39 Jacqui University of 14:43:00 [facility] Body height 2022-12-21 167.6 cm University of 14:43:00 [facility] Body weight 2022-12-21 112.764 kg University of 14:43:00 [facility] BMI 2022-12-21 40.13 kg/m2 University of 14:43:00 [facility] Systolic blood 2022-12-07 163 mm[Hg] pt expressed University of pressure 19:02:00 she is [facility] extremely Branch nervous Diastolic blood 2022-12-07 76 mm[Hg] pt expressed University o f pressure 19:02:00 she is [facility] extremely [place] nervous Heart rate 2022-12-07 112 /min University of 19:02:00 [facility] Body height 2022-12-07 167.6 cm University of 19:02:00 [facility] Body weight 2022-12-07 112.038 kg University of 19:02:00 [facility] BMI 2022-12-07 39.87 kg/m2 University of 19:02:00 [facility] Systolic blood 2022-11-30 125 mm[Hg] University of pressure 14:45:00 [facility] Diastolic blood 2022-11-30 78 mm[Hg] University o f pressure 14:45:00 [facility] Heart rate 2022-11-30 80 /min University of 14:45:00 [facility] Body height 2022-11-30 167.6 cm University of 14:45:00 [facility] Body weight 2022-11-30 112.038 kg University of 14:45:00 [facility] BMI 2022-11-30 39.87 kg/m2 University of 14:45:00 [facility] Oxygen saturation 2022-11-30 97 /min University of in Arterial blood 14:45:00 [facility] juice by Pulse oximetry Branch Systolic blood 2022-11-10 133 mm[Hg] University of pressure 21:53:00 [facility] Diastolic blood 2022-11-10 77 mm[Hg] University o f pressure 21:53:00 [facility] Heart rate 2022-11-10 80 /min University of 21:53:00 [facility] Body height 2022-11-10 167.6 cm University of 21:53:00 [facility] Body weight 2022-11-10 112.946 kg University of 21:53:00 [facility] BMI 2022-11-10 40.19 kg/m2 University of 21:53:00 [facility] Oxygen saturation 2022-11-10 96 /min University of in Arterial blood 21:53:00 [place] [facility] by Pulse oximetry Branch Systolic blood 2022-10-07 124 mm[Hg] University of pressure 20:41:00 [place] [facility] Diastolic blood 2022-10-07 74 mm[Hg] University o f pressure 20:41:00 [facility] Branch Heart rate 2022-10-07 71 /min University of 20:41:00 [facility] Body temperature 2022-10-07 36.94 Jacqui University of 20:41:00 [facility] Branch Body height 2022-10-07 167.6 cm University of 20:41:00 [facility] Branch Body weight 2022-10-07 109.317 kg University of 20:41:00 [facility] BMI 2022-10-07 38.90 kg/m2 University of 20:41:00 [facility] Oxygen saturation 2022-10-07 100 /min University of in Arterial blood 20:41:00 [facility] juice by Pulse oximetry Branch Systolic blood 2022-07-29 109 mm[Hg] University of pressure 13:40:00 [facility] Branch Diastolic blood 2022-07-29 67 mm[Hg] University o f pressure 13:40:00 [facility] Branch Heart rate 2022-07-29 84 /min University of 13:40:00 [facility] Body temperature 2022-07-29 36.89 Jacqiu University of 13:40:00 [facility] Branch Body height 2022-07-29 167.6 cm University of 13:40:00 [facility] Body weight 2022-07-29 107.956 kg University of 13:40:00 [facility] BMI 2022-07-29 38.41 kg/m2 University of 13:40:00 [facility] Branch Oxygen saturation 2022-07-29 98 /min University of in Arterial blood 13:40:00 [facility] juice by Pulse oximetry Branch Systolic blood 2022-07-22 128 mm[Hg] University of pressure 19:35:00 [facility] Branch Diastolic blood 2022-07-22 79 mm[Hg] University o f pressure 19:35:00 [facility] Branch Heart rate 2022-07-22 86 /min University of 19:35:00 [facility] Branch Respiratory rate 2022-07-22 19 /min University of 19:35:00 [facility] Branch Body height 2022-07-22 167.6 cm University of 19:35:00 [facility] Body weight 2022-07-22 108.228 kg University of 19:35:00 [facility] BMI 2022-07-22 38.51 kg/m2 University of 19:35:00 [facility] Oxygen saturation 2022-07-22 96 /min University of in Arterial blood 19:35:00 [facility] juice by Pulse oximetry Branch Systolic blood 2022-07-14 122 mm[Hg] University of pressure 21:34:00 [facility] Diastolic blood 2022-07-14 80 mm[Hg] University o f pressure 21:34:00 [facility] Heart rate 2022-07-14 88 /min University 21:34:00 [facility] Body temperature 2022-07-14 37.33 Jacqui University 21:34:00 [facility] Respiratory rate 2022-07-14 16 /min University 21:34:00 [facility] Body height 2022-07-14 167.6 cm University of 21:34:00 [facility] Body weight 2022-07-14 107.094 kg University of 21:34:00 [facility] BMI 2022-07-14 38.11 kg/m2 University of 21:34:00 [facility] Oxygen saturation 2022-07-14 98 /min [facility] in Arterial blood 21:34:00 [facility] by Pulse oximetry Branch Systolic blood 2022-07-13 134 mm[Hg] University of pressure 14:14:00 [facility] Diastolic blood 2022-07-13 78 mm[Hg] University o f pressure 14:14:00 [facility] Heart rate 2022-07-13 81 /min University 14:14:00 [facility] Respiratory rate 2022-07-13 18 /min University 14:14:00 [facility] Body height 2022-07-13 167.6 cm University 14:14:00 [facility] Body weight 2022-07-13 108.41 kg University 14:14:00 [facility] BMI 2022-07-13 38.58 kg/m2 University 14:14:00 [facility] Procedures Procedure Date / Time Performing Clinician Source Performed CT TEMPORAL BONES WO 2023-03-19 16:02:23 [facility] [place] [facility] MEDICATION CORRESPONDENCE 2023-03-16 05:01:00 Doctor Unassigned, [facility] [place] [facility] ASSIGNMENT OF BENEFITS 2023-02-26 19:17:39 [facility] [place] [facility] CONSENT/REFUSAL FOR 2023-02-26 18:01:18 [facility] DIAGNOSIS AND TREATMENT [place] [facility] AUDIOLOGY VESTIBULAR 2023-02-08 05:01:00 Doctor Iglesia, [facility] (SOURCE DATA) [place] [facility] EXTERNAL PROVIDER RECORDS 2022-12-29 06:01:00 Doctor Iglesia, [facility] [place] [facility] PATIENT FINANCIAL 2022-12-21 14:32:41 Doctor Iglesia, Un [facility] POLICY [place] [facility] XR SPINE THORACIC 2 VW 2022-11-16 14:44:00 Sammy Chester [facility] Medical [place] CT HEAD WO CONTRAST 2022-10-20 15:00:19 Kalpana Godwin [facility] Medical [place] CONSENT/REFUSAL FOR 2022-10-20 14:33:05 Doctor [facility]kh [facility] DIAGNOSIS AND TREATMENT [place] [facility] ASSIGNMENT OF BENEFITS 2022-10-20 14:32:49 Doctor Parekh, Noah [facility] [place] [facility] MAGNESIUM 2022-10-07 21:16:00 Kalpana Godwin [facility] Medical Branch FOLATE 2022-10-07 21:16:00 Citlali [facility] C-REACTIVE PROTEIN 2022-10-07 21:16:00 Kalpana Godwin [facility] Medical [place] COMP. METABOLIC PANEL 2022-10-07 21:16:[address] [facility] ([id number]) Medical Branch SEDIMENTATION RATE 2022-10-07 21:16:00 Citlali Kalpana [facility] CT ABDOMEN PELVIS W WO 2022-07-20 14:11:00 Marla [facility] CONTRAST Medical Branch CONSENT/REFUSAL FOR 2022-07-20 13:11:01 Doctor [facility] DIAGNOSIS AND TREATMENT [place] [facility] CONSENT/REFUSAL FOR 2022-07-20 13:10:49 Doctor [facility]kh [facility] DIAGNOSIS AND TREATMENT [place] [facility] ASSIGNMENT OF BENEFITS 2022-07-20 13:10:34 Doctor Unassigned, Un [facility] [place] [facility] ASSIGNMENT OF BENEFITS 2022-07-20 13:10:16 Doctor [facility]assigned, [facility] [place] [facility] FERRITIN SERUM 2022-07-13 14:59:00 Selene [facility] IRON 2022-07-13 14:59:00 Selene [facility] TOTAL IRON BINDING 2022-07-13 14:59:00 Maral Morton [facility] CAPACITY [facility] THYROID STIMULATING 2022-07-13 14:59:00 Marla Morton [facility] HORMONE [facility] ALPHA FETOPROTEIN 2022-07-13 14:59:00 Selene [facility] PROTHROMBIN TIME / INR 2022-07-13 14:59:00 Marla [facility] [id number] 2022-07-13 14:59:00 Selene [facility] IMMUNOGLOBULIN G 2022-07-13 14:59:00 Selene [facility] SLEEP STUDY DATA REPORT 2022-07-10 05:01:00 Doctor Unassigned, [facility] [place] [facility] [place] Encounters Start End Encounter Admission Attending Care Care Encounter Source Date/Time Date/Time Type Type Clinicians Facility Department ID 2021-08-24 Emergency [facility] [id number] Univers 18:53:25 ity of [facility] 2021-08-23 Emergency [facility] [id number] Univers 21:38:34 ity of [facility] 2021-08-21 Emergency [facility] [id number] Univers 19:02:28 ity of [facility] 2023-03-27 2023-03-27 Nurse Nurse, [facility] [id number] Univers 14:00:00 14:20:00 Visit Unknown, Attending HEALTH [id number] ity of [place] [id number] Yair as JONNATHAN?BLEA [id number] In dicjaqu[place] [address] MEDICAL OFFICE BUILDING 2023-03-27 2023-03-27 Outpatient R UNKNOWN, [facility] [id number] Univers 14:00:00 14:00:00 ATTENDING ity [facility] 2023-03-27 2023-03-27 Outpatient R HEIDI, [facility] [id number] Univers 14:00:00 14:00:00 ATTENDING ity of [facility] 2023-03-23 2023-03-23 Patient [place] [facility] [id number] Univers 00:00:00 00:00:00 Secure Msg Pablo DAVIS [id number] ity of [facility] [id number] [place] [id number] [facility] [address] [place] 2023-03-19 2023-03-19 Outpatient R [place] [facility] [id number] Univers 10:29:12 23:59:00 PABLO ity [facility] 2023-03-19 2023-03-[address] [facility] [id number] Univers 10:29:12 23:59:00 Encounter Pablo MCCONNELLVENTURA [id number] ity of [place] [id number] [facility] [id number] [facility] 801 Branch 2023-03-16 2023-03-16 Orders Doctor RUI [id number] Univers 00:00:00 00:00:00 Only Unassigned, [place] [id number] ity of [place] [facility] 4.2.7.2.686 Yair as [id number] [facility] [address] 2023-03-15 2023-03-15 [facility] [id number] Univers 14:00:00 14:46:[address] [facility] 2023-03-15 2023-03-[address] [facility] 1.2.840.114 [id number] Univers 14:00:00 14:46:21 Visit Pablo DAVIS 350.1.13.10 i ty of [facility] 4.2.[place].2.[place] [phone] Medi [address] 2023-03-05 2023-03-05 [facility] [id number] Univers 12:30:00 15:12:07 LOLA melendrez [facility] 2023-03-05 2023-03-05 [facility] 1.2.840.114 [id number] Univers 12:30:00 15:12:07 Visit Lola Enriquez [facility] 350.1.13.10 i ty of [facility] 4.2.7.2.686 Yair as JONNATHAN?BLEA [phone] [address] MEDICAL OFFICE BUILDING 2023-03-05 2023-03-[address] [facility] 1.2.840.114 1 [id number] Univers 00:00:00 00:00:00 Pablo RYAN 350.1.13.10 i ty of [facility] 4.[place].7.2.[place] [phone] [address] 2023-02-26 2023-02-26 Emergency X TRANG, [facility] ERT [id number] Univers 13:18:00 14:33:00 SHAHEED melendrez [facility] 2023-02-26 2023-02-26 Emergency [facility] 1.2.840.114 10 [id number] Univers 13:18:00 14:33:00 Shaheed MORSE 350.1.13.10 i ty [facility] 4.2.7.2.686 [place] [facility] [phone] [facility] [address] 2023-02-26 2023-02-[address] [facility] 1.2.840.114 1 [id number] Univers 00:00:00 00:00:00 Pablo RYAN 350.1.13.10 i [place] [phone] [address] 2023-02-26 2023-02-[address] [facility] 1.2.840.114 102 [id number] Univers 00:00:00 00:00:00 Secure Msg Pablo RYAN 350.1.13.10 ity of [place]2.[place] [id number] [facility] [address] 2023-02-22 2023-02-22 Office Alta [facility] 1.2.840.114 101 [id number] Univers 13:30:00 14:00:00 Visit Pablo DAVIS 350.1.13.10 i [place] of [place]2.[place] [id number] [facility] [address] 2023-02-22 2023-02-22 [facility] [id number] Univers 13:30:00 13:30:00 PABLO itindra [facility] 2023-02-22 2023-02-22 Telephone WinnieFormerly [facility] 1.2.840.114 1 [id number] Univers 00:00:00 00:00:00 Pablobrady SLOANY 350.1.13.10 i ty of [facility] 4.2.7.2.[place] [id number] [facility] [address] 2023-02-08 2023-02-08 Ancillary Lola Feliz [facility] 1.2.840. 114 [id number] Univers 10:00:00 12:00:00 Visit Eleanor Headley 350.1.13.1 0 ity of [place] 4.[place].7.2.[place] [id number] [facility] [address] 2023-02-08 2023-02-08 [facility] [id number] Univers 10:00:00 10:00:00 ELEANOR melendrez [facility] 2023-02-08 2023-02-08 Ancillary Leia Marie [facility] 1.2 .840.114 [id number] Univers 09:00:00 09:45:00 Visit Sheri [employer] RYAN 350. 1.13.10 ity of Eleanor Headley Bettye [place] 4.2.7.2.686 [place] [id number] [facility] [address] 2023-02-08 2023-02-08 Orders Doctor FABIAN 1.2.840.114 [id number] Univers 00:00:00 00:00:00 Only Unassigned, RILEY 350.1.13.10 ity of [place] [facility] 4.2.7.2.686 Yair as [phone] [address] 2023-01-18 2023-01-18 [employer] Mehrdad [facility] Main [facility] 1.2.8 40.114 [id number] Univers 07:45:00 08:00:00 Visit Kalpana Godwin [place] 350.1.13.10 ity of [place] 4.2.7.2.686 [place] [id number] [address] 2023-01-18 2023-01-18 Outpatient R [facility] [id number] Univers 07:45:00 07:45:00 KALPANA melendrez [facility] 2023-01-12 2023-01-12 [employer] Lab, Ang - Db [facility] 1.2.840.1 14 [id number] Univers 11:30:00 12:21:42 Visit Rickzoe Kalpana MAURICIO 350.1.13.10 ity of [place] 4.2.7.2.686 Yair as JONNATHAN?BLEA [id number] [address] MEDICAL OFFICE [facility] 2023-01-12 2023-01-12 Outpatient R [facility] [id number] Univers 11:00:00 11:23:55 KALPANA melendrez [facility] 2023-01-12 2023-01-12 Office [facility] 1.2.840.114 [id number] Univers 11:00:00 11:23:55 Visit Kalpana MAURICIO 350.1.13.10 it y of [place] 4.2.7.2.686 [place]air as JONNATHAN?BLEA [id number] [address] OFFICE [facility] 2023-01-06 2023-01-06 Telephone Citlali [facility] 1.2.129.355 [id number] Univers 00:00:00 00:00:00 Kalpana HEALTH 350.1.13.10 it y of [place] 4.2.7.2.686 Yair as JONNATHAN?BLEA [id number] [address] MEDICAL OFFICE [facility] 2022-12-29 2022-12-29 Orders Doctor RUI 1.2.840.114 [id number] Univers 00:00:00 00:00:00 Only Unassigned, RILEY 350.1.13.10 ity of [place] [facility] 4.2.7.2.686 Yair as [id number] [facility] [address] 2022-12-21 2022-12-21 Office [facility] 1.2.840.114 [id number] Univers 08:45:00 09:15:00 Visit Caitlyn DAVIS 350.1.13.10 i ty of [facility] 4.2.7.2.[place] [id number] [facility] [address] 2022-12-21 2022-12-21 Outpatient [facility] [id number] Univers 08:45:00 08:45:00 [facility] 2022-12-21 2022-12-21 Orders Doctor RUI 1.2.840.114 [id number] Univers 00:00:00 00:00:00 Only Unassigned, RILEY 350.1.13.10 ity of [place] H[facility]PITAL 4.2.7.2.686 Yair as [phone] [address] 2022-12-08 2022-12-08 Telephone [facility] 1.2.523.157 [id number] Univers 00:00:00 00:00:00 [facility] 350.1.13.10 it y of [facility] 4.2.7.2.686 Yair as JONNATHAN?BLEA [phone] [facility] [address] MEDICAL OFFICE [facility] 2022-12-07 2022-12-07 Outpatient R TANVIR [facility] [id number] Univers 13:30:00 13:36:[address] [facility] 2022-12-07 2022-12-07 Office [facility] 1.2.840.114 [id number] Univers 13:30:00 13:36:31 Visit [facility] 350.1.13.10 it y of [facility] 4.2.7.2.686 Yair as JONNATHAN?BLEA [id number] [facility] [address] MEDICAL OFFICE BUILDING 2022-11-302022-11-30 Outpatient Rei NEMOSAMMY WU [facility] [id number] Univers 08:40:00 10:22:01 SAMMY CHESTERindra [facility] 2022-11-30 2022-11-30 [facility] 1.2.840.114 [id number] Univers 08:40:00 10:22:01 Visit [facility] 350.1.13.10 ity of [place] 4.2.7.2.686 Yair as JONNATHAN?BLEA [id number] [address] 2022-11-30 2022-11-30 Telephone [facility] 1.2.840.114 100 [id number] Univers 00:00:00 00:00:00 Sammy [facility] 350.1.13.10 ity of [place] 4.2.7.2.686 Yair as JONNATHAN?BLEA [phone] [facility] 2022-11-30 2022-11-30 [place] [facility] 1.2.840.114 100 [id number] Univers 00:00:00 00:00:00 Sammy [facility] 350.1.13.10 ity of [facility] 4.2.7.2.686 [place]air as JONNATHAN?BLEA [phone] [address] 2022-11-16 2022-11-16 Outpatient Rei NEMOSAMMY WU [facility] [id number] Univers 08:19:44 23:59:00 SAMMY CHESTER [facility] 2022-11-16 2022-11-16 [employer] [facility] [employer] [facility] 1.2.535.013 [id number] Univers 08:19:44 23:59:00 Encounter Sammy Jacobson [place] 350.1.13.10 ity of [place] 4.2.7.2.686 [place] [id number] [address] 2022-11-10 2022-11-10 Outpatient Rei DANIELSONSAMMY Segovia [facility] [id number] Univers 15:40:00 16:42:14 SAMMY CHESTER [facility] 2022-11-10 2022-11-10 Office Nemo [facility] 1.2.840.114 [id number] Univers 15:40:00 16:42:14 Visit Sammy MAURICIO 350.1.13.10 ity of [place] 4.2.7.2.686 Yair as JONNATHAN?BLEA [id number] In cyril PEREZ [address] MEDICAL OFFICE [facility] 2022-10-20 2022-10-20 Outpatient R CITLALI [facility] [id number] Univers 08:34:03 23:59:00 KALPANA tamikoindra [facility] 2022-10-20 2022-10-20 Hospital [facility] 1.2.840.114 [id number] Univers 08:34:03 23:59:00 Encounter Kalpana MORSE 350.1.13.10 ity of [place] 4.2.7.2.686 [place] [id number] [address] 2022-10-20 2022-10-20 Telephone Citlali [facility] 1.2.639.806 [id number] Univers 00:00:00 00:00:00 Kalpana [employer] 350.1.13.10 it y of [facility] 4.2.7.2.686 Yair as JONNATHAN?BLEA [phone] In cyril PEREZ [address] MEDICAL OFFICE [facility] 2022-10-09 2022-10-09 Patient Doctor [facility] 1.2.840.114 [id number] Univers 00:00:00 00:00:00 Secure Msg Unassigned, HEALTH 350.1.13.10 ity of [place] 4.2.7.2.686 Yair as JONNATHAN?BLEA 737.9359055 In cyril PEREZ [address] MEDICAL OFFICE [facility] 2022-10-07 2022-10-07 Outpatient R CITLALI [facility] [id number] Univers 15:17:02 23:59:00 KALPANA parvin [facility] 2022-10-07 2022-10-07 [employer] Lab, Ang - Db [facility] 1.2.840.1 14 [id number] Univers 15:15:00 15:17:12 Visit Citlali Kalpana LULY 350.1.13.10 ity of [place] 4.2.7.2.686 Yair as JONNATHAN?BLEA [phone] In dicjaquan PEREZ [address] MEDICAL OFFICE BUILDING 2022-10-07 2022-10-07 Office [facility] 1.2.840.114 [id number] Univers 14:30:00 15:10:32 Visit Kalpana HEALTH 350.1.13.10 it y of [facility] 4.2.7.2.686 Yair as JONNATHAN?BLEA [id number] In dicjaquan PEREZ [address] MEDICAL OFFICE [facility] 2022-10-02 2022-10-02 Telephone Drew [facility] 1.2.840.114 [id number] Univers 00:00:00 00:00:00 Strarubenl T [place] 350.1.13.10 ity of [place] 4.2.7.2.686 [place] [phone] In dicjaquan NAL 085 [facility] 2022-08-01 2022-08-01 Nurse Christiana Calle 1.2.840.114 [id number] Univers 00:00:00 00:00:00 Triage [place] 350.1.13.10 it y of HOSPITAL 4.2.7.2.686 Yair as [id number] [address] 2022-08-01 2022-08-01 Telephone [facility] 1.2.555.504 [id number] [id number] Univers 00:00:00 00:00:00 Kalpana HEALTH 350.1.13.10 it y of [facility] 4.2.7.2.686 Yair as JONNATHAN?BLEA [id number] In dicjaquan PEREZ [address] [place] [address] OFFICE [facility] 2022-07-29 2022-07-29 [facility] 1.2.840.114 [id number] Univers 08:30:00 09:00:00 Visit Kalpana HEALTH 350.1.13.10 it y of [facility] 4.2.7.2.686 Yair as JONNATHAN?BLEA [id number] In dicjaquan PEREZ [address] MEDICAL OFFICE [facility] 2022-07-29 2022-07-29 Outpatient R CITLALI [facility] [id number] Univers 08:30:00 08:30:00 KALPANA ity of [facility] 2022-07-29 2022-07-29 Patient Doctor RUI 1.2.840.114 [id number] Univers 00:00:00 00:00:00 Secure Msg Unassigned, RILEY 350.1.13.10 ity of [facility] 4.2.7.2.686 Yair as [id number] [address] 2022-07-29 2022-07-29 Telephone [facility] 1.2.840.114 97 [id number] Univers 00:00:00 00:00:00 Strahil T [place] 350.1.13.10 ity of [place] 4.2.7.2.686 [place] [id number] In dic[address] 2022-07-27 2022-07-27 Outpatient R KATHY BUCKLEY [facility] 10 [id number] Univers 10:30:00 10:30:00 KATHY BUCKLEY i ty [facility] 2022-07-27 2022-07-27 Outpatient R KATHY BUCKLEY [facility] 10 [id number] Univers 10:30:00 10:30:00 KATHY BUCKLEY i ty of [facility] 2022-07-27 2022-07-27 Outpatient R KATHY BUCKLEY [facility] 10 [id number] Univers 10:30:00 10:30:00 KATHY BUCKLEY i ty of [facility] 2022-07-27 2022-07-27 Outpatient R KATHY BUCKLEY [facility] 10 [id number] Univers 10:30:00 10:30:00 KATHY BUCKLEY i ty [facility] 2022-07-23 2022-07-23 [facility] 1.2.840.114 97 [id number] Univers 00:00:00 00:00:00 Strahil T [place] 350.1.13.10 ity of [place] 4.2.7.2.[place] [phone] In dic[address] 2022-07-22 2022-07-22 Outpatient R ALBERT RUSSELL [facility] [id number] Univers 14:20:00 16:08:11 ATAABIOLA FOOTEL ity of [facility] 2022-07-22 2022-07-22 Office [facility] 1.2.403.621 [id number] Univers 14:20:00 14:40:00 Visit Albert Eusebio [place] 350.1.13.[address] [facility] 4.2.7.2.[place] [phone] In dical [address] 2022-07-22 2022-07-22 Telephone [facility] 1.2.840.114 97 [id number] Univers 00:00:00 00:00:00 Strakamari Eusebio MULTISPEC 350.1.13.10 ity of [facility] 4.2.7.2.686 [place] [id number] [address] [facility] 2022-07-20 2022-07-20 Outpatient R SELENE [facility] [id number] Univers 08:11:16 23:59:00 MRALA ity [facility] 2022-07-20 2022-07-20 Hospital [facility] 1.2.840.114 [id number] Univers 08:11:16 23:59:00 Encounter Marla MORSE 350.1.13.10 ity of [place] 4.2.7.2.686 [place] [id number] [facility] [address] 2022-07-20 2022-07-20 [employer] 1, Adc Lab [facility] 1.2.840.114 [id number] Univers 08:00:00 08:15:00 Visit Marla Morton 350.1.13.10 ity of [place] 4.2.7.2.686 [place] [id number] [facility] [address] 2022-07-17 2022-07-17 Patient Doctor [facility] 1.2.630.134 [id number] Univers 00:00:00 00:00:00 Secure Msg Unassigned, Y HEALTH 350.1.13.10 ity of [place] CLINICS 4.2.7.2.[place] [id number] [facility] [address] 2022-07-17 2022-07-17 Telephone [facility] 1.2.105.187 [id number] Univers 00:00:00 00:00:00 Marla SPECIALTY 350.1.13.10 ity of [place] 4.2.7.2.[place] C[place] AT [phone] In cyril GARCIA [address] [place] [address] 2022-07-15 2022-07-15 Letter RUI Diaz 1.2.840.114 [id number] Univers 00:00:00 00:00:00 (Out) Candida LIN 350.1.13.10 it y of [facility] 4.2.7.2.686 Yair as [id number] [address] 2022-07-14 2022-07-14 Outpatient R ROCCO [facility] [id number] Univers 16:40:00 16:54:13 [facility] 2022-07-14 2022-07-14 Urgent Rocco [facility] 1.2.840.114 [id number] Univers 16:40:00 16:54:13 Care [facility] 350.1.13.10 it y of [place] 4.2.7.2.686 Yair as JONNATHAN?BLEA [phone] In cyril PEREZ [address] MEDICAL OFFICE BUILDING 2022-07-13 2022-07-13 [employer] [facility] 1.2.840.114 9 [id number] Univers 10:00:00 10:15:00 Visit Marla Morton Y HEALTH 350.1.13.10 ity of CL[place] 4[place]2.[place].2.[place] [phone] [address] 2022-07-13 2022-07-13 [employer] [facility] 1.2.840.114 9 [id number] Univers 10:00:00 10:15:00 Visit Selene Marla Y HEALTH 350.1.13.10 ity of CL[place] 4[place]2.7.2.[place] [id number] [address] 2022-07-13 2022-07-13 Outpatient R SELENE [facility] [id number] Univers 09:00:00 09:46:13 [facility] 2022-07-13 2022-07-13 Office ROMEO Morton 1.2.473.725 [id number] Univers 09:00:00 09:46:13 Visit Marla [facility] 350.1.13.10 i ty of [facility] 4.2.7.2.686 [facility] 645.9535760 [facility] [address] 2022-07-13 2022-07-13 Outpatient R SELENE [facility] [id number] Univers 09:00:00 09:46:13 MAR[facility] 2022-07-13 2022-07-13 Outpatient R SELENE [facility] [id number] Univers 09:00:00 09:46:13 [facility] 2022-07-13 2022-07-13 Outpatient R SELENE [facility] [id number] Univers 09:00:00 09:46:13 [facility] 2022-07-10 2022-07-10 [employer] 1, [facility] Sleep Lab Bed [facility] 1. 2.840.114 [id number] Univers 20:00:00 22:30:00 Visit Albert Russell 350.1.13. 10 ity of [place] 4.2.7.2.686 [facility] [id number] [facility] [address] 2022-07-10 2022-07-10 Outpatient R DREW, DALLASHIL [facility] [id number] Univers 20:00:00 20:00:00 ALBERT RUSSELL itindra [facility] 2022-07-10 2022-07-10 Outpatient R DREW, STRAHIL [facility] [id number] Univers 20:00:00 20:00:00 ALBERT RUSSELL itindra [facility] 2022-07-10 2022-07-10 Orders Doctor FABIAN 1.2.840.114 [id number] Univers 00:00:00 00:00:00 Only Unassigned, RI[place] 350.1.13.10 ity of [place] [facility] 4.2.7.2.686 Yair [id number] [facility] [address] 2022-07-08 2022-07-08 [employer] Lab, Ang - Db [facility] 1.2.840.1 14 [id number] Univers 13:00:00 13:15:00 Visit Kalpana Godwin HEALTH 350.1.13.10 ity of [place] 4.2.7.2.686 Yair as JONNATHAN?BLEA [id number] [facility] [address] OFFICE [facility] 2022-07-08 2022-07-08 Outpatient R CITLALI [facility] [id number] Univers 13:00:00 13:00:00 KALPANA ity [facility] 2022-07-08 2022-07-08 Outpatient R DALLAS RUSSELLNHBettye [facility] [id number] Univers 10:20:00 10:20:[address] [facility] 2022-07-08 2022-07-08 Outpatient R [facility] [id number] Univers 08:15:00 08:15:00 ity [facility] 2022-07-08 2022-07-08 Patient Devante [facility] 1.2.840.114 [id number] Univers 00:00:00 00:00:00 Secure Msg Anusha HEALTH 350.1.13.10 ity of [place] 4.2.7.2.686 Yair as JONNATHAN?BLEA [phone] [facility] [address] OFFICE [facility] 2022-07-08 2022-07-08 Patient Citlali [facility] 1.2.840.114 [id number] Univers 00:00:00 00:00:00 Secure Msg Kalpana HEALTH 350.1.13.10 ity of [place] 4.2.7.2.686 Yair as JONNATHAN?BLEA [phone] [facility] [address] OFFICE [facility] 2022-07-07 2022-07-07 [employer] Lab, Ang - Db [facility] 1.2.840.1 14 [id number] Univers 11:00:00 11:15:00 Visit Kalpana Godwin HEALTH 350.1.13.10 ity of [place] 4.2.7.2.686 Yair as JONNATHAN?BLEA [phone] [facility] [address] OFFICE [facility] 2022-07-07 2022-07-07 Office [facility] 1.2.840.114 [id number] Univers 10:30:00 11:02:37 Visit Kalpana MAURICIO 350.1.13.10 it y [facility] 4.2.7.2.686 Yair as JONNATHAN?BLEA 590.8919615 In dical KNEY [facility] 2022-07-07 2022-07-07 Outpatient R RICKZoe [facility] [id number] Univers 10:30:00 11:02:37 KALPANA melendrez [facility] 2022-07-07 2022-07-07 Outpatient R CITLALI [facility] [id number] Univers 11:00:00 11:00:00 KALPANA melendrez [facility] 2022-07-07 2022-07-07 Outpatient R CITLALI [facility] [id number] Univers 10:30:00 10:30:00 KALPANA melendrez [facility] 2022-07-07 2022-07-07 Outpatient R RICKZoe [facility] [id number] Univers 10:30:00 10:30:00 KALPANA melendrez [facility] 2022-07-07 2022-07-07 Outpatient R CITLALI [facility] [id number] Univers 10:30:00 10:30:00 KALPANA melendrez [facility] 2022-07-07 2022-07-07 Outpatient R CITLALI [facility] [id number] Univers 10:30:00 10:30:00 KALPANA melendrez [facility] 2022-07-01 2022-07-01 Outpatient R ALBERT RUSSELL [facility] [id number] Univers 13:20:00 13:45:22 DREW DALLASKAMARI indra [facility] 2022-07-01 2022-07-01 Office [facility] 1.2.962.671 [id number] Univers 13:20:00 13:40:00 Visit Dallasrubenbettye Kaplan JAYESHVENTURA 350.1.13.10 ity of [place].2.[place] [phone] In dical NAL 085 [facility] 2022-07-01 2022-07-01 Outpatient R ALBERT RUSSELL [facility] [id number] Univers 13:20:00 13:20:00 ALBERT RUSSELL [facility] 2022-06-24 2022-06-24 Outpatient R ALBERT RUSSELL [facility] [id number] Univers 09:20:00 09:20:00 ALBERT RUSSELL [facility] 2022-06-24 2022-06-24 Outpatient R DALLAS RUSSELLNHBettye [facility] [id number] Univers 09:20:00 09:20:00 ALBERT RUSSELL [facility] 2022-06-23 2022-06-23 Outpatient R DALLAS RUSSELLNHBettye [facility] [id number] Univers 09:00:00 09:00:00 ALBERT RUSSELL [facility] 2022-06-23 2022-06-23 Telephone [facility] [id number] Univers 00:00:00 00:00:00 Kathy MORSE 350.1.13.10 i ty [facility] [place] [phone] In dic[address] 2022-06-22 2022-06-22 [facility] [id number] Univers 00:00:00 00:00:00 Secure Msg Strarubenl T MULTISPEC 350.1.13.10 [place] [id number] [facility] juice AND SHALINI [address] [place] [address] [facility] 2022-06-18 2022-06-18 Telephone [facility] [id number] Univers 00:00:00 00:00:00 Albert MORSE 350.1.13.[address] [facility] [facility] 4[place] [phone] In dical NAL [address] [place] [address] 2022-06-17 2022-06-17 Outpatient R CITLALI [facility] [id number] Univers 14:00:00 14:00:00 KALPANA itindra of [facility] 2022-06-10 2022-06-10 Outpatient R ALBERT RUSSELL [facility] [id number] Univers 11:40:00 11:40:00 ALBERT RUSSELL [facility] 2022-06-09 2022-06-09 [place] [employer] Mehrdad [facility] 1.2 .840.114 [id number] Univers 09:00:00 09:15:00 Visit Albert Russell 350.1.13. 10 ity [facility] [place] [phone] [facility] [address] 2022-06-09 2022-06-09 Outpatient R DALLAS RUSSELLNHBettye [facility] [id number] Univers 09:00:00 09:00:00 DREWALBERT [facility] 2022-06-09 2022-06-09 Outpatient R DALLAS RUSSELLNHBettye [facility] [id number] Univers 09:00:00 09:00:00 TORSTENALBERT CABRALES [facility] 2022-06-09 2022-06-09 Orders Doctor RUI 1.2.840.114 [id number] Univers 00:00:00 00:00:00 Only Unassigned, RILEY 350.1.13.10 ity of [place] [facility] 4.2.7.2.686 Yair as [phone] [facility] [address] 2022-06-04 2022-06-04 Office Yuniel [facility] 1.2.840.114 [id number] Univers 11:00:00 11:30:00 Visit Kathy MORSE 350.1.13.10 i ty [place] [phone] In dical [facility] 085 [facility] 2022-06-04 2022-06-04 Outpatient R KATHY BUCKLEY [facility] [id number] Univers 11:00:00 11:00:00 KATHY BUCKLEY i ty of [facility] 2022-06-04 2022-06-04 Telephone Drew [facility] 1.2.840.114 [id number] Univers 00:00:00 00:00:00 Albert T J[place]ES[place]ON 350.1.13.10 ity of [place]2.[place].2.686 [place] [facility] [phone] In cyril [facility] 2022-06-02 2022-06-02 Out[facility] [id number] Univers 11:12:09 23:59:00 KALPANA melendrez [facility] 2022-06-02 2022-06-02 Outpatient [facility] [id number] Univers 11:12:09 11:12:09 KALPANA melendrez [facility] 2022-06-02 2022-06-02 [facility] 1.2.840.114 [id number] Univers 10:30:00 11:11:24 Visit Kalpana [facility] 350.1.13.10 it y of [place] 4.2.7.2.686 Yair as JONNATHAN?BLEA [id number] [address] 2022-06-02 2022-06-02 Emergency X [facility] [id number] Univers 04:44:00 06:41:00 JOSEF melendrez [facility] 2022-06-02 2022-06-02 Emergency [facility] 1.2.783.537 [id number] Univers 04:44:00 06:41:00 Josef Jeronimo LITO 350.1.13.10 ity of [place].2.[place] [id number] [address] 2022-06-02 2022-06-02 Telephone [facility] 1.2.290.429 [id number] Univers 00:00:00 00:00:00 Kalpana HEALTH 350.1.13.10 it y [facility] 4.2.7.2.686 Yair as JONNATHAN?BLEA [id number] [address] OFFICE [facility] 2022-06-02 2022-06-02 Patient [facility] 1.2.840.114 [id number] Univers 00:00:00 00:00:00 Secure Msg Anusha Vega HEALTH 350.1.13.10 ity [facility] 4.2.7.2.686 Yair as JONNATHAN?BLEA [phone] In dical ALICIAEY [address] [facility] OFFICE [facility] 2022-05-19 2022-05-19 Laboratory Only, Ang Db Test [facility] 1.2.8 40.114 [id number] Univers 10:15:00 10:30:00 Only Mariaa España 350.1.13.10 ity of [place] 4.2.7.2.686 Yair as JONNATHAN?BLEA [phone] In dical CHRIS [address] [facility] OFFICE [facility] 2022-05-19 2022-05-19 Outpatient R TACO [facility] [id number] Univers 10:15:00 10:18:27 MARIAA melendrez [facility] 2022-05-19 2022-05-19 Outpatient [facility] [id number] Univers 09:30:00 10:04:47 KALPANA itindra [facility] 2022-05-19 2022-05-19 Office [facility] 1.2.840.114 [id number] Univers 09:30:00 10:04:47 Visit Kalpana [facility] 350.1.13.10 it y of [place] 4.2.7.2.686 Yair as JONNATHAN?BLEA [id number] In dicjaquan PEREZ [address] [facility] OFFICE [facility] 2022-04-07 2022-04-07 [employer] 2, Adc Lab [facility] 1.2.840.114 [id number] Univers 08:30:00 08:45:00 Visit Kalpana Godwin 350.1.13.[address] [facility] 4.2.7.2.686 [place] [phone] In dicjaquan NAL 353 [facility] 2022-04-07 2022-04-07 Outpatient R [facility] [id number] Univers 08:30:00 08:30:00 ity [facility] 2022-04-07 2022-04-07 Outpatient R CITLALI [facility] [id number] Univers 08:30:00 08:30:00 KALPANA melendrez [facility] 2022-04-072022-04-07 Telephone [facility] 1.2.265.231 [id number] Univers 00:00:00 00:00:00 Kalpana MAURICIO 350.1.13.10 it y of [facility] 4.2.7.2.686 Yair as JONNATHAN?BLEA [id number] [address] MEDICAL OFFICE BUILDING 2022-04-06 2022-04-06 Office [facility] 1.2.840.114 [id number] Univers 16:30:00 17:05:11 Visit Kalpana MAURICIO 350.1.13.10 it y of [facility] 4.2.7.2.686 Yair as JONNATHAN?BLEA [id number] [address] OFFICE [facility] 2022-04-06 2022-04-06 Outpatient [facility] [id number] Univers 16:30:00 17:05:11 KALPANA melendrez [facility] 2022-04-06 2022-04-06 Outpatient R CITLALI [facility] [id number] Univers 16:30:00 16:30:00 KALPANA melendrez [facility] 2022-04-06 2022-04-06 Orders Doctor RUI 1.2.840.114 [id number] Univers 00:00:00 00:00:00 Only Unassigned, RILEY 350.1.13.10 [facility] 4.2.7.2.686 Yair as [phone] [facility] [address] 2022-03-19 2022-03-19 Emergency X SINGER [facility] ERT [id number] Univers 09:11:00 10:14:00 CARLITO melendrez [facility] 2022-03-19 2022-03-19 Emergency [facility] 1.2.328.583 [id number] Univers 09:11:00 10:14:00 Carlito MORSE 350.1.13.10 i ty of [place] 4.2.7.2.[place] [id number] [facility] [address] 2022-03-19 2022-03-19 Orders Doctor FABIAN 1.2.840.114 [id number] Univers 00:00:00 00:00:00 Only Unassigned, RILEY 350.1.13.10 ity of [place] [facility] 4.2.7.2.686 Yair as [phone] [facility] [address] 2022-03-10 2022-03-10 Refjossy Jak WACHRISTINE 1.2.840.114 [id number] Univers 00:00:00 00:00:00 Wondiful A HEALTH 350.1.13.10 ity of [place] 4.2.7.2.686 Yair as JONNATHAN?BLEA [id number] [address] OFFICE [facility] 2022-03-03 2022-03-04 Emergency X [facility] ERT [id number] Univers 23:57:00 02:30:00 [facility]22-[facility]-03 2022-03-04 Emergency [facility] 1.2.294.714 [id number] Univers 23:57:00 02:30:00 Sully S [place] 350.1.13.10 i ty of [place] 4.2.7.2.[place] [id number] [facility] [address] 2022-02-27 2022-02-27 Patient Devante WACHRISTINE 1.2.840.114 [id number] Univers 00:00:00 00:00:00 Secure g Anusha Vega HEALTH 350.1.13.10 ity of [place] 4.2.7.2.686 Yair as JONNATHAN?BLEA [id number] [address] 2022-02-27 2022-02-27 Patient Devante [facility] 1.2.840.114 [id number] Univers 00:00:00 00:00:00 Secure Msg Anusha Silvia HEALTH 350.1.13.10 ity of [place] 4.2.7.2.686 Yair as JONNATHAN?BLEA [id number] [address] 2022-02-26 2022-02-26 Emergency X [facility] ERT [id number] Univers 13:47:00 16:39:00 [facility]Y [facility] 2022-02-26 2022-02-26 Emergency [facility] 1.2.033.047 [id number] Univers 13:47:00 16:39:00 Sully S [facility] 350.1.13.10 i ty of [place] 4[place]2.7.2.[place] [id number] [facility] [address] 2022-01-27 2022-01-27 [employer] Lab, Ang - Db [facility] 1.2.840.1 14 [id number] Univers 08:30:00 08:45:00 Visit Kalpana Godwin HEALTH 350.1.13.10 ity of [place] 4.2.7.2.686 Yair as JONNATHAN?BLEA [phone] [facility] [place] [address] [facility] OFFICE [facility] 2022-01-27 2022-01-27 Outpatient R CITLALI [facility] [id number] Univers 08:00:00 08:36:58 KALPANA tamikoindra [facility] 2022-01-27 2022-01-27 Office [facility] 1.2.840.114 [id number] Univers 08:00:00 08:36:58 Visit Kalpana [employer] 350.1.13.10 it y of [place] 4.2.7.2.686 Yair as JONNATHAN?BLEA [phone] In demetr[address] 2022-01-27 2022-01-27 Outpatient R CITLALI [facility] [id number] Univers 08:30:00 08:30:00 KALPANA parvin [facility] 2022-01-27 2022-01-27 Outpatient [facility] [id number] Univers 08:00:00 08:00:00 KALPANA melendrez [facility] 2022-01-22 2022-01-22 Office [facility]PRES[facility]TER[facility] 1.2.840.114 [id number] Univers 13:00:00 13:17:29 Visit Steph Enriquez HEALTH 350.1.13.10 ity of [place] 4.2.7.2.686 Yair as JONNATHAN?BLEA [phone] In deemtrice[address] OFFICE [facility] 2022-01-22 2022-01-22 Outpatient [facility] [id number] Univers 13:00:00 13:17:29 WONDIFUL ity o f [facility] 2022-01-22 2022-01-22 Outpatient R JAK [facility] [id number] Univers 13:00:00 13:00:00 WONDIFUL ity o f [facility] 2022-01-20 2022-01-20 Outpatient R BARRINGTON [facility] [id number] Univers 10:20:00 10:27:06 POLO ity of [facility] 2022-01-20 2022-01-20 Urgent [facility] 1.2.840.114 [id number] Univers 10:20:00 10:27:06 Care Polo HEALTH 350.1.13.10 it y of [facility] 4.2.7.2.686 Yair as JONNATHAN?BLEA [id number] [facility] [address] MEDICAL OFFICE [facility] 2022-01-16 2022-01-16 Telephone [facility]PRESBYTER[facility] 1.2.840.114 [id number] Univers 00:00:00 00:00:00 Wondiful A HEALTH 350.1.13.10 ity of [facility] 4.2.7.2.686 Yair as JONNATHAN?BLEA [phone] [facility] [address] MEDICAL OFFICE [facility] 2022-01-16 2022-01-16 Orders Doctor RUI 1.2.840.114 [id number] Univers 00:00:00 00:00:00 Only Unassigned, RILEY 350.1.13.10 ity of [place] [facility] 4.2.7.2.686 Yair as [phone] [address] 2021-12-30 2021-12-30 Emergency E ALCANTER, BL BL [id number] BL 08:32:00 16:22:00 NICHOLE 2021-12-03 2021-12-03 Telephone [facility]PRESBYTER[facility] 1.2.840.114 [id number] Univers 00:00:00 00:00:00 Wondiful A HEALTH 350.1.13.10 ity [facility] 4.2.7.2.686 Yair as JONNATHAN?BLEA [phone] [address] MEDICAL OFFICE [facility] 2021-11-24 2021-11-24 Outpatient R JAK [facility] [id number] Univers 10:00:00 10:00:00 WONDIFUL ity o f [facility] 2021-11-20 2021-11-20 Nurse Nurse, Devonte [facility] 1.2.840.114 [id number] Univers 18:20:00 18:40:00 Visit Lincoln White [facility] 350.1.13.10 ity of [place] 4.2.7.2.686 Yair as JONNATHAN?BLEA [phone] In cyril PEREZ [address] [place] [address] MEDICAL OFFICE BUILDING 2021-11-20 2021-11-20 Outpatient R KING STACIE, [facility] [id number] Univers 18:20:00 18:20:[address] [facility] 2021-11-20 2021-11-20 Emergency X [facility] ERT [id number] Univers 12:35:00 15:44:00 JANY melendrez [facility] 2021-11-20 2021-11-20 Emergency NagiPRESBYTER[facility] 1.2.840.114 [id number] Univers 12:35:00 15:44:00 Jany [facility] 350.1.13.10 ity of [place] 4.2.7.2.686 [place] [phone] [address] 2021-10-19 2021-10-19 Emergency X [facility] ERT [id number] Univers 11:01:00 13:07:00 SULLY melendrez [facility] 2021-10-19 2021-10-19 Emergency L[facility]PRES[facility] 1.2.002.807 [id number] Univers 11:01:00 13:07:00 Sully S [place] 350.1.13.10 i ty of [place] 4[place]2.7.2.[place] [phone] [address] 2021-10-19 2021-10-19 Patient Rocco [facility] 1.2.840.114 [id number] Univers 00:00:00 00:00:00 Secure [facility] Algorithmics [facility] 350.1.13.10 ity of [place] 4.2.7.2.686 Yair as JONNATHAN?BLEA [id number] In dical [address] MEDICAL OFFICE [facility] 2021-10-16 2021-10-16 Urgent Yogesh Valiente [facility] 1.2.840.114 [id number] Univers 18:00:00 18:20:00 Care Polo Ferris [employer] 350.1.13.10 ity of [facility] 4.2.7.2.686 Yair as JONNATHAN?BLEA [phone] [address] MEDICAL OFFICE [facility] 2021-10-16 2021-10-16 Outpatient R ROCCO [facility] [id number] Univers 18:00:00 18:00:[address] [facility] 2021-09-26 2021-09-26 Laboratory Only, Ang Db Test [facility] 1.2.8 40.114 [id number] Univers 16:13:51 16:28:51 Only Barrington Tastemaker 350.1.13.10 ity of [facility] 4.2.7.2.686 Yair as JONNATHAN?BLEA [id number] [facility] [address] OFFICE [facility] 2021-09-26 2021-09-26 Outpatient R BARRINGTON [facility] [id number] Univers 16:15:00 16:15:[address] [facility] 2021-09-24 2021-09-24 Laboratory Only, Ang Db Test [facility] 1.2.8 40.114 [id number] Univers 10:33:46 10:48:46 Only Taco Mariaa [employer] 350.1.13.10 ity of [facility] 4.2.7.2.686 Yair as JONNATHAN?BLEA [phone] [address] MEDICAL OFFICE [facility] 2021-09-24 2021-09-24 Outpatient R TACO [facility] [id number] Univers 10:45:00 10:45:[address] [facility] 2021-08-21 2021-08-21 Office Jak [facility] 1.2.840.114 [id number] Univers 15:47:54 16:23:56 Visit Wondiful A HEALTH 350.1.13.10 ity of [place] 4.2.7.2.686 Yair as JONNATHAN?BLEA [phone] [address] MEDICAL OFFICE [facility] 2021-08-21 2021-08-21 Outpatient R JAK [facility] [id number] Univers 15:45:00 16:23:56 WONDIFUL ity o f [facility] 2021-08-14 2021-08-14 Telephone Jak [facility] 1.2.840.114 [id number] Univers 00:00:00 00:00:00 Wondiful A Health 350.1.13.10 ity of [place] 4.2.7.2.686 Yair as Jonnathan?Blea [id number] [address] Medical Office [facility] 2021-08-13 2021-08-13 Emergency [facility] 1.2.569.278 [id number] Univers 06:40:00 10:02:00 Juan [place] 350.1.13.10 i ty [facility] 4.2.7.2.686 [place] [phone] [facility] [address] 2021-08-13 2021-08-13 Emergency X [facility]PRES[facility]TER[facility] ERT [id number] Univers 06:40:00 10:02:00 JUAN parvin of [facility] 2021-08-06 2021-08-06 Office CaseyPRES[facility]TER[facility] 1.2.840.114 [id number] Univers 10:09:37 10:50:06 Visit Damir Enriquez NETTIE 350.1.13.10 it y of [place] 4.2.7.2.686 [place] [phone] [address] 2021-08-06 2021-08-06 Outpatient R CASEY [facility] [id number] Univers 10:15:00 10:15:00 DAMIR ity of [facility] 2021-07-03 2021-07-03 Letter RUI Diaz 1.2.840.114 [id number] Univers 00:00:00 00:00:00 (Out) Candida LIN 350.1.13.10 it y of HOSPITAL 4.2.7.2.686 Yair as [phone] [facility] [address] 2021-07-02 2021-07-02 Urgent Ryan Soriano [facility] 1.2.840. 114 [id number] Univers 11:01:57 11:21:57 Care Taco Mariaa Health 350.1.13.10 ity of [place] 4.2.7.2.686 Yair as Jonnathan?Blea [phone] [address] Medical Office Building 2021-07-02 2021-07-02 Outpatient Rei ESPAÑA [facility] [id number] Univers 11:00:00 11:00:00 MARIAA melendrez [facility] 2021-05-06 2021-05-06 Office [facility] 1.2.840.114 [id number] Univers 10:28:18 11:16:47 Visit Damir A PRIMARY 350.1.13.10 it y of [place]2.7.2.[place] [phone] [address] 2021-05-06 2021-05-06 Outpatient Rei TOTH [facility] [id number] Univers 10:45:00 10:45:00 DAMIR melendrez [facility] 2021-04-04 2021-04-04 [employer] Pcp-Lab [facility] 1.2.840.114 [id number] Univers 11:33:04 11:48:04 Visit Casey Damir A PRIMARY 350.1.13.10 ity of [place] 4[place]2.[place].2.[place] [id number] [address] 2021-04-04 2021-04-04 Office [facility] 1.2.840.114 [id number] Univers 10:23:57 11:33:11 Visit Damir A PRIMARY 350.1.13.10 it y of [place] 4[place]2.7.2.[place] [id number] [address] 2021-04-04 2021-04-04 Outpatient Rei TOTH [facility] [id number] Univers 10:45:00 10:45:00 DAMIR ity [facility] 2021-03-17 2021-03-17 Earl Benedict [facility] 1.2.840.114 [id number] Univers 00:00:00 00:00:00 Wondiful A Health 350.1.13.10 ity of [place] 4.2.7.2.686 Yair as Professio [phone] [address] Office [facility] 2021-03-13 2021-03-13 Outpatient R WILL [facility] [id number] Univers 10:00:00 10:00:00 LOLA ity of [facility] 2021-03-11 2021-03-11 [employer] Lab, Adc Fam Pob I [facility] 1.2. 840.114 [id number] Univers 15:16:28 15:36:28 Visit Pamela [facility] 350.1.13.10 ity of [place] 4.2.7.2.686 Yair as Professio [phone] [address] One 2021-03-11 2021-03-11 Office Jak [facility] 1.2.840.114 [id number] Univers 14:09:51 15:16:47 Visit Jonathonful A Health 350.1.13.10 ity of [place] 4.2.7.2.686 Yair as Professio [id number] [address] Office [facility] 2021-03-11 2021-03-11 Outpatient R JAK [facility] [id number] Univers 14:15:00 14:15:00 WONDIFUL ity o f [facility] 2021-03-06 2021-03-06 Emergency Vincent, [facility] 1.2.840.114 [id number] Univers 10:41:00 13:08:00 Shinta [place] 350.1.13.10 i ty [facility] 4.2.7.2.[place] [phone] [address] 2021-03-06 2021-03-06 Urgent Provider, Devonte [facility] 1.2.840.114 [id number] Univers 09:55:47 10:15:47 Care Lola [facility] 350.1.13.10 ity of [place] 4.2.7.2.686 Yair as Professio [id number] [address] Office Building One 2021-03-06 2021-03-06 Outpatient R [facility] [id number] Univers 10:00:00 10:00:00 ity of [facility] 2021-02-28 2021-02-28 Refjossy BenedictPRESBYTERIAN [facility] 1.2.840.114 [id number] Univers 00:00:00 00:00:00 Wondiful A Health 350.1.13.10 ity of [place] 4.2.7.2.686 Yair as Professio [phone] In dical nal [address] Office Building One 2021-01-13 2021-01-13 Patient Bhupinder [facility] 1.2.840.114 [id number] Univers 00:00:00 00:00:00 Outreach Keon PRIMARY 350.1.13.10 i ty of Bret [facility] 4.2.7.2.[place] [phone] In dicwa [address] 2020-11-27 2020-11-27 Emergency [facility] 1.2.234.180 [id number] Univers 15:25:00 18:57:00 Doris [place] 350.1.13.10 i ty of [place] 4.2.7.2.[place] [id number] [address] 2020-11-19 2020-11-19 Emergency [facility] 1.2.413.423 [id number] Univers 18:12:00 20:56:00 Too R [place] 350.1.13.10 i ty of [place] 4.2.7.2.[place] [phone] [address] 2020-11-19 2020-11-19 Emergency X [facility] ERT [id number] Univers 18:12:00 20:56:00 TOO ity of [facility] 2020-09-25 2020-09-25 Urgent Provider, Ang Urgent [facility] 1.2.840.114 [id number] Univers 08:07:36 09:04:00 Care Lola [facility] 350.1.13.10 ity of [place] 4.2.7.2.686 Yair as Professio [phone] In dical nal [address] Office Building One 2020-09-25 2020-09-25 [facility] [id number] Univers 08:00:00 08:00:00 LOLA ity [facility] 2020-09-25 2020-09-25 Eder WillPRESBYTER[facility] 1.2.840.114 [id number] Univers 00:00:00 00:00:00 (Out) Lola Enriquez [facility] 350.1.13.10 i ty of [place] 4.2.7.2.686 Yair as Professio [phone] [address] 2020-08-28 2020-08-28 Refill LeandraPRESBYTERIAN [facility] 1.2.840.114 [id number] Univers 00:00:00 00:00:00 Johana Morse 350.1.13.10 i ty of [place] 4.[place].2.[place] [id number] [facility] 044 [facility] 2020-08-08 2020-08-08 Outpatient R [facility] [id number] Univers 14:20:00 14:20:00 ity [facility] 2020-08-08 2020-08-08 Nurse Nurse, [facility] 1.2.840.114 [id number] Univers 09:39:02 11:12:10 Visit Johana Mobley 350.1.13.10 ity of [place] 4.2.7.2.686 [place] Profess[place] [phone] [facility] 044 [facility] 2020-07-10 2020-07-10 Office [facility] 1.2.834.010 [id number] Univers 14:23:57 14:53:57 Visit Albert Morse 350.1.13.10 ity of [place] 4.2.7.2.[place] Profess[place] [phone] [facility] 085 [facility] 2020-07-10 2020-07-10 Outpatient R ALBERT RUSSELL [facility] [id number] Univers 14:30:00 14:30:00 ALBERT RUSSELL ity [facility] 2020-06-24 2020-06-24 Outpatient [facility] [id number] [facility] 14:00:00 14:00:00 MONIQUE melendrez of [facility] 2020-06-11 2020-06-11 Patient Alem [facility] 1.2.840.114 [id number] Univers 00:00:00 00:00:00 Secure Msg Monique BRIGHTPEC 350.1.13.10 ity of [place].2.7.2.686 [place] CENTER [phone] [facility] AND LOYA [address] [place] [address] [facility] 2020-06-11 2020-06-11 Telephone [facility] 1.2.840.114 [id number] Univers 00:00:00 00:00:00 Johana Morse 350.1.13.10 i ty of [place]2.7.2.686 [place] [phone] In dical nal 044 [facility] 2020-06-06 2020-06-06 [employer] 2, Adc Lab [facility] 1.2.840.114 [id number] Univers 11:47:25 13:57:29 Visit Johana Mobley 350.1.13.10 ity of [place].7.2.[place] [phone] [facility] 353 [facility] 2020-06-06 2020-06-06 Office [facility]PRES[facility] 1.2.840.114 [id number] Univers 10:24:35 10:44:35 Visit Johana Morse 350.1.13.10 i [place] [phone] [facility] 044 [facility] 2020-06-06 2020-06-06 Outpatient R [facility] [id number] Univers 10:40:00 10:40:00 JOHANA melendrez [facility] 2020-05-30 2020-05-30 [place] [employer] Eddie, Adc Lab Main [facility] 1.2.8 40.114 [id number] Univers 17:01:23 17:16:23 Visit Johana Mobley 350.1.13.10 [place] [phone] In dical nal 353 [facility] 2020-05-30 2020-05-30 [facility] 1.2.840.114 [id number] Univers 15:49:43 16:48:49 Visit Johana Morse 350.1.13.10 [place] [phone] In dical nal 044 [facility] 2020-05-30 2020-05-30 [id number] Univers 16:00:00 16:00:00 JOHANA melendrez of [facility] 2020-05-30 2020-05-30 Orders Doctor RUI 1.2.840.114 [id number] Univers 00:00:00 00:00:00 Only Unassigned, RILEY 350.1.13.10 ity of [place] [facility] 4.2.7.2.686 [place]air as [phone] [facility] [address] 2020-05-27 2020-05-27 Patient [facility] 1.2.840.114 [id number] Univers 00:00:00 00:00:00 Secure Msg Monique MULTISPEC 350.1.13.10 ity [place] [phone] [facility] AND [place] [address] [facility] 2020-05-24 2020-05-24 Urgent Pob1, Acute Care Clinic [facility] 1. 2.840.114 [id number] Univers 08:41:59 09:14:39 Pamela Givens 350.1.13.10 ity of [place] 4.2.7.2.686 [place] Professio [phone] In dical nal [address] 2020-05-24 2020-05-24 [facility] [id number] Univers 08:40:00 08:40:00 PAMELA melendrez [facility] 2020-05-23 2020-05-23 Telephone [facility] 1.2.840.114 [id number] Univers 00:00:00 00:00:00 Monique MULTISPEC 350.1.13.10 ity [place] [phone] [facility] AND [place] [address] [facility] 2020-05-13 2020-05-20 Office Alem [facility] 1.2.840.114 [id number] Univers 13:30:44 16:19:49 Visit Monique NAGY 350.1.13.10 ity [place] [phone] [facility] AND [place] [address] [facility] 2020-05-13 2020-05-13 [place] [employer] Vtc-Lab [facility] 1.2.840.114 [id number] Univers 14:36:01 14:36:43 Visit Monique Ferrara 350.1 .13.10 [place] [phone] [facility] AND [place] [address] [facility] 2020-05-13 2020-05-13 [facility] [id number] Univers 10:30:00 10:30:00 MONIQUE melendrez of [facility] 2020-04-05 2020-04-05 [facility] 1.2.840.114 [id number] Univers 00:00:00 00:00:00 Secure Msg Wondiful A [place] 350.1.13.10 [place] [phone] In dical nal 044 [facility] 2020-03-25 2020-03-25 Orders Doctor RUI 1.2.840.114 [id number] Univers 00:00:00 00:00:00 Only Unassigned, RILEY 350.1.13.10 ity of [place] [facility] 4.2.7.2.686 [place]air as [phone] [place] [address] [place] 2020-03-22 2020-03-22 Telephone Jak [facility] 1.2.840.114 [id number] Univers 00:00:00 00:00:00 Wondiful A [place] 350.1.13.10 [place] [phone] In dical nal 044 [facility] 2020-03-21 2020-03-21 [facility]phone [facility] 1.2.840.114 [id number] Univers 00:00:00 00:00:00 W[place]iful A [place] 350.1.13.10 [place] [phone] [address] 2020-03-19 2020-03-19 [facility] 1.2.840.114 [id number] Univers 00:00:00 00:00:00 [place]iful [place] 350.1.13.10 [place] [phone] [address] 2020-03-14 2020-03-14 Outpatient R [facility] [id number] Univers 11:45:00 11:45:00 WONDIFUL ity o f [facility] 2020-03-14 2020-03-14 Telemedici [facility] 1.2.840.114 [id number] Univers 07:36:15 07:51:15 ne Visit Wondiful A [place] 350.1.13.10 [place] [phone] [address] 2020-03-14 2020-03-14 [facility]phone [facility] 1.2.840.114 [id number] Univers 00:00:00 00:00:00 Wondiful A Health 350.1.13.10 ity of [place] 4.2.7.2.686 [place] Professio [phone] [address] Office Building One 2020-03-11 2020-03-11 Patient Jak [facility] 1.2.840.114 [id number] Univers 00:00:00 00:00:00 Secure Msg W[place]iful [place] 350.1.13.10 [place] [phone] [address] 2020-02-18 2020-02-18 Emergency X LEVON [facility] ERT [id number] Univers 15:36:20 17:54:[address] [facility] 2020-01-09 2020-01-09 [facility] [id number] Univers 13:45:00 13:45:[address] [facility] 2019-12-05 2019-12-05 Office Leandra [facility] 1.2.840.114 [id number] Univers 15:31:39 16:27:02 Visit Johana Morse 350.1.13.10 i [place] [phone] [facility] 044 [facility] 2019-12-05 2019-12-05 Office [facility] 1.2.404.943 [id number] Univers 13:40:11 14:48:44 Visit Esthercamron Morse 350.1.13.10 i ty [place] [phone] [facility] 377 [facility] 2019-11-28 2019-12-03 Office [facility] 1.2.840.114 [id number] Univers 14:58:55 23:34:38 Visit Wondiful A Health 350.1.13.10 ity of [place] 4.2.7.2.686 [place] Professio [phone] [facility] 044 [facility] One 2019-11-29 2019-11-29 [facility] 1.2.840.114 [id number] Univers 13:47:00 23:59:00 Encounter Wondiful A Y HEALTH 350.1.13.10 ity [place] [phone] [address] 2019-11-29 2019-11-29 [facility] 1.2.840.114 [id number] Univers 13:46:00 13:46:00 Encounter Wondiful A Y HEALTH 350.1.13.10 [place] [phone] [address] 2019-11-28 2019-11-28 Imm/Inj Nurse, eMhrdad Fam Pob I [facility] 1.2.8 40.114 [id number] Univers 13:18:47 13:28:53 Visit [place]athon lawsonsrikanth [facility] 350.1.13.1 0 ity of [place] 4.2.7.2.686 [place] Professio [phone] [address] Office Building One 2019-11-24 2019-11-24 Orders Doctor RUI 1.2.840.114 [id number] Univers 00:00:00 00:00:00 Only Unassigned, RILEY 350.1.13.10 [place] of [place] [facility] 4.2.7.2.686 [place]air as [phone] [facility] [address] 2019-11-18 2019-11-18 [place] [employer] 1, Adc Lab [facility] 1.2.840.114 [id number] Univers 09:04:06 09:19:06 Visit [place]quePaul lawsoncoco Zoe [place] 350.1.13. 10 [place] [phone] [facility] [address] 2019-11-16 2019-11-16 Emergency [place], [facility] 1.2.840.114 [id number] Univers 14:30:22 16:26:00 Timothy B [place] 350.1.13.10 i ty [place] [phone] [facility] [address] 2019-11-16 2019-11-16 Orders Doctor RUI 1.2.840.114 [id number] Univers 00:00:00 00:00:00 Only Unassigned, RILEY 350.1.13.10 ity of [place] [facility] 4.2.7.2.686 Yair as [phone] [facility] [address] 2019-11-14 2019-11-14 Office Jak [facility] 1.2.840.114 [id number] Univers 15:45:09 17:00:39 Visit Paulcoco [facility] 350.1.13.10 ity of [place] 4.2.7.2.686 [place] Professio [phone] [address] Office [facility] One 2019-11-14 2019-11-14 Letter Jak [facility] 1.2.840.114 [id number] Univers 00:00:00 00:00:00 (Out) Wondiful A Health 350.1.13.10 ity of [place] 4.2.7.2.686 [place] Profess[place] [phone] [address] Office [facility] One 2019-06-13 2019-06-15 Office Aidee [facility] 1.2.840.114 [id number] Univers 14:58:16 09:00:30 Visit Pamela [facility] 350.1.13.10 it y of [place] 4.2.7.2.686 [place] Professio [phone] [address] One 2019-06-13 2019-06-13 Letter [facility] 1.2.840.114 [id number] Univers 00:00:00 00:00:00 (Out) Wondiful A Health 350.1.13.10 ity of [place] 4.2.7.2.686 [place] Professio [phone] [address] Office [facility] One 2019-05-16 2019-05-16 Orders Doctor RUI 1.2.840.114 [id number] Univers 00:00:00 00:00:00 Only Unassigned, RILEY 350.1.13.10 ity of [place] [facility] 4.2.7.2.686 [place] as [phone] [address] Results Test Description Test Time Test Comments Results Result Comments Source C-REACTIVE PROTEIN 2022-10-08 16:16:07 Test Item Value Reference Range Interpretation Comme nts CRP (test code = 3286928798) 0.8 mg/dL See_Comment H [Automated message] The system which generated this result transmitted ref erence range: <=0.8. The refe rence range was not used to int erpret this result as twila l/abnormal. Lab Interpretation (test code Abnormal = 18045-8) [facility]2022-12-15 09:35:58 Test Item Value Reference Range Interpretation Comments FOLATE SER (test code = 5.6 ng/mL 3.0-20.0 Biot in has been [id number]) reported to cau se a positive bias, interpret resul ts relative to patient's use o f biotin. Lab Interpretation (test Normal code = 88505-9) [facility] CampusCOMP. METABOLIC PANEL (22051)2022-10-08 05:55:11 Test Item Value Reference Range Interpretation Comments NA (test code = 137 mmol/L 135-145 6299300417) K (test code = 4.0 mmol/L 3.5-5.0 1702979282) CL (test code = 105 mmol/L 98-108 6773155769) CO2 TOTAL (test code = 21 mmol/L 23-31 L 2852120864) AGAP (test code = 2-16 7896954868) BUN (test code = 10 mg/dL 7-23 4991762736) GLUCOSE (test code = 108 mg/dL 70-110 3350038448) CREATININE (test code = 0.63 mg/dL 0.50-1.04 3877137761) TOTAL BILI (test code = 0.4 mg/dL 0.1-1.0 8613282563) CALCIUM (test code = 10.9 mg/dL 8.6-10.6 H 3939922259) T PROTEIN (test code = 7.5 g/dL 6.3-8.2 0246425751) ALBUMIN (test code = 4.6 g/dL 3.5-5.0 4236985267) ALK PHOS (test code = 103 U/L 34-122 4261093053) ALTv (test code = 72 U/L 5-35 H 1742-6) AST(SGOT) (test code = 48 U/L 13-40 H 0946776749) eGFR (test code = mL/min/1.73m2 9222907882) LEANDRO (test code = LEANDRO) Association of [...] tests). Lab Interpretation Abnormal (test code = 88835-5) [facility] CampusSEDIMENTATION [id number] 05:47:08 Test Item Value Reference Range Interpretation Comments ESR (test code = 32684-7) See_Comment [ Automated message] The system [employer] generated this result transmitted ref erence range: 0 - 20 m m/HR. The reference r grazyna was not used to interpret this result as normal/abnor mal. Lab Interpretation (test Normal code = 79461-0) [facility] CampusMAGNESIUM2022-12-15 05:22:35 Test Item Value Reference Range Interpretation Comments MAGNESIUM (test code = 3605134877) 2.2 mg/dL 1.7-2.4 Lab Interpretation (test code = Normal 82825-5) [facility] CampusLIVER-KIDNEY-MICROSOME [id number] 05:24:08 Test Item Value Reference Range Interpretation Comments Nhbcj-Attyyy-Vseta <1:20 See_Comment INTERPRET VIPIN INFORMATION: some Abs, [...] antigens). Of t hese, anti-LKM-1 (cyt ochrome Q497CTW4) IgG a ntibodies are considered spec ific for AIH-2. This test was d eveloped and its performance characteristics determined by [facility]. It has not been cleared or approved by the [place] Food and Drug Administration. This test was performed in a CLIA certified laboratory and is intended for clinical purpos es.Performed By: [facility] [place] [id number] Director: Trae salvador MD, PhD [Automated mess age] The system which generated this result transmitted ref erence range: <1:20. The refe rence range was not used to int erpret this result as twila l/abnormal. [facility] CampusIMMUNOGLOBULIN [id number] 18:40:49 Test Item Value Reference Range Interpretation Comments IgG (test code = 7031597578) 1050 mg/dL 636-1600 Lab Interpretation (test code = Normal 12557-2) [facility] CampusALPHA [id number] 17:26:14 Test Item Value Reference Range Interpretation Comments AFP (test code = 3.7 ng/mL See_Comment [Automated 7175697174) message] The system which generated this result transmitted reference range : <=7.5. The reference range was not used to interpret this result as normal/abnormal . LEANDRO (test code = LEANDRO) Biotin has been reported to cause a negative bias, interpret results relative to patient's use of biotin. Lab Interpretation Normal (test code = 45531-2) [facility] CampusFERRITIN [id number] 17:26:14 Test Item Value Reference Range Interpretation Comments FERRITIN (test code = 105.0 ng/mL 6-137 4789097526) LEANDRO (test code = LEANDRO) Biotin has been reported to cause a negative bias, interpret results relative to patient's use of biotin. Lab Interpretation (test Normal code = 99174-7) [facility] CampusTHYROID STIMULATING [id number] 17:22:15 Test Item Value Reference Range Interpretation Comments TSH (test code = See_Comment [Automated message] 2650666759) The system [employer] h generated this result transmitted ref erence range: 0.45 - 4 .70 mIU/L. The refe rence range was not u sed to interpret this result as normal/abnor mal. Lab Interpretation (test Normal code = 27815-3) [facility] CampusTOTAL IRON BINDING [id number] 16:56:14 Test Item Value Reference Range Interpretation Comments TIBC (test code = 7364567445) 304 ug/dL 250-410 % FE SAT (test code = 0873332888) 21 % 20-50 Lab Interpretation (test code = Normal 07835-0) [facility] CampusIRON2022-09-19 16:46:51 Test Item Value Reference Range Interpretation Comments IRON (test code = 2680557672) 63 ug/dL 50-160 Lab Interpretation (test code = Normal 07483-8) [facility] CampusProthrombin Time / [id number] 16:33:10 Test Item Value Reference Range Interpretation Comments PROTIME PATIENT (test See_Comment [Auto mated message] code = 5964-2) The system [employer] generated this result transmitted ref erence range: 10.1 - 1 2.6 Seconds. The re ference range was not u sed to interpret this result as normal/abnor mal. INR (test code = 6301-6) Nor mal INR <1.1; Warfarin Therap eutic range 2.0 to 3. 0 or 2.5 to 3.5, dep ending upon the indica tions. Lab Interpretation (test Normal code = 16342-1) [facility]"
[2023-03-27] MEDS ORDERED: DICYCLOMINE HCL 20 MG/2 ML AMP IM ONE (15:24)
[2023-03-27] MEDS ORDERED: MORPHINE 4 MG/ML SYR ONE (15:24)
[2023-03-27] MEDS ORDERED: ONDANSETRON 4 MG/2 ML VIAL ONE (15:24)
[2023-03-27] MEDS ORDERED: Ringers Lactate 1,000 ML IV ONE (15:24)
[2023-03-27 15:44] LABS: Specific Gravity < 1.005 (1.005-1.030); Urine Bilirubin NEGATIVE (Negative); Urine Blood Negative (Negative); Urine Clarity Clear (Clear); Urine Color Colorless (Yellow); Urine Glucose NEGATIVE (Negative); Urine Protein NEGATIVE (Negative); Urine Urobilinogen Normal (Normal); Urine pH 7.5 (5.0-7.0)
[2023-03-27 15:47] LABS: Hematocrit 41.4 % (36.0-45.0); Lymphocytes % 14.7 % (15.3-44.8); MCV 86.5 fL (80-100); MPV 7.4 fL (7.6-11.3); RBC Red Blood Cell Count 4.78 M/uL (3.86-4.86)
[2023-03-27 15:56] LABS: Albumin 3.5 g/dL (3.4-5.0); Bilirubin Total 0.2 mg/dL (0.2-1.0); Potassium 3.3 mEq/L (3.5-5.1); Protein, Total 7.2 g/dL (6.4-8.2)
--- NOTE | 2023-03-27 16:25 | RAD REPORT ---
EXAM DESCRIPTION: CTAbdomen Pelvis W Contrast - 03/27/2023 4:13 pm CLINICAL HISTORY: ABD PAIN COMPARISON: Abdomen Pelvis W Contrast dated 02/26/2023 TECHNIQUE: CT of the abdomen and pelvis was performed. All CT scans are performed using dose optimization technique as appropriate and may include automated exposure control or mA/KV adjustment according to patient size. FINDINGS: Lower chest: No acute abnormality. Liver: Hepatic steatosis. Biliary: No biliary ductal dilatation. Cholecystectomy Stomach: No significant focal abnormality. Duodenum: No significant focal abnormality. Pancreas: No significant abnormality. Spleen: No significant abnormality. Adrenal: No suspicious lesions. Kidney/ureter: No hydronephrosis. No renal calculi. Retroperitoneum: No retroperitoneal adenopathy. Vascular: No aneurysm. Bowel: No significant focal abnormality. No appendicitis. Nonspecific fluid within the small bowel. Peritoneum: No ascites or free air. Bladder: Grossly unremarkable. Reproductive: No adnexal masses. Bones: No acute fracture. Other: n/a IMPRESSION: No acute intra-abdominal or pelvic finding. Nonspecific small bowel fluid could represen t the presence of a gastroenteritis.
--- NOTE | 2023-03-27 18:26 | EDPHYS ---
Physician Documentation [facility] Name: Sunshine Evans Age: 37 yrs Sex: Female : 1985 Arrival Date: 03/27/2023 Time: 14:10 Bed 8 Private MD: ED Physician Rd [place] HPI: 03/27 14:25 This 37 yrs old Female presents to ER via Ambulatory with complaints of Abdominal Pain, m Fever, Shortness Of Breath, Nausea. 14:25 Is a 37-year-old female with history of anxiety that presents emerged part with [facility] complaints of abdominal pain diarrhea, beginning approximately week ago. Also complains of fever. Denies dysuria. Patient states that pain is mainly periumbilical and radiates to the back.. Historical: - Allergies: 14:37 Albuterol; ll1 14:37 amoxicillin-pot clavulanate; ll1 14:37 Latex, Natural Rubber; ll1 14:37 Macrobid; ll1 14:37 Zithromax; ll1 - PMHx: 14:37 Anxiety; Vistibular Migrains; ll1 - PSHx: 14:37 section; ll1 14:38 Cholecystectomy; hysterectomy; ll1 - Immunization history:: Adult Immunizations up to date, Client reports having NOT received the Covid vaccine. - Social history:: Smoking status: Patient denies any tobacco usage or history of. ROS: 14:25 Constitutional: Positive for fever. jmm 14:25 Abdomen/GI: Positive for abdominal pain, diarrhea. 14:25 All other systems are negative. Exam: 14:25 Constitutional: This is a well developed, well nourished patient who is awake, alert, jmm and in no acute distress. Head/Face: atraumatic. Eyes: EOMI, no conjunctival erythema appreciated ENT: Moist Mucus Membranes Neck: Trachea midline, Supple Chest/axilla: Normal chest wall appearance and motion. Cardiovascular: Regular rate and rhythm. No edema appreciated Respiratory: Normal respirations, no respiratory distress appreciated 14:25 Neck: Trachea midline, Supple Back: Normal ROM Skin: General appearance color normal MS/ Extremity: Moves all extremities, no obvious deformities appreciated, no edema noted to the lower extremities Neuro: Awake and alert Psych: Behavior is normal, Mood is normal, Patient is cooperative and pleasant 14:25 Abdomen/GI: Inspection: abdomen appears normal, Bowel sounds: normal, Palpation: soft, mild abdominal tenderness, in the umbilical area. Vital Signs: 14:35 BP 138 / 77; Pulse 97; Resp 18; Temp 99.3; Pulse Ox 98% ; Weight 62.14 kg; Height 5 ft. ll1 6 in. ; Pain 7/10; 15:31 BP 140 / 73; Pulse 100; Resp 18; Pulse Ox 98% on R/A; ld1 16:40 BP 137 / 72; Pulse 8; Resp 18 S; Pulse Ox 100% on R/A; kc6 17:16 BP 134 / 70; Pulse 85; Resp 18; Pulse Ox 100% on R/A; ld1 18:03 BP 139 / 78; Pulse 73; Resp 18; Pulse Ox 100% on R/A; ld1 14:35 Body Mass Index 22.11 (62.14 kg, 167.64 cm) ll1 14:35 Pain Scale: Adult ll1 MDM: 14:25 Patient medically screened. [facility] 16:26 Differential diagnosis: appendicitis, bowel obstruction, cholecystitis, Cholelithiasis, jmm diverticulitis. 16:26 Data reviewed: vital signs, nurses notes, radiologic studies, CT scan. I considered the jmm following discharge prescriptions or medication management in the emergency department Medications were administered in the Emergency Department. See MAR. Counseling: I had a detailed discussion with the patient and/or guardian regarding: the historical points, exam findings, and any diagnostic results supporting the discharge/admit diagnosis, lab results, radiology results, the need for outpatient follow up, to return to the emergency department if symptoms worsen or persist or if there are any questions or concerns that arise at home. 03/27 14:26 Order name: CBC with Diff; Complete Time: 15:54 [facility] 03/27 14:26 Order name: CMP; Complete Time: 16:00 [facility] 03/27 14:26 Order name: Lipase; Complete Time: 16:00 [facility] 03/27 14:26 Order name: Test, Urine; Complete Time: 15:54 [facility] 03/27 14:26 Order name: Urinalysis w/ reflexes; Complete Time: 15:54 [facility] 03/27 14:26 Order name: CT Abd/Pelvis - IV Contrast Only; Complete Time: 16:26 [facility] 03/27 14:26 Order name: IV Saline Lock; Complete Time: 15:33 [facility] 03/27 14:26 Order name: Labs collected and sent; Complete Time: 15:33 [facility] Administered Medications: 15:32 Drug: Lactated Ringers Solution IV 1000 ml Route: IV; Rate: 1000 bolus; Site: right kc6 antecubital; 18:45 Follow up: Response: No adverse reaction; IV Status: Completed infusion; IV Intake: kc6 1000ml 15:32 Drug: Ondansetron IVP 4 mg Route: IVP; Site: right antecubital; [facility] 18:45 Follow up: Response: No adverse reaction; Nausea is decreased [facility] 15:32 Not Given (Patient Refused): Dicyclomine IM 20 mg IM once [facility] 15:32 Drug: morphine IVP or IV 4 mg Route: IVP; Infused Over: 4 mins; Site: right antecubital;[facility] 18:45 Follow up: Response: No adverse reaction; Pain is decreased; RASS: Alert and Calm (0) [facility] Disposition Summary: 03/27/23 18:25 Discharge Ordered Location: Home [facility] Condition: Stable [facility] Diagnosis - Abdominal pain, unspecified [facility] - Diarrhea, unspecified jmm Followup: [facility] - With: Private Physician - When: 2 - 3 days - Reason: Recheck today's complaints, Continuance of care, Re-evaluation by your physician Discharge Instructions: - Discharge Summary Sheet [facility] - Abdominal Pain, Adult [facility] - Diarrhea, Adult [facility] Forms: - Medication Reconciliation Form [facility] - Thank You Letter [facility] - Antibiotic Education [facility] - Prescription Opioid Use [facility] Prescriptions: - ondansetron 4 mg Oral Tablet,disintegrating - take 1 tablet by ORAL route every 4-6 hours As needed; 30 tablet; Refills: 0, [facility] Product Selection Permitted - dicyclomine 20 mg Oral Tablet - take 1 tablet by ORAL route 4 times per day As needed; 30 tablet; Refills: 0, [facility] Product Selection Permitted Signatures: Dispatcher [employer] John Holman PA PA jmm Lewis, Lynsay RN RN ll1 Chirstin Goodman RN RN kc6
--- NOTE | 2023-03-27 18:26 | ER ---
Nurse's Notes [facility] Name: Sunshine Evans Age: 37 yrs Sex: Female : 1985 Arrival Date: 03/27/2023 Time: 14:10 Bed 8 Private MD: Diagnosis: Abdominal pain, unspecified;Diarrhea, unspecified Presentation: 03/27 14:35 Chief complaint: Patient states: Abd pain, nausea, SOB, diarrhea, weakness for 1 week. ll1 Flu negative. Still not better. Coronavirus screen: Client denies travel out of the [place] in the last 14 days. diarrhea, fatigue, fever, headache, nausea, Client presents with at least one sign or symptom that may indicate coronavirus-19. Standard/surgical mask placed on the client. Ebola Screen: Patient denies travel to an Ebola-affected area in the 21 days before illness onset. Initial Sepsis Screen: Does the patient meet any 2 criteria? No. Patient's initial sepsis screen is negative. Does the patient have a suspected source of infection? Yes: Acute abdominal pain. Risk Assessment: Do you want to hurt yourself or someone else? Patient reports no desire to harm self or others. Onset of symptoms was March 21, 2023. 14:35 Method Of Arrival: Ambulatory ll1 14:35 Acuity: MIRANDA 3 ll1 Historical: - Allergies: 14:37 Albuterol; ll1 14:37 amoxicillin-pot clavulanate; ll1 14:37 Latex, Natural Rubber; ll1 14:37 Macrobid; ll1 14:37 Zithromax; ll1 - PMHx: 14:37 Anxiety; Vistibular Migrains; ll1 - PSHx: 14:37 section; ll1 14:38 Cholecystectomy; hysterectomy; ll1 - Immunization history:: Adult Immunizations up to date, Client reports having NOT received the Covid vaccine. - Social history:: Smoking status: Patient denies any tobacco usage or history of. Screenin:31 [facility] ED Fall Risk Assessment (Adult) History of falling in the last 3 months, ld1 including since admission No falls in past 3 months (0 pts). Abuse screen: Denies threats or abuse. Denies injuries from another. Nutritional screening: No deficits noted. Tuberculosis screening: No symptoms or risk factors identified. Assessment: 15:31 General: Appears in no apparent distress. comfortable, Behavior is calm, cooperative, ld1 appropriate for age. Pain: Complains of pain in abdomen Pain does not radiate. Pain currently is 7 out of 10 on a pain scale. Quality of pain is described as throbbing. Neuro: Level of Consciousness is awake, alert, obeys commands, Oriented to person, place, time, situation. Cardiovascular: Capillary refill < 3 seconds Patient's skin is warm and dry. Rhythm is regular. Respiratory: Airway is patent Respiratory effort is even, unlabored. GI: Abdomen is flat, non-distended, Bowel sounds present X 4 quads. Abd is soft and non tender. : No signs and/or symptoms were reported regarding the genitourinary system. EENT: No signs and/or symptoms were reported regarding the EENT system. Derm: No signs and/or symptoms reported regarding the dermatologic system. Musculoskeletal: No signs and/or symptoms reported regarding the musculoskeletal system. 16:31 Reassessment: Patient appears in no apparent distress at this time. No changes from kc6 previously documented assessment. Patient and/or family updated on plan of care and expected duration. Pain level reassessed. Patient is alert, oriented x 3, equal unlabored respirations, skin warm/dry/pink. 17:16 Reassessment: Patient appears in no apparent distress at this time. No changes from ld1 previously documented assessment. Patient and/or family updated on plan of care and expected duration. Pain level reassessed. 18:16 Reassessment: Patient appears in no apparent distress at this time. No changes from kc6 previously documented assessment. Patient and/or family updated on plan of care and expected duration. Pain level reassessed. Patient is alert, oriented x 3, equal unlabored respirations, skin warm/dry/pink. Vital Signs: 14:35 BP 138 / 77; Pulse 97; Resp 18; Temp 99.3; Pulse Ox 98% ; Weight 62.14 kg; Height 5 ft. ll1 6 in. ; Pain 7/10; 15:31 BP 140 / 73; Pulse 100; Resp 18; Pulse Ox 98% on R/A; ld1 16:40 BP 137 / 72; Pulse 8; Resp 18 S; Pulse Ox 100% on R/A; kc6 17:16 BP 134 / 70; Pulse 85; Resp 18; Pulse Ox 100% on R/A; ld1 18:03 BP 139 / 78; Pulse 73; Resp 18; Pulse Ox 100% on R/A; ld1 14:35 Body Mass Index 22.11 (62.14 kg, 167.64 cm) ll1 14:35 Pain Scale: Adult ll1 ED Course: 14:12 Patient arrived in ED. rg4 14:12 John Grossman PA is PHCP. jmm 14:12 Rd Weston MD is Attending Physician. jmm 14:37 Triage completed. ll1 14:38 Arm band placed on. ll1 15:04 Patient placed in an exam room, on a stretcher. jl7 15:12 Alisa Carnes, MARÍA is Primary Nurse. ld1 15:31 Patient has correct armband on for positive identification. Placed in gown. Bed in low ld1 position. Call light in reach. Side rails up X2. Pulse ox on. NIBP on. Door closed. Noise minimized. 15:31 No provider procedures requiring assistance completed. ld1 15:33 Inserted saline lock: 20 gauge in right antecubital area, using aseptic technique. kc6 Blood collected. 16:15 CT Abd/Pelvis - IV Contrast Only In Process Unspecified. EDMS 18:45 IV discontinued, intact, bleeding controlled, No redness/swelling at site. Pressure kc6 dressing applied. Administered Medications: 15:32 Drug: Lactated Ringers Solution IV 1000 ml Route: IV; Rate: 1000 bolus; Site: right kc6 antecubital; 18:45 Follow up: Response: No adverse reaction; IV Status: Completed infusion; IV Intake: kc6 1000ml 15:32 Drug: Ondansetron IVP 4 mg Route: IVP; Site: right antecubital; kc6 18:45 Follow up: Response: No adverse reaction; Nausea is decreased kc6 15:32 Not Given (Patient Refused): Dicyclomine IM 20 mg IM once kc6 15:32 Drug: morphine IVP or IV 4 mg Route: IVP; Infused Over: 4 mins; Site: right antecubital;kc6 18:45 Follow up: Response: No adverse reaction; Pain is decreased; RASS: Alert and Calm (0) kc6 Medication: 18:45 VIS not applicable for this client. kc6 Intake: 18:45 IV: 1000ml; Total: 1000ml. kc6 Outcome: 18:25 Discharge ordered by . marizol 18:45 Discharged to home ambulatory, with significant other. kc6 18:45 Condition: stable 18:45 Discharge instructions given to patient, Instructed on discharge instructions, follow up and referral plans. medication usage, Demonstrated understanding of instructions, follow-up care, medications, Prescriptions given X 2. 18:46 Patient left the ED. kc6 Signatures: Dispatcher [employer] EDMS John Grossman PA PA jmm Garcia, Rubi rg4 Court Crowley RN RN jl7 Joe Chakraborty RN RN ll1 Alisa Carnes RN RN ld1 Christin Goodman RN RN kc6
[2023-03-27 19:07] VITALS: TEMP 99.3
[2023-03-27 19:09] VITALS: O2SAT 100
[2023-03-27 19:12] VITALS: BP 139/78
== END 2023-03-27 18:46 | disposition home or self-care (01) ==
LOC: ER 14:10
DX: R19.7 Diarrhea, unspecified (principal); Z88.1 Allergy status to other antibiotic agents; Z88.8 Allergy status to other drugs, medicaments and biological substances; Z91.040 Latex allergy status; Z91.048 Other nonmedicinal substance allergy status
CPT/HCPCS: 96361; 85025; 36415; 81025; 81003; 83690; 80053; 74177; 96375; 96374; 99284; Q9967; J2405; J7120; J0500

== ENCOUNTER 2025-03-18 13:50 | Emergency (ER) | payer OTHER ==
--- OUTSIDE RECORDS SUMMARY | 2025-03-18 14:00 | XMS REPORT | Continuity of Care Document ---
Author Name Unknown Address [address] [place] [address] [facility] Address [address] [place] [address] Care Team Providers Care Data Solutions Architect Name Role Phone Kalpana Wood Primary Care Physician [phone] KALPANA GODWIN Attending Clinician Unavailable Kalpana Wood Attending Clinician +[phone] Doctor Unassigned, [place] [facility] Attending Clinician U Damir Yanez PA-C Attending Clinician [phone] Lab, Ang - Db Attending Clinician Unavailable LOLA SOLIS Attending Clinician Unavailable HARRY COTTO Attending Clinician Unavailable Harry Cotto PA-C Attending Clinician [phone] Unknown, Attending Attending Clinician Unavailab YOGESH Batista Attending Clinician Unavailable Yogesh Mills Attending Clinician [phone] PAXTON HAMILTON Attending Clinician Unavailable Paxton Fry Attending Clinician + [phone] CARMEN FREDERICK Attending Clinician UnavailCARMEN Cha Attending Clinician Unavailamada Frederick MD, Carmen Her Attending Clinician + [phone] PEARL MOORE Attending Clinician Unavailab pravin Moore CHIEF OPERATOR, Pearl Rashid Attending Clinician + [phone] Unknown, Attending Attending Clinician Unavailab Johana Alfonso MD Attending Clinician + [phone] Citlali CHIEF OPERATOR, Kalpana Attending Clinician [phone] Harry Cotto PA-C Attending Clinician + [phone] Lab, Ang - Guilherme Attending Clinician Unavailable PABLO HOLM Attending Clinician Unavail Yessica Orosco Attending Clinician [phone] Pablo Holm MD Attending Clinician + [phone], [facility] Attending Clinician Unavailable Doctor Unassigned, [place] Attending Clinician U KARIN Martinez Attending Clinician Un available EHSAN ROMERO Attending Clinician Un available Ebrahicesar CHIEF OPERATORYogesh Attending Clinician + [phone] Paxton Fry Attending Clinician + [phone] Nurse, [facility] Attending Clinician Un available Provider, [facility] Attending Clinician Unavailable UNKNOWN, ATTENDING Attending Clinician Unavailab MARIAA Mccullough Attending Clinician Unavailable Lola Rajput Attending Clinician + [phone] SHAHEED COSTELLO Attending Clinician Unavailable Shaheed Costello MD Attending Clinician [phone] Lola Greenberg Attending Clinician +[phone] Kee PhD, Eleanor Her Attending Clinician + [phone] ELEANOR HEADLEY Attending Clinician Unavailab Leia Gaston Attending Clinician + [phone] 1, [employer] [employer] Attending Clinician Shreya vailable Pob, [facility] Main Attending Clinician UnavailCaitlyn Sheridan PA-C Attending Clinician CAITLYN DE JESUS Attending Clinician Unavailable KASSI RAMEY Attending Clinician Unavailable SAMMY CHESTER Attending Clinician Unavail able SAMMY CHESTER Attending Clinician Unavail able Sammy Chester MD Attending Clinician [phone] Albert Russell MD Attending Clinician + [phone] MARLA MORTON Attending Clinician Unavailable Christiana Calle RN Attending Clinician Unavailable KATHY BUCKLEY Attending Clinician Unavailable KATHY BUCKLEY Attending Clinician Unavailable ALBERT RUSSELL Attending Clinician Unavaila ALBERT Cueto Attending Clinician Unavaila cristal Morton CHIEF OPERATORMarla Dang Attending Clinician +[phone] , [facility] Attending Clinician Unavailable Candida Diaz RN Attending Clinician Unavailab [facility] Attending Clinician Unavailable 1, [facility] Sleep [facility] Bed Attending Clinician Unavail able Anusha Low LVN Attending Clinician UnavaKathy Galarza DO Attending Clinician +[phone] [facility] Attending Clinician Unavaila JOSEF Khanna Attending Clinician Unavailable Josef Lopez MD Attending Clinician [phone] Only, Ang Db Test Attending Clinician UnavailMariaa Gates MD Attending Clinician +[phone] CARLITO MEJIAS Attending Clinician Unavailable Carlito Mejias DO Attending Clinician [phone] Steph Benedict MD Attending Clinician + [phone] SULLY ULLOA Attending Clinician Unavailable Sully Pino Attending Clinician +[phone] STEPH BENEDICT Attending Clinician Unavaila POLO Orozco Attending Clinician Unavailable Polo Zuniga Attending Clinician +[phone] NICHOLE HUBBARD Attending Clinician UnaLincoln Calderon MD Attending Clinician +[phone] LINCOLN WHITE III Attending Clinician UnavailJANY Pacheco Attending Clinician Unavailab Jany Tovar DO Attending Clinician +[phone] Juan Dos Santos MD Attending Clinician [phone] RUSSELL Attending Clinician Unavailable Damir Peña PA-C Attending Clinician [phone] DAMIR PEÑA Attending Clinician Unavailable Ryan Orozco Attending Clinician [phone] Pcp-Lab Attending Clinician Unavailable Lab, [facility] Pob I Attending Clinician Unavailab Pamela Cueto Attending Clinician [phone] Josué Negron Attending Clinician +[phone] Provider, [facility] Care Attending Clinician Un available Keon Roe DO Attending Clinician [phone] Doris Rivera Attending Clinician [phone] Too Ruiz Attending Clinician +[phone] TOO CHILEL Attending Clinician Unavailable Nurse, [facility] Attending Clinician Unavailable MONIQUE FERRARA Attending Clinician Unava Monique Lance MD Attending Clinician + [phone] JOHANA MOBLEY Attending Clinician Unavailable Pob1, [facility] Attending Clinician Unav ailPAMELA Bolton Attending Clinician Unavailable Vtc-Lab Attending Clinician Unavailable ESTHER FELTON Attending Clinician Unavailamada Felton MD, Esther Decker Attending Clinician [phone] Nurse, [facility] Pob I Attending Clinician Unavail able Timothy Goldstein Attending Clinician [phone] PABLO HOLM Admitting Clinician UnavailSAMMY Medellin Admitting Clinician Unavail able KALPANA GODWIN Admitting Clinician Unavailable SULLY ULLOA Admitting Clinician Unavailable JANY LAZAR Admitting Clinician Unavailab JUAN Bassett Admitting Clinician Unavailable TOO CHILEL Admitting Clinician Unavailable Payers Payer Name Policy Type Policy Number Effective Date Expirati on Date Source [employer] [id number] 2019 00:00:00 [facility] [id number] 2024 00:00:00 Problems Condition Name Condition Details Condition Category Status Onset Date Resolution Date Last Treatment Date Treating Clinician Comments Source Acute vaginitis Acute vaginitis Disease Active 11-21 00:00: 00 [facility] Herpes zoster without complicati on Herpes zoster without complicati on Disease Active 0 1-28 00:00: 00 [facility] Herpes zoster without complicati on Herpes zoster without complicati on Disease Active 0 1-28 00:00: 00 [facility] Tendonitis of elbow, right Tendonitis of elbow, right Disease Active 0 9-03 00:00: 00 [facility] Abnormal LFTs Abnormal LFTs Disease Active 0 5-03 00:00: 00 [facility] Myalgia Myalgia Disease Active 0 2-16 00:00: 00 [facility] Hemorrhagi c cystitis Hemorrhagi c cystitis Disease Active 0 2-16 00:00: 00 [facility] Lower abdominal pain Lower abdominal pain Disease Active 0 1-02 00:00: 00 [facility] Vaginal dryness Vaginal dryness Disease Active 2022-10 0-04 00:00: 00 [facility] Gastroesop hageal reflux disease without esophagiti s Gastroesop hageal reflux disease without esophagiti s Disease Active 0 7- 00:00: 00 [facility] Elevated blood sugar Elevated blood sugar Disease Active 0 7- 00:00: 00 [facility] Urine malodor Urine malodor Disease Active 0 7- 00:00: 00 [facility] Acute pain of right shoulder Acute pain of right shoulder Disease Active 2021-10 2-14 00:00: 00 [facility] Cervicalgi a Cervicalgi a Disease Active 2021-10 2-14 00:00: 00 [facility] Paresthesi a Paresthesi a Disease Active 2021-10 2-14 00:00: 00 [facility] Dizziness Dizziness Disease Active 2021-10 2-14 00:00: 00 [facility] Acute pain of right shoulder Acute pain of right shoulder Disease Active 2021-10 2-14 00:00: 00 [facility] Acute non-recurr ent maxillary sinusitis Acute non-recurr ent maxillary sinusitis Disease Active 2021-10 0-05 00:00: 00 [facility] Allergy, initial encounter Allergy, initial encounter Disease Active 0 9-13 00:00: 00 [facility] Class 2 obesity due to excess calories with body mass index (BMI) of 35.0 to 35.9 in adult, unspecifie d whether serious comorbidit y present Class 2 obesity due to excess calories with body mass index (BMI) of 35.0 to 35.9 in adult, unspecifie d whether serious comorbidit y present Disease Active 8-09 00:00: 00 [facility] Orthopnea Orthopnea Disease Active 8-09 00:00: 00 [facility] Nausea Nausea Disease Active 8- 00:00: 00 [facility] Nasal congestion Nasal congestion Disease Active 8-09 00:00: 00 [facility] Class 2 obesity due to excess calories with body mass index (BMI) of 35.0 to 35.9 in adult, unspecifie d whether serious comorbidit y present Class 2 obesity due to excess calories with body mass index (BMI) of 35.0 to 35.9 in adult, unspecifie d whether serious comorbidit y present Disease Active 8-09 00:00: 00 [facility] Pain of left heel Pain of left heel Disease Active 0 7-26 00:00: 00 [facility] Hx of hypokalemi a Hx of hypokalemi a Disease Active 6-13 00:00: 00 [facility] Hx of iron deficiency anemia Hx of iron deficiency anemia Disease Active 6-13 00:00: 00 [facility] Hospital discharge follow-up Hospital discharge follow-up Disease Active 0 6-13 00:00: 00 [facility] Vitamin D deficiency Vitamin D deficiency Disease Active 4-05 00:00: 00 [facility] Fatty liver Fatty liver Disease Active 3-31 00:00: 00 [facility] Onychomyco sis of toenail Onychomyco sis of toenail Disease Active 3-31 00:00: 00 [facility] Fibromyalg ia Fibromyalg ia Disease Active 8 00:00: 00 [facility] Chronic pain syndrome Chronic pain syndrome Disease Active 8 00:00: 00 [facility] Snoring Snoring Disease Active 06-06 00:00: 00 [facility] Mixed hyperlipid emia Mixed hyperlipid emia Disease Active 06-06 00:00: 00 [facility] Hyperinsul inism Hyperinsul inism Disease Active 11-22 00:00: 00 [facility] Hypoglycem ia Hypoglycem ia Disease Active 11-14 00:00: 00 [facility] Mild persistent reactive airway disease with acute exacerbati on Mild persistent reactive airway disease with acute exacerbati on Disease Active 11-14 00:00: 00 [facility] Obesity (BMI 30-39.9) Obesity (BMI 30-39.9) Disease Active 6 00:00: 00 [facility] Anxiety state Anxiety state Disease Active 06-26 00:00: 00 Overview: Formattin g of this note might be different from the original. Formattin g of this note might be different from the original. With phobias, fear of [facility] Dyslipidem ia Dyslipidem ia Disease Active 06-26 00:00: 00 [facility] Panic disorder without agoraphobi a Panic disorder without agoraphobi a Disease Active 06-26 00:00: 00 [facility] Diarrhea, unspecifie d type Diarrhea, unspecifie d type Disease Resolve d 06-06 00:00: 00 2021-10-19 00:00:00 2021-10-19 11:32:31 [facility] Healthcare maintenanc e Healthcare maintenanc e Disease Resolve d 06-06 00:00: 00 2021-10-19 00:00:00 2021-10-19 11:32:16 [facility] Fatigue due to depression Fatigue due to depression Disease Resolve d 8-13 00:00: 00 2021-10-19 00:00:00 2021-10-19 11:32:16 [facility] Sleep apnea, unspecifie d type Sleep apnea, unspecifie d type Disease Resolve d 8-13 00:00: 00 2021-10-19 00:00:00 2021-10-19 11:32:16 [facility] Pharyngiti s, unspecifie d etiology Pharyngiti s, unspecifie d etiology Disease Resolve d 2-11 00:00: 00 2021-10-19 00:00:00 2021-10-19 11:32:16 [facility] Sore throat (viral) Sore throat (viral) Disease Resolve d 2-11 00:00: 00 2021-10-19 00:00:00 2021-10-19 11:32:16 [facility] Allergies, Adverse Reactions, Alerts Allergy Name Allergy Type Status Severity Reaction(s) Onset Date Inactive Date Treating Clinician Comments Source PREDNISO NE DRUG INGREDI Active Anxiety 03-11 00:00: 00 [facility] Predniso ne Propensi ty to adverse reaction s Active Anxiety 03-11 00:00: 00 [facility] ALBUTERO L DRUG INGREDI Active Unknown-Cmnt 2017-10 00:00: 00 [facility] Albutero l Propensi ty to adverse reaction s Active Unknown - See comments 2017-10 00:00: 00 Tingling thru out body [facility] AMOXICIL CLEMENCIA DRUG INGREDI Active Other-Cmnt 05-03 00:00: 00 [facility] Amoxicil clemencia Propensi ty to adverse reaction s Active Other - See comments 05-03 00:00: 00 Dizziness , could not focus. [facility] DILL OIL DRUG INGREDI Active Anaphylaxis 02-23 00:00: 00 [facility] Dill Oil Propensi ty to adverse reaction s Active Anaphylaxis 02-23 00:00: 00 [facility] STRAWBER RY DRUG INGREDI Active High Anaphylaxis 11-22 00:00: 00 [facility] LATEX DRUG INGREDI Active Rash 11-22 00:00: 00 [facility] Latex Drug Allergy Active Rash 11-22 00:00: 00 [facility] Strawber ry Propensi ty to adverse reaction s Active Anaphylaxis 11-22 00:00: 00 [facility] Azithrom ycin Drug Allergy Active Unknown - See comments 05-20 00:00: 00 [facility] Nitrofur antoin Monohyd/ M-Cryst Drug Allergy Active Unknown - See comments 05-20 00:00: 00 [facility] AZITHROM YCIN DRUG INGREDI Active Rash 05-20 00:00: 00 [facility] NITROFUR ANTOIN MONOHYD/ M-CRYST DRUG Active Rash 05-20 00:00: 00 [facility] Family History Family Member Diagnosis Comments Start Date Stop Date Sourc e Natural father [facility] Natural father Stroke Unive [facility] Natural [facility] Natural mother Hypertension Un [facility] Paternal grandmother Breast Cancer [facility] Social History Social Habit Start Date Stop Date Quantity Comments Source History SDOH Alcohol Comment [place] [facility] Gender identity [facility] orientation [facility] ASSERTION Not [facility] History SDOH Alcohol Std Drinks [facility] History SDOH Alcohol Binge [facility] History of Social function 2024-11-21 00:00:00 2024-11-21 00:00:00 [facility] Alcoholic beverage intake 2024-11-21 00:00:00 2024-11-21 00:00:00 Current non-drinker of alcohol (finding) [facility] Alcohol intake 2024-02-25 00:00:00 2024-02-25 00:00:00 Current non-drinker of alcohol (finding) [facility] Exposure to SARS-CoV-2 (event) 2023-03-05 00:00:00 2023-03-15 13:54:00 Not sure [facility] Tobacco use and exposure 2022-05-19 00:00:00 2022-05-19 00:00:00 Smokeless tobacco non-user [facility] History SDOH Alcohol Frequency 2019-04-10 00:00:00 2019-04-10 00:00:00 1 [facility] Sex assigned at 1985 00:00:00 1985 00:00:00 [facility] Smoking Status Start Date Stop Date Source Never smoked tobacco [facility] Medications Ordered Medication Name Filled Medication Name Start Date Stop Date Current Medication? Ordering Clinician Indication Dosage Frequency Signature (SIG) Comments Components Source GABAPENTIN 100 mg capsule 01-25 00:00: 00 02-05 00:00 :00 No [id number] TAKE 1 CAPSULE BY MOUTH EVERY MORNING, 1 CAPSULE AT NOON AND 1 CAPSULE EVERY EVENING. [facility] METFORMIN ER 500 mg 24 hr tablet 12-29 00:00: 00 Yes [id number] 500mg TAKE 1 TABLET BY MOUTH IN THE MORNING AND IN THE EVENING [facility] GABAPENTIN 100 mg capsule 12-20 00:00: 00 01-25 00:00 :00 No [id number] TAKE 1 CAPSULE BY MOUTH EVERY MORNING, 1 CAPSULE AT NOON AND 1 CAPSULE EVERY EVENING [facility] EZETIMIBE 10 mg tablet 12-14 00:00: 00 Yes [id number] TAKE 1 TABLET IN THE MORNING [facility] clotrimazol e-betametha sone cream 11-21 00:00: 00 02-05 00:00 :00 No [id number] Apply to area(s) 2 (two) times daily. [facility] gabapentin 100 mg capsule 11-21 00:00: 00 12-20 00:00 :00 No [id number] 100mg Take 1 capsule by mouth in the morning and 1 capsule at noon and 1 capsule in the evening. Do all this for 30 days. [facility] valACYclovi r 1 gram tablet 11-21 00:00: 00 11-29 05:59 :00 No [id number] 1g Take 1 tablet by mouth in the morning and 1 tablet at noon and 1 tablet in the evening. Do all this for 7 days. [facility] ketorolac (TORADOL) injection 30 mg 11-18 17:00: 00 11-18 16:28 :00 No [id number] 30mg 30 mg, Intramuscu lar, ONCE, 1 dose, On 11/18/24 at 1100, Routine [facility] cyclobenzap rine 10 mg tablet 11-18 00:00: 00 02-05 00:00 :00 No [id number] 10mg Take 1 tablet by mouth in the morning and 1 tablet at noon and 1 tablet in the evening. [facility] ezetimibe 10 mg tablet 2023-10 00:00: 00 12-14 00:00 :00 No [id number] TAKE 1 TABLET IN THE MORNING [facility] mupirocin 2 % ointment 2023-10 00:00: 00 11-18 00:00 :00 No [id number] Apply to area(s) 3 (three) times daily. [facility] cephALEXin 500 mg capsule 2023-1020 00:00: 00 08-24 04:59 :00 No [id number] 500mg Take 1 capsule by mouth 4 (four) times daily for 10 days. [facility] doxycycline hyclate 100 mg tablet 2023-10 0-04 00:00: 00 08-05 04:59 :00 No [id number] 100mg Take 1 tablet by mouth in the morning and 1 tablet in the evening. Do all this for 7 days. [facility] polymyxin B sulf-trimet hoprim 10,000 unit- 1 mg/mL ophthalmic drops 2023-10 0-04 00:00: 00 08-05 04:59 :00 No [id number] 1[drp] Place 1 Drop in left eye every 6 (six) hours for 7 days. [facility] methylPREDN ISolone (MEDROL, GIO,) 4 mg tablets 07-11 00:00: 00 07-28 00:00 :00 No [id number] 84mg Take 21 tablets by mouth SEE-INSTRU CTIONS. follow package directions [facility] meloxicam 15 mg tablet 06-27 00:00: 00 11-18 00:00 :00 No [id number] 15mg Take 1 tablet by mouth in the morning. [facility] cyclobenzap rine 5 mg tablet 06-27 00:00: 00 11-18 00:00 :00 No [id number] 5mg Take 1 tablet by mouth in the morning and 1 tablet at noon and 1 tablet in the evening. [facility] ondansetron 4 mg tablet 04-25 00:00: 00 05-01 04:59 :00 No [id number] 4mg Take 1 tablet by mouth every 8 (eight) hours as needed for Nausea and Vomiting (N/V) for up to 5 days. [facility] dicyclomine 20 mg tablet 04-25 00:00: 00 04-29 04:59 :00 No [id number] 20mg Take 1 tablet by mouth 4 (four) times daily for 3 days. [facility] metformin ER 500 mg 24 hr tablet 03-06 00:00: 00 Yes [id number] 500mg Take 1 tablet by mouth in the morning and 1 tablet in the evening. [facility] ketorolac (TORADOL) injection 30 mg 03-01 15:45: 00 03-01 15:07 :00 No [id number] 30mg 30 mg, Intramuscu lar, ONCE, 1 dose, On Wed03/01/24 at 1045, Routine [facility] ciprofloxac in-dexameth asone 0.3-0.1 % otic drops 03-01 00:00: 00 06-27 00:00 :00 No [id number] 4[drp] Place 4 Drops in left ear in the morning and 4 Drops in the evening. [facility] doxycycline hyclate 100 mg capsule 03-01 00:00: 00 03-09 04:59 :00 No [id number] 100mg Take 1 capsule by mouth every 12 (twelve) hours for 7 days. [facility] ezetimibe 10 mg tablet 02-24 00:00: 09-04 00:00 :00 No [id number] TAKE 1 TABLET IN THE MORNING [facility] tirzepatide , weight loss, (ZEPBOUND) 2.5 mg/0.5 mL subcutaneou s injection 02-24 00:00: 00 06-27 00:00 :00 No [id number] 2.5mg inject 2.5 mg under the skin weekly. [facility] tirzepatide , weight loss, (ZEPBOUND) 5 mg/0.5 mL subcutaneou s injection 02-24 00:00: 00 06-27 00:00 :00 No [id number] 5mg inject 5 mg under the skin weekly. [facility] metformin ER 500 mg 24 hr tablet 02-24 00:00: 00 03-06 00:00 :00 No [id number] 500mg Take 1 tablet by mouth in the morning and 1 tablet in the evening. [facility] hydroCHLORO thiazide 12.5 mg capsule 18 00:00: 00 02-05 00:00 :00 No [id number] 12.5mg Take 1 capsule by mouth in the morning. [facility] cefdinir 300 mg capsule 16 00:00: 00 12-18 05:59 :00 No [id number] 300mg Take 1 capsule by mouth every 12 (twelve) hours for 7 days. [facility] Cholecalcif donavan, Vitamin D3, 5,000 unit tablet 10-26 13:44: 36 Yes [id number] Take 1 tablet by mouth. [facility] OMEGA 3 ORAL 10-26 13:44: 36 Yes Take by mouth. [facility] dicyclomine 20 mg tablet 10-26 13:44: 36 02-24 00:00 :00 No 20mg Take 1 tablet by mouth 4 (four) times daily. [facility] clindamycin 300 mg capsule 2022-10 00:00: 00 12-10 00:00 :00 No 300mg Take 1 capsule by mouth in the morning and 1 capsule at noon and 1 capsule in the evening. [facility] oseltamivir (TAMIFLU) 75 mg capsule 2022-10 00:00: 00 10-27 05:59 :00 No [id number] 75mg Take 1 capsule by mouth in the morning and 1 capsule in the evening. Do all this for 5 days. [facility] promethazin e-dextromet horphan 6.25-15 mg/5 mL syrup 2022-10 00:00: 00 10-09 05:59 :00 No [id number] 5mL Take 5 mL by mouth 4 (four) times daily for 10 days. [facility] OMEGA 3 ORAL 2022-10 09:32: 44 Yes Take by mouth. [facility] ezetimibe 10 mg tablet 07-19 00:00: 00 Yes [id number] 10mg Take 1 tablet by mouth in the morning. [facility] metformin ER 500 mg 24 hr tablet 07-19 00:00: 00 Yes [id number] 500mg Take 1 tablet by mouth daily with breakfast. [facility] ciprofloxac in-dexameth asone (CIPRODEX) 0.3-0.1 % otic drops 06-21 00:00: 00 07-28 00:00 :00 No [id number] 3[drp] Place 3 Drops in both ears in the morning and 3 Drops in the evening. [facility] metformin ER 500 mg 24 hr tablet 06-04 00:00: 07-19 00:00 :00 No [id number] 500mg Take 1 tablet by mouth daily with breakfast. [facility] OMEGA 3 ORAL 06-02 11:55: 12 Yes Take by mouth. [facility] molnupiravi r 200 mg capsule 06-02 00:00: 00 06-08 04:59 :00 No [id number] 800mg Take 4 capsules by mouth every 12 (twelve) hours for 5 days. [facility] pantoprazol e 40 mg EC tablet 05-26 00:00: 00 07-28 00:00 :00 No [id number] 40mg Take 1 tablet by mouth in the morning. [facility] pantoprazol e 40 mg EC tablet 05-24 00:00: 00 05-26 00:00 :00 No [id number] 40mg Take 1 tablet by mouth in the morning for 30 days. [facility] ofloxacin 0.3 % otic drops 05-03 00:00: 00 05-07 04:59 :00 No [id number] 5[drp] Place 5 Drops in right ear in the morning and 5 Drops in the evening. Do all this for 3 days. [facility] topiramate 25 mg CSpX 03-15 00:00: 00 04-15 04:59 :00 No [id number] 1{tbl} Take 1 tablet by mouth in the morning for 30 days. [facility] methylPREDN ISolone (MEDROL, GIO,) 4 mg tablets 03-05 00:00: 00 05-24 00:00 :00 No [id number] Take by mouth SEE-INSTRU CTIONS. follow package directions . [facility] diazePAM 2 mg tablet 02-24 00:00: 00 03-11 04:59 :00 No [id number] 2mg Take 1 tablet by mouth at bedtime as needed (migraine) for up to 14 days. [facility] valACYclovi r 1 gram tablet 02-22 00:00: 00 03-25 04:59 :00 No [id number] 1g Take 1 tablet by mouth in the morning for 30 days. [facility] cyclobenzap rine 5 mg tablet 2021-10 2-14 00:00: 00 07-28 00:00 :00 No [id number] 5mg Take 1 tablet by mouth in the morning and 1 tablet at noon and 1 tablet in the evening. [facility] montelukast (SINGULAIR) 10 mg tablet 2021-10 2-14 00:00: 00 05-24 00:00 :00 No [id number] 10mg Take 1 tablet by mouth in the morning. [facility] doxycycline hyclate 100 mg tablet 2021-10 0-10 00:00: 00 11-30 00:00 :00 No [id number] 100mg Take 1 tablet by mouth in the morning and 1 tablet in the evening. [facility] doxycycline hyclate 100 mg tablet 2021-10 0-08 00:00: 00 08-03 00:00 :00 No [id number] 100mg Take 1 tablet by mouth in the morning and 1 tablet in the evening. Do all this for 10 days. [facility] sulfamethox azole-trime thoprim (BACTRIM DS) 800-160 mg per tablet 2021-10 0-05 00:00: 00 08-01 00:00 :00 No [id number] 1{tbl} Take 1 tablet by mouth in the morning and 1 tablet in the evening. Do all this for 7 days. [facility] iopamidol (ISOVUE 300-500 mL) injection 100 mL 07-20 14:00: 00 07-20 13:56 :00 No [id number] 100mL 100 mL, Intravenou s, ONCE, 1 dose, On Wed07/20/22 at 0900, Routine [facility] ZINC ORAL 07-13 10:06: 35 07-13 00:00 :00 No Take by mouth. [facility] VITAMIN C ORAL 07-13 10:06: 28 07-13 00:00 :00 No Take by mouth. [facility] Cholecalcif donavan, Vitamin D3, 5,000 unit tablet 07-13 09:14: 49 Yes 5000U Take 1 tablet by mouth. [facility] OMEGA 3 ORAL 07-13 09:14: 49 Yes Take by mouth. [facility] ezetimibe 10 mg tablet 07-07 00:00: 00 07-19 00:00 :00 No [id number] 10mg Take 1 tablet by mouth in the morning. [facility] montelukast (SINGULAIR) 10 mg tablet 07-07 00:00: 00 10-07 00:00 :00 No [id number] 10mg Take 1 tablet by mouth in the morning. [facility] diphenoxyla te-atropine 2.5-0.025 mg tablet 06-02 00:00: 00 07-13 00:00 :00 No [id number] 1{tbl} Take 1 tablet by mouth every 6 (six) hours as needed (Diarrhea) . [facility] pantoprazol e 40 mg EC tablet 06-02 00:00: 00 07-13 00:00 :00 No [id number] 40mg Take 1 tablet by mouth in the morning. [facility] MAGNESIUM ORAL 05-19 10:10: 05-19 00:00 :00 No Take by mouth. [facility] venlafaxine XR 150 mg 24 hr capsule 03-30 00:00: 00 Yes [facility] hydrOXYzine 50 mg capsule 03-30 00:00: 00 11-30 00:00 :00 No [facility] gabapentin 400 mg capsule 03-30 00:00: 00 07-13 00:00 :00 No [facility] EZETIMIBE 10 mg tablet 03-10 00:00: 00 07-07 00:00 :00 No [id number] 10mg TAKE 1 TABLET BY MOUTH DAILY [facility] clonazePAM 1 mg tablet 03-06 00:00: 00 07-29 00:00 :00 No [facility] gabapentin 300 mg capsule 03-02 00:00: 00 07-29 00:00 :00 No [facility] FLUoxetine 40 mg capsule 02-27 00:00: 00 07-29 00:00 :00 No [facility] QUEtiapine 50 mg tablet 02-27 00:00: 00 07-29 00:00 :00 No [facility] QUEtiapine 25 mg tablet 02-26 15:01: 13 02-26 00:00 :00 No 25mg Take 25 mg by mouth at bedtime. [facility] cloNIDine 0.1 mg tablet 02-13 00:00: 00 07-29 00:00 :00 No [facility] vitamin B-12 500 mcg tablet 2020-10 16:16: 11 08-21 00:00 :00 No 500ug Take 500 mcg by mouth. [facility] pregabalin 50 mg capsule 2020-10 00:00: 00 10-19 00:00 :00 No [id number] 50mg Take 1 capsule by mouth 2 (two) times daily. [facility] LORazepam 0.5 mg tablet 2020-10 00:00: 00 02-26 00:00 :00 No as needed. [facility] GABAPENTIN 300 mg capsule -08 00:00: 00 08-06 00:00 :00 No [id number] TAKE 1 CAPSULE BY MOUTH THREE TIMES DAILY [facility] gabapentin 300 mg capsule 6-11 00:00: 00 07-02 00:00 :00 No [id number] 300mg Take 1 capsule by mouth 3 (three) times daily for 90 days. [facility] montelukast 10 mg tablet 03-17 00:00: 00 10-19 00:00 :00 No [id number] 10mg Take 1 tablet by mouth every evening. [facility] ezetimibe (ZETIA) 10 mg tablet 03-11 00:00: 00 01-22 00:00 :00 No [id number] 10mg Take 1 tablet by mouth daily. [facility] ezetimibe (ZETIA) 10 mg tablet 12-03 00:00: 00 03-11 00:00 :00 No [id number] 10mg Take 1 tablet by mouth daily. [facility] methylPREDN ISolone (MEDROL, GIO,) 4 mg tablets 11-27 00:00: 00 03-11 00:00 :00 No [id number] Take by mouth SEE-INSTRU CTIONS. follow package directions [facility] mirtazapine (REMERON) 15 mg tablet 06-06 00:00: 00 03-11 00:00 :00 No [id number] 15mg Take 1 tablet by mouth at bedtime. [facility] niacin 100 mg tablet 06-06 00:00: 00 03-11 00:00 :00 No [id number] 100mg Take 1 tablet by mouth at bedtime. [facility] montelukast 10 mg tablet 03-14 00:00: 00 03-17 00:00 :00 No [id number] 10mg Take 1 tablet by mouth every evening. [facility] levalbutero l (XOPENEX HFA) 45 mcg/actuati on inhaler 03-14 00:00: 00 03-11 00:00 :00 No [id number] 1{puff} Inhale 1-2 Puffs every 8 (eight) hours as needed for Wheezing or Shortness of Breath. [facility] DULOXETINE 60 mg capsule 1-14 00:00: 00 02-26 00:00 :00 No [id number] 60mg TAKE 1 CAPSULE BY MOUTH DAILY [facility] hydrOXYzine 25 mg tablet 2017-08 00:00: 00 10-19 00:00 :00 No [id number] 1-2 tabs Every 3-6 hrs as needed for nausea, vomiting, or abdl cramping [facility] Immunizations Ordered Immunization Name Filled Immunization Name Date Status Comments Source Influenza Virus Vaccine Quad .5 mL IM 6+ MO 2020-08-08 00:00:00 Completed [facility] Influenza Virus Vaccine Quad .5 mL IM 6+ MO 2020-08-08 00:00:00 Completed [facility] Influenza Virus Vaccine Quad .5 mL IM 6+ MO 2020-08-08 00:00:00 Completed [facility] Influenza Virus Vaccine Quad .5 mL IM 6+ MO 2020-08-08 00:00:00 Completed [facility] Influenza Virus Vaccine Quad .5 mL IM 6+ MO 2020-08-08 00:00:00 Completed [facility] Influenza Virus Vaccine Quad .5 mL IM 6+ MO 2020-08-08 00:00:00 Completed [facility] Influenza Virus Vaccine Quad .5 mL IM 6+ MO 2020-08-08 00:00:00 Completed [facility] Influenza Virus Vaccine Quad .5 mL IM 6+ MO 2020-08-08 00:00:00 Completed [facility] Influenza Virus Vaccine Quad .5 mL IM 6+ MO 2020-08-08 00:00:00 Completed [facility] Influenza Virus Vaccine Quad .5 mL IM 6+ MO 2020-08-08 00:00:00 Completed [facility] Influenza Virus Vaccine Quad .5 mL IM 6+ MO 2020-08-08 00:00:00 Completed [facility] Influenza Virus Vaccine Quad .5 mL IM 6+ MO 2020-08-08 00:00:00 Completed [facility] Influenza Virus Vaccine Quad .5 mL IM 6+ MO 2020-08-08 00:00:00 Completed [facility] Influenza Virus Vaccine Quad .5 mL IM 6+ MO 2020-08-08 00:00:00 Completed [facility] Influenza Virus Vaccine Quad .5 mL IM 6+ MO 2020-08-08 00:00:00 Completed [facility] Influenza Virus Vaccine Quad .5 mL IM 6+ MO 2020-08-08 00:00:00 Completed [facility] Influenza Virus Vaccine Quad .5 mL IM 6+ MO 2020-08-08 00:00:00 Completed [facility] Influenza Virus Vaccine Quad .5 mL IM 6+ MO 2020-08-08 00:00:00 Completed [facility] Influenza Virus Vaccine Quad .5 mL IM 6+ MO 2020-08-08 00:00:00 Completed [facility] Influenza Virus Vaccine Quad .5 mL IM 6+ MO 2020-08-08 00:00:00 Completed [facility] Influenza Virus Vaccine Quad .5 mL IM 6+ MO 2020-08-08 00:00:00 Completed [facility] Influenza Virus Vaccine Quad .5 mL IM 6+ MO 2020-08-08 00:00:00 Completed [facility] Influenza Virus Vaccine Quad .5 mL IM 6+ MO 2020-08-08 00:00:00 Completed [facility] Influenza Virus Vaccine Quad .5 mL IM 6+ MO 2020-08-08 00:00:00 Completed [facility] Influenza Virus Vaccine Quad .5 mL IM 6+ MO 2020-08-08 00:00:00 Completed [facility] Influenza Virus Vaccine Quad .5 mL IM 6+ MO 2020-08-08 00:00:00 Completed [facility] Influenza Virus Vaccine Quad .5 mL IM 6+ MO 2020-08-08 00:00:00 Completed [facility] Influenza Virus Vaccine Quad .5 mL IM 6+ MO 2020-08-08 00:00:00 Completed [facility] Influenza Virus Vaccine Quad .5 mL IM 6+ MO 2020-08-08 00:00:00 Completed [facility] Influenza Virus Vaccine Quad .5 mL IM 6+ MO 2020-08-08 00:00:00 Completed [facility] Influenza Virus Vaccine Quad .5 mL IM 6+ MO 2020-08-08 00:00:00 Completed [facility] Influenza Virus Vaccine Quad .5 mL IM 6+ MO 2020-08-08 00:00:00 Completed [facility] Influenza Virus Vaccine Quad .5 mL IM 6+ MO 2020-08-08 00:00:00 Completed [facility] Influenza Virus Vaccine Quad .5 mL IM 6+ MO 2020-08-08 00:00:00 Completed [facility] Influenza Virus Vaccine Quad .5 mL IM 6+ MO 2020-08-08 00:00:00 Completed [facility] Influenza Virus Vaccine Quad .5 mL IM 6+ MO 2020-08-08 00:00:00 Completed [facility] Influenza Virus Vaccine Quad .5 mL IM 6+ MO 2020-08-08 00:00:00 Completed [facility] Influenza Virus Vaccine Quad .5 mL IM 6+ MO 2020-08-08 00:00:00 Completed [facility] Influenza Virus Vaccine Quad .5 mL IM 6+ MO 2020-08-08 00:00:00 Completed [facility] Influenza Virus Vaccine Quad .5 mL IM 6+ MO 2020-08-08 00:00:00 Completed [facility] Influenza Virus Vaccine Quad .5 mL IM 6+ MO 2020-08-08 00:00:00 Completed [facility] Influenza Virus Vaccine Quad .5 mL IM 6+ MO 2020-08-08 00:00:00 Completed [facility] Influenza Virus Vaccine Quad .5 mL IM 6+ MO 2020-08-08 00:00:00 Completed [facility] Influenza Virus Vaccine Quad .5 mL IM 6+ MO 2020-08-08 00:00:00 Completed [facility] Influenza Virus Vaccine Quad .5 mL IM 6+ MO 2020-08-08 00:00:00 Completed [facility] Influenza Virus Vaccine Quad .5 mL IM 6+ MO 2020-08-08 00:00:00 Completed [facility] Influenza Virus Vaccine Quad .5 mL IM 6+ MO 2020-08-08 00:00:00 Completed [facility] Influenza Virus Vaccine Quad .5 mL IM 6+ MO 2020-08-08 00:00:00 Completed [facility] Influenza Virus Vaccine Quad .5 mL IM 6+ MO 2020-08-08 00:00:00 Completed [facility] Influenza Virus Vaccine Quad .5 mL IM 6+ MO 2020-08-08 00:00:00 Completed [facility] Influenza Virus Vaccine Quad .5 mL IM 6+ MO 2020-08-08 00:00:00 Completed [facility] Influenza Virus Vaccine Quad .5 mL IM 6+ MO 2020-08-08 00:00:00 Completed [facility] Influenza Virus Vaccine Quad .5 mL IM 6+ MO 2020-08-08 00:00:00 Completed [facility] Influenza Virus Vaccine Quad .5 mL IM 6+ MO 2020-08-08 00:00:00 Completed [facility] Influenza Virus Vaccine Quad .5 mL IM 6+ MO 2020-08-08 00:00:00 Completed [facility] Influenza Virus Vaccine Quad .5 mL IM 6+ MO 2020-08-08 00:00:00 Completed [facility] Influenza Virus Vaccine Quad .5 mL IM 6+ MO 2020-08-08 00:00:00 Completed [facility] Influenza Virus Vaccine Quad .5 mL IM 6+ MO 2020-08-08 00:00:00 Completed [facility] Influenza Virus Vaccine Quad .5 mL IM 6+ MO 2020-08-08 00:00:00 Completed [facility] Influenza Virus Vaccine Quad .5 mL IM 6+ MO 2020-08-08 00:00:00 Completed [facility] Influenza Virus Vaccine Quad .5 mL IM 6+ MO 2020-08-08 00:00:00 Completed [facility] Influenza Virus Vaccine Quad .5 mL IM 6+ MO 2020-08-08 00:00:00 Completed [facility] Influenza Virus Vaccine Quad .5 mL IM 6+ MO 2020-08-08 00:00:00 Completed [facility] Influenza Virus Vaccine Quad .5 mL IM 6+ MO 2020-08-08 00:00:00 Completed [facility] Influenza Virus Vaccine Quad .5 mL IM 6+ MO 2020-08-08 00:00:00 Completed [facility] Influenza Virus Vaccine Quad .5 mL IM 6+ MO (FLUZONE/FLULAVAL/F LUARIX) 2020-08-08 00:00:00 Completed [facility] Influenza Virus Vaccine Quad .5 mL IM 6+ MO (FLUZONE/FLULAVAL/F LUARIX) 2020-08-08 00:00:00 Completed [facility] Influenza Virus Vaccine Quad .5 mL IM 6+ MO (FLUZONE/FLULAVAL/F LUARIX) 2020-08-08 00:00:00 Completed [facility] Influenza Virus Vaccine Quad .5 mL IM 6+ MO (FLUZONE/FLULAVAL/F LUARIX) 2020-08-08 00:00:00 Completed [facility] Influenza Virus Vaccine Quad .5 mL IM 6+ MO 2019-11-28 00:00:00 Completed [facility] Influenza Virus Vaccine Quad .5 mL IM 6+ MO 2019-11-28 00:00:00 Completed [facility] Influenza Virus Vaccine Quad .5 mL IM 6+ MO 2019-11-28 00:00:00 Completed [facility] Influenza Virus Vaccine Quad .5 mL IM 6+ MO 2019-11-28 00:00:00 Completed [facility] Influenza Virus Vaccine Quad .5 mL IM 6+ MO 2019-11-28 00:00:00 Completed [facility] Influenza Virus Vaccine Quad .5 mL IM 6+ MO 2019-11-28 00:00:00 Completed [facility] Influenza Virus Vaccine Quad .5 mL IM 6+ MO 2019-11-28 00:00:00 Completed [facility] Influenza Virus Vaccine Quad .5 mL IM 6+ MO 2019-11-28 00:00:00 Completed [facility] Influenza Virus Vaccine Quad .5 mL IM 6+ MO 2019-11-28 00:00:00 Completed [facility] Influenza Virus Vaccine Quad .5 mL IM 6+ MO 2019-11-28 00:00:00 Completed [facility] Influenza Virus Vaccine Quad .5 mL IM 6+ MO 2019-11-28 00:00:00 Completed [facility] Influenza Virus Vaccine Quad .5 mL IM 6+ MO 2019-11-28 00:00:00 Completed [facility] Influenza Virus Vaccine Quad .5 mL IM 6+ MO 2019-11-28 00:00:00 Completed [facility] Influenza Virus Vaccine Quad .5 mL IM 6+ MO 2019-11-28 00:00:00 Completed [facility] Influenza Virus Vaccine Quad .5 mL IM 6+ MO 2019-11-28 00:00:00 Completed [facility] Influenza Virus Vaccine Quad .5 mL IM 6+ MO 2019-11-28 00:00:00 Completed [facility] Influenza Virus Vaccine Quad .5 mL IM 6+ MO 2019-11-28 00:00:00 Completed [facility] Influenza Virus Vaccine Quad .5 mL IM 6+ MO 2019-11-28 00:00:00 Completed [facility] Influenza Virus Vaccine Quad .5 mL IM 6+ MO 2019-11-28 00:00:00 Completed [facility] Influenza Virus Vaccine Quad .5 mL IM 6+ MO 2019-11-28 00:00:00 Completed [facility] Influenza Virus Vaccine Quad .5 mL IM 6+ MO 2019-11-28 00:00:00 Completed [facility] Influenza Virus Vaccine Quad .5 mL IM 6+ MO 2019-11-28 00:00:00 Completed [facility] Influenza Virus Vaccine Quad .5 mL IM 6+ MO 2019-11-28 00:00:00 Completed [facility] Influenza Virus Vaccine Quad .5 mL IM 6+ MO 2019-11-28 00:00:00 Completed [facility] Influenza Virus Vaccine Quad .5 mL IM 6+ MO 2019-11-28 00:00:00 Completed [facility] Influenza Virus Vaccine Quad .5 mL IM 6+ MO 2019-11-28 00:00:00 Completed [facility] Influenza Virus Vaccine Quad .5 mL IM 6+ MO 2019-11-28 00:00:00 Completed [facility] Influenza Virus Vaccine Quad .5 mL IM 6+ MO 2019-11-28 00:00:00 Completed [facility] Influenza Virus Vaccine Quad .5 mL IM 6+ MO 2019-11-28 00:00:00 Completed [facility] Influenza Virus Vaccine Quad .5 mL IM 6+ MO 2019-11-28 00:00:00 Completed [facility] Influenza Virus Vaccine Quad .5 mL IM 6+ MO 2019-11-28 00:00:00 Completed [facility] Influenza Virus Vaccine Quad .5 mL IM 6+ MO 2019-11-28 00:00:00 Completed [facility] Influenza Virus Vaccine Quad .5 mL IM 6+ MO 2019-11-28 00:00:00 Completed [facility] Influenza Virus Vaccine Quad .5 mL IM 6+ MO 2019-11-28 00:00:00 Completed [facility] Influenza Virus Vaccine Quad .5 mL IM 6+ MO 2019-11-28 00:00:00 Completed [facility] Influenza Virus Vaccine Quad .5 mL IM 6+ MO 2019-11-28 00:00:00 Completed [facility] Influenza Virus Vaccine Quad .5 mL IM 6+ MO 2019-11-28 00:00:00 Completed [facility] Influenza Virus Vaccine Quad .5 mL IM 6+ MO 2019-11-28 00:00:00 Completed [facility] Influenza Virus Vaccine Quad .5 mL IM 6+ MO 2019-11-28 00:00:00 Completed [facility] Influenza Virus Vaccine Quad .5 mL IM 6+ MO 2019-11-28 00:00:00 Completed [facility] Influenza Virus Vaccine Quad .5 mL IM 6+ MO 2019-11-28 00:00:00 Completed [facility] Influenza Virus Vaccine Quad .5 mL IM 6+ MO 2019-11-28 00:00:00 Completed [facility] Influenza Virus Vaccine Quad .5 mL IM 6+ MO 2019-11-28 00:00:00 Completed [facility] Influenza Virus Vaccine Quad .5 mL IM 6+ MO 2019-11-28 00:00:00 Completed [facility] Influenza Virus Vaccine Quad .5 mL IM 6+ MO 2019-11-28 00:00:00 Completed [facility] Influenza Virus Vaccine Quad .5 mL IM 6+ MO 2019-11-28 00:00:00 Completed [facility] Influenza Virus Vaccine Quad .5 mL IM 6+ MO 2019-11-28 00:00:00 Completed [facility] Influenza Virus Vaccine Quad .5 mL IM 6+ MO 2019-11-28 00:00:00 Completed [facility] Influenza Virus Vaccine Quad .5 mL IM 6+ MO 2019-11-28 00:00:00 Completed [facility] Influenza Virus Vaccine Quad .5 mL IM 6+ MO 2019-11-28 00:00:00 Completed [facility] Influenza Virus Vaccine Quad .5 mL IM 6+ MO 2019-11-28 00:00:00 Completed [facility] Influenza Virus Vaccine Quad .5 mL IM 6+ MO 2019-11-28 00:00:00 Completed [facility] Influenza Virus Vaccine Quad .5 mL IM 6+ MO 2019-11-28 00:00:00 Completed [facility] Influenza Virus Vaccine Quad .5 mL IM 6+ MO 2019-11-28 00:00:00 Completed [facility] Influenza Virus Vaccine Quad .5 mL IM 6+ MO 2019-11-28 00:00:00 Completed [facility] Influenza Virus Vaccine Quad .5 mL IM 6+ MO 2019-11-28 00:00:00 Completed [facility] Influenza Virus Vaccine Quad .5 mL IM 6+ MO 2019-11-28 00:00:00 Completed [facility] Influenza Virus Vaccine Quad .5 mL IM 6+ MO 2019-11-28 00:00:00 Completed [facility] Influenza Virus Vaccine Quad .5 mL IM 6+ MO 2019-11-28 00:00:00 Completed [facility] Influenza Virus Vaccine Quad .5 mL IM 6+ MO 2019-11-28 00:00:00 Completed [facility] Influenza Virus Vaccine Quad .5 mL IM 6+ MO 2019-11-28 00:00:00 Completed [facility] Influenza Virus Vaccine Quad .5 mL IM 6+ MO 2019-11-28 00:00:00 Completed [facility] Influenza Virus Vaccine Quad .5 mL IM 6+ MO 2019-11-28 00:00:00 Completed [facility] Influenza Virus Vaccine Quad .5 mL IM 6+ MO 2019-11-28 00:00:00 Completed [facility] Influenza Virus Vaccine Quad .5 mL IM 6+ MO 2019-11-28 00:00:00 Completed [facility] Influenza Virus Vaccine Quad .5 mL IM 6+ MO (FLUZONE/FLULAVAL/F LUARIX) 2019-11-28 00:00:00 Completed [facility] Influenza Virus Vaccine Quad .5 mL IM 6+ MO (FLUZONE/FLULAVAL/F LUARIX) 2019-11-28 00:00:00 Completed [facility] Influenza Virus Vaccine Quad .5 mL IM 6+ MO (FLUZONE/FLULAVAL/F LUARIX) 2019-11-28 00:00:00 Completed [facility] Influenza Virus Vaccine Quad .5 mL IM 6+ MO (FLUZONE/FLULAVAL/F LUARIX) 2019-11-28 00:00:00 Completed Influenza Virus Vaccine Quad IM Multi-dose 6+ MO 2018-08-01 00:00:00 Completed [facility] Influenza Virus Vaccine Quad IM Multi-dose 6+ MO 2018-08-01 00:00:00 Completed [facility] Influenza Virus Vaccine Quad IM Multi-dose 6+ MO 2018-08-01 00:00:00 Completed [facility] Influenza Virus Vaccine Quad IM Multi-dose 6+ MO 2018-08-01 00:00:00 Completed [facility] Influenza Virus Vaccine Quad IM Multi-dose 6+ MO 2018-08-01 00:00:00 Completed [facility] Influenza Virus Vaccine Quad IM Multi-dose 6+ MO 2018-08-01 00:00:00 Completed [facility] Influenza Virus Vaccine Quad IM Multi-dose 6+ MO 2018-08-01 00:00:00 Completed [facility] Influenza Virus Vaccine Quad IM Multi-dose 6+ MO 2018-08-01 00:00:00 Completed [facility] Influenza Virus Vaccine Quad IM Multi-dose 6+ MO 2018-08-01 00:00:00 Completed [facility] Influenza Virus Vaccine Quad IM Multi-dose 6+ MO 2018-08-01 00:00:00 Completed [facility] Influenza Virus Vaccine Quad IM Multi-dose 6+ MO 2018-08-01 00:00:00 Completed [facility] Influenza Virus Vaccine Quad IM Multi-dose 6+ MO 2018-08-01 00:00:00 Completed [facility] Influenza Virus Vaccine Quad IM Multi-dose 6+ MO 2018-08-01 00:00:00 Completed [facility] Influenza Virus Vaccine Quad IM Multi-dose 6+ MO 2018-08-01 00:00:00 Completed [facility] Influenza Virus Vaccine Quad IM Multi-dose 6+ MO 2018-08-01 00:00:00 Completed [facility] Influenza Virus Vaccine Quad IM Multi-dose 6+ MO 2018-08-01 00:00:00 Completed [facility] Influenza Virus Vaccine Quad IM Multi-dose 6+ MO 2018-08-01 00:00:00 Completed [facility] Influenza Virus Vaccine Quad IM Multi-dose 6+ MO 2018-08-01 00:00:00 Completed [facility] Influenza Virus Vaccine Quad IM Multi-dose 6+ MO 2018-08-01 00:00:00 Completed [facility] Influenza Virus Vaccine Quad IM Multi-dose 6+ MO 2018-08-01 00:00:00 Completed [facility] Influenza Virus Vaccine Quad IM Multi-dose 6+ MO 2018-08-01 00:00:00 Completed [facility] Influenza Virus Vaccine Quad IM Multi-dose 6+ MO 2018-08-01 00:00:00 Completed [facility] Influenza Virus Vaccine Quad IM Multi-dose 6+ MO 2018-08-01 00:00:00 Completed [facility] Influenza Virus Vaccine Quad IM Multi-dose 6+ MO 2018-08-01 00:00:00 Completed [facility] Influenza Virus Vaccine Quad IM Multi-dose 6+ MO 2018-08-01 00:00:00 Completed [facility] Influenza Virus Vaccine Quad IM Multi-dose 6+ MO 2018-08-01 00:00:00 Completed [facility] Influenza Virus Vaccine Quad IM Multi-dose 6+ MO 2018-08-01 00:00:00 Completed [facility] Influenza Virus Vaccine Quad IM Multi-dose 6+ MO 2018-08-01 00:00:00 Completed [facility] Influenza Virus Vaccine Quad IM Multi-dose 6+ MO 2018-08-01 00:00:00 Completed [facility] Influenza Virus Vaccine Quad IM Multi-dose 6+ MO 2018-08-01 00:00:00 Completed [facility] Influenza Virus Vaccine Quad IM Multi-dose 6+ MO 2018-08-01 00:00:00 Completed [facility] Influenza Virus Vaccine Quad IM Multi-dose 6+ MO 2018-08-01 00:00:00 Completed [facility] Influenza Virus Vaccine Quad IM Multi-dose 6+ MO 2018-08-01 00:00:00 Completed [facility] Influenza Virus Vaccine Quad IM Multi-dose 6+ MO 2018-08-01 00:00:00 Completed [facility] Influenza Virus Vaccine Quad IM Multi-dose 6+ MO 2018-08-01 00:00:00 Completed [facility] Influenza Virus Vaccine Quad IM Multi-dose 6+ MO 2018-08-01 00:00:00 Completed [facility] Influenza Virus Vaccine Quad IM Multi-dose 6+ MO 2018-08-01 00:00:00 Completed [facility] Influenza Virus Vaccine Quad IM Multi-dose 6+ MO 2018-08-01 00:00:00 Completed [facility] Influenza Virus Vaccine Quad IM Multi-dose 6+ MO 2018-08-01 00:00:00 Completed [facility] Influenza Virus Vaccine Quad IM Multi-dose 6+ MO 2018-08-01 00:00:00 Completed [facility] Influenza Virus Vaccine Quad IM Multi-dose 6+ MO 2018-08-01 00:00:00 Completed [facility] Influenza Virus Vaccine Quad IM Multi-dose 6+ MO 2018-08-01 00:00:00 Completed [facility] Influenza Virus Vaccine Quad IM Multi-dose 6+ MO 2018-08-01 00:00:00 Completed [facility] Influenza Virus Vaccine Quad IM Multi-dose 6+ MO 2018-08-01 00:00:00 Completed [facility] Influenza Virus Vaccine Quad IM Multi-dose 6+ MO 2018-08-01 00:00:00 Completed [facility] Influenza Virus Vaccine Quad IM Multi-dose 6+ MO 2018-08-01 00:00:00 Completed [facility] Influenza Virus Vaccine Quad IM Multi-dose 6+ MO 2018-08-01 00:00:00 Completed [facility] Influenza Virus Vaccine Quad IM Multi-dose 6+ MO 2018-08-01 00:00:00 Completed [facility] Influenza Virus Vaccine Quad IM Multi-dose 6+ MO 2018-08-01 00:00:00 Completed [facility] Influenza Virus Vaccine Quad IM Multi-dose 6+ MO 2018-08-01 00:00:00 [facility] [facility] Vaccine Quad IM Multi-dose 6+ MO 2018-08-01 00:00:00 Completed [facility] Influenza Virus Vaccine Quad IM Multi-dose 6+ MO 2018-08-01 00:00:00 Completed [facility] Influenza Virus Vaccine Quad IM Multi-dose 6+ MO 2018-08-01 00:00:00 Completed [facility] Influenza Virus Vaccine Quad IM Multi-dose 6+ MO 2018-08-01 00:00:00 Completed [facility] Influenza Virus Vaccine Quad IM Multi-dose 6+ MO 2018-08-01 00:00:00 Completed [facility] Influenza Virus Vaccine Quad IM Multi-dose 6+ MO 2018-08-01 00:00:00 Completed [facility] Influenza Virus Vaccine Quad IM Multi-dose 6+ MO 2018-08-01 00:00:00 Completed [facility] Influenza Virus Vaccine Quad IM Multi-dose 6+ MO 2018-08-01 00:00:00 Completed [facility] Influenza Virus Vaccine Quad IM Multi-dose 6+ MO 2018-08-01 00:00:00 Completed [facility] Influenza Virus Vaccine Quad IM Multi-dose 6+ MO 2018-08-01 00:00:00 Completed [facility] Influenza Virus Vaccine Quad IM Multi-dose 6+ MO 2018-08-01 00:00:00 Completed [facility] Influenza Virus Vaccine Quad IM Multi-dose 6+ MO 2018-08-01 00:00:00 Completed [facility] Influenza Virus Vaccine Quad IM Multi-dose 6+ MO 2018-08-01 00:00:00 Completed [facility] Influenza Virus Vaccine Quad IM Multi-dose 6+ MO 2018-08-01 00:00:00 Completed [facility] Influenza Virus Vaccine Quad IM Multi-dose 6+ MO 2018-08-01 00:00:00 Completed [facility] Influenza Virus Vaccine Quad IM Multi-dose 6+ MO 2018-08-01 00:00:00 Completed [facility] Influenza Virus Vaccine Quad IM Multi-dose 6+ MO 2018-08-01 00:00:00 Completed [facility] Influenza Virus Vaccine Quad IM Multi-dose 6+ MO 2018-08-01 00:00:00 Completed [facility] Influenza Virus Vaccine Quad IM Multi-dose 6+ MO 2018-08-01 00:00:00 Completed [facility] TDAP 2012-12-23 00:00:00 Completed [facility] TDAP 2012-12-23 00:00:00 Completed [facility] TDAP 2012-12-23 00:00:00 Completed [facility] TDAP 2012-12-23 00:00:00 Completed [facility] TDAP 2012-12-23 00:00:00 Completed [facility] TDAP 2012-12-23 00:00:00 Completed [facility] TDAP 2012-12-23 00:00:00 Completed [facility] TDAP 2012-12-23 00:00:00 Completed [facility] TDAP 2012-12-23 00:00:00 Completed [facility] TDAP 2012-12-23 00:00:00 Completed [facility] TDAP 2012-12-23 00:00:00 Completed [facility] TDAP 2012-12-23 00:00:00 Completed [facility] TDAP 2012-12-23 00:00:00 Completed [facility] TDAP 2012-12-23 00:00:00 Completed [facility] TDAP 2012-12-23 00:00:00 Completed [facility] TDAP 2012-12-23 00:00:00 Completed [facility] TDAP 2012-12-23 00:00:00 Completed [facility] TDAP 2012-12-23 00:00:00 Completed [facility] TDAP 2012-12-23 00:00:00 Completed [facility] TDAP 2012-12-23 00:00:00 Completed [facility] TDAP 2012-12-23 00:00:00 Completed [facility] TDAP 2012-12-23 00:00:00 Completed [facility] TDAP 2012-12-23 00:00:00 Completed [facility] TDAP 2012-12-23 00:00:00 Completed [facility] TDAP 2012-12-23 00:00:00 Completed [facility] TDAP 2012-12-23 00:00:00 Completed [facility] TDAP 2012-12-23 00:00:00 Completed [facility] TDAP 2012-12-23 00:00:00 Completed [facility] TDAP 2012-12-23 00:00:00 Completed [facility] TDAP 2012-12-23 00:00:00 Completed [facility] TDAP 2012-12-23 00:00:00 Completed [facility] TDAP 2012-12-23 00:00:00 Completed [facility] TDAP 2012-12-23 00:00:00 Completed [facility] TDAP 2012-12-23 00:00:00 Completed [facility] TDAP 2012-12-23 00:00:00 Completed [facility] TDAP 2012-12-23 00:00:00 Completed [facility] TDAP 2012-12-23 00:00:00 Completed [facility] TDAP 2012-12-23 00:00:00 Completed [facility] TDAP 2012-12-23 00:00:00 Completed [facility] TDAP 2012-12-23 00:00:00 Completed [facility] TDAP 2012-12-23 00:00:00 Completed [facility] TDAP 2012-12-23 00:00:00 Completed [facility] TDAP 2012-12-23 00:00:00 Completed [facility] TDAP 2012-12-23 00:00:00 Completed [facility] TDAP 2012-12-23 00:00:00 Completed [facility] TDAP 2012-12-23 00:00:00 Completed [facility] TDAP 2012-12-23 00:00:00 Completed [facility] TDAP 2012-12-23 00:00:00 Completed [facility] TDAP 2012-12-23 00:00:00 Completed [facility] TDAP 2012-12-23 00:00:00 Completed [facility] TDAP 2012-12-23 00:00:00 Completed [facility] TDAP 2012-12-23 00:00:00 Completed [facility] TDAP 2012-12-23 00:00:00 Completed [facility] TDAP 2012-12-23 00:00:00 Completed [facility] TDAP 2012-12-23 00:00:00 Completed [facility] TDAP 2012-12-23 00:00:00 Completed [facility] TDAP 2012-12-23 00:00:00 Completed [facility] TDAP 2012-12-23 00:00:00 Completed [facility] TDAP 2012-12-23 00:00:00 Completed [facility] TDAP 2012-12-23 00:00:00 Completed [facility] TDAP 2012-12-23 00:00:00 Completed [facility] TDAP 2012-12-23 00:00:00 Completed [facility] TDAP 2012-12-23 00:00:00 Completed [facility] TDAP 2012-12-23 00:00:00 Completed [facility] TDAP 2012-12-23 00:00:00 Completed [facility] TDAP 2012-12-23 00:00:00 Completed [facility] TDAP 2012-12-23 00:00:00 Completed [facility] TDAP 2012-12-23 00:00:00 Completed [facility] TDAP 2012-12-23 00:00:00 Completed Influ[employer] Virus Vaccine Quad IM Multi-dose 6+ MO Unknown Completed [facility] TDAP Unknown Completed [facility] Influenza Virus Vaccine Quad .5 mL IM 6+ MO (FLUZONE/FLULAVAL/F LUARIX) Unknown Completed [facility] Influenza Virus Vaccine Quad IM Multi-dose 6+ MO Unknown Completed [facility] TDAP Unknown Completed [facility] Influenza Virus Vaccine Quad .5 mL IM 6+ MO (FLUZONE/FLULAVAL/F LUARIX) Unknown Completed [facility] Influenza Virus Vaccine Quad IM Multi-dose 6+ MO Unknown Completed [facility] TDAP Unknown Completed [facility] Influenza Virus Vaccine Quad .5 mL IM 6+ MO (FLUZONE/FLULAVAL/F LUARIX) Unknown Completed [facility] Influenza Virus Vaccine Quad IM Multi-dose 6+ MO Unknown Completed [facility] TDAP Unknown Completed [facility] Influenza Virus Vaccine Quad .5 mL IM 6+ MO (FLUZONE/FLULAVAL/F LUARIX) Unknown Completed [facility] Influenza Virus Vaccine Quad IM Multi-dose 6+ MO Unknown Completed [facility] TDAP Unknown Completed [facility] Influenza Virus Vaccine Quad .5 mL IM 6+ MO (FLUZONE/FLULAVAL/F LUARIX) Unknown Completed [facility] Influenza Virus Vaccine Quad IM Multi-dose 6+ MO Unknown Completed [facility] TDAP Unknown Completed [facility] Influenza Virus Vaccine Quad .5 mL IM 6+ MO (FLUZONE/FLULAVAL/F LUARIX) Unknown Completed [facility] Influenza Virus Vaccine Quad IM Multi-dose 6+ MO Unknown Completed [facility] TDAP Unknown Completed [facility] Influenza Virus Vaccine Quad .5 mL IM 6+ MO (FLUZONE/FLULAVAL/F LUARIX) Unknown Completed [facility] Influenza Virus Vaccine Quad IM Multi-dose 6+ MO Unknown Completed [facility] TDAP Unknown Completed [facility] Influenza Virus Vaccine Quad .5 mL IM 6+ MO (FLUZONE/FLULAVAL/F LUARIX) Unknown Completed [facility] Influenza Virus Vaccine Quad IM Multi-dose 6+ MO Unknown Completed [facility] TDAP Unknown Completed [facility] Influenza Virus Vaccine Quad .5 mL IM 6+ MO (FLUZONE/FLULAVAL/F LUARIX) Unknown Completed [facility] Influenza Virus Vaccine Quad IM Multi-dose 6+ MO Unknown Completed [facility] TDAP Unknown Completed [facility] Influenza Virus Vaccine Quad .5 mL IM 6+ MO (FLUZONE/FLULAVAL/F LUARIX) Unknown Completed [facility] Influenza Virus Vaccine Quad IM Multi-dose 6+ MO Unknown Completed [facility] TDAP Unknown Completed [facility] Influenza Virus Vaccine Quad .5 mL IM 6+ MO (FLUZONE/FLULAVAL/F LUARIX) Unknown Completed [facility] Influenza Virus Vaccine Quad IM Multi-dose 6+ MO Unknown Completed [facility] TDAP Unknown Completed [facility] Influenza Virus Vaccine Quad .5 mL IM 6+ MO (FLUZONE/FLULAVAL/F LUARIX) Unknown Completed [facility] Influenza Virus Vaccine Quad IM Multi-dose 6+ MO Unknown Completed [facility] TDAP Unknown Completed [facility] Influenza Virus Vaccine Quad .5 mL IM 6+ MO (FLUZONE/FLULAVAL/F LUARIX) Unknown Completed [facility] Influenza Virus Vaccine Quad IM Multi-dose 6+ MO Unknown Completed [facility] TDAP Unknown Completed [facility] Influenza Virus Vaccine Quad .5 mL IM 6+ MO (FLUZONE/FLULAVAL/F LUARIX) Unknown Completed [facility] Influenza Virus Vaccine Quad IM Multi-dose 6+ MO Unknown Completed [facility] TDAP Unknown Completed [facility] Influenza Virus Vaccine Quad .5 mL IM 6+ MO (FLUZONE/FLULAVAL/F LUARIX) Unknown Completed [facility] Influenza Virus Vaccine Quad IM Multi-dose 6+ MO Unknown Completed [facility] TDAP Unknown Completed [facility] Influenza Virus Vaccine Quad .5 mL IM 6+ MO (FLUZONE/FLULAVAL/F LUARIX) Unknown Completed [facility] Influenza Virus Vaccine Quad IM Multi-dose 6+ MO Unknown Completed [facility] TDAP Unknown Completed [facility] Influenza Virus Vaccine Quad .5 mL IM 6+ MO (FLUZONE/FLULAVAL/F LUARIX) Unknown Completed [facility] Influenza Virus Vaccine Quad IM Multi-dose 6+ MO Unknown Completed [facility] TDAP Unknown Completed [facility] Influenza Virus Vaccine Quad .5 mL IM 6+ MO (FLUZONE/FLULAVAL/F LUARIX) Unknown Completed [facility] Influenza Virus Vaccine Quad IM Multi-dose 6+ MO Unknown Completed [facility] TDAP Unknown Completed [facility] Influenza Virus Vaccine Quad .5 mL IM 6+ MO (FLUZONE/FLULAVAL/F LUARIX) Unknown Completed [facility] Influenza Virus Vaccine Quad IM Multi-dose 6+ MO Unknown Completed [facility] TDAP Unknown Completed [facility] Influenza Virus Vaccine Quad IM Multi-dose 6+ MO Unknown Completed [facility] TDAP Unknown Completed [facility] Influenza Virus Vaccine Quad .5 mL IM 6+ MO (FLUZONE/FLULAVAL/F LUARIX) Unknown Completed [facility] Influenza Virus Vaccine Quad .5 mL IM 6+ MO (FLUZONE/FLULAVAL/F LUARIX) Unknown Completed [facility] Influenza Virus Vaccine Quad IM Multi-dose 6+ MO Unknown Completed [facility] TDAP Unknown Completed [facility] Influenza Virus Vaccine Quad .5 mL IM 6+ MO (FLUZONE/FLULAVAL/F LUARIX) Unknown Completed [facility] Influenza Virus Vaccine Quad IM Multi-dose 6+ MO Unknown Completed [facility] TDAP Unknown Completed [facility] Influenza Virus Vaccine Quad .5 mL IM 6+ MO (FLUZONE/FLULAVAL/F LUARIX) Unknown Completed [facility] Influenza Virus Vaccine Quad IM Multi-dose 6+ MO Unknown Completed [facility] TDAP Unknown Completed [facility] Influenza Virus Vaccine Quad .5 mL IM 6+ MO (FLUZONE/FLULAVAL/F LUARIX) Unknown Completed [facility] Influenza Virus Vaccine Quad IM Multi-dose 6+ MO Unknown Completed [facility] TDAP Unknown Completed [facility] Influenza Virus Vaccine Quad .5 mL IM 6+ MO (FLUZONE/FLULAVAL/F LUARIX) Unknown Completed [facility] Influenza Virus Vaccine Quad IM Multi-dose 6+ MO Unknown Completed [facility] TDAP Unknown Completed [facility] Influenza Virus Vaccine Quad .5 mL IM 6+ MO (FLUZONE/FLULAVAL/F LUARIX) Unknown Completed [facility] Influenza Virus Vaccine Quad IM Multi-dose 6+ MO Unknown Completed [facility] TDAP Unknown Completed [facility] Influenza Virus Vaccine Quad .5 mL IM 6+ MO (FLUZONE/FLULAVAL/F LUARIX) Unknown Completed [facility] Influenza Virus Vaccine Quad IM Multi-dose 6+ MO Unknown Completed [facility] TDAP Unknown Completed [facility] Influenza Virus Vaccine Quad .5 mL IM 6+ MO (FLUZONE/FLULAVAL/F LUARIX) Unknown Completed [facility] Influenza Virus Vaccine Quad IM Multi-dose 6+ MO Unknown Completed [facility] TDAP Unknown Completed [facility] Influenza Virus Vaccine Quad .5 mL IM 6+ MO (FLUZONE/FLULAVAL/F LUARIX) Unknown Completed [facility] Influenza Virus Vaccine Quad IM Multi-dose 6+ MO Unknown Completed [facility] TDAP Unknown Completed [facility] Influenza Virus Vaccine Quad .5 mL IM 6+ MO (FLUZONE/FLULAVAL/F LUARIX) Unknown Completed [facility] Influenza Virus Vaccine Quad IM Multi-dose 6+ MO Unknown Completed [facility] TDAP Unknown Completed [facility] Influenza Virus Vaccine Quad .5 mL IM 6+ MO (FLUZONE/FLULAVAL/F LUARIX) Unknown Completed [facility] Influenza Virus Vaccine Quad IM Multi-dose 6+ MO Unknown Completed [facility] TDAP Unknown Completed [facility] Influenza Virus Vaccine Quad .5 mL IM 6+ MO (FLUZONE/FLULAVAL/F LUARIX) Unknown Completed [facility] Influenza Virus Vaccine Quad IM Multi-dose 6+ MO Unknown Completed [facility] TDAP Unknown Completed [facility] Influenza Virus Vaccine Quad .5 mL IM 6+ MO (FLUZONE/FLULAVAL/F LUARIX) Unknown Completed [facility] Influenza Virus Vaccine Quad IM Multi-dose 6+ MO Unknown Completed [facility] TDAP Unknown Completed [facility] Influenza Virus Vaccine Quad .5 mL IM 6+ MO (FLUZONE/FLULAVAL/F LUARIX) Unknown Completed [facility] Influenza Virus Vaccine Quad IM Multi-dose 6+ MO Unknown Completed [facility] TDAP Unknown Completed [facility] Influenza Virus Vaccine Quad .5 mL IM 6+ MO (FLUZONE/FLULAVAL/F LUARIX) Unknown Completed [facility] Influenza Virus Vaccine Quad IM Multi-dose 6+ MO Unknown Completed [facility] TDAP Unknown Completed [facility] Influenza Virus Vaccine Quad IM Multi-dose 6+ MO Unknown Completed [facility] TDAP Unknown Completed [facility] Influenza Virus Vaccine Quad .5 mL IM 6+ MO (FLUZONE/FLULAVAL/F LUARIX) Unknown Completed [facility] Influenza Virus Vaccine Quad .5 mL IM 6+ MO (FLUZONE/FLULAVAL/F LUARIX) Unknown Completed [facility] Influenza Virus Vaccine Quad IM Multi-dose 6+ MO Unknown Completed [facility] TDAP Unknown Completed [facility] Influenza Virus Vaccine Quad .5 mL IM 6+ MO (FLUZONE/FLULAVAL/F LUARIX) Unknown Completed [facility] Influenza Virus Vaccine Quad IM Multi-dose 6+ MO Unknown Completed [facility] TDAP Unknown Completed [facility] Influenza Virus Vaccine Quad .5 mL IM 6+ MO (FLUZONE/FLULAVAL/F LUARIX) Unknown Completed [facility] Influenza Virus Vaccine Quad IM Multi-dose 6+ MO Unknown Completed [facility] TDAP Unknown Completed [facility] Influenza Virus Vaccine Quad .5 mL IM 6+ MO (FLUZONE/FLULAVAL/F LUARIX) Unknown Completed [facility] Influenza Virus Vaccine Quad IM Multi-dose 6+ MO Unknown Completed [facility] TDAP Unknown Completed [facility] Influenza Virus Vaccine Quad .5 mL IM 6+ MO (FLUZONE/FLULAVAL/F LUARIX) Unknown Completed [facility] Influenza Virus Vaccine Quad IM Multi-dose 6+ MO Unknown Completed [facility] TDAP Unknown Completed [facility] Influenza Virus Vaccine Quad .5 mL IM 6+ MO (FLUZONE/FLULAVAL/F LUARIX) Unknown Completed [facility] Influenza Virus Vaccine Quad IM Multi-dose 6+ MO Unknown Completed [facility] TDAP Unknown Completed [facility] Influenza Virus Vaccine Quad .5 mL IM 6+ MO (FLUZONE/FLULAVAL/F LUARIX) Unknown Completed [facility] Influenza Virus Vaccine Quad IM Multi-dose 6+ MO Unknown Completed [facility] TDAP Unknown Completed [facility] Influenza Virus Vaccine Quad .5 mL IM 6+ MO (FLUZONE/FLULAVAL/F LUARIX) Unknown Completed [facility] Influenza Virus Vaccine Quad IM Multi-dose 6+ MO Unknown Completed [facility] TDAP Unknown Completed [facility] Influenza Virus Vaccine Quad .5 mL IM 6+ MO (FLUZONE/FLULAVAL/F LUARIX) Unknown Completed [facility] Influenza Virus Vaccine Quad IM Multi-dose 6+ MO Unknown Completed [facility] TDAP Unknown Completed [facility] Influenza Virus Vaccine Quad .5 mL IM 6+ MO (FLUZONE/FLULAVAL/F LUARIX) Unknown Completed [facility] Influenza Virus Vaccine Quad IM Multi-dose 6+ MO Unknown Completed [facility] TDAP Unknown Completed [facility] Influenza Virus Vaccine Quad .5 mL IM 6+ MO (FLUZONE/FLULAVAL/F LUARIX) Unknown Completed [facility] Influenza Virus Vaccine Quad IM Multi-dose 6+ MO Unknown Completed [facility] TDAP Unknown Completed [facility] Influenza Virus Vaccine Quad .5 mL IM 6+ MO (FLUZONE/FLULAVAL/F LUARIX) Unknown Completed [facility] Vital Signs Vital Name Observation Time Observation Value Comments S ource Systolic blood pressure 2025-02-05 13:11:00 111 mm[Hg] [facility] Diastolic blood pressure 2025-02-05 13:11:00 74 mm[Hg] [facility] Heart rate 2025-02-05 13:11:00 66 /min [facility] Body temperature 2025-02-05 13:11:00 36.72 Jacqui [facility] Respiratory rate 2025-02-05 13:11:00 18 /min [facility] Body height 2025-02-05 13:11:00 167.6 cm [facility] Body weight 2025-02-05 13:11:00 100.109 kg [facility] BMI 2025-02-05 13:11:00 35.62 kg/m2 [facility] Oxygen saturation in Arterial blood by Pulse oximetry 2025-02-05 13:11:00 99 /min [facility] Systolic blood pressure 2024-11-21 21:11:00 130 mm[Hg] [facility] Diastolic blood pressure 2024-11-21 21:11:00 77 mm[Hg] [facility] Heart rate 2024-11-21 21:11:00 85 /min [facility] Body temperature 2024-11-21 21:11:00 36.33 Jacqui [facility] Respiratory rate 2024-11-21 21:11:00 18 /min [facility] Body height 2024-11-21 21:11:00 167.6 cm [facility] Body weight 2024-11-21 21:11:00 87.544 kg [facility] BMI 2024-11-21 21:11:00 31.15 kg/m2 [facility] Oxygen saturation in Arterial blood by Pulse oximetry 2024-11-21 21:11:00 99 /min [facility] Systolic blood pressure 2024-11-18 15:33:00 122 mm[Hg] [facility] Diastolic blood pressure 2024-11-18 15:33:00 80 mm[Hg] [facility] Heart rate 2024-11-18 15:33:00 81 /min [facility] Body temperature 2024-11-18 15:33:00 36.5 Jacqui [facility] Respiratory rate 2024-11-18 15:33:00 16 /min [facility] Body weight 2024-11-18 15:33:00 101.969 kg [facility] BMI 2024-11-18 15:33:00 36.28 kg/m2 [facility] Oxygen saturation in Arterial blood by Pulse oximetry 2024-11-18 15:33:00 99 /min [facility] Systolic blood pressure 2024-08-13 16:03:00 136 mm[Hg] [facility] Diastolic blood pressure 2024-08-13 16:03:00 83 mm[Hg] [facility] Heart rate 2024-08-13 16:03:00 76 /min [facility] Body temperature 2024-08-13 16:03:00 36.61 Jacqui [facility] Respiratory rate 2024-08-13 16:03:00 15 /min [facility] Body height 2024-08-13 16:03:00 167.6 cm [facility] Body weight 2024-08-13 16:03:00 100.608 kg [facility] BMI 2024-08-13 16:03:00 35.80 kg/m2 [facility] Oxygen saturation in Arterial blood by Pulse oximetry 2024-08-13 16:03:00 100 /min [facility] Systolic blood pressure 2024-07-28 15:56:00 118 mm[Hg] [facility] Diastolic blood pressure 2024-07-28 15:56:00 78 mm[Hg] [facility] Heart rate 2024-07-28 15:56:00 79 /min [facility] Body temperature 2024-07-28 15:56:00 36.67 Jacqui [facility] Respiratory rate 2024-07-28 15:56:00 18 /min [facility] Body height 2024-07-28 15:56:00 167.6 cm [facility] Body weight 2024-07-28 15:56:00 101.288 kg [facility] BMI 2024-07-28 15:56:00 36.04 kg/m2 [facility] Oxygen saturation in Arterial blood by Pulse oximetry 2024-07-28 15:56:00 98 /min [facility] Systolic blood pressure 2024-07-11 15:30:00 128 mm[Hg] [facility] Diastolic blood pressure 2024-07-11 15:30:00 77 mm[Hg] [facility] Heart rate 2024-07-11 15:30:00 73 /min [facility] Respiratory rate 2024-07-11 15:30:00 18 /min [facility] Body height 2024-07-11 15:30:00 167.6 cm [facility] Body weight 2024-07-11 15:30:00 104.736 kg [facility] BMI 2024-07-11 15:30:00 37.27 kg/m2 [facility] Oxygen saturation in Arterial blood by Pulse oximetry 2024-07-11 15:30:00 99 /min [facility] Systolic blood pressure 2024-06-27 18:37:00 124 mm[Hg] [facility] Diastolic blood pressure 2024-06-27 18:37:00 75 mm[Hg] [facility] Heart rate 2024-06-27 18:37:00 77 /min [facility] Body temperature 2024-06-27 18:37:00 36.72 Jacqui [facility] Respiratory rate 2024-06-27 18:37:00 18 /min [facility] Body height 2024-06-27 18:37:00 167.6 cm [facility] Body weight 2024-06-27 18:37:00 105.235 kg [facility] BMI 2024-06-27 18:37:00 37.45 kg/m2 [facility] Oxygen saturation in Arterial blood by Pulse oximetry 2024-06-27 18:37:00 97 /min [facility] Systolic blood pressure 2024-04-25 22:24:00 124 mm[Hg] [facility] Diastolic blood pressure 2024-04-25 22:24:00 75 mm[Hg] [facility] Heart rate 2024-04-25 22:24:00 75 /min [facility] Body temperature 2024-04-25 22:24:00 36.67 Jacqui [facility] Respiratory rate 2024-04-25 22:24:00 18 /min [facility] Body weight 2024-04-25 22:24:00 104.327 kg [facility] [facility] BMI 2024-04-25 22:24:00 37.12 kg/m2 [facility] Oxygen saturation in Arterial blood by Pulse oximetry 2024-04-25 22:24:00 100 /min [facility] Systolic blood pressure 2024-03-01 14:48:00 131 mm[Hg] [facility] Diastolic blood pressure 2024-03-01 14:48:00 74 mm[Hg] [facility] Heart rate 2024-03-01 14:48:00 71 /min [facility] Body temperature 2024-03-01 14:48:00 37.56 Jacqui [facility] Respiratory rate 2024-03-01 14:48:00 18 /min [facility] Body weight 2024-03-01 14:48:00 105.597 kg [facility] BMI 2024-03-01 14:48:00 37.57 kg/m2 [facility] Oxygen saturation in Arterial blood by Pulse oximetry 2024-03-01 14:48:00 98 /min [facility] Systolic blood pressure 2024-02-25 16:02:00 116 mm[Hg] [facility] Diastolic blood pressure 2024-02-25 16:02:00 71 mm[Hg] [facility] Heart rate 2024-02-25 16:02:00 69 /min [facility] Body temperature 2024-02-25 16:02:00 36.83 Jacqui [facility] Respiratory rate 2024-02-25 16:02:00 18 /min [facility] Body height 2024-02-25 16:02:00 167.6 cm [facility] Body weight 2024-02-25 16:02:00 105.643 kg [facility] BMI 2024-02-25 16:02:00 37.59 kg/m2 [facility] Oxygen saturation in Arterial blood by Pulse oximetry 2024-02-25 16:02:00 99 /min [facility] Body temperature 2024-01-10 14:28:00 36.61 Jacqui [facility] Body height 2024-01-10 14:28:00 167.6 cm [facility] Body weight 2024-01-10 14:28:00 106.55 kg [facility] BMI 2024-01-10 14:28:00 37.91 kg/m2 [facility] Systolic blood pressure 2023-12-10 14:15:00 131 mm[Hg] [facility] Diastolic blood pressure 2023-12-10 14:15:00 81 mm[Hg] [facility] Heart rate 2023-12-10 14:15:00 76 /min [facility] Body temperature 2023-12-10 14:15:00 37 Jacqui [facility] Body height 2023-12-10 14:15:00 167.6 cm [facility] Body weight 2023-12-10 14:15:00 106.595 kg [facility] BMI 2023-12-10 14:15:00 37.93 kg/m2 [facility] Oxygen saturation in Arterial blood by Pulse oximetry 2023-12-10 14:15:00 99 /min [facility] Systolic blood pressure 2023-10-26 19:42:00 131 mm[Hg] [facility] Diastolic blood pressure 2023-10-26 19:42:00 77 mm[Hg] [facility] Heart rate 2023-10-26 19:42:00 80 /min [facility] Body temperature 2023-10-26 19:42:00 36.44 Jacqui [facility] Body height 2023-10-26 19:42:00 167.6 cm [facility] Body weight 2023-10-26 19:42:00 108.364 kg [facility] BMI 2023-10-26 19:42:00 38.56 kg/m2 [facility] Oxygen saturation in Arterial blood by Pulse oximetry 2023-10-26 19:42:00 99 /min [facility] Systolic blood pressure 2023-10-22 00:44:00 109 mm[Hg] [facility] Diastolic blood pressure 2023-10-22 00:44:00 68 mm[Hg] [facility] Heart rate 2023-10-22 00:44:00 97 /min [facility] Body temperature 2023-10-22 00:44:00 37.39 Jacqui [facility] Respiratory rate 2023-10-22 00:44:00 16 /min [facility] Body weight 2023-10-22 00:44:00 110.542 kg [facility] BMI 2023-10-22 00:44:00 39.33 kg/m2 [facility] Oxygen saturation in Arterial blood by Pulse oximetry 2023-10-22 00:44:00 97 /min [facility] Systolic blood pressure 2023-09-28 16:39:00 125 mm[Hg] [facility] Diastolic blood pressure 2023-09-28 16:39:00 76 mm[Hg] [facility] Heart rate 2023-09-28 16:39:00 76 /min [facility] Body temperature 2023-09-28 16:39:00 36.67 Jacqui [facility] Respiratory rate 2023-09-28 16:39:00 17 /min [facility] Body weight 2023-09-28 16:39:00 108.41 kg [facility] BMI 2023-09-28 16:39:00 38.58 kg/m2 [facility] Oxygen saturation in Arterial blood by Pulse oximetry 2023-09-28 16:39:00 97 /min [facility] Body height 2023-09-06 19:32:00 167.6 cm [facility] Body weight 2023-09-06 19:32:00 108.727 kg [facility] BMI 2023-09-06 19:32:00 38.69 kg/m2 [facility] Systolic blood pressure 2023-07-28 14:29:00 115 mm[Hg] [facility] Diastolic blood pressure 2023-07-28 14:29:00 73 mm[Hg] [facility] Heart rate 2023-07-28 14:29:00 77 /min [facility] Body temperature 2023-07-28 14:29:00 36.56 Jacqui [facility] Body height 2023-07-28 14:29:00 167.6 cm [facility] Body weight 2023-07-28 14:29:00 108.41 kg [facility] BMI 2023-07-28 14:29:00 38.58 kg/m2 [facility] Oxygen saturation in Arterial blood by Pulse oximetry 2023-07-28 14:29:00 99 /min [facility] Body height 2023-06-21 18:16:00 167.6 cm [facility] Body weight 2023-06-21 18:16:00 111.131 kg [facility] BMI 2023-06-21 18:16:00 39.54 kg/m2 [facility] Systolic blood pressure 2023-06-02 16:57:00 115 mm[Hg] [facility] Diastolic blood pressure 2023-06-02 16:57:00 73 mm[Hg] [facility] Heart rate 2023-06-02 16:57:00 80 /min [facility] Body temperature 2023-06-02 16:57:00 37.17 Jacqui [facility] Respiratory rate 2023-06-02 16:57:00 12 /min [facility] Body height 2023-06-02 16:57:00 167.6 cm [facility] Oxygen saturation in Arterial blood by Pulse oximetry 2023-06-02 16:57:00 99 /min [facility] Systolic blood pressure 2023-05-24 14:36:00 107 mm[Hg] [facility] Diastolic blood pressure 2023-05-24 14:36:00 66 mm[Hg] [facility] Heart rate 2023-05-24 14:36:00 78 /min [facility] Body height 2023-05-24 14:36:00 167.6 cm [facility] Body weight 2023-05-24 14:36:00 109.77 kg [facility] BMI 2023-05-24 14:36:00 39.06 kg/m2 [facility] Oxygen saturation in Arterial blood by Pulse oximetry 2023-05-24 14:36:00 99 /min [facility] Body height 2023-05-03 18:23:00 167.6 cm [facility] Body weight 2023-05-03 18:23:00 108.863 kg [facility] BMI 2023-05-03 18:23:00 38.74 kg/m2 [facility] Systolic blood pressure 2023-03-27 18:58:00 131 mm[Hg] [facility] Diastolic blood pressure 2023-03-27 18:58:00 84 mm[Hg] [facility] Heart rate 2023-03-27 18:58:00 94 /min [facility] Body temperature 2023-03-27 18:58:00 37.06 Jacqui [facility] Respiratory rate 2023-03-27 18:58:00 18 /min [facility] Body weight 2023-03-27 18:58:00 107.531 kg [facility] BMI 2023-03-27 18:58:00 38.26 kg/m2 [facility] Oxygen saturation in Arterial blood by Pulse oximetry 2023-03-27 18:58:00 99 /min [facility] Body height 2023-03-15 19:03:00 167.6 cm [facility] Body weight 2023-03-15 19:03:00 108.41 kg [facility] BMI 2023-03-15 19:03:00 38.58 kg/m2 [facility] Systolic blood pressure 2023-03-05 17:55:00 128 mm[Hg] [facility] Diastolic blood pressure 2023-03-05 17:55:00 81 mm[Hg] [facility] Heart rate 2023-03-05 17:35:00 100 /min [facility] Body temperature 2023-03-05 17:35:00 37 Jacqui [facility] Body weight 2023-03-05 17:35:00 109.77 kg [facility] BMI 2023-03-05 17:35:00 39.06 kg/m2 [facility] Systolic blood pressure 2023-02-26 18:17:00 130 mm[Hg] [facility] Diastolic blood pressure 2023-02-26 18:17:00 90 mm[Hg] [facility] Heart rate 2023-02-26 18:17:00 88 /min [facility] Body temperature 2023-02-26 18:17:00 37 Jacqui [facility] Respiratory rate 2023-02-26 18:17:00 18 /min [facility] Body height 2023-02-26 18:17:00 167.6 cm [facility] Body weight 2023-02-26 18:17:00 108.863 kg [facility] BMI 2023-02-26 18:17:00 38.74 kg/m2 [facility] Oxygen saturation in Arterial blood by Pulse oximetry 2023-02-26 18:17:00 100 /min [facility] Body temperature 2023-02-22 18:22:00 36.67 Jacqui [facility] Body height 2023-02-22 18:22:00 167.6 cm [facility] Body weight 2023-02-22 18:22:00 108.863 kg [facility] BMI 2023-02-22 18:22:00 38.74 kg/m2 [facility] Systolic blood pressure 2023-01-12 16:01:00 133 mm[Hg] [facility] Diastolic blood pressure 2023-01-12 16:01:00 76 mm[Hg] [facility] Heart rate 2023-01-12 16:01:00 80 /min [facility] Body height 2023-01-12 16:01:00 167.6 cm [facility] Body weight 2023-01-12 16:01:00 112.9 kg [facility] BMI 2023-01-12 16:01:00 40.17 kg/m2 [facility] Oxygen saturation in Arterial blood by Pulse oximetry 2023-01-12 16:01:00 97 /min [facility] Body temperature 2022-12-21 14:43:00 36.39 Jacqui [facility] Body height 2022-12-21 14:43:00 167.6 cm [facility] Body weight 2022-12-21 14:43:00 112.764 kg [facility] BMI 2022-12-21 14:43:00 40.13 kg/m2 [facility] Systolic blood pressure 2022-12-07 19:02:00 163 mm[Hg] pt expressed she is extremely nervous [facility] Diastolic blood pressure 2022-12-07 19:02:00 76 mm[Hg] pt expressed she is extremely nervous [facility] Heart rate 2022-12-07 19:02:00 112 /min [facility] Body height 2022-12-07 19:02:00 167.6 cm [facility] Body weight 2022-12-07 19:02:00 112.038 kg [facility] BMI 2022-12-07 19:02:00 39.87 kg/m2 [facility] Systolic blood pressure 2022-11-30 14:45:00 125 mm[Hg] [facility] Diastolic blood pressure 2022-11-30 14:45:00 78 mm[Hg] [facility] Heart rate 2022-11-30 14:45:00 80 /min [facility] Body height 2022-11-30 14:45:00 167.6 cm [facility] Body weight 2022-11-30 14:45:00 112.038 kg [facility] BMI 2022-11-30 14:45:00 39.87 kg/m2 [facility] Oxygen saturation in Arterial blood by Pulse oximetry 2022-11-30 14:45:00 97 /min [facility] Systolic blood pressure 2022-11-10 21:53:00 133 mm[Hg] [facility] Diastolic blood pressure 2022-11-10 21:53:00 77 mm[Hg] [facility] Heart rate 2022-11-10 21:53:00 80 /min [facility] Body height 2022-11-10 21:53:00 167.6 cm [facility] Body weight 2022-11-10 21:53:00 112.946 kg [facility] BMI 2022-11-10 21:53:00 40.19 kg/m2 [facility] Oxygen saturation in Arterial blood by Pulse oximetry 2022-11-10 21:53:00 96 /min [facility] Systolic blood pressure 2022-10-07 20:41:00 124 mm[Hg] [facility] Diastolic blood pressure 2022-10-07 20:41:00 74 mm[Hg] [facility] Heart rate 2022-10-07 20:41:00 71 /min [facility] Body temperature 2022-10-07 20:41:00 36.94 Jacqui [facility] Body height 2022-10-07 20:41:00 167.6 cm [facility] Body weight 2022-10-07 20:41:00 109.317 kg [facility] BMI 2022-10-07 20:41:00 38.90 kg/m2 [facility] Oxygen saturation in Arterial blood by Pulse oximetry 2022-10-07 20:41:00 100 /min [facility] Systolic blood pressure 2022-07-29 13:40:00 109 mm[Hg] [facility] Diastolic blood pressure 2022-07-29 13:40:00 67 mm[Hg] [facility] Heart rate 2022-07-29 13:40:00 84 /min [facility] Body temperature 2022-07-29 13:40:00 36.89 Jacqui [facility] Body height 2022-07-29 13:40:00 167.6 cm [facility] Body weight 2022-07-29 13:40:00 107.956 kg [facility] BMI 2022-07-29 13:40:00 38.41 kg/m2 [facility] Oxygen saturation in Arterial blood by Pulse oximetry 2022-07-29 13:40:00 98 /min [facility] Systolic blood pressure 2022-07-22 19:35:00 128 mm[Hg] [facility] Diastolic blood pressure 2022-07-22 19:35:00 79 mm[Hg] [facility] Heart rate 2022-07-22 19:35:00 86 /min [facility] Respiratory rate 2022-07-22 19:35:00 19 /min [facility] Body height 2022-07-22 19:35:00 167.6 cm [facility] Body weight 2022-07-22 19:35:00 108.228 kg [facility] BMI 2022-07-22 19:35:00 38.51 kg/m2 [facility] Oxygen saturation in Arterial blood by Pulse oximetry 2022-07-22 19:35:00 96 /min [facility] Systolic blood pressure 2022-07-14 21:34:00 122 mm[Hg] [facility] Diastolic blood pressure 2022-07-14 21:34:00 80 mm[Hg] [facility] Heart rate 2022-07-14 21:34:00 88 /min [facility] Body temperature 2022-07-14 21:34:00 37.33 Jacqui [facility] Respiratory rate 2022-07-14 21:34:00 16 /min [facility] Body height 2022-07-14 21:34:00 167.6 cm [facility] Body weight 2022-07-14 21:34:00 107.094 kg [facility] BMI 2022-07-14 21:34:00 38.11 kg/m2 [facility] Oxygen saturation in Arterial blood by Pulse oximetry 2022-07-14 21:34:00 98 /min [facility] Systolic blood pressure 2022-07-13 14:14:00 134 mm[Hg] [facility] Diastolic blood pressure 2022-07-13 14:14:00 78 mm[Hg] [facility] Heart rate 2022-07-13 14:14:00 81 /min [facility] Respiratory rate 2022-07-13 14:14:00 18 /min [facility] Body height 2022-07-13 14:14:00 167.6 cm [facility] Body weight 2022-07-13 14:14:00 108.41 kg [facility] BMI 2022-07-13 14:14:00 38.58 kg/m2 [facility] Systolic blood pressure 2024-03-01 14:48:00 131 mm[Hg] [facility] Diastolic blood pressure 2024-03-01 14:48:00 74 mm[Hg] [facility] Heart rate 2024-03-01 14:48:00 71 /min [facility] Body temperature 2024-03-01 14:48:00 37.56 Jacqui [facility] Respiratory rate 2024-03-01 14:48:00 18 /min [facility] Body weight 2024-03-01 14:48:00 105.597 kg [facility] BMI 2024-03-01 14:48:00 37.57 kg/m2 [facility] Oxygen saturation in Arterial blood by Pulse oximetry 2024-03-01 14:48:00 98 /min [facility] Body height 2024-02-25 16:02:00 167.6 cm [facility] Procedures Procedure Date / Time Performed Performing Clinician Source XR ELBOW <3 VW RIGHT 2024-07-11 15:41:26 Diego Frederick [facility] POCT MOLECULAR FLU 2024-04-25 22:27:00 Unknown, Attend [facility] POCT SARS-COV-2 ANTIGEN (BINAX NOW) 2024-04-25 22:17:00 Pearl Moore [facility] INSULIN, LEVEL 2024-02-25 16:45:00 Kalpana Godwin [facility] ANTI-NUCLEAR ANTIBODY SCREEN 2024-02-25 16:45:00 Kalpana Godwin [facility] INSULIN, LEVEL 2024-02-25 16:45:00 Kalpana Godwin [facility] ANTI-NUCLEAR ANTIBODY-PATHOLOGIST INTERPRETATION 2024-02-25 16:45:00 Kalpana Godwin [facility] POCT URINALYSIS 2023-12-10 14:55:00 Kalpana Godwin [facility] POCT MOLECULAR FLU 2023-12-10 14:12:00 Kalpana Godwin [facility] POCT MOLECULAR STREP 2023-10-22 00:58:00 Unknown, Atte [facility] POCT URINALYSIS 2023-10-22 00:51:00 Yogesh Valiente [facility] POCT MOLECULAR FLU 2023-10-22 00:44:00 Unknown, Attend [facility] POCT MOLECULAR FLU 2023-09-28 16:35:00 Unknown, Attend [facility] POCT MOLECULAR STREP 2023-09-28 16:33:00 Unknown, Atthasmukh [facility] DISCLOSURE AND CONSENT, MEDICAL AND SURGICAL PROCEDURES 2023-06-21 05:01:00 Doctor Unassigned, [place] [facility] POCT SARS-COV-2 ANTIGEN (BINAX NOW) 2023-06-02 16:56:00 Paxton Hamilton [facility] CONSENT/REFUSAL FOR DIAGNOSIS AND TREATMENT 2023-05-03 18:20:30 Doctor Unassigned, [place] [facility] CT TEMPORAL BONES WO CONTRAST 2023-03-19 16:02:23 Pablo Holm [facility] MEDICATION CORRESPONDENCE 2023-03-16 05:01:00 Do ctor Unassigned, [place] [facility] ASSIGNMENT OF BENEFITS 2023-02-26 19:17:39 Docto r Unassigned, [place] [facility] CONSENT/REFUSAL FOR DIAGNOSIS AND TREATMENT 2023-02-26 18:01:18 Doctor Unassigned, [place] [facility] AUDIOLOGY VESTIBULAR (SOURCE DATA) 2023-02-08 05:01:00 Doctor Unassigned, [place] [facility] EXTERNAL PROVIDER RECORDS 2022-12-29 06:01:00 Do ctor Unassigned, [place] [facility] PATIENT FINANCIAL POLICY 2022-12-21 14:32:41 Doctor Unassigned, [place] [facility] XR SPINE THORACIC 2 VW 2022-11-16 14:44:00 Andrew Chester Gene [facility] CT HEAD WO CONTRAST 2022-10-20 15:00:19 Kalpana Godwin [facility] CONSENT/REFUSAL FOR DIAGNOSIS AND TREATMENT 2022-10-20 14:33:05 Doctor Unassigned, [place] [facility] ASSIGNMENT OF BENEFITS 2022-10-20 14:32:49 Lynn soliman Unassigned, [place] [facility] MAGNESIUM 2022-10-07 21:16:00 Kalpana Godwin [facility] FOLATE 2022-10-07 21:16:00 Kalpana Godwin [facility] C-REACTIVE PROTEIN 2022-10-07 21:16:00 Kalpana Godwin [facility] COMP. METABOLIC PANEL ([id number]) 2022-10-07 21:16:00 Kalpana Godwin [facility] SEDIMENTATION RATE 2022-10-07 21:16:00 Kalpana Godwin Un [facility] CT ABDOMEN PELVIS W WO CONTRAST 2022-07-20 14:11:00 Marla Morton [facility] CONSENT/REFUSAL FOR DIAGNOSIS AND TREATMENT 2022-07-20 13:11:01 Doctor Unassigned, [place] [facility] CONSENT/REFUSAL FOR DIAGNOSIS AND TREATMENT 2022-07-20 13:10:49 Doctor Unassigned, [place] [facility] ASSIGNMENT OF BENEFITS 2022-07-20 13:10:34 Docto r Unassigned, [place] [facility] ASSIGNMENT OF BENEFITS 2022-07-20 13:10:16 Docto r Unassigned, [place] [facility] FERRITIN SERUM 2022-07-13 14:59:00 Marla Morton [facility] IRON 2022-07-13 14:59[facility] CAPACITY 2022-07-13 14:59:00 Marla Morton [facility] THYROID STIMULATING HORMONE 2022-07-13 14:59:00 Marla Morton [facility] ALPHA FETOPROTEIN 2022-07-13 14:59:00 Marla Morton [facility] PROTHROMBIN TIME / INR 2022-07-13 14:59:00 Imtiaz Morton [facility] UNHOP-[id number]-QRZPGOVIB ABS 2022-07-13 14:59:00 Marla Morton [facility] IMMUNOGLOBULIN G 2022-07-13 14:59:00 Marla Morton [facility] SLEEP STUDY DATA REPORT 2022-07-10 05:01:00 Doct or Unassigned, [place] [facility] HCV ANTIBODY 2021-04-04 16:39:00 Damir Peña [facility] Encounters Start Date/Time End Date/Time Encounter Type Admission Type Attending Clinicians Care Facility Care Department Encounter ID Source 2021-08-24 18:53:25 Emergency [facility] [id number] 2021-08-23 21:38:34 Emergency [facility] [id number] [facility] 2021-08-21 19:02:28 Emergency [facility] [id number] [facility] 2025-02-05 00:00:00 2025-03-10 18:21:05 Patient Secure g [facility]pana Godwin [facility] 1.2.840.114 350.1.13.10 4.2.7.2.686 [id number] [facility] 2025-02-05 00:00:00 2025-03-10 18:20:58 Patient Secure Kalpana León [facility] 1.2.840.114 350.1.13.10 4.2.7.2.686 [id number] [facility] 2025-02-06 00:00:00 2025-03-10 18:20:19 Patient Secure Msg Kalpana Godwin [facility] 1.2840.114 350.1.13.10 4.2.7.2.686 [id number] [facility] 2025-02-06 00:00:00 2025-03-10 18:19:21 Patient Secure Msg Doctor Unassigned, [place] Doctor Unassigned, [place] [facility] 1.2.840.114 350.1.13.10 4.2.7.2.686 [id number] [facility] 2025-02-06 00:00:00 2025-03-10 18:19:02 Patient Secure Msg Doctor Unassigned, [place] Doctor Unassigned, [place] [facility] 1.2.840.114 350.1.13.10 4.2.7.2.686 [id number] [facility] 2025-03-05 00:00:00 2025-03-05 00:00:00 Outpatient R KALPANA GODWIN [facility] [id number] [facility] 2021-06-30 00:00:00 2025-02-15 21:44:22 Damir Georges [facility] 1.2.840.114 350.1.13.10 4.2.7.2.686 [id number] [facility] 2025-02-05 00:00:00 2025-02-05 15:32:42 Patient Secure g Kalpana Godwin [facility] 1.840.114 350.1.13.10 4.2.7.2.686 [id number] [facility] 2025-02-05 09:15:00 2025-02-05 09:30:00 Cell Operator Visit Lab, Ang - Db Kalpaan Godwin Lab, Ang - Db [facility] 1.840.114 350.1.13.10 4.2.7.2.686 [id number] [facility] 2025-02-05 08:00:00 2025-02-05 08:30:39 Outpatient R KALPANA GODWIN [facility] [id number] [facility] 2025-02-05 08:00:00 2025-02-05 08:30:39 Office Visit Kalpana Godwin [facility] 1.0.114 350.1.13.10 4.2.7.2.686 [id number] [facility] 2025-01-24 00:00:00 2025-01-25 09:14:23 Refill Kalpana Godwin [facility] 1..114 350.1.13.10 4.2.7.2.686 [id number] [facility] 2024-12-18 00:00:00 2024-12-20 09:39:49 Refill Kalpana Godwin [facility] 1..114 350.1.13.10 4.2.7.2.686 [id number] [facility] 2024-12-14 00:00:00 2024-12-14 16:33:08 Refill Kalpana Godwin [facility] 1..114 350.1.13.10 4.2.7.2.686 [id number] [facility] 2024-12-05 15:00:00 2024-12-05 15:00:00 Outpatient R CITLALI KALPANA [facility] [id number] [facility] 2024-11-21 16:00:00 2024-11-21 16:00:00 Office [facility] 1.840.114 350.1.13.10 4.2.7.2.686 [id number] [facility] 2024-11-21 16:00:00 2024-11-21 15:50:35 Outpatient R KALPANA GODWIN [facility] [id number] [facility] 2024-11-18 09:40:00 2024-11-18 10:43:44 Outpatient R HARRY COTTO [facility] [id number] [facility] 2024-11-18 09:40:00 2024-11-18 10:43:44 Urgent Care Harry Cotto, Attending [facility] 1.84.114 350.1.13.10 4.2.7.2.686 [id number] [facility] 2024-09-04 00:00:00 2024-09-04 14:50:11 Letter (Out) [facility] ([facility]) 1.84.114 350.1.13.10 4.2.7.2.686 [id number] 019 [id number] [facility] 2024-09-04 00:00:00 2024-09-04 11:34:24 Refill Rickzoe Kalpana [facility] 1.840.114 350.1.13.10 4.2.7.2.686 [id number] 044 [id number] [facility] 2024-08-13 11:00:00 2024-08-13 11:59:33 Outpatient R YOGESH VALIENTE [facility] [id number] [facility] 2024-08-13 11:00:00 2024-08-13 11:59:33 Urgent Care Yogesh Valiente Unknown, Attending [facility] 1.840.114 350.1.13.10 4.2.7.2.686 [id number] 370 [id number] [facility] 2024-08-02 00:00:00 2024-08-04 07:07:56 Patient Secure Kalpana Diaz [facility] 1.84.114 350.1.13.10 4.2.7.2.686 [id number] 044 [id number] [facility] 2024-07-28 10:40:00 2024-07-28 11:24:00 Outpatient R PAXTON HAMILTON [facility] [id number] [facility] 2024-07-28 10:40:00 2024-07-28 11:24:00 Urgent Care Paxton Hamilton Unknown, Attending [facility] 1.840.114 350.1.13.10 4.2.7.2.686 [id number] 370 [id number] [facility] 2024-07-11 10:34:13 2024-07-11 23:59:00 Outpatient R CARMEN FREDERICK CRAIG [facility] [id number] [facility] 2024-07-11 10:34:13 2024-07-11 23:59:00 Hospital Encounter Carmen Frederick [facility] 1.840.114 350.1.13.10 4.2.7.2.686 [id number] [facility] 2024-07-11 10:30:00 2024-07-11 10:51:39 Office Visit Carmen Frederick [facility] 1..840.114 350.1.13.10 4.2.7.2.686 [id number] [facility] 2024-06-27 13:30:00 2024-06-27 14:00:00 Office Visit Kalpana Godwin [facility] BU[facility] 1.840.114 350.1.13.10 4.2.7.2.686 [id number] 044 [id number] [facility] 2024-06-27 13:30:00 2024-06-27 13:30:00 Outpatient R KALPANA GODWIN [facility] [id number] [facility] 2024-04-25 19:00:00 2024-04-25 19:00:00 Outpatient R [facility] [id number] [facility] 2024-04-25 17:20:00 2024-04-25 17:34:34 Outpatient R PEARL MOORE [facility] [id number] [facility] 2024-04-25 17:20:00 2024-04-25 17:34:34 Urgent Care Pearl Moore Unknown, Attending [facility] 1..840.114 350.1.13.10 4.2.7.2.686 [id number] [facility] 2022-08-01 00:00:00 2024-04-11 02:12:59 Mobile Device Encounter Johana Mobley [facility] 1..840.114 350.1.13.10 4.2.7.2.686 [id number] 044 [id number] [facility] 2024-03-06 00:00:00 2024-03-06 10:34:10 Telephone Kalpana Godwin 1.2.840.1 35684.1.1 3.104.2.7 .3.369673 .8 [id number] [facility] 2024-03-05 00:00:00 2024-03-06 08:43:50 Refill Kalpana Godwin 1.2.840.1 88849.1.1 3.104.2.7 .3.645956 .8 [id number] [facility] 2024-03-03 00:00:00 2024-03-03 16:46:34 Letter (Out) 1.2.840.1 13363.1.1 3.104.2.7 .3.012599 .8 [id number] [facility] 2024-03-03 00:00:00 2024-03-03 16:37:38 Telephone Kalpana Godwin 1.2.840.1 62730.1.1 3.104.2.7 .3.857855 .8 [id number] [facility] 2024-03-02 00:00:00 2024-03-02 11:54:26 Telephone Kalpana Godwin 1.2.840.1 20032.1.1 3.104.2.7 .3.290405 .8 [id number] [facility] 2024-03-01 09:40:00 2024-03-01 10:16:26 Outpatient R HARRY COTTO [facility] [id number] [facility] 2024-03-01 09:40:00 2024-03-01 10:16:26 Urgent Care Unknown, Attending Harry Cotto 1.2.840.1 01634.1.1 3.104.2.7 .3.221673 .8 [id number] [facility] 2024-03-01 00:00:00 2024-03-01 00:00:00 Travel 1.2.840.1 53873.1.1 3.104.2.7 .3.738906 .8 1.2.840.114 350.1.13.10 4.2.7.3.698 084.8 [id number] [facility] 2024-02-25 11:30:00 2024-02-25 13:51:49 Cell Operator Visit Kalpana Godwin Lab, Ang - Db 1.2.840.1 26926.1.1 3.104.2.7 .3.727093 .8 [id number] [facility] 2024-02-25 11:00:00 2024-02-25 11:37:57 Outpatient R KALPANA GODWIN [facility] [id number] [facility] 2024-02-25 11:00:00 2024-02-25 11:37:57 Office Visit Kalpana Godwin 1.2.840.1 52653.1.1 3.104.2.7 .3.864190 .8 [id number] [facility] 2024-02-24 00:00:00 2024-02-25 08:22:24 Refill Kalpana Godwin 1.2.840.1 52066.1.1 3.104.2.7 .3.524007 .8 [id number] [facility] 2024-02-24 00:00:00 2024-02-25 07:37:37 Refill Kalpana Godwin 1.2.840.1 97728.1.1 3.104.2.7 .3.103346 .8 [id number] [facility] 2024-02-25 00:00:00 2024-02-25 00:00:00 Travel 1.2.840.1 88412.1.1 3.104.2.7 .3.209710 .8 1.2.840.114 350.1.13.10 4.2.7.3.698 084.8 [id number] [facility] 2024-02-14 09:00:00 2024-02-14 09:00:00 Outpatient R PABLO HOLM [facility] [id number] [facility] 2024-01-24 00:00:00 2024-01-24 15:05:47 Telephone Yessica Birch 1.2.840.1 52057.1.1 3.104.2.7 .3.243616 .8 [id number] [facility] 2024-01-10 09:30:00 2024-01-10 11:36:54 Outpatient R PABLO HOLM [facility] [id number] [facility] 2024-01-10 09:30:00 2024-01-10 11:36:54 Office Visit Pablo Holm 1.2.840.1 95278.1.1 3.104.2.7 .3.050051 .8 [id number] [facility] 2024-01-10 00:00:00 2024-01-10 00:00:00 Travel 1.2.840.1 53244.1.1 3.104.2.7 .3.221894 .8 1.0.114 350.1.13.10 4.2.7.3.698 084.8 [id number] [facility] 2023-12-15 09:30:00 2023-12-15 10:22:53 Outpatient R KALPANA GODWIN [facility] [id number] [facility] 2023-12-15 09:30:00 2023-12-15 09:45:00 Cell Operator Visit 2, Adc Lab Kalpana Godwin [facility] 1.84.114 350.1.13.10 4.2.7.2.686 [id number] 353 [id number] [facility] 2023-12-15 00:00:00 2023-12-15 00:00:00 Patient Secure Msg Doctor Unassigned, [place] [facility] 1.84.114 350.1.13.10 4.2.7.2.686 [id number] 044 [id number] [facility] 2023-12-15 00:00:00 2023-12-15 00:00:00 Patient Secure Msg Doctor Unassigned, [place] [facility] 1.840.114 350.1.13.10 4.2.7.2.686 [id number] 198 [id number] [facility] 2023-12-13 00:00:00 2023-12-13 00:00:00 Patient Secure Msg Kalpana Godwin [facility] 1.84.114 350.1.13.10 4.2.7.2.686 [id number] 044 [id number] [facility] 2023-12-10 08:30:00 2023-12-10 08:45:00 Cell Operator Visit Lab, Devonte CabreraKalpana enriquez [facility] 1.84.114 350.1.13.10 4.2.7.2.686 [id number] 353 [id number] [facility] 2023-12-10 08:00:00 2023-12-10 08:37:14 Outpatient R KALPANA GODWIN [facility] [id number] [facility] 2023-12-10 08:00:00 2023-12-10 08:37:14 Office Visit Kalpana Godwin [facility] 1.84.114 350.1.13.10 4.2.7.2.686 [id number] 044 [id number] [facility] 2023-11-03 00:00:00 2023-11-03 00:00:00 Telephone Kalpana Godwin [facility] 1.84.114 350.1.13.10 4.2.7.2.686 [id number] 044 [id number] [facility] 2023-10-30 00:00:00 2023-10-30 00:00:00 Letter (Out) [facility] 1.2840.114 350.1.13.10 4.2.7.2.686 [id number] 019 [id number] [facility] 2023-10-28 00:00:00 2023-10-28 00:00:00 Telephone CitlaliKalpana [facility] 1.2.840.114 350.1.13.10 4.2.7.2.686 [id number] 044 [id number] [facility] 2023-10-27 00:00:00 2023-10-27 00:00:00 Telephone CitlaliKalpana [facility] 1.2840.114 350.1.13.10 4.2.7.2.686 [id number] 044 [id number] [facility] 2023-10-26 14:15:00 2023-10-26 14:30:00 Cell Operator Visit Lab, Ang - Db Citllai [facility]AN?[facility] 1.2840.114 350.1.13.10 4.2.7.2.686 [id number] 353 [id number] [facility] 2023-10-26 13:30:00 2023-10-26 14:17:12 Outpatient R KALPANA GODWIN [facility] [id number] [facility] 2023-10-26 13:30:00 2023-10-26 14:17:12 Office Visit Citlali [facility] 1.284.114 350.1.13.10 4.2.7.2.686 [id number] 044 [id number] [facility] 2023-10-25 19:22:00 2023-10-26 02:34:00 Emergency E KARIN FERRARI [facility] [id number] [address] [place] [address] 2023-10-26 00:00:00 2023-10-26 00:00:00 Patient Secure Msg Kalpana Godwin [facility] 1.2.840.114 350.1.13.10 4.2.7.2.686 [id number] 044 [id number] [facility] 2023-10-26 00:00:00 2023-10-26 00:00:00 Patient Secure Msg Doctor Unassigned, [place] [facility] 1..840.114 350.1.13.10 4.2.7.2.686 [id number] 019 [id number] [facility] 2023-10-23 18:56:00 2023-10-24 02:12:00 Emergency E EHSAN HAHN [facility] [id number] [facility] 2023-10-21 19:20:00 2023-10-21 19:20:00 Urgent Care Yogesh Valiente Unknown, Attending [facility] OFFICE BUILDING 1..840.114 350.1.13.10 4.2.7.2.686 [id number] 370 [id number] [facility] 2023-10-21 19:20:00 2023-10-21 19:00:07 Outpatient R YOGESH VALIENTE [facility] [id number] [facility] 2023-09-28 10:20:00 2023-09-28 10:40:00 Urgent Care Yogesh Valiente Unknown, Attending [facility] BUILD[facility] 1..840.114 350.1.13.10 4.2.7.2.686 [id number] [facility] 2023-09-28 10:20:00 2023-09-28 10:20:00 Outpatient R YOGESH VALIENTE [facility] [id number] [facility] 2023-09-06 13:30:00 2023-09-06 14:00:00 Office Visit Pablo Holm [facility] [place] [place] 1.2840.114 350.1.13.10 4.2.7.2.686 [id number] [facility] 2023-09-06 13:30:00 2023-09-06 13:30:00 Outpatient R PABLO HOLM [facility] [id number] [facility] 2023-09-06 00:00:00 2023-09-06 00:00:00 Patient Secure Msg Doctor Unassigned, [place] [facility] 1.0.114 350.1.13.10 4.2.7.2.686 [id number] 044 [id number] [facility] 2023-08-02 00:00:00 2023-08-02 00:00:00 Refill Citlali [facility] MED[facility] OFFICE BUILDING 1.0.114 350.1.13.10 4.2.7.2.686 [id number] 044 [id number] [facility] 2023-07-28 10:00:00 2023-07-28 10:11:46 Cell Operator Visit Lab, Devonte Godwin [facility] MED[facility] OFFICE BUILDING 1.114 350.1.13.10 4.2.7.2.686 [id number] 353 [id number] [facility] 2023-07-28 09:30:00 2023-07-28 10:01:01 Outpatient R KALPANA GODWIN [facility] [id number] [facility] 2023-07-28 09:30:00 2023-07-28 10:01:01 Office Visit Citlali [facility] MED[facility] OFFICE BUILDING 1..114 350.1.13.10 4.2.7.2.686 [id number] 044 [id number] [facility] 2023-07-19 00:00:00 2023-07-19 00:00:00 Refill Kalpana Godwin [facility] 1.2840.114 350.1.13.10 4.2.7.2.686 [id number] 044 [id number] [facility] 2023-06-24 00:00:00 2023-06-24 00:00:00 Patient Secure Msg Kalpana Godwin [facility] 1.2840.114 350.1.13.10 4.2.7.2.686 [id number] 044 [id number] [facility] 2023-06-21 13:30:00 2023-06-21 14:00:00 Office Visit Alta Pablo [facility] 1.840.114 350.1.13.10 4.2.7.2.686 [id number] [facility] 2023-06-21 13:30:00 2023-06-21 13:30:00 Outpatient R SARAIADELAIDEPABLO [facility] [id number] [facility] 2023-06-21 00:00:00 2023-06-21 00:00:00 Orders Only Doctor Unassigned, [place] [facility] 1.84.114 350.1.13.10 4.2.7.2.686 [id number] [id number] [facility] 2023-06-04 00:00:00 2023-06-04 00:00:00 Telephone Kalpana Godwin [facility] 1.284.114 350.1.13.10 4.2.7.2.686 [id number] 044 [id number] [facility] 2023-06-02 12:00:00 2023-06-02 12:06:39 Urgent Care [facility] BUILD[facility] 1.2.840.114 350.1.13.10 4.2.7.2.686 [id number] 370 [id number] [facility] 2023-06-02 11:45:00 2023-06-02 11:45:00 Outpatient PAXTON DAWKINS [facility] [id number] [facility] 2023-05-26 00:00:00 2023-05-26 00:00:00 RefKalpana Pruitt [facility] 1.2.840.114 350.1.13.10 4.2.7.2.686 [id number] 044 [id number] [facility] 2023-05-25 00:00:00 2023-05-25 00:00:00 Patient Secure Kalpana Diaz [facility] OFF[facility] BUILD[facility] 1.2.840.114 350.1.13.10 4.2.7.2.686 [id number] 044 [id number] [facility] 2023-05-25 00:00:00 2023-05-25 00:00:00 Patient Secure Kalpana Diaz [facility] 1.2.840.114 350.1.13.10 4.2.7.2.686 [id number] 044 [id number] [facility] 2023-05-24 10:00:00 2023-05-24 10:15:00 Cell Operator Visit Lab, Devonte - Guilherme Citlali [facility] MED[facility] OFFICE BUILDING 1.2.840.114 350.1.13.10 4.2.7.2.686 [id number] [facility] 2023-05-24 09:30:00 2023-05-24 09:59:07 Outpatient R CITLALI KALPANA [facility] [id number] [facility] 2023-05-24 09:30:00 2023-05-24 09:59:07 Office Visit RickKalpana enriquez [facility] 1.2840.114 350.1.13.10 4.2.7.2.686 [id number] 044 [id number] [facility] 2023-05-10 16:30:00 2023-05-10 16:30:00 [facility] [id number] [facility] 2023-05-03 14:00:00 2023-05-03 14:30:00 [facility] [place] 1.2.840.114 350.1.13.10 4.2.7.2.686 [id number] [facility] 2023-05-03 14:00:00 2023-05-03 14:00:00 [facility] [id number] [facility] 2023-05-03 00:00:00 2023-05-03 00:00:00 Orders Only Doctor Unassigned, [place] [facility] 1.84.114 350.1.13.10 4.2.7.2.686 [id number] [id number] [facility] 2023-04-19 11:00:00 2023-04-19 11:00:00 Outpatient R KALPANA GODWIN [facility] [id number] [facility] 2023-04-16 00:00:00 2023-04-16 00:00:00 [facility]phone [facility] [place] 1.840.114 350.1.13.10 4.2.7.2.686 [id number] [facility] 2023-04-15 00:00:00 2023-04-15 00:00:00 Telephone [facility] [place] 1.284.114 350.1.13.10 4.2.7.2.686 [id number] 144 [id number] [facility] 2023-04-13 00:00:00 2023-04-13 00:00:00 Telephone Pablo Hol[facility] 1.2.840.114 350.1.13.10 4.2.7.2.686 [id number] 144 [id number] [facility] 2023-03-27 14:00:00 2023-03-27 14:20:00 Nurse Visit Nurse, Devonte Vanegas Urgent [facility] Unknown, Attending [facility] OFF[facility] BUILD[facility] 1.2.840.114 350.1.13.10 4.2.7.2.686 [id number] 370 [id number] [facility] 2023-03-27 14:00:00 2023-03-27 14:20:00 Urgent Care Provider, Devonte Vanegas Urgent Care Unknown, Attending [facility] BUILD[facility] 1.2.840.114 350.1.13.10 4.2.7.2.686 [id number] [facility] 2023-03-27 14:00:00 2023-03-27 14:00:00 Outpatient R UNKNOWN, [facility] [id number] [facility] 2023-03-27 14:00:00 2023-03-27 14:00:00 Outpatient R MARIAA ESPAÑA [facility] [id number] [facility] 2023-03-23 00:00:00 2023-03-23 00:00:00 Patient Secure Msg Pablo Holm [facility] 1.2.840.114 350.1.13.10 4.2.7.2.686 [id number] [facility] 2023-03-19 10:29:12 2023-03-19 23:59:00 Outpatient R PABLO HOLM [facility] [id number] [facility] 2023-03-19 10:29:12 2023-03-19 23:59:00 Hospital Encounter Pablo Holm [facility] 1.2840.114 350.1.13.10 4.2.7.2.686 [id number] [facility] 2023-03-17 00:00:00 2023-03-17 00:00:00 Patient Secure Msg Doctor Unassigned, [place] [facility] 1.2840.114 350.1.13.10 4.2.7.2.686 [id number] [facility] 2023-03-16 00:00:00 2023-03-16 00:00:00 Orders Only Doctor Unassigned, [place] [facility] 1.2840.114 350.1.13.10 4.2.7.2.686 [id number] [id number] [facility] 2023-03-15 14:00:00 2023-03-15 14:46:21 Outpatient R PABLO HOLM [facility] [id number] [facility] 2023-03-15 14:00:00 2023-03-15 14:46:21 Office Visit Pablo Holm [facility] 1.2840.114 350.1.13.10 4.2.7.2.686 [id number] 144 [id number] [facility] 2023-03-05 12:30:00 2023-03-05 15:12:07 Outpatient R LOLA SOLIS [facility] [id number] [facility] 2023-03-05 12:30:00 2023-03-05 15:12:07 Office Visit Lola Solis [facility] 1.2840.114 350.1.13.10 4.2.7.2.686 [id number] 044 [id number] [facility] 2023-03-05 00:00:00 2023-03-05 00:00:00 Telephone Pablo Holm [place] 1.2.840.114 350.1.13.10 4.2.7.2.686 [id number] 144 [id number] [facility] 2023-02-26 13:18:00 2023-02-26 14:33:00 Emergency X ROSARIO COSTELLOS [facility] ERT [id number] [facility] 2023-02-26 13:18:00 2023-02-26 14:33:00 Emergency Shaheed Costello [facility] 1.2.840.114 350.1.13.10 4.2.7.2.686 [id number] 084 [id number] [facility] 2023-02-26 00:00:00 2023-02-26 00:00:00 Telephone Pablo Holm [facility] [place] 1.2.840.114 350.1.13.10 4.2.7.2.686 [id number] 144 [id number] [facility] 2023-02-26 00:00:00 2023-02-26 00:00:00 Patient Secure Msg Pablo Holm [facility] [place] 1.2.840.114 350.1.13.10 4.2.7.2.686 [id number] 144 [id number] [facility] 2023-02-22 13:30:00 2023-02-22 14:00:00 Office Visit Pablo Holm [facility] [place] 1.2.840.114 350.1.13.10 4.2.7.2.686 [id number] [facility] 2023-02-22 13:30:00 2023-02-22 13:30:00 Outpatient R PABLO HOLM [facility] [id number] [facility] 2023-02-22 00:00:00 2023-02-22 00:00:00 Telephone Pablo Holm [facility] 1.20.114 350.1.13.10 4.2.7.2.686 [id number] [facility] 2023-02-08 10:00:00 2023-02-08 12:00:00 Ancillary Visit Lola Feliz Deborah L [facility] 1..114 350.1.13.10 4.2.7.2.686 [id number] [facility] 2023-02-08 10:00:00 2023-02-08 10:00:00 Outpatient ELEANOR KATE [facility] [id number] [facility] 2023-02-08 09:00:00 2023-02-08 09:45:00 Ancillary Visit Leia Marie 1, [employer] [place], Eleanor Her [facility] 1..114 350.1.13.10 4.2.7.2.686 [id number] [facility] 2023-02-08 00:00:00 2023-02-08 00:00:00 Orders Only Doctor Unassigned, [place] [facility] 1..114 350.1.13.10 4.2.7.2.686 [id number] [facility] 2023-01-18 07:45:00 2023-01-18 08:00:00 Cell Operator Visit Pob, Adc Lab Kalpana Gardiner [facility] 1..114 350.1.13.10 4.2.7.2.686 [id number] [facility] 2023-01-18 07:45:00 2023-01-18 07:45:00 Outpatient KALPANA RODRIGUEZ [facility] [id number] [facility] 2023-01-12 11:30:00 2023-01-12 12:21:42 Cell Operator Visit Lab, Devonte Vanegas [facility] 1.84.114 350.1.13.10 4.2.7.2.686 [id number] [facility] 2023-01-12 11:00:00 2023-01-12 11:23:55 Outpatient R KALPANA GODWIN [facility] [id number] [facility] 2023-01-12 11:00:00 2023-01-12 11:23:55 Office Visit Kalpana Godwin [facility] J[facility]AN?[facility] 1.84.114 350.1.13.10 4.2.7.2.686 [id number] [facility] 2023-01-06 00:00:00 2023-01-06 00:00:00 Telephone Kalpana Godwin [facility] JON[facility]ATHAN?JESSIE [facility] 1.114 350.1.13.10 4.2.7.2.686 [id number] [facility] 2022-12-29 00:00:00 2022-12-29 00:00:00 Orders Only Doctor Unassigned, [place] [facility] 1..114 350.1.13.10 4.2.7.2.686 [id number] [facility] 2022-12-21 08:45:00 2022-12-21 09:15:00 Office Visit Caitlyn De Jesus [facility] [place] [facility] 1..114 350.1.13.10 4.2.7.2.686 [id number] [facility] 2022-12-21 08:45:00 2022-12-21 08:45:00 Outpatient R CAITLYN DE JESUS [facility] [id number] [facility] 2022-12-21 00:00:00 2022-12-21 00:00:00 Orders Only Doctor Unassigned, [place] [facility] 1.114 350.1.13.10 4.2.7.2.686 [id number] [facility] 2022-12-21 00:00:00 2022-12-21 00:00:00 Patient Secure Msg Doctor Unassigned, [place] [facility] 1.114 350.1.13.10 4.2.7.2.686 [id number] [facility] 2022-12-08 00:00:00 2022-12-08 00:00:00 Telephone Kalpana Godwin [facility] 1.84.114 350.1.13.10 4.2.7.2.686 [id number] [facility] 2022-12-07 13:30:00 2022-12-07 13:36:31 [facility] [id number] [facility] 2022-12-07 13:30:00 2022-12-07 13:36:31 [facility] 1.840.114 350.1.13.10 4.2.7.2.686 [id number] [facility] 2022-11-30 08:40:00 2022-11-30 10:22:01 Outpatient SAMMY SCHMIDT [facility] [id number] [facility] 2022-11-30 08:40:00 2022-11-30 10:22:01 Office Visit Sammy Chester [facility]IE [facility] 1.840.114 350.1.13.10 4.2.7.2.686 [id number] [facility] 2022-11-30 00:00:00 2022-11-30 00:00:00 Telephone Sammy Chester [facility] J[facility]AN?[facility] 1..840.114 350.1.13.10 4.2.7.2.686 [id number] [facility] 2022-11-30 00:00:00 2022-11-30 00:00:00 Telephone Sammy Chester [facility] JONNATHAN?JESSIE [facility] 1..840.114 350.1.13.10 4.2.7.2.686 [id number] [facility] 2022-11-16 08:19:44 2022-11-16 23:59:00 Outpatient SAMMY SCHMIDT [facility] [id number] [facility] 2022-11-16 08:19:44 2022-11-16 23:59:00 Hospital Encounter Sammy Chester [facility] 1..840.114 350.1.13.10 4.2.7.2.686 [id number] [facility] 2022-11-10 15:40:00 2022-11-10 16:42:14 Outpatient SAMMY SCHMIDT [facility] [id number] [facility] 2022-11-10 15:40:00 2022-11-10 16:42:14 Office Visit Sammy Chester [facility] JONNATHAN?JESSIE [facility] 1..840.114 350.1.13.10 4.2.7.2.686 [id number] [facility] 2022-10-20 08:34:03 2022-10-20 23:59:00 Outpatient KALPANA RODRIGUEZ [facility] [id number] [facility] 2022-10-20 08:34:03 2022-10-20 23:59:00 Hospital Encounter Kalpana Godwin [facility] 1.84.114 350.1.13.10 4.2.7.2.686 [id number] [facility] 2022-10-20 00:00:00 2022-10-20 00:00:00 Telephone RickKalpana enriquez [facility] 1.84.114 350.1.13.10 4.2.7.2.686 [id number] [facility] 2022-10-09 00:00:00 2022-10-09 00:00:00 Patient Secure Msg Doctor Unassigned, [place] [facility] 1.840.114 350.1.13.10 4.2.7.2.686 [id number] [facility] 2022-10-07 15:17:02 2022-10-07 23:59:00 Outpatient R KALPANA GODWIN [facility] [id number] [facility] 2022-10-07 15:15:00 2022-10-07 15:17:12 Cell Operator Visit Lab, Ang - Db Kalpana Godwin [facility] 1.840.114 350.1.13.10 4.2.7.2.686 [id number] [facility] 2022-10-07 14:30:00 2022-10-07 15:10:32 Office Visit RickKalpana enriquez [facility] 1.84.114 350.1.13.10 4.2.7.2.686 [id number] 044 [id number] [facility] 2022-10-02 00:00:00 2022-10-02 00:00:00 Telephone Albert Russell [facility] 1.2.840.114 350.1.13.10 4.2.7.2.686 [id number] 085 [id number] [facility] 2022-08-01 00:00:00 2022-08-01 00:00:00 Nurse Triage [place] Christiana Vega [facility] 1.2840.114 350.1.13.10 4.2.7.2.686 [id number] [facility] 2022-08-01 00:00:00 2022-08-01 00:00:00 Telephone Citlali Kalpana [facility] 1.2.840.114 350.1.13.10 4.2.7.2.686 [id number] [id number] [facility] 2022-07-29 08:30:00 2022-07-29 09:00:00 Office Visit Rickzoe [facility] 1.2840.114 350.1.13.10 4.2.7.2.686 [id number] 044 [id number] [facility] 2022-07-29 08:30:00 2022-07-29 08:30:00 Outpatient R CITLALI KALPANA [facility] [id number] [facility] 2022-07-29 00:00:00 2022-07-29 00:00:00 Patient Secure Msg Doctor Unassigned, [place] [facility] 1.2840.114 350.1.13.10 4.2.7.2.686 [id number] [facility] 2022-07-29 00:00:00 2022-07-29 00:00:00 Telephone FilippomanjulaAlbert [facility] BUILD[facility] 1.2840.114 350.1.13.10 4.2.7.2.686 [id number] [facility] 2022-07-27 10:30:00 2022-07-27 10:30:00 Outpatient R KATHY BUCKLEY [facility] [id number] [facility] 2022-07-27 10:30:00 2022-07-27 10:30:00 Outpatient R KATHY BUCKLEY [facility] [id number] [facility] 2022-07-27 10:30:00 2022-07-27 10:30:00 Outpatient R KATHY BUCKLEY [facility] [id number] [facility] 2022-07-27 10:30:00 2022-07-27 10:30:00 Outpatient R KATHY BUCKLEY [facility] [id number] [facility] 2022-07-23 00:00:00 2022-07-23 00:00:00 Telephone Albert Russell [facility] 1.2.840.114 350.1.13.10 4.2.7.2.686 [id number] [facility] 2022-07-22 14:20:00 2022-07-22 16:08:11 Outpatient R ALBERT RUSSELL STRAHIL [facility] [id number] [facility] 2022-07-22 14:20:00 2022-07-22 14:40:00 Office Visit Albert Russell [facility] 1.2.840.114 350.1.13.10 4.2.7.2.686 [id number] [id number] [facility] 2022-07-22 00:00:00 2022-07-22 00:00:00 Telephone Albert Russell [facility] 1..840.114 350.1.13.10 4.2.7.2.686 [id number] [facility] 2022-07-20 08:11:16 2022-07-20 23:59:00 Outpatient R MARLA MORTON [facility] [id number] [facility] 2022-07-20 08:11:16 2022-07-20 23:59:00 Hospital Encounter Surya [facility] 1.2.840.114 350.1.13.10 4.2.7.2.686 [id number] [facility] 2022-07-20 08:00:00 2022-07-20 08:15:00 Cell Operator Visit 1, Adc Lab Surya [facility] 1.2.840.114 350.1.13.10 4.2.7.2.686 [id number] [facility] 2022-07-17 00:00:00 2022-07-17 00:00:00 Patient Secure Msg Doctor Unassigned, [place] [facility] 1.2840.114 350.1.13.10 4.2.7.2.686 [id number] 071 [id number] [facility] 2022-07-17 00:00:00 2022-07-17 00:00:00 Telephone Marla Morton [facility] 1.840.114 350.1.13.10 4.2.7.2.686 [id number] [facility] 2022-07-15 00:00:00 2022-07-15 00:00:00 Letter (Out) Candida Diaz [facility] 1.2840.114 350.1.13.10 4.2.7.2.686 [id number] [facility] 2022-07-14 16:40:00 2022-07-14 16:54:13 Outpatient YOGESH VALDEZ [facility] [id number] [facility] 2022-07-14 16:40:00 2022-07-14 16:54:13 Urgent Care Yogesh Valiente [facility] 1.2.840.114 350.1.13.10 4.2.7.2.686 [id number] [facility] 2022-07-13 10:00:00 2022-07-13 10:15:00 Cell Operator Visit [facility] 1.2840.114 350.1.13.10 4.2.7.2.686 [id number] [facility] 2022-07-13 10:00:00 2022-07-13 10:15:00 Cell Operator Visit [facility] 1.840.114 350.1.13.10 4.2.7.2.686 [id number] [facility] 2022-07-13 09:00:00 2022-07-13 09:46:13 Outpatient R MARLA MORTON [facility] [id number] [facility] 2022-07-13 09:00:00 2022-07-13 09:46:13 Office Visit Surya, [facility] 1.2840.114 350.1.13.10 4.2.7.2.686 [id number] [facility] 2022-07-13 09:00:00 2022-07-13 09:46:13 Outpatient R MARLA MORTON [facility] [id number] [facility] 2022-07-13 09:00:00 2022-07-13 09:46:13 Outpatient R MARLA MORTON [facility] [id number] [facility] 2022-07-13 09:00:00 2022-07-13 09:46:13 Outpatient R MARLA MORTON [facility] [id number] [facility] 2022-07-10 20:00:00 2022-07-10 22:30:00 Cell Operator Visit 1, [facility] Sleep Lab Bed Flor Russellrubenbettye Eusebio [facility] 1..840.114 350.1.13.10 4.2.7.2.686 [id number] [facility] 2022-07-10 20:00:00 2022-07-10 20:00:00 Outpatient R ALBERT RUSSELL STRANEBettye [facility] [id number] [facility] 2022-07-10 20:00:00 2022-07-10 20:00:00 Outpatient R ALBERT RUSSELL STRANEBettye [facility] [id number] [facility] 2022-07-10 00:00:00 2022-07-10 00:00:00 Orders Only Doctor Unassigned, [place] [facility] 1..840.114 350.1.13.10 4.2.7.2.686 [id number] [facility] 2022-07-08 13:00:00 2022-07-08 13:15:00 Cell Operator Visit Lab, Kalpana Wen [facility] 1..840.114 350.1.13.10 4.2.7.2.686 [id number] [facility] 2022-07-08 13:00:00 2022-07-08 13:00:00 Outpatient KALPANA RODRIGUEZ [facility] [id number] [facility] 2022-07-08 10:20:00 2022-07-08 10:20:00 Outpatient R ALBERT RUSSELL STRANEBettye [facility] [id number] [facility] 2022-07-08 08:15:00 2022-07-08 08:15:00 Outpatient R [facility] [id number] [facility] 2022-07-08 00:00:00 2022-07-08 00:00:00 Patient Secure g Anusha Low [facility] 1.2.840.114 350.1.13.10 4.2.7.2.686 [id number] [id number] [facility] 2022-07-08 00:00:00 2022-07-08 00:00:00 Patient Secure Kalpana Diaz [facility] 1.2.840.114 350.1.13.10 4.2.7.2.686 [id number] 044 [id number] [facility] 2022-07-07 11:00:00 2022-07-07 11:15:00 Cell Operator Visit Lab, Devonte Vanegas Citlali [facility] JONNATHAN?[facility] 1.2.840.114 350.1.13.10 4.2.7.2.686 [id number] [facility] 2022-07-07 10:30:00 2022-07-07 11:02:37 Office Visit RickKalpana enriquez [facility] 1.2.840.114 350.1.13.10 4.2.7.2.686 [id number] [facility] 2022-07-07 10:30:00 2022-07-07 11:02:37 Outpatient R KALPANA GODWIN [facility] [id number] [facility] 2022-07-07 11:00:00 2022-07-07 11:00:00 Outpatient R KALPANA GODWIN [facility] [id number] [facility] 2022-07-07 10:30:00 2022-07-07 10:30:00 Outpatient R KALPANA GODWIN [facility] [id number] [facility] 2022-07-07 10:30:00 2022-07-07 10:30:00 Outpatient R KALPANA GODWIN [facility] [id number] [facility] 2022-07-07 10:30:00 2022-07-07 10:30:00 Outpatient R KALPANA GODWIN [facility] [id number] [facility] 2022-07-07 10:30:00 2022-07-07 10:30:00 Outpatient R KALPANA GODWIN [facility] [id number] [facility] 2022-07-01 13:20:00 2022-07-01 13:45:22 Outpatient R ATAISAIASSAMRA, STRAHIL ATANASOV, STRAHIL [facility] [id number] [facility] 2022-07-01 13:20:00 2022-07-01 13:40:00 Office Visit Albert Russell [facility] 1.2.840.114 350.1.13.10 4.2.7.2.686 [id number] [facility] 2022-07-01 13:20:00 2022-07-01 13:20:00 Outpatient R ATANASOV, STRAHIL ATANASOV, STRAHIL [facility] [id number] [facility] 2022-06-24 09:20:00 2022-06-24 09:20:00 Outpatient R ATANASOV, STRAHIL ATANASOV, STRAHIL [facility] [id number] [facility] 2022-06-24 09:20:00 2022-06-24 09:20:00 Outpatient R ATANASOV, STRAHIL ATANASOV, STRAHIL [facility] [id number] [facility] 2022-06-23 09:00:00 2022-06-23 09:00:00 Outpatient R ATANASOV, STRAHIL ATANASOV, STRAHIL [facility] [id number] [facility] 2022-06-23 00:00:00 2022-06-23 00:00:00 Telephone Kathy Buckley [facility] 1.2.840.114 350.1.13.10 4.2.7.2.686 [id number] [facility] 2022-06-22 00:00:00 2022-06-22 00:00:00 Patient Secure Msg Albert Russell [facility] 1.2.840.114 350.1.13.10 4.2.7.2.686 [id number] [facility] 2022-06-18 00:00:00 2022-06-18 00:00:00 Telephone Albert Russell [facility] 1.2.840.114 350.1.13.10 4.2.7.2.686 [id number] [facility] 2022-06-17 14:00:00 2022-06-17 14:00:00 Outpatient KALPANA RODRIGUEZ [facility] [id number] [facility] 2022-06-10 11:40:00 2022-06-10 11:40:00 Outpatient ALBERT TONG STRAHIL [facility] [id number] [facility] 2022-06-09 09:00:00 2022-06-09 09:15:00 Cell Operator Visit [facility] Albert Russell [facility] 1..840.114 350.1.13.10 4.2.7.2.686 [id number] [facility] 2022-06-09 09:00:00 2022-06-09 09:00:00 Outpatient ALBERT TONG STRAHIL [facility] [id number] [facility] 2022-06-09 09:00:00 2022-06-09 09:00:00 Outpatient ALBERT TONG STRAHIL [facility] [id number] [facility] 2022-06-09 00:00:00 2022-06-09 00:00:00 Orders Only Doctor Unassigned, [place] [facility] 1.2.840.114 350.1.13.10 4.2.7.2.686 [id number] [facility] 2022-06-04 11:00:00 2022-06-04 11:30:00 Office Visit Kathy Buckley [facility] 1..840.114 350.1.13.10 4.2.7.2.686 [id number] [facility] 2022-06-04 11:00:00 2022-06-04 11:00:00 Out[facility] [id number] [facility] 2022-06-04 00:00:00 2022-06-04 00:00:00 Telephone Albert Russell [facility] BU[facility] 1..840.114 350.1.13.10 4.2.7.2.686 [id number] [facility] 2022-06-02 11:12:09 2022-06-02 23:59:00 Outpatient R KALPANA GODWIN [facility] [id number] [facility] 2022-06-02 11:12:09 2022-06-02 11:12:09 Outpatient R KALPANA GODWIN [facility] [id number] [facility] 2022-06-02 10:30:00 2022-06-02 11:11:24 Office Visit Kalpana Godwin [facility] 1.2.840.114 350.1.13.10 4.2.7.2.686 [id number] [facility] 2022-06-02 04:44:00 2022-06-02 06:41:00 Emergency X JOSEF LOPEZ [facility] ERT [id number] [facility] 2022-06-02 04:44:00 2022-06-02 06:41:00 Emergency Josef Lopez S [facility] 1.2.840.114 350.1.13.10 4.2.7.2.686 [id number] [facility] 2022-06-02 00:00:00 2022-06-02 00:00:00 Telephone Kalpana Godwin [facility] 1.2.840.114 350.1.13.10 4.2.7.2.686 [id number] 044 [id number] [facility] 2022-06-02 00:00:00 2022-06-02 00:00:00 Patient Secure Msg Anusha Low [facility] 1.2.840.114 350.1.13.10 4.2.7.2.686 [id number] [id number] [facility] 2022-06-02 00:00:00 2022-06-02 00:00:00 Patient Secure Msg Kalpana Godwin [facility] 1.2.840.114 350.1.13.10 4.2.7.2.686 [id number] [facility] 2022-05-19 10:15:00 2022-05-19 10:30:00 Laboratory Only Only, Ang Db Test Taco [facility] 1.284.114 350.1.13.10 4.2.7.2.686 [id number] [facility] 2022-05-19 10:15:00 2022-05-19 10:18:27 Outpatient R MARIAA ESPAÑA [facility] [id number] [facility] 2022-05-19 09:30:00 2022-05-19 10:04:47 Outpatient R KALPANA GODWIN [facility] [id number] [facility] 2022-05-19 09:30:00 2022-05-19 10:04:47 Office Visit Kalpana Godwin [facility] 1..840.114 350.1.13.10 4.2.7.2.686 [id number] 044 [id number] [facility] 2022-04-07 08:30:00 2022-04-07 08:45:00 Cell Operator Visit 2, Adc Lab Kalpana Godwin [facility] N[facility] BUILD[facility] 1..840.114 350.1.13.10 4.2.7.2.686 [id number] [facility] 2022-04-07 08:30:00 2022-04-07 08:30:00 Outpatient R [facility] [id number] [facility] 2022-04-07 08:30:00 2022-04-07 08:30:00 Outpatient R RICKKALPANA Enriquez [facility] [id number] [facility] 2022-04-07 00:00:00 2022-04-07 00:00:00 Telephone RickKalpana enriquez [facility] 1..840.114 350.1.13.10 4.2.7.2.686 [id number] [facility] 2022-04-06 16:30:00 2022-04-06 17:05:11 Office Visit RickKalpana enriquez [facility] 1..840.114 350.1.13.10 4.2.7.2.686 [id number] [id number] [facility] 2022-04-06 16:30:00 2022-04-06 17:05:11 Outpatient R KALPANA GODWIN [facility] [id number] [facility] 2022-04-06 16:30:00 2022-04-06 16:30:00 Outpatient R KALPANA GODWIN [facility] [id number] [facility] 2022-04-06 00:00:00 2022-04-06 00:00:00 Orders Only Doctor Unassigned, [place] [facility] 1.2.840.114 350.1.13.10 4.2.7.2.686 [id number] [facility] 2022-03-19 09:11:00 2022-03-19 10:14:00 Emergency X CARLITO MEJIAS [facility] ERT [id number] [facility] 2022-03-19 09:11:00 2022-03-19 10:14:00 Emergency Carlito Mejias [facility] 1.2.840.114 350.1.13.10 4.2.7.2.686 [id number] [facility] 2022-03-19 00:00:00 2022-03-19 00:00:00 Orders Only Doctor Unassigned, [place] [facility] 1.2840.114 350.1.13.10 4.2.7.2.686 [id number] [facility] 2022-03-10 00:00:00 2022-03-10 00:00:00 Steph Rome [facility] 1.2.840.114 350.1.13.10 4.2.7.2.686 [id number] [id number] [facility] 2022-03-03 23:57:00 2022-03-04 02:30:00 Emergency X SULLY ULLOA [facility] ERT [id number] [facility] 2022-03-03 23:57:00 2022-03-04 02:30:00 Emergency Sully Ulloa S [facility] 1.2840.114 350.1.13.10 4.2.7.2.686 [id number] [facility] 2022-02-27 00:00:00 2022-02-27 00:00:00 Patient Secure Msg Anusha Low [facility] 1.840.114 350.1.13.10 4.2.7.2.686 [id number] 044 [id number] [facility] 2022-02-27 00:00:00 2022-02-27 00:00:00 Patient Secure Msg Anusha Low [facility] 1..114 350.1.13.10 4.2.7.2.686 [id number] 044 [id number] [facility] 2022-02-26 13:47:00 2022-02-26 16:39:00 Emergency X ULLOASULLY [facility] ERT [id number] [facility] 2022-02-26 13:47:00 2022-02-26 16:39:00 Emergency UlloaSully S [facility] 1..114 350.1.13.10 4.2.7.2.686 [id number] [id number] [facility] 2022-01-28 00:00:00 2022-01-28 00:00:00 Patient Secure Msg Kalpana Godwin [facility] 1.0.114 350.1.13.10 4.2.7.2.686 [id number] 044 [id number] [facility] 2022-01-27 08:30:00 2022-01-27 08:45:00 Cell Operator Visit Lab, Devonte GodwinKalpana [facility] 1.0.114 350.1.13.10 4.2.7.2.686 [id number] [facility] 2022-01-27 08:00:00 2022-01-27 08:36:58 Outpatient R KALPANA GODWIN [facility] [id number] [facility] 2022-01-27 08:00:00 2022-01-27 08:36:58 Office Visit Kalpana Godwin [facility] 1.2.840.114 350.1.13.10 4.2.7.2.686 [id number] [facility] 2022-01-27 08:30:00 2022-01-27 08:30:00 Outpatient R KALPANA GODWIN [facility] [id number] [facility] 2022-01-27 08:00:00 2022-01-27 08:00:00 Outpatient R KALPANA GODWIN [facility] [id number] [facility] 2022-01-22 13:00:00 2022-01-22 13:17:29 Office Visit Steph Benedict [facility] 1.2.840.114 350.1.13.10 4.2.7.2.686 [id number] [facility] 2022-01-22 13:00:00 2022-01-22 13:17:29 Outpatient R STEPH BENEDICT [facility] [id number] [facility] 2022-01-22 13:00:00 2022-01-22 13:00:00 Outpatient R STEPH BENEDICT [facility] [id number] [facility] 2022-01-20 10:20:00 2022-01-20 10:27:06 Outpatient R POLO FERRIS [facility] [id number] [facility] 2022-01-20 10:20:00 2022-01-20 10:27:06 Urgent Care Polo Ferris [facility] 1..840.114 350.1.13.10 4.2.7.2.686 [id number] [facility] 2022-01-16 00:00:00 2022-01-16 00:00:00 Telephone Steph Benedict [facility] 1..840.114 350.1.13.10 4.2.7.2.686 [id number] [facility] 2022-01-16 00:00:00 2022-01-16 00:00:00 Orders Only Doctor Unassigned, [place] [facility] 1.840.114 350.1.13.10 4.2.7.2.686 [id number] [facility] 2021-12-30 08:32:00 2021-12-30 16:22:00 Emergency E [facility] [id number] [facility] 2021-12-03 00:00:00 2021-12-03 00:00:00 Telephone Steph Benedict [facility] 1..840.114 350.1.13.10 4.2.7.2.686 [id number] [facility] 2021-11-24 10:00:00 2021-11-24 10:00:00 Outpatient R STEPH BENEDICT [facility] [id number] [facility] 2021-11-20 18:20:00 2021-11-20 18:40:00 Nurse Visit Nurse, Dev[facility] 1..840.114 350.1.13.10 4.2.7.2.686 [id number] [facility] 2021-11-20 18:20:00 2021-11-20 18:20:00 Outpatient LINCOLN TOMLINSON III [facility] [id number] [facility] 2021-11-20 12:35:00 2021-11-20 15:44:00 Emergency X JANY LAZAR [facility] E[facility] [id number] [facility] 2021-11-20 12:35:00 2021-11-20 15:44:00 Emergency Jany Lazar [facility] 1.2.840.114 350.1.13.10 4.2.7.2.686 [id number] [facility] 2021-10-19 11:01:00 2021-10-19 13:07:00 Emergency X SULLY ULLOA [facility] ERT [id number] [facility] 2021-10-19 11:01:00 2021-10-19 13:07:00 Emergency Sully Ulloa S [facility] 1.2.840.114 350.1.13.10 4.2.7.2.686 [id number] [facility] 2021-10-19 00:00:00 2021-10-19 00:00:00 Patient Secure Msg Rocco Meñolc [facility] 1.2.840.114 350.1.13.10 4.2.7.2.686 [id number] [facility] 2021-10-16 18:00:00 2021-10-16 18:20:00 Urgent Care Yogesh Valiente Cathy [facility] 1.2.840.114 350.1.13.10 4.2.7.2.686 [id number] [facility] 2021-10-16 18:00:00 2021-10-16 18:00:00 Outpatient R YOGESH VALIENTE [facility] [id number] [facility] 2021-09-26 16:13:51 2021-09-26 16:28:51 Laboratory Only Only, Ang Db Test Barrington Polo [facility] 1..840.114 350.1.13.10 4.2.7.2.686 [id number] [facility] 2021-09-26 16:15:00 2021-09-26 16:15:00 Outpatient R BARRINGTON POLO [facility] [id number] [facility] 2021-09-24 10:33:46 2021-09-24 10:48:46 Laboratory Only Only, Ang Db Test [facility] JONNATHAN[facility] 1..840.114 350.1.13.10 4.2.7.2.686 [id number] [facility] 2021-09-24 10:45:00 2021-09-24 10:45:00 Outpatient R MARIAA ESPAÑA [facility] [id number] [facility] 2021-08-25 00:00:00 2021-08-25 00:00:00 Patient Secure Msg Doctor Unassigned, [place] [facility] 1..840.114 350.1.13.10 4.2.7.2.686 [id number] [facility] 2021-08-21 15:47:54 2021-08-21 16:23:56 Office Visit Steph Benedict Zoe [facility] 1..840.114 350.1.13.10 4.2.7.2.686 [id number] [facility] 2021-08-21 15:45:00 2021-08-21 16:23:56 Outpatient R STEPH BENEDICT [facility] [id number] [facility] 2021-08-14 00:00:00 2021-08-14 00:00:00 Telephone Steph Benedict [facility] Jonnathan?[facility] 1.2.840.114 350.1.13.10 4.2.7.2.686 [id number] [facility] 2021-08-13 06:40:00 2021-08-13 10:02:00 Emergency Juan Dos Santos [facility] 1.2.840.114 350.1.13.10 4.2.7.2.686 [id number] [facility] 2021-08-13 06:40:00 2021-08-13 10:02:00 Emergency X JUAN DOS SANTOS [facility] [id number] [facility] 2021-08-06 10:09:37 2021-08-06 10:50:06 Office Visit Damir Peña [facility] 1.2840.114 350.1.13.10 4.2.7.2.686 [id number] [facility] 2021-08-06 10:15:00 2021-08-06 10:15:00 Outpatient DAMIR VELEZ [facility] [id number] [facility] 2021-07-03 00:00:00 2021-07-03 00:00:00 Letter (Out) Candida Diaz [facility] 1.2840.114 350.1.13.10 4.2.7.2.686 [id number] [facility] 2021-07-02 11:01:57 2021-07-02 11:21:57 Urgent Care Ryan Soriano [facility] 1.2.840.114 350.1.13.10 4.2.7.2.686 [id number] [facility] 2021-07-02 11:00:00 2021-07-02 11:00:00 Outpatient MARIAA CHUNG [facility] [id number] [facility] 2021-05-06 10:28:18 2021-05-06 11:16:47 Office Visit Damir Peña [facility] 1.2840.114 350.1.13.10 4.2.7.2.686 [id number] [facility] 2021-05-06 10:45:00 2021-05-06 10:45:00 Outpatient DAMIR VELEZ [facility] [id number] [facility] 2021-04-07 00:00:00 2021-04-07 00:00:00 Patient Secure Msg Doctor Unassigned, [place] [facility] 1.0.114 350.1.13.10 4.2.7.2.686 [id number] [facility] 2021-04-04 11:33:04 2021-04-04 11:48:04 Cell Operator Visit Pcp-Lab Damir Peña [facility] 1.20.114 350.1.13.10 4.2.7.2.686 [id number] [facility] 2021-04-04 10:23:57 2021-04-04 11:33:11 Office Visit Damir Peña [facility] 1.2840.114 350.1.13.10 4.2.7.2.686 [id number] [facility] 2021-04-04 10:45:00 2021-04-04 10:45:00 Outpatient DAMIR VELEZ [facility] [id number] [facility] 2021-03-17 00:00:00 2021-03-17 00:00:00 Steph Rome [facility] Office Building One 1.2.114 350.1.13.10 4.2.7.2.686 [id number] [facility] 2021-03-13 10:00:00 2021-03-13 10:00:00 Outpatient R LOLA SOLIS [facility] [id number] [facility] 2021-03-13 00:00:00 2021-03-13 00:00:00 Patient Secure Msg Doctor Unassigned, [place] [facility] 1.114 350.1.13.10 4.2.7.2.686 [id number] [facility] 2021-03-11 15:16:28 2021-03-11 15:36:28 Cell Operator Visit Lab, Adc Fam Irwinb Pamela Flowers [facility] Office Building One 1.114 350.1.13.10 4.2.7.2.686 [id number] [facility] 2021-03-11 14:09:51 2021-03-11 15:16:47 Office Visit Steph Benedict [facility] Office Building One 1.114 350.1.13.10 4.2.7.2.686 [id number] [facility] 2021-03-11 14:15:00 2021-03-11 14:15:00 Outpatient R JAKLUCIEN QUEENSTU [facility] [id number] [facility] 2021-03-06 10:41:00 2021-03-06 13:08:00 Emergency VincJosué villarreal [facility] 1.114 350.1.13.10 4.2.7.2.686 [id number] [id number] [facility] 2021-03-06 09:55:47 2021-03-06 10:15:47 Urgent Care Provider, [facility] Lola Solis [facility] Office Building One 1.114 350.1.13.10 4.2.7.2.686 [id number] [id number] [facility] 2021-03-06 10:00:00 2021-03-06 10:00:00 Outpatient R [facility] [id number] [facility] 2021-02-28 00:00:00 2021-02-28 00:00:00 Steph Rome Zoe [facility] Office Building One 1.2.840.114 350.1.13.10 4.2.7.2.686 [id number] [facility] 2021-02-25 00:00:00 2021-02-25 00:00:00 Patient Secure Msg Doctor Unassigned, [place] [facility] 1.2.840.114 350.1.13.10 4.2.7.2.686 [id number] [facility] 2021-01-13 00:00:00 2021-01-13 00:00:00 Patient Outreach Keon Roe [facility] 1.2.840.114 350.1.13.10 4.2.7.2.686 [id number] [facility] 2020-11-27 15:25:00 2020-11-27 18:57:00 Emergency Isaias Doris [facility] 1.2.840.114 350.1.13.10 4.2.7.2.686 [id number] [id number] [facility] 2020-11-19 18:12:00 2020-11-19 20:56:00 Emergency Too Chilel R [facility] 1.2.840.114 350.1.13.10 4.2.7.2.686 [id number] [facility] 2020-11-19 18:12:00 2020-11-19 20:56:00 Emergency X TOO CHILEL [facility] ERT [id number] [facility] 2020-09-25 08:07:36 2020-09-25 09:04:00 Urgent Care Provider, [facility] Urgent Care Lola Solis [facility] Office Building One 1.84.114 350.1.13.10 4.2.7.2.686 [id number] [facility] 2020-09-25 08:00:00 2020-09-25 08:00:00 Outpatient R CORINNA SOLISLIE [facility] [id number] [facility] 2020-09-25 00:00:00 2020-09-25 00:00:00 Letter (Out) Lola Solis [facility] Office Building One 1.84.114 350.1.13.10 4.2.7.2.686 [id number] [facility] 2020-08-28 00:00:00 2020-08-28 00:00:00 Johana Fulton [facility] Building 1.84.114 350.1.13.10 4.2.7.2.686 [id number] [facility] 2020-08-08 14:20:00 2020-08-08 14:20:00 Outpatient R [facility] [id number] [facility] 2020-08-08 09:39:02 2020-08-08 11:12:10 Nurse Visit Nurse, Johana An [facility] Building 1.84.114 350.1.13.10 4.2.7.2.686 [id number] [facility] 2020-07-10 14:23:57 2020-07-10 14:53:57 Office Visit Albert Russell [facility] Building 1.84.114 350.1.13.10 4.2.7.2.686 [id number] [facility] 2020-07-10 14:30:00 2020-07-10 14:30:00 Outpatient R ALBERT RUSSELL STRAHIL [facility] [id number] [facility] 2020-06-24 14:00:00 2020-06-24 14:00:00 Outpatient R MONIQUE FERRARA [facility] [id number] [facility] 2020-06-11 00:00:00 2020-06-11 00:00:00 Patient Secure Msmirtha LincolnkishanMonique Packer [facility] 1.2.840.114 350.1.13.10 4.2.7.2.686 [id number] [facility] 2020-06-11 00:00:00 2020-06-11 00:00:00 Telephone Johana Mobley [facility] Patterson Butler [facility] Building 1.2.840.114 350.1.13.10 4.2.7.2.686 [id number] [facility] 2020-06-06 11:47:25 2020-06-06 13:57:29 Cell Operator Visit 2, Adc Lab Johana Mobley [facility] Building 1.2.840.114 350.1.13.10 4.2.7.2.686 [id number] [facility] 2020-06-06 10:24:35 2020-06-06 10:44:35 Office Visit Johana Mobley [facility] Patterson Butler [facility] Building 1.2.840.114 350.1.13.10 4.2.7.2.686 [id number] [facility] 2020-06-06 10:40:00 2020-06-06 10:40:00 Outpatient R JOHANA MOBLEY [facility] [id number] [facility] 2020-05-30 17:01:23 2020-05-30 17:16:23 Cell Operator Visit Pob, Adc Lab Main Johana Mobley [facility] Building 1.2.840.114 350.1.13.10 4.2.7.2.686 [id number] [facility] 2020-05-30 15:49:43 2020-05-30 16:48:49 Office Visit Marcial Johana [facility] Building 1.84.114 350.1.13.10 4.2.7.2.686 [id number] [facility] 2020-05-30 16:00:00 2020-05-30 16:00:00 Outpatient R JESTEENAJOHANA PINO [facility] [id number] [facility] 2020-05-30 00:00:00 2020-05-30 00:00:00 Orders Only Doctor Unassigned, [place] [facility] 1..114 350.1.13.10 4.2.7.2.686 [id number] [facility] 2020-05-27 00:00:00 2020-05-27 00:00:00 Patient Secure Msg [facility] 1.114 350.1.13.10 4.2.7.2.686 [id number] [facility] 2020-05-24 08:41:59 2020-05-24 09:14:39 Urgent Care Pob1, Acute Care Clinic Pamela Hoskins [facility] Office Building One 1..114 350.1.13.10 4.2.7.2.686 [id number] [facility] 2020-05-24 08:40:00 2020-05-24 08:40:00 [facility] [id number] [facility] 2020-05-23 00:00:00 2020-05-23 00:00:00 Telephone Monique Ferrara [facility] 1.2.840.114 350.1.13.10 4.2.7.2.686 [id number] [facility] 2020-05-13 13:30:44 2020-05-20 16:19:49 Office Visit Monique Ferrara [facility] [place] [facility] 1.2.840.114 350.1.13.10 4.2.7.2.686 [id number] [facility] 2020-05-13 14:36:01 2020-05-13 14:36:43 Cell [facility] 1.2.840.114 350.1.13.10 4.2.7.2.686 [id number] [facility] 2020-05-13 10:30:00 2020-05-13 10:30:00 [facility] [id number] [facility] 2020-04-05 00:00:00 2020-04-05 00:00:00 Patient Secure Msg Steph Benedict [facility] 1.0.114 350.1.13.10 4.2.7.2.686 [id number] [facility] 2020-03-25 00:00:00 2020-03-25 00:00:00 Orders Only Doctor Unassigned, [place] [facility] 1.840.114 350.1.13.10 4.2.7.2.686 [id number] [facility] 2020-03-22 00:00:00 2020-03-22 00:00:00 Telephone Steph Benedict [facility] 1.2840.114 350.1.13.10 4.2.7.2.686 [id number] [id number] [facility] 2020-03-21 00:00:00 2020-03-21 00:00:00 Telephone Steph Benedict [facility] Building 1.2.840.114 350.1.13.10 4.2.7.2.686 [id number] [facility] 2020-03-19 00:00:00 2020-03-19 00:00:00 Telephone Steph Benedict [facility] Building 1.2.840.114 350.1.13.10 4.2.7.2.686 [id number] [id number] [facility] 2020-03-14 11:45:00 2020-03-14 11:45:00 Outpatient R STEPH BENEDICT [facility] [id number] [facility] 2020-03-14 07:36:15 2020-03-14 07:51:15 Telemedici ne Visit Steph Benedict [facility] Building 1.2.840.114 350.1.13.10 4.2.7.2.686 [id number] [facility] 2020-03-14 00:00:00 2020-03-14 00:00:00 Telephone Steph Benedict [facility] Office Building One 1.2.840.114 350.1.13.10 4.2.7.2.686 [id number] [id number] [facility] 2020-03-11 00:00:00 2020-03-11 00:00:00 Patient Secure Msg Steph Benedict [facility] Building 1.2.840.114 350.1.13.10 4.2.7.2.686 [id number] [facility] 2020-02-18 15:36:20 2020-02-18 17:54:00 Emergency X JUAN DOS SANTOS [facility] [id number] [facility] 2020-01-09 13:45:00 2020-01-09 13:45:00 Outpatient R ARIESAMMY ESTHER [facility] [id number] [facility] 2019-12-05 15:31:39 2019-12-05 16:27:02 Office Visit Johana Mobley [facility] Building 1.2.840.114 350.1.13.10 4.2.7.2.686 [id number] [facility] 2019-12-05 13:40:11 2019-12-05 14:48:44 Office Visit Ariesammy Esther Jeronimo [facility] Building 1.2.840.114 350.1.13.10 4.2.7.2.686 [id number] [facility] 2019-11-28 14:58:55 2019-12-03 23:34:38 Office Visit Steph Benedict [facility] Office Building One 1.2840.114 350.1.13.10 4.2.7.2.686 [id number] [facility] 2019-11-29 13:47:00 2019-11-29 23:59:00 Hospital Encounter Jak Lucienstu Enriquez [facility] 1.2.840.114 350.1.13.10 4.2.7.2.686 [id number] [facility] 2019-11-29 13:46:00 2019-11-29 13:46:00 Hospital Encounter Jak Lucienronansrikanth oZe [facility] 1.2.840.114 350.1.13.10 4.2.7.2.686 [id number] [facility] 2019-11-28 13:18:47 2019-11-28 13:28:53 Imm/Inj Visit Nurse, Mehrdad De Leon Pob I Steph Benedict Zoe [facility] Office Building One 1.2840.114 350.1.13.10 4.2.7.2.686 [id number] [facility] 2019-11-24 00:00:00 2019-11-24 00:00:00 Orders Only Doctor Unassigned, [place] [facility] 1.2.840.114 350.1.13.10 4.2.7.2.686 [id number] [facility] 2019-11-18 09:04:06 2019-11-18 09:19:06 Cell Operator Visit 1, Adc Lab Steph Benedict [facility] 1.2.840.114 350.1.13.10 4.2.7.2.686 [id number] [facility] 2019-11-16 14:30:22 2019-11-16 16:26:00 Emergency Timothy Hawthorne [facility] 1.2.840.114 350.1.13.10 4.2.7.2.686 [id number] [facility] 2019-11-16 00:00:00 2019-11-16 00:00:00 Orders Only Doctor Unassigned, [place] [facility] 1.2.840.114 350.1.13.10 4.2.7.2.686 [id number] [facility] 2019-11-14 15:45:09 2019-11-14 17:00:39 Office Visit Steph Benedict [facility] Office Building One 1.2840.114 350.1.13.10 4.2.7.2.686 [id number] [id number] [facility] 2019-11-14 00:00:00 2019-11-14 00:00:00 Letter (Out) Steph Benedict [facility] Office Building One 1.2840.114 350.1.13.10 4.2.7.2.686 [id number] 044 [id number] [facility] 2019-06-13 14:58:16 2019-06-15 09:00:30 Office Visit Pamela Hoskins [facility] Office Building One 1.2840.114 350.1.13.10 4.2.7.2.686 [id number] 044 [id number] [facility] 2019-06-13 00:00:00 2019-06-13 00:00:00 Letter (Out) Steph Benedict [facility] Office Building One 1..840.114 350.1.13.10 4.2.7.2.686 [id number] [id number] [facility] 2019-05-16 00:00:00 2019-05-16 00:00:00 Orders Only Doctor Unassigned, [place] [facility] 1..840.114 350.1.13.10 4.2.7.2.686 [id number] [facility] Results Test Description Test Time Test Comments Results Resul t Comments Source XR ELBOW <3 VW RIGHT 2024-07-12 20:16:52 XR ELBOW <3 VW RIGHT INDICATION: Right elbow pain Room 6 [facility]2024-04-25 22:32:00* Test Item Value Reference Range Interpretation Comme nts POCT SARS-COV-2 ANTIGEN (test code = 94617-0) Not Detected Not Detected, See Comment On board controls acceptable with C Line (test code = 3574) Yes Lab Interpretation (test code = 24459-3) [facility]Pathologist [id number] 01:39:50ANA - Pathologist InterpretationANA HEp-2 IIFA Pathologist Interpretation Report Patient Name: Curly Cheema ? : 1985 ??Antinuclear Antibody (MICHAEL) Test (Anti-Cell Antibodies Test) Indirect Immunofluorescence Assay on HEp-2 Cells Screening titer: 1:80 (adults, > 18 years old), 1:40 (pediatrics, <= 18 years old)?Result: The antinuclear antibody (MICHAEL) screen is negative on interpretation. Remarks:This patient has a negative antinuclear antibody (MICHAEL) screening test. This suggests that the patient likely does not have a systemic autoimmune rheumatic disease that is strongly associ ated with a positive MICHAEL, such as systemic lupus erythematosus (MICHAEL positive in ~95-100%), systemicsclerosis (MICHAEL positive in ~60-80%), or the following disorders in which MICHAEL positivity is part of the diagnostic criteria: drug- induced lupus, autoimmune hepatitis, or mixed connective tissue disease. However, the MICHAEL may be negative in rare cases of systemic lupus erythematosus and systemic sclerosis. The MICHAEL may also be negative in ~20% of patients presenting with autoimmune hepatitis. Additionally, MICHAEL positivity is less sensitive in the diagnosis of Sjogren's syndrome (~40-70%) and dermatom yositis/polymyositis (~30-80%). The MICHAEL also has limited diagnostic utility in vasculitis, as the MICHAEL may be negative in this autoimmune condition. A positive MICHAEL test is not needed for the diagnosisof rheumatoid arthritis, multiple sclerosis, thyroid disease, discoid lupus, or fibromyalgia due tohighly variable and/or low MICHAEL positivity rates in these conditions. ? Therefore, a diagnosis cannot be based exclusively on MICHAEL detection and/or pattern and thus should be made via the integration of patient history, physical exam findings, and other diagnostic tests as clinically indicated. References: - Sushma A, Flavia R, Danitza J, Javier DH, Silas FRIEDMAN. Guidelines for clinical use of the antinuclear antibody test and tests for specific autoantibodies to nuclear antigens. [place] [employer]. Arch Pathol Lab Med. 2000;124(1):71- 81. doi:10.5858/5776-437-6917-GFCUAN- Quang CL, Ricardo D, Muriel DN, et al. Diagnosis and Management of Autoimmune Hepatitis in Adults and Children: 2019 Practice Guidance and Guidelines From the [place] [employer] the [employer] of Liver Diseases. Hepatology. 2020;72(2):671-722. doi:10.1002/hep.13880- Chris C, Fran EC, Iris Vega. Rational use of blood tests in the evaluation of rheumatic diseases. Mo Med. 2012;109(1):59-63. Leia Hodges MD ?02/28/2024 ?8:39 PM 02/28/2024 8:39 PM CDTUTMB LABORATORY SERVICESUnVal[facility] Anti-Nuclear Antibody [id number] 22:16:38* Test Item Value Reference Range Interpretation Comme nts MICHAEL (test code = 4603491280) Negative Negative LEANDRO (test code = LEANDRO) Negative: ?No Anti-Nuclear Antibodies detected by IFA. Positive: ?MICHAEL IFA screen performed with a 1:80 dilution in adults and a 1:40 dilution in pediatrics. ?A titer is performed and reported separately when the MICHAEL is "Positive" or when "Cytoplasmic staining is observed." Lab Interpretation (test code = 66438-3) Normal [facility] CenterInsulin, [id number] 19:37:53* Test Item Value Reference Range Interpretation Comme nts Insulin (test code = 2902159318) 25.2 1.9-23.0 H Lab Interpretation (test cod e = 98935-2) Abnormal [facility] Center[facility], [id number] 19:37:53* Test Item Value Reference Range Interpretation Comme nts Insulin (test code = 2183798341) 25.2 1.9-23.0 H Lab Interpretation (test cod e = 52016-6) Abnormal [facility] W Specific [id number] 14:56:00* Test Item Value Reference Range Interpretation Comme nts POCT U SP GRAV (test code = 3255) 1.030 mg/dl 1.005-1.025 A POCT PH U (test code = 3254) 6 mg/dl 5-8 POCT U LEUK EST (test code = 3263) + Negative - Negative POCT U NIT (test code = 3262) pos Negative - Negati ve POCT U PROT (test code = 3259) neg Negative - Negative POCT U GLU (test code = 3256) normal Negative - Negati ve POCT U KETONE (test code = 3258) neg Negative - Negative POCT U UROBILI (test code = 3260) normal 0.2-1 POCT U BILI (test code = 3261) +++ Negative - Negative POCT U BLD (test code = 3257) 250 POCT U COLOR (test code = 3266) dark yellow POCT U APPEAR (test code = 3267) cloudy Lab Interpretation (test cod e = 77832-1) Abnormal [facility] Urinalysis W Specific Fydsmca1150-53-15 14:56:00* Test Item Value Reference Range Interpretation Comme nts POCT U SP GRAV (test code = 3255) 1.030 mg/dl 1.005-1.025 A POCT PH U (test code = 3254) 6 mg/dl 5-8 POCT U LEUK EST (test code = 3263) + Negative - Negative POCT U NIT (test code = 3262) pos Negative - Negati ve POCT U PROT (test code = 3259) neg Negative - Negative POCT U GLU (test code = 3256) normal Negative - Negati ve POCT U KETONE (test code = 3258) neg Negative - Negative POCT U UROBILI (test code = 3260) normal 0.2-1 POCT U BILI (test code = 3261) +++ Negative - Negative POCT U BLD (test code = 3257) 250 POCT U COLOR (test code = 3266) dark yellow POCT U APPEAR (test code = 3267) cloudy Lab Interpretation (test cod e = 87362-5) Abnormal [facility] Molecular [id number] 14:23:53* Test Item Value Reference Range Interpretation Comme nts POCT Molecular FluA (test co de = 14730-3) Negative Negative POCT Molecular FluB (test co de = 41688-2) Negative Negative Lab Interpretation (test cod e = 57805-8) Normal [facility] Molecular [id number] 14:23:53* Test Item Value Reference Range Interpretation Comme nts POCT Molecular FluA (test co de = 90996-9) Negative Negative POCT Molecular FluB (test co de = 94982-2) Negative Negative Lab Interpretation (test cod e = 61116-0) Normal [facility] MOLECULAR [id number] 01:05:44* Test Item Value Reference Range Interpretation Comme nts POCT Molecular Strep (test c ode = 31831-9) Negative Negative Lab Interpretation (test cod e = 00639-5) Normal [facility] Molecular [id number] 00:56:08* Test Item Value Reference Range Interpretation Comme nts POCT Molecular FluA (test co de = 52322-1) Negative Negative POCT Molecular FluB (test co de = 41990-8) Negative Negative Lab Interpretation (test cod e = 35973-4) Normal [facility] Urinalysis W Specific Fhwzyak4613-02-83 00:53:00* Test Item Value Reference Range Interpretation Comme nts POCT U SP GRAV (test code = 3255) 1.010 mg/dl 1.005-1.025 POCT PH U (test code = 3254) 5 mg/dl 5-8 POCT U LEUK EST (test code = 3263) negative Negative - Negative POCT U NIT (test code = 3262) negative Negative - Negati ve POCT U PROT (test code = 3259) negative Negative - Negative POCT U GLU (test code = 3256) negative Negative - Negati ve POCT U KETONE (test code = 3258) negative Negative - Negative POCT U UROBILI (test code = 3260) negative 0.2-1 POCT U BILI (test code = 3261) negative Negative - Negative POCT U BLD (test code = 3257) negative Negative - Negati ve POCT U COLOR (test code = 3266) POCT U APPEAR (test code = 3267) Lab Interpretation (test cod e = 79301-9) [facility] MOLECULAR [id number] 16:46:55* Test Item Value Reference Range Interpretation Comme nts POCT Molecular FluA (test co de = 11966-3) Negative Negative POCT Molecular FluB (test co de = 01126-2) Negative Negative Lab Interpretation (test cod e = 21744-8) [facility] MOLECULAR [id number] 16:41:09* Test Item Value Reference Range Interpretation Comme nts POCT Molecular Strep (test c ode = 53826-5) Negative Negative Lab Interpretation (test cod e = 26008-8) [facility] SARS-COV-2 ANTIGEN (BINAX NOW)2023-06-02 17:12:00* Test Item Value Reference Range Interpretation Comme nts POCT SARS-COV-2 ANTIGEN (merissa t code = 94332-7) Positive Not Detected A On board controls acceptable with C Line (test code = 3574) Yes Lab Interpretation (test cod e = 17089-1) Abnormal [facility] CenterC-REACTIVE [id number] 16:16:07* Test Item Value Reference Range Interpretation Comme nts CRP (test code = 8260527897) 0.8 mg/dL See_Comment H [Automated messa ge] The system which generated this result transmitted reference range: <=0.8. The reference range was not used to interpret this result as normal/abnormal. Lab Interpretation (test code = 26247-9) Abnormal [facility] CenterFOLATE2022-12-15 09:35:58* Test Item Value Reference Range Interpretation Comme nts FOLATE SER (test code = 9909676086) 5.6 ng/mL 3.0-20.0 Biotin has been reported to cause a positive bias, interpret results relative to patient's use of biotin. Lab Interpretation (test code = 53091-0) Normal [facility] CenterCOMP. METABOLIC PANEL (08260)2022-10-08 05:55:11* Test Item Value Reference Range Interpretation Comme nts NA (test code = 1720610962) 137 mmol/L 135-145 K (test code = 2907130369) 4.0 mmol/L 3.5-5.0 CL (test code = 2247977149) 105 mmol/L 98-108 CO2 TOTAL (test code = 3445145520) 21 mmol/L 23-31 L AGAP (test code = 2094725699) 2-16 BUN (test code = 2727187731) 10 mg/dL 7-23 GLUCOSE (test code = 9953193103) 108 mg/dL 70-110 CREATININE (test code = 8533894905) 0.63 mg/dL 0.50-1.04 TOTAL BILI (test code = 8148635408) 0.4 mg/dL 0.1-1.1 CALCIUM (test code = 1384336811) 10.9 mg/dL 8.6-10.6 H T PROTEIN (test code = 9903499199) 7.5 g/dL 6.3-8.2 ALBUMIN (test code = 4180573170) 4.6 g/dL 3.5-5.0 ALK PHOS (test code = 2851226876) 103 U/L 34-122 ALTv (test code = 1742-6) 72 U/L 5-35 H AST(SGOT) (test code = 9722115569) 48 U/L 13-40 H eGFR (test code = 9313514570) mL/min/1.73m2 LEANDRO (test code = LEANDRO) Association of [...] or abnormalities in imaging tests). Lab Interpretation (test code = 43063-4) Abnormal [facility] CenterSEDIMENTATION [id number] 05:47:08* Test Item Value Reference Range Interpretation Comme nts ESR (test code = 87233-2) See_Comment [Automated message] The system which generated this result transmitted reference range: 0 - 20 mm/HR. The reference range was not used to interpret this result as normal/abnormal. Lab Interpretation (test code = 77024-0) Normal [facility] [facility]:22[facility]35* Test Item Value Reference Range Interpretation Comme nts MAGNESIUM (test code = 4098110963) 2.2 mg/dL 1.7-2.4 Lab Interpretation (test cod e = 88372-2) Normal [facility] [id number] 05:24:08 * Test Item Value Reference Range Interpretation Comme nts Mwboq-Jzjtzh-Xbxok some Abs, IgG by IFA (test code = 9838-4) <1:20 See_Comment INTERPRETIVE INF ORMATION: ?Bnpyb-Hqccxo-Rftyzgysn Abs, IgG Liver-Kidney Microsome IgG antibody (anti-LKM), as detected by indirect immunofluorescent antibody (IFA) techniques, may be observed in patients with autoimmune hepatitis type 2 (AIH-2), AIH-2 associated with autoimmune polyendocrinopathy-candidiasis -ectodermal dystrophy (APECED), viral hepatitis C or D, and some forms of drug-induced hepatitis. This IFA does not differentiate among the four types of LKM antibodies (LKM-1, LKM-2, LKM-3, and a fourth type that recognizes CY and CY antigens). Of these, anti-LKM-1 (cytochrome [id number]) IgG antibodies are considered specific for AIH-2. This test was developed and its performance characteristics determined by [facility]. It has not been cleared or approved by the [place] Food and Drug Administration. This test was performed in a CLIA certified laboratory and is intended for clinical purposes.Performed By: [facility] [place] [id number] Director: Trae Stephenson MD, PhD [Automated message] The system which generated this result transmitted reference range: <1:20. The reference range was not used to interpret this result as normal/abnormal. [facility]GLOBULIN [id number] 18:40:49* Test Item Value Reference Range Interpretation Comme nts IgG (test code = 5013193906) 1050 mg/dL 636-1600 Lab Interpretation (test cod e = 36618-8) Normal [facility] CenterALPHA [id number] 17:26:14* Test Item Value Reference Range Interpretation Comme nts AFP (test code = 1650811877) 3.7 ng/mL See_Comment [Automated message] The system which generated this result transmitted reference range: <=7.5. The reference range was not used to interpret this result as normal/abnormal. LEANDRO (test code = LEANDRO) Biotin has been reported to cause a negative bias, interpret results relative to patient's use of biotin. Lab Interpretation (test code = 49525-3) Normal [facility] CenterFERRITIN [id number] 17:26:14* Test Item Value Reference Range Interpretation Comme nts FERRITIN (test code = 8300706390) 105.0 ng/mL 6-137 LEANDRO (test code = LEANDRO) Biotin has been reported to cause a negative bias, interpret results relative to patient's use of biotin. Lab Interpretation (test code = 90738-3) Normal [facility] CenterTHYROID STIMULATING [id number] 17:22:15 * Test Item Value Reference Range Interpretation Comme nts TSH (test code = 9800430549) See_Comment [Automated [employer]] The system which generated this result transmitted reference range: 0.45 - 4.70 mIU/L. The reference range was not used to interpret this result as normal/abnormal. Lab Interpretation (test code = 37402-6) Normal [facility] CenterTOTAL IRON BINDING [id number] 16:56:14 * Test Item Value Reference Range Interpretation Comme nts TIBC (test code = 2970998347) 304 ug/dL 250-410 % FE SAT (test code = 3148273866) 21 % 20-50 Lab Interpretation (test cod e = 81647-5) [facility]IRON[facility] 16:46:51* Test Item Value Reference Range Interpretation Comme nts IRON (test code = 3626060415) 63 ug/dL 50-160 Lab Interpretation (test cod e = 76988-0) Normal [facility] CenterProthrombin Time / [id number] 16:33:10* Test Item Value Reference Range Interpretation Comme nts PROTIME PATIENT (test code = 5964-2) See_Comment [Automated [employer] ge] The system which generated this result transmitted reference range: 10.1 - 12.6 Seconds. The reference range was not used to interpret this result as normal/abnormal. INR (test code = 6301-6) Normal INR <1.1; Warfarin Therapeutic range 2.0 to 3.0 or 2.5 to 3.5, depending upon the indications. Lab Interpretation (test code = 46352-0) Normal [facility] Notes Date/Time Note Provider Source 2025-02-05 15:31:43 Us order placed for elevated lfts T [facility] 2025-02-05 09:15:00 Images from the original note were not included. Venipuncture collection performed by clean technique on the right anticubitus. Total of 1 attempts were made. Slight pressure and a bandage/dressing were applied to the site(s). The patient experienced no complications. The following specimens were processed according to instructions and sent to [facility] laboratories per lab order on 02/05/2025 : LT BLUE SST 2 RED LAV 2 PPT DK GREEN (LiHep) DK GREEN (SodH) PINEDA DK BLUE (K2) DK BLUE (S) ACD Blood Culture NIPT/NTD T [facility] 2025-01-24 15:05:17 Please review and sign if appropriate: Last office visit: 11/21/24 Next office visit: 02/05/25 Requested Prescriptions Pending Prescriptions Disp Refills GABAPENTIN 100 mg capsule [Pharmacy Med Name: GABAPENTIN 100MG CAPSULES] 90 capsule 0 Sig: TAKE 1 CAPSULE BY MOUTH EVERY MORNING, 1 CAPSULE AT NOON AND 1 CAPSULE EVERY EVENING. Last refill date: 12/20/24 Notes: The encounter diagnosis was Herpes zoster without complication. T Alejandra Berry LVN [facility] 2024-12-19 14:36:27 Notes: please review and advise Last Refilled: gabapentin 100 mg capsule 90 capsule 0 11/21/2024 12/21/2024 No Sig: Take 1 capsule by mouth in the morning and 1 capsule at noon and 1 capsule in the evening. Do all this for 30 days. Sent to pharmacy as: gabapentin 100 mg capsule (NEURONTIN) Class: eRX Route: Oral Order: [id number] Date/Time Signed: 11/21/2024 16:08 E-Prescribing Status: Receipt confirmed by pharmacy (11/21/2024 4:08 PM SPRINKLER HELPER) Recent Visits Date Type Provider Dept 11/21/24 Office Visit Kalpana Godwin, CHIEF OPERATOR [facility] 06/27/24 Office Visit Kalpana Godwin, CHIEF OPERATOR [facility] 02/25/24 Office Visit Kalpana Godwin, CHIEF OPERATOR [facility] 12/10/23 Office Visit Kalpana Godwin, CHIEF OPERATOR [facility] 10/26/23 Office Visit Kalpana Godwin, CHIEF OPERATOR [facility] 07/28/23 Office Visit Kalpana Godwin, CHIEF OPERATOR [facility] Showing recent visits within past 540 days with a meds authorizing provider and meeting all other requirements Future Appointments No visits were found meeting these conditions. Showing future appointments within next 150 days with a meds authorizing provider and meeting all other requirements NKLER HELPER Janki Oliva [facility] 2024-12-14 12:30:51 Images from the original note were not included. Last Refilled: Disp Refills Start End JAVIER ezetimibe 10 mg tablet 90 tablet 0 09/04/2024 -- No Sig: TAKE 1 TABLET IN THE MORNING Sent to pharmacy as: ezetimibe 10 mg tablet (ZETIA) Class: eRX Order: [id number] Date/Time Signed: 09/04/2024 11:34 E-Prescribing Status: Receipt confirmed by pharmacy (09/04/2024 11:34 AM SPRINKLER HELPER) Notes: Antilipid: Sterol Transport Inhibitors Ampnwm1912/14/2024 12:24 PM Protocol Details AST in normal range and within 360 days ALT in normal range and within 360 days HDL within 360 days LDL within 360 days Total Cholesterol within 360 days Triglycerides within 360 days Valid encounter within last 12 months Recent Visits Date Type Provider Dept 11/21/24 Office Visit Kalpana Godwin, CHIEF OPERATOR [facility] 06/27/24 Office Visit Kalpana Godwin, CHIEF OPERATOR [facility] 02/25/24 Office Visit Kalpana Godwin, CHIEF OPERATOR [facility] 12/10/23 Office Visit Kalpana Godwin, CHIEF OPERATOR [facility] 10/26/23 Office Visit Kalpana Godwin, CHIEF OPERATOR [facility] 07/28/23 Office Visit Kalpana Godwin, CHIEF OPERATOR [facility] Showing recent visits within past 540 days with a meds authorizing provider and meeting all other requirements Future Appointments No visits were found meeting these conditions. Showing future appointments within next 150 days with a meds authorizing provider and meeting all other requirements Office Visit on 11/21/2024 Component Date Value Trichomonas vaginalis 11/21/2024 Negative Layne species 11/21/2024 Negative Layne glabrata 11/21/2024 Negative Bacterial Vaginosis 11/21/2024 Negative Herpes simplex virus typ* 11/21/2024 Negative Herpes simplex virus typ* 11/21/2024 Negative Varicella zoster virus N* 11/21/2024 Positive (A) Urgent Care on 04/25/2024 Component Date Value POCT SARS-COV-2 ANTIGEN 04/25/2024 Not Detected On board controls accept* 04/25/2024 Yes POCT Molecular FluA 04/25/2024 Negative POCT Molecular FluB 04/25/2024 Negative Cell Operator Visit on 02/25/2024 Component Date Value MICHAEL 02/25/2024 Negative Insulin 02/25/2024 25.2 (H) MICHAEL - Pathologist Interp* 02/25/2024 Value:MICHAEL HEp-2 IIFA Pathologist Interpretation Report Patient Name: Curly Cheema : 1985 Antinuclear Antibody (MICHAEL) Test (Anti-Cell Antibodies Test) Indirect Immunofluorescence Assay on HEp-2 Cells Screening titer: 1:80 (adults, > 18 years old), 1:40 (pediatrics, <= 18 years old) Result: The antinuclear antibody (MICHAEL) screen is negative on interpretation. Remarks: This patient has a negative antinuclear antibody (MICHAEL) screening test. This suggests that the patient likely does not have a systemic autoimmune rheumatic disease that is strongly associated with a positive MICHAEL, such as systemic lupus erythematosus (MICHAEL positive in ~95-100%), systemic sclerosis (MICHAEL positive in ~60-80%), or the following disorders in which MICHAEL positivity is part of the diagnostic criteria: drug-induced lupus, autoimmune hepatitis, or mixed connective tissue disease. However, the MICHAEL may be negative in rare cases of systemic lupus erythematosus and systemic sclerosis. The MICHAEL may also be negative in ~20% of patients presenting with autoimmune hepatitis. Additionally, MICHAEL positivity is less sensitive in the diagnosis of Sjogren's syndrome (~40-70%) and dermatomyositis/polymyositis (~30-80%). The MICHAEL also has limited diagnostic utility in vasculitis, as the MICHAEL may be negative in this autoimmune condition. A positive MICHAEL test is not needed for the diagnosis of rheumatoid arthritis, multiple sclerosis, thyroid disease, discoid lupus, or fibromyalgia due to highly variable and/or low MICHAEL positivity rates in these conditions. Therefore, a diagnosis cannot be based exclusively on MICHAEL detection and/or pattern and thus should be made via the integration of patient history, physical exam findings, and other diagnostic tests as clinically indicated. References: - Sushma A, Flavia R, Danitza J, Javier ADRIAN, Silas FRIEDMAN. Guidelines for clinical use of the antinuclear antibody test and tests for specific autoantibodies to nuclear antigens. [place] [employer]. Arch Pathol Lab Med. 2000;124(1):71-81. doi:10.5858/[id number]-GFCUO Eusebio - Quang CHAVEZ, Ricardo D, Muriel DN, et al. Diagnosis and Management of Autoimmune Hepatitis in Adults and Children: 2019 Practice Guidance and Guidelines From the [place] [employer] the [employer] of Liver Diseases. Hepatology. 2020;72(2):671-722. doi:10.1002/hep.02275 - Chris C, Fran EC, Iris M. Rational use of blood tests in the evaluation of rheumatic diseases. Mo Med. 2012;109(1):59-63. 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 Notes: Last Refilled: Name from pharmacy: EZETIMIBE TABS 10MG Will file in chart as: EZETIMIBE 10 mg tablet Sig: TAKE 1 TABLET IN THE MORNING Disp: 90 tablet Refills: 3 Start: 09/04/2024 Class: eRX For: Mixed hyperlipidemia Last ordered: 6 months ago (02/25/2024) by AISHWARYA James Last refill: 05/11/2024 Rx #: [id number] Antilipid: Sterol Transport Inhibitors Fdhzmd8109/04/2024 11:00 AM Protocol Details ALT in normal range and within 360 days HDL within 360 days LDL within 360 days Total Cholesterol within 360 days Triglycerides within 360 days Valid encounter within last 12 months AST in normal range and within 360 days To be filled at: [facility] [address] Recent Visits Date Type Provider Dept 06/27/24 Office Visit Kalpana Godwin FNP [facility] 02/25/24 Office Visit Kalpana Godwin FNP [facility] 12/10/23 Office Visit Kalpana Godwin FNP [facility] 10/26/23 Office Visit Kalpana Godwin FNP [facility] 07/28/23 Office Visit Kalpana Godwin FNP [facility] 05/24/23 Office Visit Kalpana Godwin FNP [facility] Showing recent visits within past 540 days with a meds authorizing provider and meeting all other requirements Future Appointments No visits were found meeting these conditions. Showing future appointments within next 150 days with a meds authorizing provider and meeting all other requirements [facility] 2024-08-04 07:05:34 Referral placed T [facility] 2024-03-06 10:34:05 Sent [facility] 2024-03-06 10:11:16 Pt requesting sig change if approved [facility] 2024-03-06 09:18:20 Curly Cheema is a 38 year old female is calling stating [facility] for once a day, should be twice a day . metformin ER 500 [facility] - [place], [place] - [address] [place] [id number] T Terra Navarrete [facility] 2024-03-06 09:15:42 Curly Cheema is a 38 year old female is calling requesting Rx metformin ER 500 x 2 a day , sent to different pharmacy (short supply) till [facility] send RX . [facility]ely [facility] . [id number] [place], [place] - [address] [facility] [address] [facility] [id number] [facility] 2024-03-03 16:36:37 Ent referral placed T [facility] 2024-03-02 11:56:47 FYI T [facility] 2024-03-02 11:53:01 Jose Alberto, Before insurance approves Zepbound, [facility] is requiring a trial of phentermine, Contrave, and Qsymia. I left a voicemail with Ms. Cheema to go over this determination. Please let me know if there are any questions or concerns. Thank you June Kaur [facility] 2024-02-25 11:30:00 Images from the original note were not included. Venipuncture collection performed by clean technique on the left anticubitus. Total of 1 attempts were made. Slight pressure and a bandage/dressing were applied to the site(s). The patient experienced no complications. The following specimens were processed according to instructions and sent to [facility] laboratories per lab order on 02/25/2024 : LT BLUE SST 2 RED LAV PPT DK GREEN (LiHep) DK GREEN (SodH) PINEDA DK BLUE (K2) DK BLUE (S) ACD Blood Culture NIPT/NTD T [facility] 2024-02-25 07:34:04 Last Refilled: ezetimibe 10 mg tablet 90 tablet 1 07/19/2023 -- No Sig: Take 1 tablet by mouth in the morning. Sent to pharmacy as: ezetimibe 10 mg tablet (ZETIA) Class: eRX Route: Oral Order: [id number] Date/Time Signed: 07/19/2023 15:38 E-Prescribing Status: Receipt confirmed by pharmacy (07/19/2023 3:38 PM CDT) Recent Visits Date Type Provider Dept 12/10/23 Office Visit Kalpana Godwin FNP [facility] 10/26/23 Office Visit Kalpana Godwin FNP [facility] 07/28/23 Office Visit Kalpana Godwin FNP [facility] 05/24/23 Office Visit Cotta, Kalpana, CHIEF OPERATOR [facility] 03/05/23 Office Visit Lola Solis PA [facility] 01/12/23 Office Visit Kalpana Godwin CHIEF OPERATOR [facility] 10/07/22 Office Visit Kalpana Godwin CHIEF OPERATOR [facility] Showing recent visits within past 540 days with a meds authorizing provider and meeting all other requirements Today's Visits Date Type Provider Dept 02/25/24 Appointment Kalpana Godwin, CHIEF OPERATOR [facility] Showing today's visits with a meds authorizing provider and meeting all other requirements Future Appointments No visits were found meeting these conditions. Showing future appointments within next 150 days with a meds authorizing provider and meeting all other requirements [facility] 2024-01-24 15:05:34 This is just a notification that the pharmacy dispensed 90 days Joycelyn Aguilar MA [facility] 2024-01-24 14:12:48 Images from the original note were not included. Alessia Naidu [facility] 2023-12-15 09:30:00 Images from the original note were not included. Venipuncture collection performed by clean technique on the left anticubitus. Total of 1 attempts were made. Slight pressure and a bandage/dressing were applied to the site(s). The patient experienced no complications. The following specimens were processed according to instructions and sent to [facility] laboratories per lab order on 12/15/2023 : LT BLUE SST 3 RED LAV 1 PPT DK GREEN (LiHep) 1 DK GREEN (SodH) PINEDA DK BLUE (K2) DK BLUE (S) ACD Blood Culture NIPT/NTD [facility] 2023-12-13 12:57:16 I put In some more labs , let hold the Ezetimibe it can cause myalgia and arthalgia and fatigue. If we need to can start Duloxetine if s/s still continue . For now we will do labs and hold ezetimibe. [facility] 2023-12-10 08:30:00 Images from the original note were not included. Venipuncture collection performed by clean technique on the right anticubitus. Total of 1 attempts were made. Slight pressure and a bandage/dressing were applied to the site(s). The patient experienced no complications. The following specimens were processed according to instructions and sent to [facility] laboratories per lab order on 12/10/2023: LT BLUE SST 1 RED LAV 1 PPT DK GREEN (LiHep) DK GREEN (SodH) PINEDA DK BLUE (K2) DK BLUE (S) ACD Blood Culture NIPT/NTD [facility] 2023-11-04 10:26:39 Referral faxed to number provided below. N Dalal RN [facility] 2023-11-03 16:40:26 Curly Cheema is a 38 year old female GI consults calling req referral to be faxed. Pt is wanting to go to a different Dr. then the one listed on the referral Please advise ext [phone] Fx:[phone] N Webb [facility] 2023-10-29 10:32:44 Duplicate encounter, see subsequent messages. Referral placed and provider has spoken to patient regarding medications. N Dalal RN [facility] 2023-10-29 10:32:15 Provider spoke with patient, see subsequent encounter. N Dalal RN [facility] 2023-10-29 10:25:00 Referral faxed to [facility] at . N Dalal RN [facility] 2023-10-29 08:37:59 Ct with angio not showing indication for anitbotic, Pt notes her pain has stayed the same, not even needing dicyclomine at this time. We discussed no further tx needed and will try to get Gi referral faxed to GI Center today so pt can get apt set up N [facility] 2023-10-28 17:41:[address] scan attached to message. Patient is no longer taking the clindamycin as her throat was swelling. Patient states the pain in her stomach has not gotten any better since she stopped the medication and she does not want to end up back in the ER. Patient is requesting doxycycline and states she has taken it in the past. Please review and advise. N Dalal RN [facility] 2023-10-28 09:03:48 Curly Cheema is a 38 year old female Patient called for called stating that she is having belly pain and was seen for this on 10/26 she would like to speak to a nurse Patient called for does not want an appt Please advise NKLER HELPER Nate Bower [facility] 2023-10-27 17:15:17 I'm not sure that another antibiotic is indicated. Can you upload the CT report? Since stopping the Clinda has the pain remained the same ? [facility] 2023-10-27 16:06:11 Please review and advise. N Low LVN [facility] 2023-10-27 13:45:17 Curly Cheema is a 38 year old female Pt calling requesting a new antibiotic. The clindamycin caused her throat to swell and she stopped taking the medication. She did not want to speak with a a/c at the time of the call. N Madera [facility] 2023-10-26 14:15:00 Images from the original note were not included. Venipuncture collection performed by clean technique on the right anticubitus. Total of 1 attempts were made. Slight pressure and a bandage/dressing were applied to the site(s). The patient experienced no complications. The following specimens were processed according to instructions and sent to [facility] laboratories per lab order on 10/26/2023: LT BLUE SST 2 RED LAV PPT DK GREEN (LiHep) DK GREEN (SodH) PINEDA DK BLUE (K2) DK BLUE (S) ACD Blood Culture NIPT/NTD [facility] 2023-06-04 09:33:10 Formatting of this n ote might be different from the original. Yes I sent it over [facility] 2023-06-02 12:00:00 Addended by: PAXTON LOCKETT on: 06/02/2023 12:10 PM Modules accepted: Orders [facility] 2023-06-02 12:00:00 Addended by: ZORAIDA IGNACIO on: 06/02/2023 12:12 PM Modules accepted: Orders [facility] 2023-05-26 14:47:56 Formatting of this n ote is different from the original. Images from the original note were not included. Refilling 90 day pantoprazole 40 mg EC tablet Possible duplicate: Hover to review recent actions on this medication Sig: Take 1 tablet by mouth in the morning. Disp: 90 tablet Refills: 0 Start: 05/26/2023 Class: eRX For: Gastroesophageal reflux disease without esophagitis Last ordered: 2 days ago (05/24/2023) by AISHWARYA James Gastroenterology: Antiulcer - Proton Pump Inhibitors Passed 05/26/2023 02:30 PM Protocol Details Valid encounter within last 12 months To be filled at: [id number] [place], [place] - [address] [facility] Recent Visits Date Type Provider Dept 05/24/23 Office Visit Kalpana Godwin FNP [facility] 03/05/23 Office Visit Lola Solis PA [facility] 01/12/23 Office Visit Kalpana Godwin FNP [facility] 10/07/22 Office Visit Kalpana Godwin FNP [facility] 07/29/22 Office Visit Kalpana Godwin FNP [facility] 07/07/22 Office Visit Kalpana Godwin FNP [facility] 06/02/22 Office Visit Kalpana Godwin FNP [facility] 05/19/22 Office Visit Kalpana Godwin FNP [facility] 04/06/22 Office Visit Cotta, Kalpana, CHIEF OPERATOR [facility] 01/27/22 Office Visit Kalpana Godwin, AISHWARYA [facility] Showing recent visits within past 540 days with a meds authorizing provider and meeting all other requirements Future Appointments No visits were found meeting these conditions. Showing future appointments within next 150 days with a meds authorizing provider and meeting all other requirements [facility] 2023-05-26 14:24:06 Formatting of this n ote might be different from the original. 90 Day Prescription Request for PANTROPRAZOLE 40MG Tab, original prescription sent in with quantity of 30. [facility] 2023-05-25 17:38:44 Formatting of this n ote might be different from the original. Duplicate encounter. Closing out. Alejandra Berry SPORT INTERN [facility] 2023-05-25 17:29:19 Formatting of this n ote is different from the original. Images from the original note were not included. Patient requesting to start Metformin discussed in office on 05/24/23. Please advise. Released Seen Back to Top Insulin level is elevated, we discussed starting metformin let me know is she is interested Alejandra Berry SPORT INTERN [facility] 2023-05-24 10:00:00 Formatting of this n ote is different from the original. Images from the original note were not included. Venipuncture collection performed by clean technique on the left anticubitus. Total of 2 attempts were made. Slight pressure and a bandage/dressing were applied to the site(s). The patient experienced no complications. The following specimens were processed according to instructions and sent to [facility] [facility] laboratories per lab order on today: LT BLUE SST 1 RED LAV PPT DK GREEN (LiHep) DK GREEN (SodH) PINEDA DK BLUE (K2) DK BLUE (S) ACD Blood Culture NIPT/NTD T [facility] [employer] 2021-07-02 12:20:37 Patient last seen 05/06/2021 Next visit 08/06/2021 Office notes state to continue Gabapentin. so refilled it [facility] [employer]
[2025-03-18 14:19] LABS: Absolute Eosinophils 0.2 K/uL (0-0.5); Absolute Lymphocytes (CBC) 2.2 K/uL (0.7-4.9); Absolute Monocytes 0.7 K/uL (0.1-1.3); Absolute Neutrophil 6.3 K/uL (1.8-8.0); Basophils % 0.4 % (0-1.3); Eosinophils % 1.6 % (0-4.4); Hematocrit 40.7 % (36.0-45.0); Hemoglobin 14.2 g/dL (12.0-15.0); Lymphocytes % 23.5 % (15.3-44.8); MCH 29.8 pg (27.0-35.0); MCHC 34.8 g/dL (32.0-36.0); MCV 85.5 fL (80-100); MPV 7.9 fL (7.6-11.3); Monocytes % 7.8 % (3.3-12.3); Neutrophils % 66.7 % (41.7-73.7); Platelets 256 thou/uL (152-406); RBC Red Blood Cell Count 4.76 M/uL (3.86-4.86); Red Cell Distribution Width 13.8 % (12.1-15.2)
[2025-03-18] MEDS ORDERED: METOPROLOL TAR 25 MG TAB ONE (14:30)
[2025-03-18] MEDS ORDERED: ASPIRIN 81 MG CHEWABLE TABLET ONE (14:31)
[2025-03-18] MEDS ORDERED: NA CHLORIDE 0.9% 500 ML ONE (14:31)
[2025-03-18 14:33] LABS: PT Prothrombin Time 12.1 SECONDS (10-13.0); Protime INR 1.06
[2025-03-18 14:40] LABS: Specific Gravity < 1.005 (1.005-1.030); Sqamous Epithelial <5 /HPF (None Seen); Urine Bacteria <20 /HPF (<20); Urine Bilirubin NEGATIVE (Negative); Urine Blood Negative (Negative); Urine Clarity Turbid (Clear); Urine Color Colorless (Yellow); Urine Culture Reflex Order NOT NEEDED; Urine Glucose NEGATIVE (Negative); Urine Ketones NEGATIVE (Negative); Urine Microscopic Reflex YN ORDER UMIC; Urine Nitrite NEGATIVE (Negative); Urine Protein NEGATIVE (Negative); Urine RBC <5 /HPF (None Seen); Urine Urobilinogen Normal (Normal); Urine WBC <5 /HPF (<5); Urine pH 7.5 (5.0-7.0)
[2025-03-18 14:45] LABS: ALT/SGPT 41 U/L (13-56); AST/SGOT 14 U/L (15-37); Albumin/Globulin Ratio 1.1 (1.1-1.8); Alkaline Phosphatase 105 U/L (45-117); Anion Gap 11.2 mEq/L (5.0-15.0); BUN Blood Urea Nitrogen 7 mg/dL (7-18); Bicarbonate 21 mEq/L (21-32); Bilirubin Total 0.4 mg/dL (0.2-1.0); Globulin 3.7 g/dL (2.3-3.5); Glomerular Filtration Rate 107 ml/min (=/>90); Glucose Level 135 mg/dL (74-106); Magnesium 2.3 mg/dL (1.6-2.4); Potassium 3.2 mEq/L (3.5-5.1); Protein, Total 7.7 g/dL (6.4-8.2); Sodium Level 139 mEq/L (136-145)
[2025-03-18 14:46] LABS: Bilirubin Direct < 0.2 mg/dL (0-0.2); Bilirubin Indirect, Calculated 0.2 mg/dL (0.2-0.8)
[2025-03-18 14:54] LABS: NT PRO-BNP 33 pg/mL (<125); Troponin High Sensitivity 5.2 pg/mL (<58.9)
--- NOTE | 2025-03-18 15:33 | RAD REPORT ---
EXAMINATION: ONE VIEW CHEST XR CLINICAL INDICATION: Female, 39 years old.,CHEST PAIN TECHNIQUE: Frontal chest projection is submitted. Examination is limited by patient positioning and t echnique. COMPARISON: 04/25/2019 FINDINGS: The lungs are well inflated and clear. No pneumothorax or sizable effusion. The heart is normal in s ize. Mediastinal contours are unremarkable. IMPRESSION: No acute intrathoracic abnormalities.
--- NOTE | 2025-03-18 17:24 | ER ---
Nurse's Notes [facility] Name: Sunshine Evans Age: 39 yrs Sex: Female : 1985 Arrival Date: 03/18/2025 Time: 13:50 Bed 20 Private MD: Diagnosis: Palpitations;Hypokalemia Presentation: 03/18 13:53 Chief complaint: Palpitations x 2 days, midsternal chest pain and SOB x 2 hours. me1 Coronavirus screen: At this time, the client does not indicate any symptoms associated with coronavirus-19. Ebola Screen: No symptoms or risks identified at this time. Initial Sepsis Screen: Does the patient meet any 2 criteria? No. Patient's initial sepsis screen is negative. Does the patient have a suspected source of infection? No. Patient's initial sepsis screen is negative. Risk Assessment: Do you want to hurt yourself or someone else? Patient reports no desire to harm self or others. Onset of symptoms was March 17, 2025. 13:53 Method Of Arrival: Ambulatory wv1 13:53 Acuity: MIRANDA 2 me1 Historical: - Allergies: 13:55 Zithromax; me1 13:55 Macrobid; me1 13:55 Latex; me1 13:55 amoxicillin-pot clavulanate; me1 - PMHx: 13:55 Anxiety; Vistibular Migrains; me1 - PSHx: 13:55 section; Cholecystectomy; hysterectomy; me1 - Immunization history:: Adult Immunizations up to date. - Infectious Disease History:: Denies. - Social history:: Smoking status: Patient denies any tobacco usage or history of. - Family history:: not pertinent. Screenin:18 [facility] ED Fall Risk Assessment (Adult) History of falling in the last 3 months, kc6 including since admission No falls in past 3 months (0 pts) Confusion or Disorientation No (0 pts) Intoxicated or Sedated No (0 pts) Impaired Gait No (0 pts) Mobility Assist Device Used No (0 pt) Altered Elimination No (0 pt) Score/Fall Risk Level 0 - 2 = Low Risk Oriented to surroundings. Abuse screen: Denies threats or abuse. Denies injuries from another. Nutritional screening: No deficits noted. Tuberculosis screening: No symptoms or risk factors identified. Assessment: 14:18 General: Appears in no apparent distress. uncomfortable, well groomed, well developed, kc6 Behavior is cooperative, appropriate for age, anxious. Pain: Complains of pain in chest Pain radiates to left arm Pain began 2-3 days ago. Is intermittent. Neuro: Level of Consciousness is awake, alert, obeys commands, Oriented to person, place, time, situation, Appropriate for age. Cardiovascular: Reports chest pain, palpitations, shortness of breath, Heart tones S1 S2 present Capillary refill < 3 seconds Rhythm is sinus rhythm with unifocal PVCs. Respiratory: Airway is patent Trachea midline Respiratory effort is even, unlabored, Respiratory pattern is regular, symmetrical, Denies cough. GI: No signs and/or symptoms were reported involving the gastrointestinal system. : No signs and/or symptoms were reported regarding the genitourinary system. EENT: No signs and/or symptoms were reported regarding the EENT system. Derm: No signs and/or symptoms reported regarding the dermatologic system. Skin is intact, is healthy with good turgor, Skin is pink, warm \T\ dry. Musculoskeletal: No signs and/or symptoms reported regarding the musculoskeletal system. Circulation, motion, and sensation intact. Range of motion: intact in all extremities. 15:21 Reassessment: Patient appears in no apparent distress at this time. No changes from kc6 previously documented assessment. Patient and/or family updated on plan of care and expected duration. Pain level reassessed. Patient is alert, oriented x 3, equal unlabored respirations, skin warm/dry/pink. 16:29 Reassessment: Patient appears in no apparent distress at this time. No changes from kc6 previously documented assessment. Patient and/or family updated on plan of care and expected duration. Pain level reassessed. Patient is alert, oriented x 3, equal unlabored respirations, skin warm/dry/pink. 17:29 Reassessment: Patient appears in no apparent distress at this time. No changes from kc6 previously documented assessment. Patient and/or family updated on plan of care and expected duration. Pain level reassessed. Patient is alert, oriented x 3, equal unlabored respirations, skin warm/dry/pink. 18:40 Reassessment: Patient appears in no apparent distress at this time. No changes from kc6 previously documented assessment. Patient and/or family updated on plan of care and expected duration. Pain level reassessed. Patient is alert, oriented x 3, equal unlabored respirations, skin warm/dry/pink. Vital Signs: 13:53 BP 164 / 87; Pulse 112; Resp 18; Temp 97.9; Pulse Ox 100% on R/A; Weight 97.52 kg; me1 Height 5 ft. 6 in. ; Pain 5/10; 14:19 Pulse 80; kc6 15:21 BP 138 / 71; Pulse 70; Resp 20 S; Pulse Ox 95% on R/A; kc6 16:50 BP 112 / 62; Pulse 68; Resp 14 S; Pulse Ox 100% on R/A; kc6 18:40 BP 131 / 72; Pulse 65; Resp 18 S; Pulse Ox 99% on R/A; kc6 13:53 Body Mass Index 34.70 (97.52 kg, 167.64 cm) wv1 13:53 Pain Scale: Adult [facility] ED Course: 13:52 Patient arrived in ED. im 13:55 Triage completed. wv1 13:56 Arm band placed on. wv1 13:57 Vishal Sanchez MD is Attending Physician. [facility] 14:17 Christin Goodman, RN is Primary Nurse. [facility] 14:18 Patient has correct armband on for positive identification. Bed in low position. Call [facility] light in reach. Side rails up X2. Adult w/ patient. radio news writer on. Pulse ox on. NIBP on. Door closed. Noise minimized. Lights dimmed. Warm blanket given. Pillow given. Verbal reassurance given. 14:18 Initial lab(s) drawn, by wv, sent to lab. Urine collected: clean catch specimen, clear, [facility] EKG done, by ED staff, reviewed by Vishal Sanchez MD. Inserted saline lock: 18 gauge in right antecubital area, using aseptic technique. Blood collected. Flushed with 10 mL NS. Patient maintains SpO2 saturation greater than 95% on room air. 15:00 XRAY Chest (1 view) In Process Unspecified. EDMS 17:24 Malcolm Nettles MD is Referral Physician. saulo 17:47 Troponin High Sensitivity Sent. kc 17:48 Diet: Patient given water. Tolerated well. [facility] 17:48 Lab(s) recollected, by wv, sent to lab. EKG done, by ED staff, reviewed by Vishal Sanchez MD. 18:40 No provider procedures requiring assistance completed. IV discontinued, intact, kc6 bleeding controlled, No redness/swelling at site. Pressure dressing applied. Administered Medications: 14:37 Drug: Aspirin PO Chewable Tablet 324 mg PO once; 81 mg tablets x 4 Route: PO; kc6 15:22 Follow up: Response: No adverse reaction kc6 14:37 Drug: Metoprolol PO 25 mg PO once Route: PO; kc6 15:22 Follow up: Response: No adverse reaction; Blood pressure is lowered kc6 14:37 Drug: NS 0.9% IV 500 ml 500 ml IV at 1 bolus once; to be given as a bolus over 30 kc6 minutes Volume: 500 ml; Route: IV; Rate: 1 bolus; Site: right antecubital; 15:22 Follow up: Response: No adverse reaction; IV Status: Completed infusion; IV Intake: kc6 500ml 17:47 Drug: Potassium PO Effervescent Tablet 50 mEq PO once; dissolve in 4 ounces of water or kc6 juice Route: PO; Medication: 18:40 VIS not applicable for this client. kc6 Intake: 15:22 IV: 500ml; Total: 500ml. kc6 Outcome: 17:24 Discharge ordered by MD. vernon 18:40 Discharged to home ambulatory, with significant other, [facility] 18:40 Condition: improved 18:40 Discharge instructions given to patient, significant other, Instructed on discharge instructions, follow up and referral plans. medication usage, Demonstrated understanding of instructions, follow-up care, medications, Prescriptions given X 1, 18:40 Patient left the ED. kc6 Signatures: Dispatcher [employer] Vishal Pearson MD MD cha Campbell, Kaitlyn RN RN kc6 Palak Renteria Michelle, RN RN me1 Corrections: (The following items were deleted from the chart) 13:56 13:55 Allergies: Albuterol; me1 me1
--- NOTE | 2025-03-18 17:24 | EDPHYS ---
Physician Documentation [facility] Name: Sunshine Evans Age: 39 yrs Sex: Female : 1985 Arrival Date: 03/18/2025 Time: 13:50 Bed 20 Private MD: ED Physician Vishal Sanchez HPI: 03/18 17:19 This 39 yrs old Female presents to ER via Ambulatory with complaints of saulo Palpitations, Chest Pain, Neck Pain, <24hrs Old, Shortness Of Breath. 17:19 The patient presents with a history of irregular heart beat, heart racing, heart saulo skipping beats. Context: The symptoms occur at rest. Onset: The symptoms/episode began/occurred 5 day(s) ago. Duration: The patient or guardian reports multiple episodes, that wax and wane. Modifying factors: The symptoms are aggravated by nothing. The symptoms are alleviated by nothing. Associated signs and symptoms: Pertinent positives: SOB. Severity of symptoms: At their worst the symptoms were very mild in the emergency department the symptoms have improved moderately. The patient has experienced similar episodes in the past, multiple times. Historical: - Allergies: 13:55 Zithromax; me1 13:55 Macrobid; me1 13:55 Latex; me1 13:55 amoxicillin-pot clavulanate; me1 - PMHx: 13:55 Anxiety; Vistibular Migrains; me1 - PSHx: 13:55 section; Cholecystectomy; hysterectomy; me1 - Immunization history:: Adult Immunizations up to date. - Infectious Disease History:: Denies. - Social history:: Smoking status: Patient denies any tobacco usage or history of. - Family history:: not pertinent. ROS: 17:19 Constitutional: Negative for fever, chills, and weight loss, Eyes: Negative for injury, saulo pain, redness, and discharge, ENT: Negative for injury, pain, and discharge, Neck: Negative for injury, pain, and swelling, Respiratory: Negative for shortness of breath, cough, wheezing, and pleuritic chest pain, Abdomen/GI: Negative for abdominal pain, nausea, vomiting, diarrhea, and constipation, Back: Negative for injury and pain, : Negative for injury, bleeding, discharge, and swelling, MS/Extremity: Negative for injury and deformity, Skin: Negative for injury, rash, and discoloration, Neuro: Negative for headache, weakness, numbness, tingling, and seizure, Psych: Negative for depression, anxiety, suicide ideation, homicidal ideation, and hallucinations, Allergy/Immunology: Negative for hives, rash, and allergies, Endocrine: Negative for neck swelling, polydipsia, polyuria, polyphagia, and marked weight changes, Hematologic/Lymphatic: Negative for swollen nodes, abnormal bleeding, and unusual bruising, 17:19 Cardiovascular: Positive for palpitations, Exam: 17:21 Constitutional: This is a well developed, well nourished patient who is awake, alert, saulo and in no acute distress. Head/Face: Normocephalic, atraumatic. Eyes: Pupils equal round and reactive to light, extra-ocular motions intact. Lids and lashes normal. Conjunctiva and sclera are non-icteric and not injected. Cornea within normal limits. Periorbital areas with no swelling, redness, or edema. ENT: Nares patent. No nasal discharge, no septal abnormalities noted. Tympanic membranes are normal and external auditory canals are clear. Oropharynx with no redness, swelling, or masses, exudates, or evidence of obstruction, uvula midline. Mucous membranes moist. Neck: Trachea midline, no thyromegaly or masses palpated, and no cervical lymphadenopathy. Supple, full range of motion without nuchal rigidity, or vertebral point tenderness. No Meningismus. Chest/axilla: Normal chest wall appearance and motion. Nontender with no deformity. No lesions are appreciated. Cardiovascular: Regular rate and rhythm with a normal S1 and S2. No gallops, murmurs, or rubs. Normal PMI, no JVD. No pulse deficits. Respiratory: Lungs have equal breath sounds bilaterally, clear to auscultation and percussion. No rales, rhonchi or wheezes noted. No increased work of breathing, no retractions or nasal flaring. Abdomen/GI: Soft, non-tender, with normal bowel sounds. No distension or tympany. No guarding or rebound. No evidence of tenderness throughout. Back: No spinal tenderness. No costovertebral tenderness. Full range of motion. Skin: Warm, dry with normal turgor. Normal color with no rashes, no lesions, and no evidence of cellulitis. MS/ Extremity: Pulses equal, no cyanosis. Neurovascular intact. Full, normal range of motion., bilateral aka Neuro: Awake and alert, GCS 15, oriented to person, place, time, and situation. Cranial nerves II-XII grossly intact. Motor strength 5/5 in all extremities. Sensory grossly intact. Cerebellar exam normal. Normal gait. Psych: Awake, alert, with orientation to person, place and time. Behavior, mood, and affect are within normal limits. 17:21 ECG was reviewed by the Attending Physician. 17:21 Musculoskeletal/extremity: DVT Exam: No signs of deep vein thrombosis. no pain, no swelling, no tenderness, negative Homans' sign noted on exam, no appreciated bluish discoloration, no erythema, no increased warmth, 18:12 ECG was reviewed by the Attending Physician. [facility] Vital Signs: 13:53 BP 164 / 87; Pulse 112; Resp 18; Temp 97.9; Pulse Ox 100% on R/A; Weight 97.52 kg; me1 Height 5 ft. 6 in. ; Pain 5/10; 14:19 Pulse 80; kc6 15:21 BP 138 / 71; Pulse 70; Resp 20 S; Pulse Ox 95% on R/A; kc6 16:50 BP 112 / 62; Pulse 68; Resp 14 S; Pulse Ox 100% on R/A; kc6 18:40 BP 131 / 72; Pulse 65; Resp 18 S; Pulse Ox 99% on R/A; kc6 13:53 Body Mass Index 34.70 (97.52 kg, 167.64 cm) me1 13:53 Pain Scale: Adult me1 MDM: 13:57 Medical Screening Exam initiated [facility] 17:22 NATHANAEL Risk Score: Total Score = 0. Differential diagnosis: arrythmia, dehydration, saulo stress disorder. Data reviewed: vital signs, nurses notes, lab test result(s), EKG, radiologic studies, plain films. Consideration of Admission/Observation Escalation of care including admission/observation considered. I considered the following discharge prescriptions or medication management in the emergency department Medications were administered in the Emergency Department. See MAR. Independent interpretation of the following test(s) in the Emergency Department EKG: See my EKG interpretation above. Test considered but Not performed: Ultrasound no 2 d echo. Care significantly affected by the following chronic conditions: Obesity. 03/18 13:59 Order name: Basic Metabolic Panel; Complete Time: 17:13 [facility] 03/18 13:59 Order name: CBC with Diff; Complete Time: 17:13 03/18 13:59 Order name: LFT's; Complete Time: 17:13 03/18 13:59 Order name: Magnesium; Complete Time: 17:13 03/18 13:59 Order name: NT PRO-BNP; Complete Time: 17:13 03/18 13:59 Order name: PT-INR; Complete Time: 17:13 03/18 13:59 Order name: Troponin HS; Complete Time: 17:13 03/18 13:59 Order name: TSH; Complete Time: 17:13 03/18 13:59 Order name: UA Rfx Nate Cult if indicated; Complete Time: 17:13 03/18 17:19 Order name: Troponin High Sensitivity 03/18 13:59 Order name: XRAY Chest (1 view); Complete Time: 17:13 03/18 13:59 Order name: EKG; Complete Time: 14:00 03/18 17:21 Order name: EKG; Complete Time: 17:22 03/18 13:59 Order name: Cardiac monitoring; Complete Time: 14:18 03/18 13:59 Order name: EKG - Nurse/Tech; Complete Time: 14:18 03/18 13:59 Order name: IV Saline Lock; Complete Time: 14:18 03/18 13:59 Order name: Labs collected and sent; Complete Time: 14:18 03/18 13:59 Order name: O2 Per Protocol; Complete Time: 14:18 03/18 13:59 Order name: O2 Sat Monitoring; Complete Time: 14:18 03/18 17:21 Order name: EKG - Nurse/Tech; Complete Time: 17:47 [facility] EC:21 Rate is 105 beats/min. Rhythm is regular. QRS [place] is Normal. SC interval is normal. saulo QRS interval is normal. QT interval is normal. No Q waves. T waves are Normal. No ST changes noted. Clinical impression: NSR w/ Non-specific ST/T Changes and No evidence of ischemia. Interpreted by me. Reviewed by me. 18:12 Rate is 65 beats/min. Rhythm is regular. QRS [place] is Normal. SC interval is normal. QRS saulo interval is normal. QT interval is normal. No Q waves. T waves are Normal. No ST changes noted. Clinical impression: Normal ECG and No evidence of ischemia. Interpreted by me. Reviewed by me. Administered Medications: 14:37 Drug: Aspirin PO Chewable Tablet 324 mg PO once; 81 mg tablets x 4 Route: PO; kc6 15:22 Follow up: Response: No adverse reaction kc6 14:37 Drug: Metoprolol PO 25 mg PO once Route: PO; kc6 15:22 Follow up: Response: No adverse reaction; Blood pressure is lowered [facility] 14:37 Drug: NS 0.9% IV 500 ml 500 ml IV at 1 bolus once; to be given as a bolus over 30 kc6 minutes Volume: 500 ml; Route: IV; Rate: 1 bolus; Site: right antecubital; 15:22 Follow up: Response: No adverse reaction; IV Status: Completed infusion; IV Intake: kc6 500ml 17:47 Drug: Potassium PO Effervescent Tablet 50 mEq PO once; dissolve in 4 ounces of water or kc6 juice Route: PO; Disposition Summary: 03/18/25 17:24 Discharge Ordered Notes: Location: Home saulo Problem: new saulo Symptoms: have improved saulo Condition: Stable saulo Diagnosis - Palpitations saulo - Hypokalemia saulo Followup: saulo - With: Private Physician - When: 2 - 3 days - Reason: Recheck today's complaints, Continuance of care, Re-evaluation by your physician Followup: saulo - With: Malcolm Nettles MD - When: 2 - 3 days - Reason: Recheck today's complaints, Continuance of care, Re-evaluation by your physician Discharge Instructions: - Discharge Summary Sheet saulo - Potassium Content of Foods saulo - Palpitations saulo - Aspirin and Your Heart saulo - Palpitations, [id number] saulo - Hypokalemia saulo Forms: - Medication Reconciliation Form saulo - Antibiotic Education saulo - Prescription Opioid Use saulo - Patient Portal Instructions saulo - Leadership Thank You Letter [facility] Prescriptions: - Toprol XL 25 mg Oral Tablet - take 1 tablet ORAL route once daily; 20 tablet; Refills: 0, Product Selection saulo Permitted Signatures: Dispatcher [employer] Vishal Pearson MD MD cha Campbell, Kaitlyn RN RN kc6 Lore Dejesus RN RN me1 Corrections: (The following items were deleted from the chart) 13:56 13:55 Allergies: Albuterol; me1 me1
[2025-03-18] MEDS ORDERED: POTASSIUM 25 MEQ EFFERV TAB ONE (17:28)
[2025-03-18 18:55] VITALS: TEMP 97.9
[2025-03-18 19:01] VITALS: BP 131/72; O2SAT 99
--- NOTE | 2025-03-20 12:22 | EKG ---
Test Date: 2025-03-18 Test Time: 17:42:05 Central Lab Technician: SHARON MEASUREMENT RESULTS: Intervals: Rate: 65 MD: 156 QRSD: 80 QT: 388 QTc: 403 [place]: P: 50 MD: 156 QRS: 61 T: 41 INTERPRETIVE STATEMENTS: Normal sinus rhythm Normal ECG Compared to ECG 03/18/2025 14:03:36 Sinus tachycardia no longer present Ventricular premature complex(es) no longer present Electronically Signed On 03-20-25 12:18:24 CDT by Son Boyer
--- NOTE | 2025-03-20 12:23 | EKG ---
Test Date: 2025-03-18 Test Time: 14:03:36 Regeneration Operator: HB MEASUREMENT RESULTS: Intervals: Rate: 105 MA: 152 QRSD: 84 QT: 336 QTc: 444 [place]: P: 70 MA: 152 QRS: 65 T: 49 INTERPRETIVE STATEMENTS: Sinus tachycardia with occasional premature ventricular complexes Possible Left atrial enlargement Borderline ECG Compared to ECG 04/25/2019 19:29:50 Ventricular premature complex(es) now present Sinus rhythm no longer present Electronically Signed On 03-20-25 12:19:21 CDT by Son Boyer
== END 2025-03-18 18:40 | disposition home or self-care (01) ==
LOC: ER 13:50
DX: E87.6 Hypokalemia (principal); F41.9 Anxiety disorder, unspecified
CPT/HCPCS: 93005 ×2; 85025; 81001; 80048; 36415; 83735; 85610; 80076; 84443; 84484 ×2; 83880; 71045; 96360; 99285; J7040